=== PATIENT | female | born 1955 | race Caucasian/White ===

== ENCOUNTER 2016-11-11 09:59 | Outpatient (CLI) | payer MEDICARE, MEDICAID ==
[2016-11-11] MEDS ORDERED: IOPAMIDOL-300 100 ML VIAL IVP ONE (11:50)
[2016-11-11] MEDS ORDERED: IOPAMIDOL-300 50 ML VIAL PO ONE (11:50)
== END 2016-11-11 10:00 | disposition home or self-care (01) ==
DX: C50.911 Malignant neoplasm of unspecified site of right female breast (principal); C79.51 Secondary malignant neoplasm of bone; R16.1 Splenomegaly, not elsewhere classified

== ENCOUNTER 2017-05-23 08:10 | Outpatient (CLI) | payer MEDICARE, MEDICAID ==
[2017-05-23 08:49] LABS: CALCIUM 9.2 mg/dL (8.5-10.3); CREATININE 0.8 mg/dL (0.4-1.0); POTASSIUM 4.3 mmol/L (3.5-5.0)
[2017-05-23 08:58] LABS: HEMOGLOBIN A1C 1.02 g/dL
== END 2017-05-23 08:11 | disposition home or self-care (01) ==
LOC: LAB 08:10
PROVIDERS: ATTEND Internal Medicine
DX: E11.9 Type 2 diabetes mellitus without complications (principal); Z79.899 Other long term (current) drug therapy
CPT/HCPCS: 36415; 80048; 83036

== ENCOUNTER 2018-04-27 10:32 | Outpatient (CLI) | payer MEDICARE, MEDICAID ==
[2018-04-27] MEDS ORDERED: IOPAMIDOL-300 50 ML VIAL ONE (10:41)
[2018-04-27] MEDS ORDERED: IOPAMIDOL-300 100 ML VIAL ONE (10:41)
--- NOTE | 2018-04-27 13:48 | CT Report ---
Reason: R BREAST CANCER Procedure Date: 04/27/2018 Accession Number: [id number] / [id number] Procedure: CT - Chest W/ CPT Code: FULL RESULT: EXAM: CT CHEST EXAM DATE: 04/27/2018 12:10 PM. CLINICAL HISTORY: R BREAST CANCER. COMPARISONS: 05/21/2017. TECHNIQUE: Routine helical CT imaging was performed through the chest. IV contrast: 100 cc Isovue-300. Reconstructions: Coronal and sagittal. In accordance with CT protocol optimization, one or more of the following dose reduction techniques were utilized for this exam: automated exposure control, adjustment of mA and/or KV based on patient size, or use of iterative reconstructive technique. FINDINGS: Lungs/Pleura: No nodules, bronchial thickening, consolidation, or edema. Pulmonary vasculature is normal. No pericardial or pleural effusion. No pneumothorax. Mediastinum: Normal. No adenopathy or masses. The heart and great vessels are normal. Bones: Fracture of T9 with sclerotic and lucent regions appear similar. Areas of sclerosis in T10 without fracture. T11 left-sided sclerosis increased T12 sclerotic foci left with adjacent lucency similar. T3 possible hemangioma similar. Possible areas of sclerosis T4-T8. Other: Right breast clips IMPRESSION: 1. T9 fracture with sclerotic lytic region similar. 2. Other areas of sclerosis maybe increased in other thoracic vertebral bodies RADIA
--- NOTE | 2018-04-27 13:49 | CT Report ---
Reason: R BREAST CANCER Procedure Date: 04/27/2018 Accession Number: [id number] / [id number] Procedure: CT - Abdomen/Pelvis W/ CPT Code: FULL RESULT: EXAM: CT ABDOMEN AND PELVIS EXAM DATE: 04/27/2018 12:10 PM. CLINICAL HISTORY: R BREAST CANCER. COMPARISONS: 05/21/2017. TECHNIQUE: Routine helical CT imaging was performed through the abdomen and pelvis. IV contrast: ISOVUE 300 100mL. Enteric contrast: No. Reconstructions: Coronal and sagittal. In accordance with CT protocol optimization, one or more of the following dose reduction techniques were utilized for this exam: automated exposure control, adjustment of mA and/or KV based on patient size, or use of iterative reconstructive technique. FINDINGS: Liver: Fatty infiltrated Gallbladder/Bile Ducts: Cholelithiasis Spleen: Enlarged 16 cm Pancreas: Fatty infiltrated Adrenal Glands: Normal. Kidneys: Right kidney unremarkable. Left renal cyst Peritoneal Cavity/Bowel: No free fluid, free air or adenopathy. No masses or acute inflammatory process. Pelvic Organs: Normal. The bladder and visualized pelvic organs are within normal limits. Vasculature: No aneurysms or other significant abnormality. Bones: Sclerosis in L2 vertebral body. Possible sclerosis L4 Areas of sclerosis bilateral iliac medially Other: None. IMPRESSION: 1. Splenomegaly. 2. Increasing sclerosis in lumbar vertebral bodies. Areas of sclerosis bilateral ilium. 3. Cholelithiasis RADIA
[2018-04-27] MEDS ORDERED: IOPAMIDOL-300 100 ML VIAL IVP ONE (16:34)
[2018-04-27] MEDS ORDERED: IOPAMIDOL-300 50 ML VIAL PO ONE (16:34)
--- NOTE | 2018-04-28 11:26 | Nuclear Medicine Report ---
Reason: R BREAST CANCER Procedure Date: 04/27/2018 Accession Number: [id number] / [id number] Procedure: NM - Bone Whole Body CPT Code: FULL RESULT: EXAM: BONE SCAN EXAM DATE: 04/27/2018 03:37 PM. CLINICAL HISTORY: R BREAST CANCER. COMPARISON: Chest abdomen and pelvis CT, same day. Bone scan 11/11/2016. TECHNIQUE: Following the intravenous administration of 33.7 mCi of technetium 99m MDP and an appropriate delay, a whole-body scan was performed in anterior and posterior projections. FINDINGS: Exam Quality: Normal overall osseous radiotracer uptake. Physiological tracer uptake in bilateral collecting systems. Skull: No focal uptake. Thorax: There is a new small focus of increased uptake on the right side of the upper sternum. There may be very subtle bilateral rib lesions. Pelvis: There are new foci of increased uptake in right and left proximal femur, left acetabulum, and upper right posterior iliac bone. Spine: There is more intense uptake in T9 and T10. There are new foci of moderate to intensely increased uptake in the lower thoracic and upper lumbar spine. IMPRESSION: Multifocal skeletal metastatic disease, increased compared to prior bone scan. RADIA
== END 2018-04-27 10:33 | disposition home or self-care (01) ==
LOC: DI 10:32
PROVIDERS: ATTEND Internal Medicine Hematology & Oncology
DX: C50.911 Malignant neoplasm of unspecified site of right female breast (principal); C79.51 Secondary malignant neoplasm of bone; R16.1 Splenomegaly, not elsewhere classified; K80.20 Calculus of gallbladder without cholecystitis without obstruction
CPT/HCPCS: 71260; 74177; 78306

== ENCOUNTER 2018-05-08 17:04 | Outpatient (CLI) | payer MEDICARE, MEDICAID | END 2018-05-08 17:05 | disposition critical access hospital (66) | LOC: EMS 17:04 | PROVIDERS: ATTEND Surgery | DX: R10.9 Unspecified abdominal pain (principal); R11.10 Vomiting, unspecified | CPT/HCPCS: A0425; A0427 ==

== ENCOUNTER 2018-05-08 17:08 | Inpatient (IN) | payer MEDICARE, MEDICAID ==
--- NOTE | 2018-05-08 17:21 | ED Physician Documentation ---
PD HPI ABD PAIN - Stated complaint Stated Complaint: ABD PX - Chief complaint Chief Complaint: Abd Pain - History obtained from History obtained from: Patient - History of Present Illness Timing - onset: Yesterday Timing - details: Gradual onset, Still present (She states she had some loose stools several days ago without overt diarrhea. She then had had firm stool for the last several days and has noticed upper abdominal cramping and fullness starting yesterday and worse into today. She states she has not been able to eat or drink the last couple of days because it causes cramping in the upper abdomen in particular. She is having repetitive vomiting today associated with worse pain.) Quality: Cramping, Aching, Fullness/distended, Pain Location: All over / everywhere (but more in the upper abd.) Radiation: Upper back Improved by: Vomiting. No: Eating Worsened by: Eating, Palpation Associated symptoms: Nausea, Vomiting, Constipation (formed stool with feeling of needing to have BM the past few days.). No: Fever, Dysuria, Chest pain Similar symptoms before: Has not had sx before Review of Systems Constitutional: denies: Fever, Chills, Myalgias Nose: denies: Rhinorrhea / runny nose, Congestion Throat: denies: Sore throat Cardiac: denies: Chest pain / pressure Respiratory: denies: Dyspnea, Cough GI: reports: Abdominal Pain, Abdominal Swelling (mostly upper abd), Nausea, Vomiting. denies: Bloody / black stool : denies: Dysuria, Frequency Skin: denies: Rash, Lesions PD PAST MEDICAL HISTORY - Past Medical History Past Medical History: Yes Cardiovascular: Hypertension Respiratory: Sleep apnea, CPAP use Endocrine/Autoimmune: Type 2 diabetes GI: GERD, Hiatal hernia, Cholelithiasis RN CARDIOVASCULAR: Breast cancer : Incontinence HEENT: None Psych: Depression, Anxiety Musculoskeletal: Osteoarthritis, Other Derm: None - Past Surgical History Past Surgical History: Yes General: Colonoscopy /RN CARDIOVASCULAR: Endometrial ablation, Other - Present Medications Home Medications: Ambulatory Orders Medication Instructions Recorded Confirmed Calcium Carbonate [Calcium] 500 mg PO DAILY 04/04/15 04/06/18 Denosumab [Xgeva] 120 mg SUBQ Q28D 04/04/15 04/06/18 Biotin 5,000 mcg PO DAILY 10/16/15 04/06/18 clonazePAM [Clonazepam] 2 mg PO QPM 04/08/16 04/06/18 Tamoxifen 10 mg PO DAILY 06/02/17 04/06/18 Metformin HCl 1,000 mg PO BID 05/04/18 05/04/18 - Allergies Allergies/Adverse Reactions: Allergies Allergy/AdvReac Type Severity Reaction Status Date / Time oxycodone HCl * Allergy Mild itch Verified 05/04/18 10:47 [From Percocet] doxycycline Allergy Nausea Verified 05/04/18 10:47 - Social History Does the pt smoke?: No Smoking Status: Never smoker Does the pt drink ETOH?: No Does the pt have substance abuse?: No - Immunizations Immunizations are current?: Yes - POLST Patient has POLST: No PD ED PE NORMAL - Vitals Vital signs reviewed: Yes - General General: Alert and oriented X 3, Well developed/nourished, Other (appears in pain) - HEENT HEENT: Pharynx benign. No: Moist mucous membranes - Neck Neck: Supple, no meningeal sign, No adenopathy - Cardiac Cardiac: RRR, No murmur - Respiratory Respiratory: Clear bilaterally - Abdomen Abdomen: Soft, No organomegaly, Other (moderately distended with hyperactive BSs. Very tender upper abd; moderately tender mid abd. Not tender suprapubic per se. ). No: Normal bowel sounds - Female Female : No: Deferred - Rectal Rectal: Other (mild soft stool in vault; no impaction. Guiac negative. ) - Back Back: No CVA TTP - Derm Derm: Warm and dry. No: Normal color (some pallor) - Extremities Extremities: No deformity, No tenderness to palpate, No edema, No calf tenderness / cord - Neuro Neuro: Alert and oriented X 3, No motor deficit, Normal speech Results - Vitals Vitals: Vital Signs - 24 hr 05/08/18 05/08/18 05/08/18 17:09 18:30 19:25 Temperature 36.6 C 37.0 C Heart Rate 76 72 77 Respiratory 18 16 18 Rate Blood Pressure 141/68 H 122/73 O2 Saturation 97 97 96 Oxygen O2 Source Room air - Labs Labs: Laboratory Tests 05/08/18 05/08/18 05/08/18 17:55 17:55 17:55 WBC 2.7 L RBC 4.51 Hgb 12.4 Hct 36.0 L MCV 79.8 L MCH 27.5 MCHC 34.5 RDW 16.8 H Plt Count 121 L MPV 7.7 L Neut # (Auto) Not Reportable Lymph # (Auto) Not Reportable Nuckolls # (Auto) Not Reportable Eos # (Auto) Not Reportable Baso # (Auto) Not Reportable Absolute Nucleated RBC Not Reportable Total Counted 100 Band Neuts % (Manual) 4 Abnorm Lymph % (Manual) 0 Nucleated RBC % Not Reportable Neutrophils # (Manual) 2.2 Lymphocytes # (Manual) 0.2 L Monocytes # (Manual) 0.1 Eosinophils # (Manual) 0.0 Basophils # (Manual) 0.1 Differential Comment MANUAL DIFFERENTIAL Manual Slide Review Indicated Platelet Estimate DECREASED (<130,000) Platelet Morphology NORMAL APPEARANCE RBC Morph Micro Appear NORMAL APPEARANCE Sodium 135 Potassium 4.2 Chloride 100 L Carbon Dioxide 25 Anion Gap 10.0 BUN 11 Creatinine 0.8 Estimated GFR (MDRD) 72 L Glucose 309 H Lactic Acid 1.4 Calcium 8.9 Phosphorus Magnesium 1.8 Total Bilirubin 1.1 H AST 43 H ALT 46 Alkaline Phosphatase 49 Total Protein 6.6 L Albumin 3.5 Globulin 3.1 Albumin/Globulin Ratio 1.1 Lipase 18 L 05/08/18 17:55 WBC RBC Hgb Hct MCV MCH MCHC RDW Plt Count MPV Neut # (Auto) Lymph # (Auto) N[place]olls # (Auto) Eos # (Auto) Baso # (Auto) Absolute Nucleated RBC Total Counted Band Neuts % (Manual) Abnorm Lymph % (Manual) Nucleated RBC % Neutrophils # (Manual) Lymphocytes # (Manual) Monocytes # (Manual) Eosinophils # (Manual) Basophils # (Manual) Differential Comment Manual Slide Review Platelet Estimate Platelet Morphology RBC Morph Micro Appear Sodium Potassium Chloride Carbon Dioxide Anion Gap BUN Creatinine Estimated GFR (MDRD) Glucose Lactic Acid Calcium Phosphorus 3.6 Magnesium Total Bilirubin AST ALT Alkaline Phosphatase Total Protein Albumin Globulin Albumin/Globulin Ratio Lipase - Rads (name of study) abd/pelvis CT Radiology: Prelim report reviewed (acute cholecystitis with gallstone ileus.), EMP read contemporaneously PD MEDICAL DECISION MAKING - ED course Complexity details: reviewed results, re-evaluated patient (Improving pain with IV medications. She is still operator brandy in the upper abdomen. She is not having any vomiting now at this time.), considered differential (Concern for gallbladder versus pancreatitis versus acute bowel obstruction or ileus. She is distended with vomiting. She is tender in the upper abdomen mainly. We will do blood tests and CT scan. Worrisome would be her comorbidities of the breast cancer and bone marrow suppression. We will check her blood count and platelet count.), d/w patient, d/w independent consultant (eRnaldo Burt, surgery, who will see patient in the ER. ) Departure - Departure Disposition: 66 [facility] DC/Xfer Clinical Impression: Gallstone ileus of small intestine, Cholecystitis Abdominal pain Qualifiers: Abdominal location: upper abdomen, unspecified Qualified Code(s): R10.10 - Upper abdominal pain, unspecified Vomiting Qualifiers: Vomiting type: unspecified Vomiting Intractability: non-intractable Nausea presence: with nausea Qualified Code(s): R11.2 - Nausea with vomiting, unspecified Condition: Stable Record reviewed to determine appropriate education?: Yes
[2018-05-08] MEDS ORDERED: HYDROmorphone 1 MG/ML CARPUJECT IVP STA ×2 (17:37→18:19)
[2018-05-08] MEDS ORDERED: ONDANSETRON 4 MG/2 ML VIAL IVP STA (17:37)
[2018-05-08] MEDS ORDERED: SODIUM CHLORIDE 0.9% 1,000 ML IV ONE (17:37)
[2018-05-08 18:02] LABS: BASOPHILS % (AUTO) 0.8 %; EOSINOPHILS % (AUTO) 2.8 %; HGB - HEMOGLOBIN 12.4 g/dL (12.0-16.0); LYMPHOCYTES % (AUTO) 10.1 %; MEAN CORPUSCULAR HEMOGLOBIN 27.5 pg (27.0-31.0); MEAN CORPUSCULAR HGB CONC 34.5 g/dL (32.0-36.0); MEAN CORPUSCULAR VOLUME 79.8 fL (81.0-99.0); MEAN PLATELET VOLUME 7.7 fL (7.9-10.8); MONOCYTES % (AUTO) 5.7 %; NEUTROPHILS % (AUTO) 80.6 %; PLT - PLATELET COUNT 121 10^3/uL (130-450); RED BLOOD COUNT 4.51 10^6/uL (4.20-5.40); RED CELL DISTRIBUTION WIDTH 16.8 % (12.0-15.0); WHITE BLOOD COUNT 2.7 x10^3/uL (4.8-10.8)
[2018-05-08 18:08] LABS: ABNORMAL LYMPHS % (MANUAL) 0 %
[2018-05-08] MEDS ORDERED: IOPAMIDOL-300 100 ML VIAL ONE (18:14)
[2018-05-08 18:16] LABS: ALBUMIN 3.5 g/dL (3.2-5.5); ALBUMIN/GLOBULIN RATIO 1.1 (1.0-2.2); BILIRUBIN,TOTAL 1.1 mg/dL (0.2-1.0); CALCIUM 8.9 mg/dL (8.5-10.3); CREATININE 0.8 mg/dL (0.4-1.0); MAGNESIUM 1.8 mg/dL (1.7-2.8); TOTAL PROTEIN 6.6 g/dL (6.7-8.2)
[2018-05-08] MEDS ORDERED: IOPAMIDOL-300 100 ML VIAL IVP ONE (18:43)
[2018-05-08 18:46] LABS: BAND NEUTROPHILS % (MANUAL) 4 %; BASOPHILS # (MANUAL) 0.1 10^3/uL (0-0.1); BASOPHILS % (MANUAL) 3 %; LYMPHOCYTES # (MANUAL) 0.2 10^3/uL (1.5-3.5); LYMPHOCYTES % (MANUAL) 9 %; MONOCYTES # (MANUAL) 0.1 10^3/uL (0.0-1.0); NEUTROPHILS # (MANUAL) 2.2 10^3/uL (1.5-6.6); NEUTROPHILS % (MANUAL) 78 %
[2018-05-08 18:48] LABS: DIFFERENTIAL COMMENT MANUAL DIFFERENTIAL; PLATELET ESTIMATE, MANUAL DECREASED (<130,000) (NORMAL); PLATELET MORPHOLOGY NORMAL APPEARANCE (NORMAL); RBC MORPHOLOGY (MULTIPLE) NORMAL APPEARANCE (NORMAL)
--- NOTE | 2018-05-08 19:06 | CT Report ---
Reason: abd pain and bloating for few days; worse Procedure Date: 05/08/2018 Accession Number: [id number] / [id number] Procedure: CT - Abdomen/Pelvis W/ CPT Code: FULL RESULT: EXAM: CT ABDOMEN AND PELVIS EXAM DATE: 05/08/2018 06:52 PM. CLINICAL HISTORY: Abdomen pain and bloating for few days; worse. COMPARISONS: Abdomen/pelvis with contrast 04/27/2018 11:59 AM. TECHNIQUE: Routine helical CT imaging was performed through the abdomen and pelvis. IV contrast: Isovue-300 100 mL. Enteric contrast: No. Reconstructions: Coronal and sagittal. In accordance with CT protocol optimization, one or more of the following dose reduction techniques were utilized for this exam: automated exposure control, adjustment of mA and/or KV based on patient size, or use of iterative reconstructive technique. FINDINGS: Lung Bases: Unremarkable. Liver: Hypodense liver with no focal lesions. The hepatic and portal veins are patent. Gallbladder/Bile Ducts: There is a partially calcified stone within the gallbladder. Air is seen within the gallbladder lumen and there is mural thickening, irregularity enhancement with pericholecystic inflammatory changes. There is also mild inflammatory enhancement of the adjacent duodenum. There is mild dilatation of the small bowel with a 1.7 cm stone in the mid jejunum. Spleen: Normal. Pancreas: Normal. Adrenal Glands: Normal. Kidneys: Normal. No masses or hydronephrosis. Peritoneal Cavity/Bowel: Small bowel dilatation as above secondary to a 1.7 cm mid jejunal stone. The appendix is well visualized and normal. Pelvic Organs: Small amount of dependent fluid within the pelvis considered physiologic. Vasculature: No aneurysms or other significant abnormality. Bones: No significant abnormality. Other: None. IMPRESSION: 1. Cholecystitis with gallstone ileus. 2. Mild fatty liver infiltration. RADIA
[2018-05-08] MEDS ORDERED: HYDROmorphone 2 MG/ML VIAL IVP STA (20:01)
[2018-05-08] MEDS ORDERED: LIDOCAINE VISCOUS 2% 15 ML UDC MM STA (20:50)
--- NOTE | 2018-05-08 20:57 | CONSULTATION NOTE ---
Referring Provider Name of Referring Provider:: Dr. Alas Consult Date: 05/08/18 Chief Complaint - Chief Complaint Chief Complaint: abd pain, N/V History of Present Illness - Admitted From Admitted From:: ER - History Obtained From Records Reviewed: yes History obtained from: pt Exam Limitations: none - History of Present Illness HPI Comment/Other: 62 yo female with PMH of Stage 4 breast cancer and myelodysplastic syndrome, followed by Dr. Marte of medical oncology, with 3 day hx of loose nonbloody stools followed by small hard nonbloody stool today and onset this morning of crampy periumbilical abd pain associated with N/V x 4 on nonbloody material. No fever/chills or recent wt loss. She has a hx of complicated gallbladder disease, with what sounds like gallstone ileus 2 years ago with a gallstone eroding into the duodenum treated at [facility] with endoscopic removal. Her gallbladder was not removed. No gallbladder sx since, including no RUQ pain or food intolerance, jaundice or acholic stools. She has a FH gallbladder disease in her mother. Evaluation with CT of abd/pelvis today showed a fatty liver, air and stones in the gallbladder, thickening of the gallbladder wall and duodenum, and a 1.7 cm calcified gallstone in the mid jejunum associated with mild proximal small bowel dilatation. She currently continues to c/o crampy abd pain but no further N/V. 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 [employer]ILDER: reports: Endometrial ablation, Other (right breast lumpectomy and axillary lymph node dissection) - Family & Social History Family History Comment/Other: Gallbladder disease in mother; neg for CRC Living arrangement: At home Living Situation: Alone - Substance History Use: Uses substance without health or social issues: NONE Abuse: Recurrent use of substance despite neg consequences: NONE Dependence: Experiences withdrawal or developed tolerances: NONE - POLST Patient has POLST: No Meds/Allgy - Home Medications Home Medications: Ambulatory Orders Medication Instructions Recorded Confirmed Calcium Carbonate [Calcium] 500 mg PO DAILY 04/04/15 04/06/18 Denosumab [Xgeva] 120 mg SUBQ Q28D 04/04/15 04/06/18 Biotin 5,000 mcg PO DAILY 10/16/15 04/06/18 clonazePAM [Clonazepam] 2 mg PO QPM 04/08/16 04/06/18 Tamoxifen 10 mg PO DAILY 06/02/17 04/06/18 Metformin HCl 1,000 mg PO BID 05/04/18 05/04/18 - Allergies Allergies/Adverse Reactions: Allergies Allergy/AdvReac Type Severity Reaction Status Date / Time oxycodone HCl * Allergy Mild itch Verified 05/04/18 10:47 [From Percocet] doxycycline Allergy Nausea Verified 05/04/18 10:47 Review of Systems - Constitutional Constitutional: reports: Poor appetite. denies: Fever, Chills, Weight gain, Weight loss - Cardiovascular Cariovascular: denies: Chest pain - Respiratory Respiratory: reports: Apnea (sleep apnea/CPAP). denies: Cough - Gastrointestinal Gastrointestinal: reports: Abdominal pain, Abdominal distention, Constipation, Diarrhea, Change in bowel habits, Nausea, Vomiting. denies: Rectal bleeding, B lack stools, Bloody stools, Nir blood emesis, Coffee grounds emesis - Musculoskeletal Musculoskeletal: reports: Joint pain - Hematologic/Lymphatic Hematologic/Lymphatic: reports: Anemia. denies: Blood clots, Bleeding te ndencies - All Other Systems All Other Systems: reports: Reviewed and negative Exam - Vital Signs Reviewed Vital Signs: Yes Vital Signs: Vital Signs x48h Temp Pulse Resp BP Pulse Ox 05/08/18 19:25 37.0 C 77 18 122/73 96 05/08/18 18:30 72 16 97 05/08/18 17:09 36.6 C 76 18 141/68 H 97 - Physical Exam General Appearance: positive: Alert, Moderate distress Eyes Bilateral: positive: Normal inspection, Conjunctivae nml, No scleral icterus ENT: positive: Oral lesions (coated tongue), Dry mucous membranes Neck: positive: No JVD, Trachea midline. negative: Lymphadenopathy (R), Lymphadenopathy (L) Respiratory: positive: Chest non-tender, No respiratory distress, Breath sounds nml. negative: Wheezes, Rales, Rhonchi Cardiovascular: positive: Regular rate & rhythm, No murmur, No gallop Peripheral Pulses: positive: 2+ Abdomen: positive: No distention (marked truncal obesity), Tenderness (mild di ffuse, no peritoneal signs), Abnml bowel sounds (mildly hyperactive). negative: Guarding, Rebound, Hepatomegaly, Splenomegaly, Mass Skin: positive: Color nml, No rash, Warm, Dry. negative: Cyanosis Extremities: positive: Nml appearance. 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 SBO may be partial, stone is not large (1.7cm). Cholecystitis-likely chronic, poss acute component. No clinical evidence of acute abdomen/acute cholecystitis at present. - Plan Plan: Admit, bowel rest, NG suction, IV antibiotic therapy, serial exams and xrays of abd. To OR if stone fails to pass into colon and/or sx of complete sbo develop. Discussed in detail with pt and Dr. Dubon, who agree with this plan. - Lab Results Fish Bones: 05/08/18 17:55 05/08/18 17:55 - Diagnostic Imaging Results Diagnostic Imaging Results: positive: Final report reviewed, Read independently Diagnostic Imaging Results Comments: see HPI
[2018-05-08] MEDS ORDERED: ONDANSETRON 4 MG/2 ML VIAL IVP PRN (21:32)
[2018-05-08] MEDS ORDERED: PROMETHAZINE 25 MG/1 ML VIAL IM PRN (21:32)
[2018-05-08] MEDS ORDERED: ZOLPIDEM 5 MG TABLET PO PRN (21:32)
[2018-05-08] MEDS ORDERED: ACETAMINOPHEN 325 MG TABLET PO PRN (21:32)
[2018-05-08] MEDS ORDERED: PROCHLORPERAZINE 10 MG/2 ML VIAL IVP PRN (21:32)
[2018-05-08] MEDS: SODIUM CHLORIDE 0.9% 1,000 ML IV SCH (22:36)
[2018-05-08] MEDS: SODIUM CHLORIDE FLUSH 0.9% 10 ML SYRINGE IVP PRN (22:36)
[2018-05-08] MEDS: PIPERACILLIN/TAZOBACTAM 3.375 GM in SODIUM CHLORIDE 0.9% MINIBAG 100 ML IV SCH (22:36)
[2018-05-08] MEDS: HYDROmorphone 1 MG/ML CARPUJECT IVP PRN (22:36)
[2018-05-08] MEDS ORDERED: clonazePAM 0.5 MG TABLET PO SCH (23:00)
--- NOTE | 2018-05-08 23:59 | HISTORY & PHYSICAL EXAMINATION ---
Chief Complaint - Chief Complaint Chief Complaint: Abdominal Pain History of Present Illness - Admitted From Admitted From:: Emergency Department - History Obtained From Records Reviewed: Yes History obtained from: Patient Exam Limitations: None - History of Present Illness HPI Comment/Other: Patient is a very pleasant 62-year-old female who has an unfortunate past medical history significant for stage IV metastatic breast cancer with metastasis to T9 vertebra currently on tamoxifen and denosumab for bony metastasis, Heiskell dysplastic syndrome with pancytopenia, autoimmune hemolytic anemia, obesity, depression, anxiety, recent diagnosis of diabetes on metformin, obstructive sleep apnea on CPAP and history of gallstones who presented to the emergency department with a chief complaint of abdominal pain. The patient s tates that she was in her normal state of health until 05/03/2018 when she states that she began to notice that she would get slightly nauseated every time she would have a meal. She states that the symptoms continued throughout the week. Then yesterday she states that after she had her breakfast she got nauseated and started having some abdominal cramping. She states that this only lasted for sh ort duration of time and was only mild discomfort so she continued on with her normal day. She states that this morning after she had tea and toast she began having severe abdominal cramping. She states this was diffuse and 10 out of 10 in severity of pain. She states that the pain continued throughout the day and at around 5 PM she began vomiting. She had several episodes of emesis and continued to feel nauseated. She states that she had 2 bowel movements during the day but with both of them she had to put in a great deal of effort to move her bowels. She states when this evening she continued to be nauseated and the pain was not being controlled she finally decided to come into the emergency department. The patient states that 2 years ago she was hospitalized at [facility] for a duodenal gallstone which was removed laparoscopically. The patient otherwise denies any fevers or chills. She denies any diarrhea, urinary urgency, urinary frequency or dysuria. The patient denies any chest pain or cough. The patient denies any headaches, blurred vision, runny nose, sore throat, nasal congestion, difficulty swallowing, palpitations, shortness of air, orthopnea, PND, increased lower extremity swelling, joint pain, muscle aches, joint swelling, back pain, neck stiffness, recent unintentional weight loss, she does admit to a decreased appetite. She denies any skin rashes, hair loss, night sweats or any focal neurologic deficits. On presentation to the emergency department the patient was afebrile and mildly hypertensive but otherwise vital signs are within normal limits. The patient's lab work revealed a mild leukopenia of 2.7 which is near her baseline, hemoglobin of 12.4 and a platelet count of 121 which is also near her baseline. The patient's serum chemistry was significant for an elevated glucose of 309 and a mildly elevated bilirubin and AST but was otherwise unremarkable. The patient underwent a CT of her abdomen and pelvis which revealed cholecystitis with gallstone ileus. She also had mild fatty liver infiltration. The emergency room physician called the general surgeon intervention manager Dr. Burt who came and assessed the patient in the emergency room. He felt that the gallstone ileus was only causing a partial bowel obstruction and it was not a large gallstone therefore the patient did not need emergent surgery for retraction of the gallstone. He asked that we admit the patient and treat her medically with IV antibiotics for possible cholecystitis and repeat a x-ray of her abdomen in the morning to see if the gallstone is passing through otherwise he would need to perform surgery. The patient was admitted to the [facility] for gallstone ileus and cholecystitis. History - Past Medical History Cardiovascular: reports: Hypertension Respiratory: reports: Sleep apnea, CPAP use Endocrine/Autoimmune: reports: Type 2 diabetes GI: reports: GERD, Hiatal hernia, Cholelithiasis ROTARY SHEAR CUTTER: reports: Breast cancer : reports: Incontinence HEENT: reports: None Psych: reports: Depression, Anxiety Musculoskeletal: reports: Osteoarthritis, Other Derm: reports: None MRSA Hx?: No Other Past Medical History: myelodysplastic syndrome - Past Surgical History General: reports: Colonoscopy /ROTARY SHEAR CUTTER: reports: Endometrial ablation, Other - Family & Social History Family History: Mother: , Cancer (Multiple myeloma), Father: , CAD, Diabetes, Type 2, Brother: Alcoholism, CAD Family History Comment/Other: Gallbladder disease in mother; neg for CRC Living arrangement: At home Living Situation: Alone Social History Notes: [facility] [place] [facility] [address] [place]. She lives alone but has many friends in the apartment complex. The patient is 1 of 7 siblings but all of her siblings are estranged. The patient was born in [place] and moved to [place] at the age of 1 when her family emigrated. She moved to [facility] 3 years ago to be closer to her sister who lives in [place] however her sister has not wanted anything to do with her as she is dealing with her own mental health issues. The patient has never been and does not have any children. 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 She is currently retired. She has never smoked, she does not drink alcohol and denies any illicit drug use. - Substance History Use: Uses substance without health or social issues: NONE Abuse: Recurrent use of substance despite neg consequences: NONE Dependence: Experiences withdrawal or developed tolerances: NONE - POLST Patient has POLST: No POLST Status: DNR Meds/Allgy - Home Medications Home Medications: Ambulatory Orders Medication Instructions Recorded Confirmed Calcium Carbonate [Calcium] 500 mg PO DAILY 04/04/15 04/06/18 Denosumab [Xgeva] 120 mg SUBQ Q28D 04/04/15 04/06/18 Biotin 5,000 mcg PO DAILY 10/16/15 04/06/18 clonazePAM [Clonazepam] 2 mg PO QPM 04/08/16 04/06/18 Tamoxifen 10 mg PO DAILY 06/02/17 04/06/18 Metformin HCl 1,000 mg PO BID 05/04/18 05/04/18 - Allergies Allergies/Adverse Reactions: Allergies Allergy/AdvReac Type Severity Reaction Status Date / Time oxycodone HCl * Allergy Mild itch Verified 05/04/18 10:47 [From Percocet] doxycycline Allergy Nausea Verified 05/04/18 10:47 Review of Systems - Other Findings Other Findings: A comprehensive review of systems was performed the pertinent positives and negatives are stated above in the HPI and the remainder of the review of systems is negative. Prior Level of Functionality: Patient is completely independent with all her activities of daily living. Exam - Vital Signs Reviewed Vital Signs: Yes Vital Signs: Vital Signs x48h Temp Pulse Pulse Resp BP BP Pulse Ox 05/08/18 22:36 36.6 C 81 16 143/84 H 97 05/08/18 19:25 37.0 C 77 18 122/73 96 05/08/18 18:30 72 16 97 10/13/18 17:09 36.6 C 76 18 141/68 H 97 - Physical Exam General Appearance: positive: Alert, Mild distress (Secondary to abdominal pain and nausea) Eyes Bilateral: positive: Normal inspection, PERRL, EOMI, No lid inflammation, Conjunctivae nml, No scleral icterus ENT: positive: ENT inspection nml, Pharynx nml, Dry mucous membranes. negative: Purulent nasal drainage, Pharyngeal erythema, Oral lesions Neck: positive: Nml inspection, Thyroid nml, No JVD, Trachea midline. negative: Thyromegaly, Lymphadenopathy (R), Lymphadenopathy (L), Stiff neck, Carotid bruit, Tracheal deviation Respiratory: positive: Chest non-tender, No respiratory distress, Breath sounds nml. negative: Wheezes, Rales, Rhonchi Cardiovascular: positive: Regular rate & rhythm, No murmur, No gallop Peripheral Pulses: positive: 2+ Abdomen: positive: Non-tender, No organomegaly, Nml bowel sounds, Tenderness (Diffusely tender, soft with no peritoneal signs), Other (Mildly distended especially in the upper abdomen). negative: Guarding, Rebound Back: positive: Nml inspection. negative: CVA tenderness (R), CVA tenderness (L) Skin: positive: Color nml, No rash, Warm, Dry. negative: Cyanosis, Diaphoresis, Pallor, Skin rash Extremities: positive: Non-tender, Full ROM, Nml appearance, No pedal edema Neurologic/Psychiatric: positive: Oriented x3, CN's nml (2-12), Motor nml, Sensation nml, Mood/affect nml Conclusion/Plan - Problem List (1) Gallstone ileus of small intestine Conclusion/Plan: The patient presented with abdominal pain, nausea and vomiting. The patient was found to have gallstone ileus on CT of her abdomen. Surgery was consulted in the emergency department and felt the patient did not need emergent surgery to retrieve the gallstone at this time given that she was stable, without peritoneal signs and the gallstone was small and could possibly pass through. According to the surgeon removing the gallbladder is not indicated at any point once patient has developed a fistula between duodenum and the biliary system. According to the revised cardiac risk index the patient's preoperative risk of major cardiac event is 0.9% as she will be treated with preoperative insulin but otherwise has no history of ischemic heart disease, congestive heart failure, cerebrovascular disease or chronic kidney disease. Plan: N.p.o. IV fluids NG tube Surgical consult Repeat abdominal x-ray in the morning if gallstone is passing through may consider continuing with just medical management if not passing through or patient's symptoms worsen then patient will need surgical retrieval of the gallstone Pain control with IV Dilaudid Nausea control with IV antiemetics (2) Cholecystitis Conclusion/Plan: Patient presented with abdominal pain, nausea and vomiting. Patient is not febrile nor does she have a leukocytosis but she has myelodysplastic syndrome and will always be leukopenic. The patient has diffuse abdominal tenderness. CT findings are suggestive of cholecystitis and gallstone ileus. Although patient does not have overt symptoms of cholecystitis given the CT findings the patient needs treatment with IV antibiotics. Cholecystectomy is not indicated in the setting of gallstone ileus or fistula between the biliary tract and duo denum as it is a highly risky procedure. Plan: IV Zosyn N.p.o. Surgical consult IV Dilaudid for pain control IV antiemetics for nausea control IV fluids Monitor LFTs (3) Diabetes mellitus Conclusion/Plan: Patient has recently been diagnosed with diabetes and she was found to have a hemoglobin A1c of 10. She had been started on metformin. On presentation to the emergency department today the patient has hyperglycemic with a blood glucose of 309. This is likely elevated in the setting of ongoing cholecystitis and gallstone ileus. Plan: Hold metformin IV fluids Patient will be placed on n.p.o. sliding scale insulin We will check blood glucose 4 times a day and give insulin in accordance Check hemoglobin A1c Qualifiers: Diabetes mellitus type: type 2 Diabetes mellitus ad terminal makeup operator insulin use: without care home use Diabetes mellitus complication status: with hype rglycemia Qualified Code(s): E11.65 - Type 2 diabetes mellitus with hyper glycemia (4) Hypertension Conclusion/Plan: Patient has a history of hypertension and was hypertensive initially on presentation but blood pressure improved with improvement in pain. At home the patient is no longer on any antihypertensive medications as she states her blood pressure has been controlled ever since her diagnosis of cancer. While the rubi ent is hospitalized we will monitor her blood pressure and will continue to strive for pain control. Qualifiers: Hypertension type: essential hypertension Qualified Code(s): I10 - Essential (primary) hypertension (5) Breast cancer metastasized to bone Conclusion/Plan: The patient has a history of right breast cancer diagnosed in 2013, treated with surgery and right axillary lymph node dissection. Since she has developed bony metastasis with low back pain and has metastases to T9 and T10 vertebral bodies. She has been on Faslodex since 12/2013 and stopped it on 05/2017. She is on tamoxifen currently and also on denosumab monthly. While she is hospitalized we will continue her on tamoxifen. We will give her medications for pain control. And monitor her closely. Qualifiers: Laterality: right Qualified Code(s): C50.911 - Malignant neoplasm of unspecified site of right female breast; C79.51 - Secondary malignant neoplasm of bone (6) Myelodysplasia (myelodysplastic syndrome) Conclusion/Plan: The patient has chronic myelodysplastic syndrome and has history of chronic pancytopenia. Today the patient's WBC is 2.7 which is near her baseline, her hemoglobin is 12.4 which is in the normal range and her platelet count is 121 which is near her baseline as well. The patient's mild dysplastic syndrome seems to be stable at this time and she is not requiring any transfusions. This bone marrow dysfunction does leave the patient amino compromised therefore we will need to be vigilant of possible development of sepsis given her cholecystitis and gallstone ileus. (7) Anxiety and depression Conclusion/Plan: The patient does have a history of anxiety and depression. She takes clonazepam at home. She will be continued on her home dose of clonazepam while she is hospitalized. Currently the patient's mood appears to be stable. (8) SONYA on CPAP Conclusion/Plan: The patient has a history of obstructive sleep apnea and is on BiPAP at home. The patient forgot her BiPAP machine at home. She has been instructed to ask someone to bring in her machine as she lives just across the street. She will be continued on her home BiPAP at night once it has arrived. - Lab Results Lab results reviewed: Yes Fish Bones: 05/08/18 17:55 05/08/18 17:55 Other Lab Results: Laboratory Results WBC 2.7 x10^3/uL (4.8-10.8) L 05/08/18 17:55 RBC 4.51 10^6/uL (4.20-5.40) 05/08/18 17:55 Hgb 12.4 g/dL (12.0-16.0) 05/08/18 17:55 Hct 36.0 % (37.0-47.0) L 05/08/18 17:55 MCV 79.8 fL (81.0-99.0) L 05/08/18 17:55 MCH 27.5 pg (27.0-31.0) 05/08/18 17:55 MCHC 34.5 g/dL (32.0-36.0) 05/08/18 17:55 RDW 16.8 % (12.0-15.0) H 05/08/18 17:55 Plt Count 121 10^3/uL (130-450) L 05/08/18 17:55 MPV 7.7 fL (7.9-10.8) L 05/08/18 17:55 Neut # (Auto) Not Reportable 05/08/18 17:55 Lymph # (Auto) Not Reportable 05/08/18 17:55 Nance # (Auto) Not Reportable 05/08/18 17:55 Eos # (Auto) Not Reportable 05/08/18 17:55 Baso # (Auto) Not Reportable 05/08/18 17:55 Absolute Nucleated RBC Not Reportable 05/08/18 17:55 Total Counted 100 05/08/18 17:55 Band Neuts % (Manual) 4 % (0-10) 05/08/18 17:55 Abnorm Lymph % (Manual) 0 % 05/08/18 17:55 Nucleated RBC % Not Reportable 05/08/18 17:55 Neutrophils # (Manual) 2.2 10^3/uL (1.5-6.6) 18 17:55 Lymphocytes # (Manual) 0.2 10^3/uL (1.5-3.5) L 05/08/18 17:55 Monocytes # (Manual) 0.1 10^3/uL (0.0-1.0) 05/08/18 17:55 Eosinophils # (Manual) 0.0 10^3/uL (0-0.7) 05/08/18 17:55 Basophils # (Manual) 0.1 10^3/uL (0-0.1) 05/08/18 17:55 Differential Comment MANUAL DIFFERENTIAL 05/08/18 17:55 Manual Slide Review Indicated 05/08/18 17:55 Platelet Estimate DECREASED (<130,000) (NORMAL) 05/08/18 17:55 Platelet Morphology NORMAL APPEARANCE (NORMAL) 05/08/18 17:55 RBC Morph Micro Appear NORMAL APPEARANCE (NORMAL) 05/08/18 17:55 Sodium 135 mmol/L (135-145) 05/08/18 17:55 Potassium 4.2 mmol/L (3.5-5.0) 05/08/18 17:55 Chloride 100 mmol/L (101-111) L 05/08/18 17:55 Carbon Dioxide 25 mmol/L (21-32) 05/08/18 17:55 Anion Gap 10.0 (6-13) 05/08/18 17:55 BUN 11 mg/dL (6-20) 05/08/18 17:55 Creatinine 0.8 mg/dL (0.4-1.0) 05/08/18 17:55 Estimated GFR (MDRD) 72 (>89) L 05/08/18 17:55 Glucose 309 mg/dL (70-100) H 05/08/18 17:55 Lactic Acid 1.4 mmol/L (0.5-2.2) 05/08/18 17:55 Calcium 8.9 mg/dL (8.5-10.3) 05/08/18 17:55 Phosphorus 3.6 mg/dL (2.5-4.6) 05/08/18 17:55 Magnesium 1.8 mg/dL (1.7-2.8) 05/08/18 17:55 Total Bilirubin 1.1 mg/dL (0.2-1.0) H 05/08/18 17:55 AST 43 IU/L (10-42) H 05/08/18 17:55 ALT 46 IU/L (10-60) 05/08/18 17:55 Alkaline Phosphatase 49 IU/L (42-121) 05/08/18 17:55 Total Protein 6.6 g/dL (6.7-8.2) L 05/08/18 17:55 Albumin 3.5 g/dL (3.2-5.5) 05/08/18 17:55 Globulin 3.1 g/dL (2.1-4.2) 05/08/18 17:55 Albumin/Globulin Ratio 1.1 (1.0-2.2) 05/08/18 17:55 Lipase 18 U/L (22-51) L 05/08/18 17:55 - Diagnostic Imaging Results Diagnostic Imaging Results: positive: Final report reviewed Diagnostic Imaging Results Comments: CT abdomen/pelvis Impression: 1. Cholecystitis with gallstone ileus. 2. Mild fatty liver infiltration. - EKG Results EKG Interpreted Independently: Yes EKG Findings: No ST elevations or ischemic changes. Sinus rhythm Core Measures - Anticipated LOS I expect patient to be DC'd or transferred within 96 hours.: Yes - DVT/VTE - Prophylaxis VTE/DVT Device ordered at admit?: Yes
[2018-05-09] MEDS: INSULIN REGULAR HUMAN 100 UNIT/1 ML 10 ML MDV SUBQ SCH ×5 (00:08→18:09)
[2018-05-09] MEDS: SODIUM CHLORIDE FLUSH 0.9% 10 ML SYRINGE IVP SCH ×3 (00:16→17:01)
[2018-05-09] MEDS: SODIUM CHLORIDE FLUSH 0.9% 10 ML SYRINGE IVP PRN ×2 (04:15→06:21)
[2018-05-09] MEDS: HYDROmorphone 1 MG/ML CARPUJECT IVP PRN ×6 (04:15→21:17)
[2018-05-09] MEDS: PIPERACILLIN/TAZOBACTAM 3.375 GM in SODIUM CHLORIDE 0.9% MINIBAG 100 ML IV SCH ×4 (04:15→22:23)
[2018-05-09] MEDS: SODIUM CHLORIDE 0.9% 1,000 ML IV SCH ×4 (05:53→22:22)
[2018-05-09 06:06] LABS: BASOPHILS % (AUTO) 0.3 %; EOSINOPHILS % (AUTO) 0.5 %; HGB - HEMOGLOBIN 12.9 g/dL (12.0-16.0); LYMPHOCYTES # (AUTO) 0.3 10^3/uL (1.5-3.5); LYMPHOCYTES % (AUTO) 6.9 %; MEAN CORPUSCULAR HGB CONC 33.1 g/dL (32.0-36.0); MEAN CORPUSCULAR VOLUME 81.5 fL (81.0-99.0); MONOCYTES # (AUTO) 0.3 10^3/uL (0.0-1.0); MONOCYTES % (AUTO) 7.2 %; NEUTROPHILS # (AUTO) 3.8 10^3/uL (1.5-6.6); NEUTROPHILS % (AUTO) 85.1 %; PLT - PLATELET COUNT 155 10^3/uL (130-450); RED BLOOD COUNT 4.78 10^6/uL (4.20-5.40); RED CELL DISTRIBUTION WIDTH 16.8 % (12.0-15.0); WHITE BLOOD COUNT 4.4 x10^3/uL (4.8-10.8)
[2018-05-09 06:14] LABS: ALBUMIN 3.5 g/dL (3.2-5.5); ALBUMIN/GLOBULIN RATIO 1.1 (1.0-2.2); BILIRUBIN,TOTAL 0.7 mg/dL (0.2-1.0); CALCIUM 8.6 mg/dL (8.5-10.3); CREATININE 0.9 mg/dL (0.4-1.0); PHOSPHORUS 5.1 mg/dL (2.5-4.6); TOTAL PROTEIN 6.8 g/dL (6.7-8.2)
[2018-05-09 06:26] LABS: PT - PROTHROMBIN TIME 11.3 secs (9.9-12.6)
[2018-05-09 07:59] LABS: HB2 TOTAL 13.2 g/dL; HEMOGLOBIN A1C 1.03 g/dL; HEMOGLOBIN A1C % 9.3 % (4.6-6.2)
[2018-05-09] MEDS ORDERED: ENOXAPARIN 40 MG/0.4 ML SYRINGE SUBQ SCH (09:00)
[2018-05-09] MEDS ORDERED: POLYETHYLENE GLYCOL 3350 17 GM PACKET PO SCH (09:00)
[2018-05-09] MEDS ORDERED: TAMOXIFEN 10 MG TABLET PO SCH (09:00)
[2018-05-09] MEDS ORDERED: ACETAMINOPHEN 1,000 MG/100 ML 100 ML IV PRN (09:13)
[2018-05-09] MEDS: FAMOTIDINE 20 MG/50 ML 50 ML IV SCH ×2 (09:16→20:30)
--- NOTE | 2018-05-09 10:07 | XRAY Report ---
Reason: Gallstone ileus Procedure Date: 05/09/2018 Accession Number: [id number] / [id number] Procedure: XR - Abdomen Acute CPT Code: FULL RESULT: EXAM: ABDOMINAL SERIES AND PA CHEST EXAM DATE: 05/09/2018 09:21 AM. CLINICAL HISTORY: Gallstone ileus. COMPARISON: Abdominal CT dated 05/08/2018. TECHNIQUE: 2 views abdomen and 1 view chest. FINDINGS: CHEST: Lungs/Pleura: No focal opacities. No effusion or pneumothorax. Mediastinum: Within exam limitations, cardiomediastinal contour is normal. ABDOMEN: Bowel Gas Pattern: Multiple dilated loops of air and fluid filled small bowel measuring up to 35 mm in diameter with multiple air-fluid levels seen on the upright view. Air and stool in the colon. Free Air: None. Other: None. IMPRESSION: 1. Persistent or partial small bowel obstruction with no transition point identified on today's examination. 2. The previously seen obstructing gallstone in the distal ileum on the abdominal CT dated 05/08/2018 is not well visualized, likely due to technique, on today's examination. RADIA
--- NOTE | 2018-05-09 10:10 | PROVIDER PROGRESS NOTE ---
Assessment/Plan - Problem List (1) Gallstone ileus of small intestine Assessment/Plan: No clinical or radiographic improvement. Plan: laparoscopic/open treatment of same with enterolithotomy, possible small bowel resection. The gallbladder will most likely be left in situ, due to the well known markedly increased risk of surgical complications with cholecystectomy in patients with this condition and with multiple medical comorbidities, unless the laparoscopic examination suggests that the procedure would not be technically difficult (unlikely). PAR conf with patient, including risks of bleeding, infection, and recurrence were discussed and consent obtained. Surgery will be performed this morning as soon as it can be arranged. - Current Meds Current Meds: Current Medications Generic Name Dose Route Start Last Admin Trade Name Freq PRN Reason Stop Dose Admin Clonazepam 2 mg 05/08/18 23:00 05/09/18 00:23 Klonopin PO 2 mg QPM ALISSA Administration Enoxaparin Sodium 40 mg 05/09/18 09:00 05/09/18 09:16 Lovenox SUBQ Not Given DAILY ALISSA Hydromorphone HCl 2 mg 05/08/18 21:32 05/09/18 08:58 Dilaudid Inj Carp IVP 2 mg Q2HR PRN Administration Pain 8 to 10 Famotidine 50 mls @ 100 mls/hr 05/09/18 09:00 05/09/18 09:16 Pepcid 20 Mg/50 Ml IV 100 mls/hr BID ALISSA Administration Sodium Chloride 1,000 mls @ 150 mls/hr 05/08/18 22:00 05/09/18 05:53 Normal Saline 0.9% IV 150 mls/hr .Q6H40M ALISSA Administration Piperacillin Sod/Tazobactam 100 mls @ 200 mls/hr 05/08/18 22:00 05/09/18 04:45 Sod 3.375 gm/ Sodium Chloride IV Infused Q6H ALISSA Infusion Ondansetron HCl 4 mg 05/08/18 21:32 05/09/18 00:17 Zofran Inj IVP 4 mg Q6HR PRN Administration Nausea / Vomiting Sodium Chloride 10 ml 05/08/18 21:32 05/09/18 06:21 Normal Saline Flush 0.9% IVP 10 ml PRN PRN Administration NEEDED PER PROVIDER ORDERS Sodium Chloride 10 ml 05/09/18 01:00 05/09/18 00:17 Normal Saline Flush 0.9% IVP 10 ml 0100,0900,1700 ALISSA Administration - Lab Result Lab results reviewed: Yes Fish Bone Diagrams: 05/09/18 05:35 05/09/18 05:35 Other Lab Results: nl INR, lfts - EKG Results EKG Interpreted Independently: No EKG Comparison: No prior EKG EKG Findings: NSR; no acute changes per Dr. Dubon - Diagnostic Imaging Results Diagnostic Imaging Results: Read independently Diagnostic Imaging Results Comments: 3 view abd series today shows findings c/w SBO without improvement; gallstones were not visible on plain film imaging. - Additional Planning Condition/Complexity: Other (Not improved) My Orders: My Active Orders 05/09/18 09:13 Acetaminophen 1,000 mg/100 ml [Ofirmev] 100 ml IV Q6HR Plan Discussed with:: Patient Time Spent: Greater than 60 minutes (includes discussion of condition with patient, hospitalists, and making arrangements to operate today.) Subjective - Subjective Patient Reports: Abdominal Pain (continued crampy periumbilical abd pains requiring narcotic analgesics; no flatus or stool; no N/V with NG in place; thirsty.) Objective Vital Signs: Vital Signs - 24 hr 05/08/18 05/08/18 05/08/18 17:09 18:30 19:25 Temperature 36.6 C 37.0 C Heart Rate 76 72 77 Heart Rate [ Brachial] Respiratory 18 16 18 Rate Blood Pressure 141/68 H 122/73 Blood Pressure [Left Brachial artery] O2 Saturation 97 97 96 05/08/18 05/09/18 05/09/18 22:36 00:00 04:02 Temperature 36.6 C 36.4 C L 36.3 C L Heart Rate Heart Rate [ 81 76 88 Brachial] Respiratory 16 20 18 Rate Blood Pressure Blood Pressure 143/84 H 137/71 H 144/80 H [Left Brachial artery] O2 Saturation 97 97 94 05/09/18 07:53 Temperature 36.4 C L Heart Rate Heart Rate [ 98 Brachial] Respiratory 16 Rate Blood Pressure Blood Pressure 105/76 [Left Brachial artery] O2 Saturation 94 Oxygen O2 Source Room air I&O (Last 24 Hrs): Intake and Output Totals x24h 05/07/18 05/08/18 05/09/18 23:59 23:59 23:59 Intake Total 1100 1650 Output Total 500 Balance 1100 1150 General: Alert, Oriented x3, Cooperative, Severe distress HEENT: Other (slightly dry mucus membranes; no slceral icterus) Neck: Supple, No JVD Neuro: Alert Cardiovascular: Regular rate, No murmurs, Gallops, Rubs Respiratory: Chest non-tender, No respiratory distress, Breath sounds nml Abdomen: Soft, No tenderness, Other (hypoactive bowel tones) Extremities: No cyanosis, No edema, Normal pulses, No tenderness/swelling Comments/Notes: lower abd rash, maculo papular, with excoriations (present on admission) - Results Results: Laboratory Results WBC 4.4 x10^3/uL (4.8-10.8) L 05/09/18 05:35 RBC 4.78 10^6/uL (4.20-5.40) 05/09/18 05:35 Hgb 12.9 g/dL (12.0-16.0) 05/09/18 05:35 Hct 38.9 % (37.0-47.0) 05/09/18 05:35 MCV 81.5 fL (81.0-99.0) 05/09/18 05:35 MCH 27.0 pg (27.0-31.0) 05/09/18 05:35 MCHC 33.1 g/dL (32.0-36.0) 05/09/18 05:35 RDW 16.8 % (12.0-15.0) H 05/09/18 05:35 Plt Count 155 10^3/uL (130-450) 05/09/18 05:35 MPV 8.0 fL (7.9-10.8) 05/09/18 05:35 Neut # (Auto) 3.8 10^3/uL (1.5-6.6) 05/09/18 05:35 Lymph # (Auto) 0.3 10^3/uL (1.5-3.5) L 05/09/18 05:35 [place] # (Auto) 0.3 10^3/uL (0.0-1.0) 05/09/18 05:35 Eos # (Auto) 0.0 10^3/uL (0.0-0.7) 05/09/18 05:35 Baso # (Auto) 0.0 10^3/uL (0.0-0.1) 05/09/18 05:35 Absolute Nucleated RBC 0.01 x10^3/uL 05/09/18 05:35 Total Counted 100 05/08/18 17:55 Band Neuts % (Manual) 4 % (0-10) 05/08/18 17:55 Abnorm Lymph % (Manual) 0 % 05/08/18 17:55 Nucleated RBC % 0.2 /100WBC 05/09/18 05:35 Neutrophils # (Manual) 2.2 10^3/uL (1.5-6.6) 05/08/18 17:55 Lymphocytes # (Manual) 0.2 10^3/uL (1.5-3.5) L 05/08/18 17:55 Monocytes # (Manual) 0.1 10^3/uL (0.0-1.0) 05/08/18 17:55 Eosinophils # (Manual) 0.0 10^3/uL (0-0.7) 05/08/18 17:55 Basophils # (Manual) 0.1 10^3/uL (0-0.1) 05/08/18 17:55 Differential Comment MANUAL DIFFERENTIAL 05/08/18 17:55 Manual Slide Review Indicated 05/08/18 17:55 Platelet Estimate DECREASED (<130,000) (NORMAL) 05/08/18 17:55 Platelet Morphology NORMAL APPEARANCE (NORMAL) 05/08/18 17:55 RBC Morph Micro Appear NORMAL APPEARANCE (NORMAL) 05/08/18 17:55 PT 11.3 secs (9.9-12.6) 05/09/18 05:35 INR 1.0 (0.8-1.2) 05/09/18 05:35 Sodium 138 mmol/L (135-145) 05/09/18 05:35 Potassium 4.2 mmol/L (3.5-5.0) 05/09/18 05:35 Chloride 104 mmol/L (101-111) 05/09/18 05:35 Carbon Dioxide 25 mmol/L (21-32) 05/09/18 05:35 Anion Gap 9.0 (6-13) 05/09/18 05:35 BUN 12 mg/dL (6-20) 05/09/18 05:35 Creatinine 0.9 mg/dL (0.4-1.0) 05/09/18 05:35 Estimated GFR (MDRD) 63 (>89) L 05/09/18 05:35 Glucose 309 mg/dL (70-100) H 05/09/18 05:35 Glycated Hemoglobin 9.3 % (4.6-6.2) H 05/09/18 05:35 Estim Average Glucose 220 (70-100) H 05/09/18 05:35 Lactic Acid 1.5 mmol/L (0.5-2.2) 05/09/18 05:35 Calcium 8.6 mg/dL (8.5-10.3) 05/09/18 05:35 Phosphorus 5.1 mg/dL (2.5-4.6) H 05/09/18 05:35 Magnesium 2.0 mg/dL (1.7-2.8) 05/09/18 05:35 Total Bilirubin 0.7 mg/dL (0.2-1.0) 05/09/18 05:35 AST 36 IU/L (10-42) 05/09/18 05:35 ALT 46 IU/L (10-60) 05/09/18 05:35 Alkaline Phosphatase 52 IU/L (42-121) 05/09/18 05:35 Total Protein 6.8 g/dL (6.7-8.2) 05/09/18 05:35 Albumin 3.5 g/dL (3.2-5.5) 05/09/18 05:35 Globulin 3.3 g/dL (2.1-4.2) 05/09/18 05:35 Albumin/Globulin Ratio 1.1 (1.0-2.2) 05/09/18 05:35 Lipase 18 U/L (22-51) L 05/08/18 17:55 ABX Reporting Has patient been on IV antibiotics over the past 48 hours?: No
[2018-05-09] MEDS ORDERED: BUPIVACAINE 0.5%-EPI 1:200000 PF 30 ML VIAL ONE (10:36)
--- NOTE | 2018-05-09 10:49 | ANESTHESIA ---
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 SBO may be partial, stone is not large (1.7cm). Cholecystitis-likely chronic, poss acute component. No clinical evidence of acute abdomen /acute cholecystitis at present. - Procedure exploratory laparotomy,laparoscopic possible open Vital Signs: Temp Pulse Resp BP Pulse Ox 36.4 C L 98 16 105/76 94 05/09/18 07:53 05/09/18 07:53 05/09/18 07:53 05/09/18 07:53 05/09/18 07:53 Height 5 ft 3 in Weight (kg) 114 kg Body Mass Index 44.5 - NPO >8 hours - Is Patient ?: Not Applicable - Lab Results Current Lab Results: Laboratory Tests 05/09/18 05:35: Lactic Acid 1.5 05/09/18 05:35: Glycated Hemoglobin 9.3 H, Estim Average Glucose 220 H 05/09/18 05:35: Sodium 138, Potassium 4.2, Chloride 104, Carbon Dioxide 25, Anion Gap 9.0, BUN 12, Creatinine 0.9, Estimated GFR (MDRD) 63 L, Glucose 309 H, Calcium 8.6, Phosphorus 5.1 H, Magnesium 2.0, Total Bilirubin 0.7, AST 36, ALT 46, Alkaline Phosphatase 52, Total Protein 6.8, Albumin 3.5, Globulin 3.3, Albumin/Globulin Ratio 1.1 05/09/18 05:35: PT 11.3, INR 1.0 05/09/18 05:35: WBC 4.4 L, RBC 4.78, Hgb 12.9, Hct 38.9, MCV 81.5, MCH 27.0, MCHC 33.1, RDW 16.8 H, Plt Count 155, MPV 8.0, Neut # (Auto) 3.8, Lymph # (Auto) 0.3 L, [place] # (Auto) 0.3, Eos # (Auto) 0.0, Baso # (Auto) 0.0, Absolute Nucleated RBC 0.01, Nucleated RBC % 0.2 05/08/18 17:55: Phosphorus 3.6 05/08/18 17:55: Lactic Acid 1.4 05/08/18 17:55: Sodium 135, Potassium 4.2, Chloride 100 L, Carbon Dioxide 25, Anion Gap 10.0, BUN 11, Creatinine 0.8, Estimated GFR (MDRD) 72 L, Glucose 309 H , Calcium 8.9, Magnesium 1.8, Total Bilirubin 1.1 H, AST 43 H, ALT 46, Alkaline Phosphatase 49, Total Protein 6.6 L, Albumin 3.5, Globulin 3.1, Albumin/Globulin Ratio 1.1, Lipase 18 L 05/08/18 17:55: WBC 2.7 L, RBC 4.51, Hgb 12.4, Hct 36.0 L, MCV 79.8 L, MCH 27.5, MCHC 34.5, RDW 16.8 H, Plt Count 121 L, MPV 7.7 L, Neut # (Auto) Not Reportable, Lymph # (Auto) Not Reportable, [place] # (Auto) Not Reportable, Eos # (Auto) Not Reportable, Baso # (Auto) Not Reportable, Absolute Nucleated RBC Not Reportable, Total Counted 100, Band Neuts % (Manual) 4, Abnorm Lymph % (Manual) 0, Nucleated RBC % Not Reportable, Neutrophils # (Manual) 2.2, Lymphocytes # (Manual) 0.2 L, Monocytes # (Manual) 0.1, Eosinophils # (Manual) 0.0, Basophils # (Manual) 0.1, Differential Comment MANUAL DIFFERENTIAL, Manual Slide Review Indicated, Platelet Estimate DECREASED (<130,000), Platelet Morphology NORMAL APPEARANCE, RBC Morph Micro Appear NORMAL APPEARANCE Fish Bones: 05/09/18 05:35 05/09/18 05:35 Home Medications and Allergies Home Medications: Ambulatory Orders Fexofenadine HCl 540 - 720 mg PO QPM 05/09/18 Active Medications Clonazepam (Klonopin) 2 mg PO QPM [facility] Last Admin: 05/09/18 00:23 Dose: 2 mg Enoxaparin Sodium (Lovenox) 40 mg SUBQ DAILY [facility] Last Admin: 05/09/18 09:16 Dose: Not Given Hydromorphone HCl (Dilaudid Inj Carp) 2 mg IVP Q2HR PRN PRN Reason: Pain 8 to 10 Last Admin: 05/09/18 08:58 Dose: 2 mg Famotidine (Pepcid 20 Mg/50 Ml) 50 mls @ 100 mls/hr IV BID [facility] Last Infusion: 10/14/18 09:51 Dose: Infused Sodium Chloride (Normal Saline 0.9%) 1,000 mls @ 150 mls/hr IV .Q6H40M [facility] Last Admin: 05/09/18 05:53 Dose: 150 mls/hr Piperacillin Sod/Tazobactam (Sod 3.375 gm/ Sodium Chloride) 100 mls @ 200 mls/hr IV Q6H [facility] Last Infusion: 05/09/18 10:31 Dose: Infused Acetaminophen (Ofirmev) 100 mls @ 400 mls/hr IV Q6HR PRN PRN Reason: PAIN Insulin Human Regular (Novolin R) 1 - 9 unit SUBQ Q6HR [facility]; Protocol Ondansetron HCl (Zofran Inj) 4 mg IVP Q6HR PRN PRN Reason: Nausea / Vomiting Last Admin: 05/09/18 00:17 Dose: 4 mg Sodium Chloride (Normal Saline Flush 0.9%) 10 ml IVP PRN PRN PRN Reason: NEEDED PER PROVIDER ORDERS Last Admin: 05/09/18 06:21 Dose: 10 ml Sodium Chloride (Normal Saline Flush 0.9%) 10 ml IVP 0100,0900,1700 [facility] Last Admin: 05/09/18 00:17 Dose: 10 ml Calcium Carbonate [Calcium] 500 mg PO DAILY 04/04/15 Denosumab [Xgeva] 120 mg SUBQ Q28D 04/04/15 Biotin 5,000 mcg PO DAILY 10/16/15 clonazePAM [Clonazepam] 3 mg PO QPM 04/08/16 Tamoxifen 20 mg PO DAILY 06/02/17 Metformin HCl 1,000 mg PO BIDWM 05/04/18 Fexofenadine HCl 540 - 720 mg PO QPM 05/09/18 Allergies/Adverse Reactions: Allergies Allergy/AdvReac Type Severity Reaction Status Date / Time oxycodone HCl * Allergy Mild itch Verified 05/04/18 10:47 [From Percocet] doxycycline Allergy Nausea Verified 05/04/18 10:47 Anes History & Medical History - Anesthetic History Anesthesia Complications: reports: No previous complications Family history of Anesthesia Complications: Denies Family history of Malignant Hyperthermia: Denies - Medical History Cardiovascular: reports: Hypertension Pulmonary: reports: Sleep apnea, CPAP use Gastrointestinal: reports: GERD, Hiatal hernia, Cholelithiasis Urinary: reports: Incontinence Musculoskeletal: reports: Osteoarthritis, Other Endocrine/Autoimmune: reports: Type 2 diabetes Blood Disorders: reports: Anemia Skin: reports: None Smoking Status: Former smoker Other Past Medical History: myelodysplastic syndrome - Surgical History General: Colonoscopy Gynecologic: Endometrial ablation, Other (breast ca) Exam General: Alert, Oriented x3 Mouth Openin Fingerbreadth Mallampati classification: II Thyromental Distance: 4-6 cm Respiratory: Lungs clear, Normal breath sounds, No respiratory distress, No accessory muscle use Cardiovascular: Regular rate, Normal S1, Normal S2, No murmurs Mental/Cognitive Status: Alert/Oriented X3, Normal for patient Cognitive Status: Within normal limits Plan Anesthesia Type: General Consent for Procedure(s) Verified and Reviewed: Yes Code Status: Attempt Resuscitation ASA classification: 3-Severe systemic disease Is this case an emergency?: Yes
[2018-05-09] MEDS ORDERED: SODIUM CHLORIDE 0.9% 1,000 ML IV ONE (10:52)
[2018-05-09] MEDS ORDERED: LACTATED RINGERS 1,000 ML IV ONE ×2 (11:38→12:52)
[2018-05-09] MEDS ORDERED: BUPIVACAINE 0.5%-EPI 1:200000 PF 30 ML VIAL SUBQ ONE ×2 (11:39)
--- NOTE | 2018-05-09 11:49 | PROVIDER PROGRESS NOTE ---
Assessment/Plan - Problem List (1) Gallstone ileus of small intestine Assessment/Plan: Pt had surgery today due to pain and based on radiology results. Successful removal of stone. Continue ng drainage, pain meds, iv fluids, antibiotics. (2) Cholecystitis Assessment/Plan: As in #1 (3) Diabetes mellitus Qualifiers: Diabetes mellitus type: type 2 Diabetes mellitus prison insulin use: without rn long term care use Diabetes mellitus complication status: with hyperglycemia Qualified Code(s): E11.65 - Type 2 diabetes mellitus with hyperglycemia Assessment/Plan: Continue fingerstick glu checks, ss Insulin for an NPO pt. (4) Essential (primary) hypertension Assessment/Plan: Will use iv meds for BP control, while she is npo with ng drainage. (5) Malignant neoplasm of right female breast Assessment/Plan: Stable (6) Anxiety Assessment/Plan: Srable. (7) SONYA on CPAP Assessment/Plan: Device ordered to use here - Current Meds Current Meds: Current Medications Generic Name Dose Route Start Last Admin Trade Name Freq PRN Reason Stop Dose Admin Clonazepam 2 mg 05/08/18 23:00 05/09/18 00:23 Klonopin PO 2 mg QPM ALISSA Administration Enoxaparin Sodium 40 mg 05/09/18 09:00 05/09/18 09:16 Lovenox SUBQ Not Given DAILY ALISSA Hydromorphone HCl 2 mg 05/08/18 21:32 05/09/18 08:58 Dilaudid Inj Carp IVP 2 mg Q2HR PRN Administration Pain 8 to 10 Famotidine 50 mls @ 100 mls/hr 05/09/18 09:00 05/09/18 09:51 Pepcid 20 Mg/50 Ml IV Infused BID ALISSA Infusion Sodium Chloride 1,000 mls @ 150 mls/hr 05/08/18 22:00 05/09/18 05:53 Normal Saline 0.9% IV 150 mls/hr .Q6H40M ALISSA Administration Piperacillin Sod/Tazobactam 100 mls @ 200 mls/hr 05/08/18 22:00 05/09/18 10:31 Sod 3.375 gm/ Sodium Chloride IV Infused Q6H ALISSA Infusion Ondansetron HCl 4 mg 05/08/18 21:32 05/09/18 00:17 Zofran Inj IVP 4 mg Q6HR PRN Administration Nausea / Vomiting Sodium Chloride 10 ml 05/08/18 21:32 05/09/18 06:21 Normal Saline Flush 0.9% IVP 10 ml PRN PRN Administration NEEDED PER PROVIDER ORDERS Sodium Chloride 10 ml 05/09/18 01:00 05/09/18 00:17 Normal Saline Flush 0.9% IVP 10 ml 0100,0900,1700 ALISSA Administration - Lab Result Fish Bone Diagrams: 05/09/18 05:35 05/09/18 05:35 - Additional Planning My Orders: My Active Orders 05/09/18 12:00 Insulin Regular Human [NovoLIN R] 1 - 9 unit SUBQ Q6HR Subjective - Subjective Patient Reports: Resting Comfortably, Other (Wats to urinate but was reminded she has a Zamudio cath in) Objective Vital Signs: Vital Signs - 24 hr 05/08/18 05/08/18 05/08/18 17:09 18:30 19:25 Temperature 36.6 C 37.0 C Heart Rate 76 72 77 Heart Rate [ Brachial] Respiratory 18 16 18 Rate Blood Pressure 141/68 H 122/73 Blood Pressure [Left Brachial artery] O2 Saturation 97 97 96 05/08/18 05/09/18 05/09/18 22:36 00:00 04:02 Temperature 36.6 C 36.4 C L 36.3 C L Heart Rate Heart Rate [ 81 76 88 Brachial] Respiratory 16 20 18 Rate Blood Pressure Blood Pressure 143/84 H 137/71 H 144/80 H [Left Brachial artery] O2 Saturation 97 97 94 05/09/18 07:53 Temperature 36.4 C L Heart Rate Heart Rate [ 98 Brachial] Respiratory 16 Rate Blood Pressure Blood Pressure 105/76 [Left Brachial artery] O2 Saturation 94 Oxygen O2 Source Room air I&O (Last 24 Hrs): Intake and Output Totals x24h 05/07/18 05/08/18 05/09/18 23:59 23:59 23:59 Intake Total 1100 1800 Output Total 500 Balance 1100 1300 General: Other (Disoriented (post-op sev hours only)) HEENT: Mucous membr. moist/pink, Other (ng tube in, dark brown liquid drainage) Neck: Other (Obese) Neuro: Non Focal Cardiovascular: Regular rate Respiratory: No respiratory distress Abdomen: Soft, Other (Diminished bowel sounds, no guarding or rebound) Extremities: No edema - Results Results: Laboratory Results WBC 4.4 x10^3/uL (4.8-10.8) L 05/09/18 05:35 RBC 4.78 10^6/uL (4.20-5.40) 05/09/18 05:35 Hgb 12.9 g/dL (12.0-16.0) 05/09/18 05:35 Hct 38.9 % (37.0-47.0) 05/09/18 05:35 MCV 81.5 fL (81.0-99.0) 05/09/18 05:35 MCH 27.0 pg (27.0-31.0) 05/09/18 05:35 MCHC 33.1 g/dL (32.0-36.0) 05/09/18 05:35 RDW 16.8 % (12.0-15.0) H 05/09/18 05:35 Plt Count 155 10^3/uL (130-450) 05/09/18 05:35 MPV 8.0 fL (7.9-10.8) 05/09/18 05:35 Neut # (Auto) 3.8 10^3/uL (1.5-6.6) 05/09/18 05:35 Lymph # (Auto) 0.3 10^3/uL (1.5-3.5) L 05/09/18 05:35 [place] # (Auto) 0.3 10^3/uL (0.0-1.0) 05/09/18 05:35 Eos # (Auto) 0.0 10^3/uL (0.0-0.7) 05/09/18 05:35 Baso # (Auto) 0.0 10^3/uL (0.0-0.1) 05/09/18 05:35 Absolute Nucleated RBC 0.01 x10^3/uL 05/09/18 05:35 Total Counted 100 05/08/18 17:55 Band Neuts % (Manual) 4 % (0-10) 05/08/18 17:55 Abnorm Lymph % (Manual) 0 % 05/08/18 17:55 Nucleated RBC % 0.2 /100WBC 05/09/18 05:35 Neutrophils # (Manual) 2.2 10^3/uL (1.5-6.6) 05/08/18 17:55 Lymphocytes # (Manual) 0.2 10^3/uL (1.5-3.5) L 05/08/18 17:55 Monocytes # (Manual) 0.1 10^3/uL (0.0-1.0) 05/08/18 17:55 Eosinophils # (Manual) 0.0 10^3/uL (0-0.7) 05/08/18 17:55 Basophils # (Manual) 0.1 10^3/uL (0-0.1) 05/08/18 17:55 Differential Comment MANUAL DIFFERENTIAL 05/08/18 17:55 Manual Slide Review Indicated 05/08/18 17:55 Platelet Estimate DECREASED (<130,000) (NORMAL) 05/08/18 17:55 Platelet Morphology NORMAL APPEARANCE (NORMAL) 05/08/18 17:55 RBC Morph Micro Appear NORMAL APPEARANCE (NORMAL) 05/08/18 17:55 PT 11.3 secs (9.9-12.6) 05/09/18 05:35 INR 1.0 (0.8-1.2) 05/09/18 05:35 Sodium 138 mmol/L (135-145) 05/09/18 05:35 Potassium 4.2 mmol/L (3.5-5.0) 05/09/18 05:35 Chloride 104 mmol/L (101-111) 05/09/18 05:35 Carbon Dioxide 25 mmol/L (21-32) 05/09/18 05:35 Anion Gap 9.0 (6-13) 05/09/18 05:35 BUN 12 mg/dL (6-20) 05/09/18 05:35 Creatinine 0.9 mg/dL (0.4-1.0) 05/09/18 05:35 Estimated GFR (MDRD) 63 (>89) L 05/09/18 05:35 Glucose 309 mg/dL (70-100) H 05/09/18 05:35 Glycated Hemoglobin 9.3 % (4.6-6.2) H 05/09/18 05:35 Estim Average Glucose 220 (70-100) H 05/09/18 05:35 Lactic Acid 1.5 mmol/L (0.5-2.2) 05/09/18 05:35 Calcium 8.6 mg/dL (8.5-10.3) 05/09/18 05:35 Phosphorus 5.1 mg/dL (2.5-4.6) H 05/09/18 05:35 Magnesium 2.0 mg/dL (1.7-2.8) 05/09/18 05:35 Total Bilirubin 0.7 mg/dL (0.2-1.0) 05/09/18 05:35 AST 36 IU/L (10-42) 05/09/18 05:35 ALT 46 IU/L (10-60) 05/09/18 05:35 Alkaline Phosphatase 52 IU/L (42-121) 05/09/18 05:35 Total Protein 6.8 g/dL (6.7-8.2) 05/09/18 05:35 Albumin 3.5 g/dL (3.2-5.5) 05/09/18 05:35 Globulin 3.3 g/dL (2.1-4.2) 05/09/18 05:35 Albumin/Globulin Ratio 1.1 (1.0-2.2) 05/09/18 05:35 Lipase 18 U/L (22-51) L 05/08/18 17:55
[2018-05-09] MEDS ORDERED: SUGAMMADEX 200 MG/2 ML VIAL IVP ONE ×2 (12:30→12:34)
[2018-05-09] MEDS ORDERED: INSULIN REGULAR HUMAN 100 UNIT/1 ML 10 ML MDV ONE (12:43)
--- NOTE | 2018-05-09 12:56 | OPERATIVE REPORT ---
Operative Report - General Admit Date: 05/08/18 Procedure Date: 05/09/18 Planned Procedure: diagnostic laparoscopy, enterolithotomy Pre-Op Diagnosis: gallstone ileus Procedure Performed: 1. Diagnostic laparoscopy. 2. Enterolithotomy Post Op Diagnosis: gallstone ileus - Procedure Note Primary Surgeon: Renaldo Burt MD [facility] Anesthesia Provider: Luis Freire MD Anesthesia Technique: General ET tube Pathology: gallstone IV Fluids (mL): 1,500 Estimated Blood Loss (mL): 10 Urine Output (mL): 75 Complications: None - Other Other Information/Narrative: After informed consent pt was placed under general endotracheal anesthesia. Zamudio catheter was inserted and sequential calf compression boots were applied. Pt had received therapeutic dose of Zosyn preoperatively. Her abdomen was prepped with Cloraprep and draped in the usual sterile fashion. A vertical 2 cm long infraumbiical incsion was made and carried down through the layers of the abdominal wall until the peritoneal cavity was identified and entered sharply. A 10 mm Frank cannula was inserted and pneumoperitoneum was achieved with carbon dioxide. 2 additional 5 mm ports were placed in the left upper and lower quadrants. A 5 mm 30 degree [place] telescope was used to identify the point of bowel obstruction in the mid jejunum. The bowel was viable throughout and dilated proximal and compressed distal to the intraluminal mass. A grasper was used to clamp the mesentery adjacent to the point of obstruction placed through the Frank port. Pneumoperitoneum was discontinued and the infraumbilical incision was then enlarged to approximately 7 cm in length and an Manuel wound protector was inserted. The loop of bowel with the intraluminal mass was exteriorized and a longitudinal enterotomy was made approximately 3 cm in length, allowing the gallstone to be removed and sent to pathology. Noncrushing bowel clamps placed proximally and distally minimized contamination from intraluminal contents. The enterotomy was then closed transversely with a 60 mm TIA stapler with a GI load. Further hemostasis was achieved with electrocautery. Care was taken to avoid excessively compromising the bowel luminal diameter. The exteriorized loop was returned to the abdominal cavity. The right upper quadrant was manually explored, revealing at least one very large residual stone in the gallbladder and extensive pericholecystic adhesions. The abdominal cavity was irrigated with sterile saline containing 1 gm of cefoxitin per liter. The Manuel was removed and the midline incision was closed in layers, including doubled 0 PDS for the midline fascia, 2-0 Vicryl for the subcutaneous tissue and lelia for the skin. The 5 mm ports were removed and the skin closed with 4-0 Monocryl and Dermabond. 30 cc of 0.5% Marcaine with epinephrine was infiltrated to assist with postoperative analgesia. 30 cc of the anesthetic was used. Dry sterile dressing was applied to the midline incision, anesthesia was terminated and patient transferred to the recovery room in satisfactory condition. Sponge and needle and instrument counts were correct x 2. No drains were used. Patient tolerated the procedure well.
[2018-05-09] MEDS ORDERED: ONDANSETRON 4 MG/2 ML VIAL IVP ONE (13:03)
[2018-05-09] MEDS ORDERED: PROPOFOL 200 MG/20 ML VIAL IVP ONE (13:03)
[2018-05-09] MEDS ORDERED: ACETAMINOPHEN 1,000 MG/100 ML 100 ML IV ONE (13:03)
[2018-05-09] MEDS ORDERED: KETOROLAC 30 MG/ML VIAL IVP ONE (13:03)
[2018-05-09] MEDS ORDERED: ROCURONIUM 50 MG/5 ML VIAL IVP ONE (13:03)
[2018-05-09] MEDS ORDERED: LIDOCAINE-MPF 2% 5 ML VIAL IM ONE (13:03)
[2018-05-09] MEDS ORDERED: fentaNYL 100 MCG/2 ML VIAL IVP ONE (13:03)
[2018-05-09] MEDS: HYDROmorphone 1 MG/ML CARPUJECT ONE ×3 (13:13→13:25)
[2018-05-09] MEDS ORDERED: KETOROLAC 15 MG/ML VIAL IVP PRN (13:15)
[2018-05-09] MEDS: fentaNYL 100 MCG/2 ML VIAL ONE ×4 (13:37→13:52)
[2018-05-09] MEDS: ENOXAPARIN 40 MG/0.4 ML SYRINGE SUBQ SCH (20:31)
[2018-05-09] MEDS ORDERED: CLONAZEPAM 2 MG PO SCH (21:00)
[2018-05-09] MEDS ORDERED: SODIUM CHLORIDE 0.9% 500 ML IV ONE (21:10)
[2018-05-09] MEDS: SODIUM CHLORIDE 0.9% 500 ML IV ONE ×2 (21:36→22:31)
[2018-05-10] MEDS: INSULIN REGULAR HUMAN 100 UNIT/1 ML 10 ML MDV SUBQ SCH ×4 (00:48→18:02)
[2018-05-10] MEDS: SODIUM CHLORIDE FLUSH 0.9% 10 ML SYRINGE IVP SCH ×3 (00:49→16:34)
[2018-05-10] MEDS: HYDROmorphone 1 MG/ML CARPUJECT IVP PRN ×3 (02:09→14:17)
[2018-05-10] MEDS: PIPERACILLIN/TAZOBACTAM 3.375 GM in SODIUM CHLORIDE 0.9% MINIBAG 100 ML IV SCH ×4 (04:25→22:12)
[2018-05-10] MEDS: SODIUM CHLORIDE 0.9% 1,000 ML IV SCH ×2 (04:59→14:48)
[2018-05-10 06:14] LABS: BASOPHILS % (AUTO) 0.6 %; EOSINOPHILS % (AUTO) 1.2 %; HGB - HEMOGLOBIN 11.2 g/dL (12.0-16.0); LYMPHOCYTES # (AUTO) 0.2 10^3/uL (1.5-3.5); LYMPHOCYTES % (AUTO) 5.9 %; MEAN CORPUSCULAR HEMOGLOBIN 28.1 pg (27.0-31.0); MEAN CORPUSCULAR HGB CONC 35.2 g/dL (32.0-36.0); MEAN PLATELET VOLUME 7.7 fL (7.9-10.8); MONOCYTES # (AUTO) 0.4 10^3/uL (0.0-1.0); MONOCYTES % (AUTO) 9.2 %; NEUTROPHILS # (AUTO) 3.2 10^3/uL (1.5-6.6); NEUTROPHILS % (AUTO) 83.1 %; PLT - PLATELET COUNT 106 10^3/uL (130-450); RED BLOOD COUNT 3.99 10^6/uL (4.20-5.40); WHITE BLOOD COUNT 3.8 x10^3/uL (4.8-10.8)
[2018-05-10 06:28] LABS: BILIRUBIN,TOTAL 0.8 mg/dL (0.2-1.0); CALCIUM 7.5 mg/dL (8.5-10.3); CREATININE 0.9 mg/dL (0.4-1.0); MAGNESIUM 1.7 mg/dL (1.7-2.8); PHOSPHORUS 2.3 mg/dL (2.5-4.6); TOTAL PROTEIN 6.1 g/dL (6.7-8.2)
[2018-05-10] MEDS: ACETAMINOPHEN 1,000 MG/100 ML 100 ML IV SCH ×3 (06:59→18:07)
--- NOTE | 2018-05-10 07:46 | PROVIDER PROGRESS NOTE ---
Subjective - General Admit Date: 05/08/18 Procedure Date: 05/09/18 Post Op Days: 1 Procedure Performed: lap assisted enterolithotomy - Review of Systems Wound/Incisions: positive: Dressing dry and intact General: positive: Other (c/o incisional pain; no N/V, flatus or stool) Pulmonary: positive: No symptoms Cardiovascular: positive: No symptoms Gastrointestinal: positive: Abdominal pain (incisional) Genitourinary: positive: No symptoms Objective - Patient Data Reviewed Vital Signs: Yes Vital Signs: Vital Signs x48h Temp Pulse Resp BP Pulse Ox 05/10/18 06:00 36.6 C 97 18 106/48 L 95 05/10/18 02:00 36.6 C 94 18 117/61 96 Weight: Weight 05/08/18 05/09/18 05/10/18 23:59 23:59 23:59 Weight (kg) 114 kg Intake & Output: Intake and Output Totals x24h 05/08/18 05/09/18 05/10/18 23:59 23:59 23:59 Intake Total 1100 4115 1017.5 Output Total 1150 350 Balance 1100 2965 667.5 - Lab Results Lab Results: 05/10/18 05:57 05/10/18 05:57 Other Lab Results: Lab Results x24hrs 05/10/18 05/10/18 05/09/18 Range/Units 05:57 05:57 05:35 WBC 3.8 L (4.8-10.8) x10^3/uL RBC 3.99 L (4.20-5.40) 10^6/uL Hgb 11.2 L (12.0-16.0) g/dL Hct 31.9 L (37.0-47.0) % MCV 80.0 L (81.0-99.0) fL MCH 28.1 (27.0-31.0) pg MCHC 35.2 (32.0-36.0) g/dL RDW 17.0 H (12.0-15.0) % Plt Count 106 L (130-450) 10^3/uL MPV 7.7 L (7.9-10.8) fL Neut # (Auto) 3.2 (1.5-6.6) 10^3/uL Lymph # (Auto) 0.2 L (1.5-3.5) 10^3/uL [place] # (Auto) 0.4 (0.0-1.0) 10^3/uL Eos # (Auto) 0.0 (0.0-0.7) 10^3/uL Baso # (Auto) 0.0 (0.0-0.1) 10^3/uL Absolute Nucleated RBC 0.01 x10^3/uL Nucleated RBC % 0.2 /100WBC Sodium 142 (135-145) mmol/L Potassium 3.7 (3.5-5.0) mmol/L Chloride 111 (101-111) mmol/L Carbon Dioxide 21 (21-32) mmol/L Anion Gap 10.0 (6-13) BUN 10 (6-20) mg/dL Creatinine 0.9 (0.4-1.0) mg/dL Estimated GFR (MDRD) 63 L (>89) Glucose 96 (70-100) mg/dL Glycated Hemoglobin 9.3 H (4.6-6.2) % Estim Average Glucose 220 H (70-100) Calcium 7.5 L (8.5-10.3) mg/dL Phosphorus 2.3 L (2.5-4.6) mg/dL Magnesium 1.7 (1.7-2.8) mg/dL Total Bilirubin 0.8 (0.2-1.0) mg/dL AST 36 (10-42) IU/L ALT 38 (10-60) IU/L Alkaline Phosphatase 42 (42-121) IU/L Total Protein 6.1 L (6.7-8.2) g/dL Albumin 3.0 L (3.2-5.5) g/dL Globulin 3.1 (2.1-4.2) g/dL Albumin/Globulin Ratio 1.0 (1.0-2.2) - Current Medications Current Medications: Current Medications Generic Name Dose Route Start Last Admin Trade Name Freq PRN Reason Stop Dose Admin Enoxaparin Sodium 40 mg 05/09/18 21:00 05/09/18 20:31 Lovenox SUBQ 40 mg Q24H ALISSA Administration Hydromorphone HCl 2 mg 05/08/18 21:32 05/10/18 02:09 Dilaudid Inj Carp IVP 2 mg Q2HR PRN Administration Pain 8 to 10 Famotidine 50 mls @ 100 mls/hr 05/09/18 09:00 05/09/18 21:00 Pepcid 20 Mg/50 Ml IV Infused BID ALISSA Infusion Piperacillin Sod/Tazobactam 100 mls @ 200 mls/hr 05/08/18 22:00 05/10/18 05:00 Sod 3.375 gm/ Sodium Chloride IV Infused Q6H ALISSA Infusion Acetaminophen 100 mls @ 400 mls/hr 05/10/18 06:00 05/10/18 06:59 Ofirmev IV 400 mls/hr Q6H ALISSA Administration Insulin Human Regular 1 - 9 unit 05/09/18 12:00 05/10/18 06:55 Novolin R SUBQ Not Given Q6HR [facility] Protocol Ondansetron HCl 4 mg 05/08/18 21:32 05/09/18 00:17 Zofran Inj IVP 4 mg Q6HR PRN Administration Nausea / Vomiting Sodium Chloride 10 ml 05/08/18 21:32 05/09/18 06:21 Normal Saline Flush 0.9% IVP 10 ml PRN PRN Administration NEEDED PER PROVIDER ORDERS Sodium Chloride 10 ml 05/09/18 01:00 05/10/18 02:09 Normal Saline Flush 0.9% IVP 10 ml 0100,0900,1700 [facility] Administration - Physical Exam Wound/Incisions: positive: Healing well, Dressing dry and intact, No drainage General Appearance: positive: No acute distress, Alert Eyes Bilateral: positive: Conjunctivae nml, No scleral icterus ENT: positive: No signs of dehydration Neck: positive: Nml inspection Respiratory: positive: Chest non-tender, No respiratory distress, Breath sounds nml. negative: Wheezes, Rales, Rhonchi Cardiovascular: positive: Regular rate & rhythm, No murmur, No gallop Abdomen: positive: Non-tender (except in the sarah incisional area), Abnml bowel sounds (hypoactive) Skin: positive: Color nml, Warm, Dry Extremities: negative: Pedal edema, Calf tenderness Neurologic/Psychiatric: positive: Oriented x3 ABX Reporting Has patient been on IV antibiotics over the past 48 hours?: No Impression/Plan - Problem List Problem List: PO Day 1 s/p enterolithotomy for gallstone ileus. Doing well. Plan: d/c NG tube and benoit catheter, decrease IVF, OOB, pulmonary toilet.
[2018-05-10] MEDS ORDERED: KETOROLAC 15 MG/ML VIAL IVP SCH (08:00)
[2018-05-10] MEDS: FAMOTIDINE 20 MG/50 ML 50 ML IV SCH ×2 (09:24→21:35)
[2018-05-10] MEDS: SODIUM CHLORIDE FLUSH 0.9% 10 ML SYRINGE IVP PRN ×3 (10:53→22:15)
--- NOTE | 2018-05-10 16:23 | PROVIDER PROGRESS NOTE ---
Assessment/Plan - Problem List (1) Gallstone ileus of small intestine Assessment/Plan: POD #1 of lap assisted enterolithotomy. The path report of stone is still pending. Advance her care per surgery with ng out and Zamudio out, OOB and iv fluids decrease. Will advance diet when OK with surgery. Still just taking water and ice chips. Pain meds as needed. (2) Cholecystitis Assessment/Plan: Relatively asymptomatic, gallstone was left behind in the gallbladder. Monitor CMP daily. 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 (4) Essential (primary) hypertension Assessment/Plan: Stable on meds (5) Anxiety Assessment/Plan: Stable on meds (6) SONYA on CPAP Assessment/Plan: Pt using home CPAP unit. - Current Meds Current Meds: Current Medications Generic Name Dose Route Start Last Admin Trade Name Freq PRN Reason Stop Dose Admin Enoxaparin Sodium 40 mg 05/09/18 21:00 05/09/18 20:31 Lovenox SUBQ 40 mg Q24H ALISSA Administration Hydromorphone HCl 2 mg 05/08/18 21:32 05/10/18 14:17 Dilaudid Inj Carp IVP 2 mg Q2HR PRN Administration Pain 8 to 10 Famotidine 50 mls @ 100 mls/hr 05/09/18 09:00 05/10/18 10:55 Pepcid 20 Mg/50 Ml IV Infused BID ALISSA Infusion Piperacillin Sod/Tazobactam 100 mls @ 200 mls/hr 05/08/18 22:00 05/10/18 11:21 Sod 3.375 gm/ Sodium Chloride IV Infused Q6H ALISSA Infusion Acetaminophen 100 mls @ 400 mls/hr 05/10/18 06:00 05/10/18 12:59 Ofirmev IV Infused Q6H ALISSA Infusion Sodium Chloride 1,000 mls @ 100 mls/hr 05/10/18 07:42 05/10/18 14:48 Normal Saline 0.9% IV 100 mls/hr .Q10H ALISSA Administration Insulin Human Regular 1 - 9 unit 05/09/18 12:00 05/10/18 12:44 Novolin R SUBQ Not Given Q6HR [facility] Protocol Ondansetron HCl 4 mg 05/08/18 21:32 05/09/18 00:17 Zofran Inj IVP 4 mg Q6HR PRN Administration Nausea / Vomiting Sodium Chloride 10 ml 05/08/18 21:32 05/10/18 14:18 Normal Saline Flush 0.9% IVP 10 ml PRN PRN Administration NEEDED PER PROVIDER ORDERS Sodium Chloride 10 ml 05/09/18 01:00 05/10/18 02:09 Normal Saline Flush 0.9% IVP 10 ml 0100,0900,1700 [facility] Administration - Lab Result Fish Bone Diagrams: 05/10/18 05:57 05/10/18 05:57 Objective Vital Signs: Vital Signs - 24 hr 05/09/18 05/09/18 05/09/18 16:45 20:45 21:03 Temperature 36.7 C 36.7 C 36.8 C Heart Rate Heart Rate [ 82 80 78 Brachial] Respiratory 15 16 18 Rate Blood Pressure [Left Brachial artery] Blood Pressure 115/70 98/86 H 110/53 L [Left Radial artery] O2 Saturation 99 100 100 05/10/18 05/10/18 05/10/18 02:00 06:00 08:01 Temperature 36.6 C 36.6 C 36.6 C Heart Rate 89 Heart Rate [ 94 97 Brachial] Respiratory 18 18 18 Rate Blood Pressure [Left Brachial artery] Blood Pressure 117/61 106/48 L [Left Radial artery] O2 Saturation 96 95 91 L 05/10/18 05/10/18 05/10/18 08:37 10:23 12:12 Temperature 37.3 C 36.4 C L Heart Rate Heart Rate [ 89 83 80 Brachial] Respiratory 18 18 20 Rate Blood Pressure 114/64 137/57 H [Left Brachial artery] Blood Pressure 100/40 L [Left Radial artery] O2 Saturation 90 L 94 95 05/10/18 15:31 Temperature 36.5 C Heart Rate Heart Rate [ 79 Brachial] Respiratory 20 Rate Blood Pressure 124/74 [Left Brachial artery] Blood Pressure [Left Radial artery] O2 Saturation 95 Oxygen O2 Source Nasal cannula I&O (Last 24 Hrs): Intake and Output Totals x24h 05/08/18 05/09/18 05/10/18 23:59 23:59 23:59 Intake Total 1100 4115 2367.5 Output Total 1150 475 Balance 1100 2965 1892.5 General: Alert, Oriented x3 HEENT: Mucous membr. moist/pink, Other (ng tube is out) Neck: Supple Neuro: Non Focal Cardiovascular: No murmurs Respiratory: No respiratory distress, Breath sounds nml Abdomen: Soft, No tenderness, Other (Diminished bowel sounds) Extremities: Other (Trace edema) - Results Results: Laboratory Results WBC 3.8 x10^3/uL (4.8-10.8) L 05/10/18 05:57 RBC 3.99 10^6/uL (4.20-5.40) L 05/10/18 05:57 Hgb 11.2 g/dL (12.0-16.0) L 05/10/18 05:57 Hct 31.9 % (37.0-47.0) L 05/10/18 05:57 MCV 80.0 fL (81.0-99.0) L 05/10/18 05:57 MCH 28.1 pg (27.0-31.0) 05/10/18 05:57 MCHC 35.2 g/dL (32.0-36.0) 05/10/18 05:57 RDW 17.0 % (12.0-15.0) H 05/10/18 05:57 Plt Count 106 10^3/uL (130-450) L 05/10/18 05:57 MPV 7.7 fL (7.9-10.8) L 05/10/18 05:57 Neut # (Auto) 3.2 10^3/uL (1.5-6.6) 05/10/18 05:57 Lymph # (Auto) 0.2 10^3/uL (1.5-3.5) L 05/10/18 05:57 [place] # (Auto) 0.4 10^3/uL (0.0-1.0) 05/10/18 05:57 Eos # (Auto) 0.0 10^3/uL (0.0-0.7) 05/10/18 05:57 Baso # (Auto) 0.0 10^3/uL (0.0-0.1) 05/10/18 05:57 Absolute Nucleated RBC 0.01 x10^3/uL 05/10/18 05:57 Total Counted 100 05/08/18 17:55 Band Neuts % (Manual) 4 % (0-10) 05/08/18 17:55 Abnorm Lymph % (Manual) 0 % 05/08/18 17:55 Nucleated RBC % 0.2 /100WBC 05/10/18 05:57 Neutrophils # (Manual) 2.2 10^3/uL (1.5-6.6) 05/08/18 17:55 Lymphocytes # (Manual) 0.2 10^3/uL (1.5-3.5) L 05/08/18 17:55 Monocytes # (Manual) 0.1 10^3/uL (0.0-1.0) 05/08/18 17:55 Eosinophils # (Manual) 0.0 10^3/uL (0-0.7) 05/08/18 17:55 Basophils # (Manual) 0.1 10^3/uL (0-0.1) 05/08/18 17:55 Differential Comment MANUAL DIFFERENTIAL 05/08/18 17:55 Manual Slide Review Indicated 05/08/18 17:55 Platelet Estimate DECREASED (<130,000) (NORMAL) 05/08/18 17:55 Platelet Morphology NORMAL APPEARANCE (NORMAL) 05/08/18 17:55 RBC Morph Micro Appear NORMAL APPEARANCE (NORMAL) 05/08/18 17:55 PT 11.3 secs (9.9-12.6) 05/09/18 05:35 INR 1.0 (0.8-1.2) 05/09/18 05:35 Sodium 142 mmol/L (135-145) 05/10/18 05:57 Potassium 3.7 mmol/L (3.5-5.0) 05/10/18 05:57 Chloride 111 mmol/L (101-111) 05/10/18 05:57 Carbon Dioxide 21 mmol/L (21-32) 05/10/18 05:57 Anion Gap 10.0 (6-13) 05/10/18 05:57 BUN 10 mg/dL (6-20) 05/10/18 05:57 Creatinine 0.9 mg/dL (0.4-1.0) 05/10/18 05:57 Estimated GFR (MDRD) 63 (>89) L 05/10/18 05:57 Glucose 96 mg/dL (70-100) 05/10/18 05:57 Glycated Hemoglobin 9.3 % (4.6-6.2) H 05/09/18 05:35 Estim Average Glucose 220 (70-100) H 05/09/18 05:35 Lactic Acid 1.5 mmol/L (0.5-2.2) 05/09/18 05:35 Calcium 7.5 mg/dL (8.5-10.3) L 05/10/18 05:57 Phosphorus 2.3 mg/dL (2.5-4.6) L 05/10/18 05:57 Magnesium 1.7 mg/dL (1.7-2.8) 05/10/18 05:57 Total Bilirubin 0.8 mg/dL (0.2-1.0) 05/10/18 05:57 AST 36 IU/L (10-42) 05/10/18 05:57 ALT 38 IU/L (10-60) 05/10/18 05:57 Alkaline Phosphatase 42 IU/L (42-121) 05/10/18 05:57 Total Protein 6.1 g/dL (6.7-8.2) L 05/10/18 05:57 Albumin 3.0 g/dL (3.2-5.5) L 05/10/18 05:57 Globulin 3.1 g/dL (2.1-4.2) 05/10/18 05:57 Albumin/Globulin Ratio 1.0 (1.0-2.2) 05/10/18 05:57 Lipase 18 U/L (22-51) L 05/08/18 17:55
[2018-05-10] MEDS: KETOROLAC 15 MG/ML VIAL IVP SCH ×2 (16:32→22:12)
[2018-05-10] MEDS: ENOXAPARIN 40 MG/0.4 ML SYRINGE SUBQ SCH (21:36)
[2018-05-10] MEDS ORDERED: ZOLPIDEM 5 MG TABLET PO PRN (21:56)
[2018-05-10] MEDS: clonazePAM 0.5 MG TABLET PO PRN (22:12)
[2018-05-11] MEDS: ACETAMINOPHEN 1,000 MG/100 ML 100 ML IV SCH ×4 (00:04→18:53)
[2018-05-11] MEDS: SODIUM CHLORIDE 0.9% 1,000 ML IV SCH (00:38)
[2018-05-11] MEDS: SODIUM CHLORIDE FLUSH 0.9% 10 ML SYRINGE IVP SCH ×3 (00:42→18:00)
[2018-05-11] MEDS: HYDROmorphone 1 MG/ML CARPUJECT IVP PRN (02:21)
[2018-05-11] MEDS: PIPERACILLIN/TAZOBACTAM 3.375 GM in SODIUM CHLORIDE 0.9% MINIBAG 100 ML IV SCH ×4 (04:50→22:09)
[2018-05-11] MEDS: KETOROLAC 15 MG/ML VIAL IVP SCH ×4 (04:51→22:06)
[2018-05-11 07:05] LABS: ALBUMIN 2.5 g/dL (3.2-5.5); CALCIUM 6.1 mg/dL (8.5-10.3); CREATININE 0.8 mg/dL (0.4-1.0); MAGNESIUM 1.5 mg/dL (1.7-2.8); PHOSPHORUS 1.5 mg/dL (2.5-4.6); TOTAL PROTEIN 5.1 g/dL (6.7-8.2)
[2018-05-11 07:07] LABS: BASOPHILS % (AUTO) 0.6 %; EOSINOPHILS # (AUTO) 0.1 10^3/uL (0.0-0.7); HGB - HEMOGLOBIN 8.3 g/dL (12.0-16.0); LYMPHOCYTES # (AUTO) 0.2 10^3/uL (1.5-3.5); MEAN CORPUSCULAR HGB CONC 32.9 g/dL (32.0-36.0); MEAN PLATELET VOLUME 7.5 fL (7.9-10.8); MONOCYTES # (AUTO) 0.2 10^3/uL (0.0-1.0); NEUTROPHILS # (AUTO) 1.8 10^3/uL (1.5-6.6); NEUTROPHILS % (AUTO) 79.4 %; PLT - PLATELET COUNT 91 10^3/uL (130-450); RED BLOOD COUNT 2.98 10^6/uL (4.20-5.40); RED CELL DISTRIBUTION WIDTH 17.2 % (12.0-15.0); WHITE BLOOD COUNT 2.3 x10^3/uL (4.8-10.8)
[2018-05-11 07:46] LABS: VBG PH 7.328 (7.31-7.41)
[2018-05-11 07:52] LABS: PLATELET ESTIMATE, MANUAL DECREASED (<130,000) (NORMAL); PLATELET MORPHOLOGY 1+ LARGE PLATELETS (NORMAL)
[2018-05-11] MEDS: INSULIN ASPART 300 UNIT/3 ML PEN SUBQ SCH ×4 (08:08→20:57)
[2018-05-11] MEDS: FAMOTIDINE 20 MG/50 ML 50 ML IV SCH (09:19)
--- NOTE | 2018-05-11 10:28 | PROVIDER PROGRESS NOTE ---
Subjective - Prog Note Date Prog Note Date: 05/11/18 Prog Note Time: 10:33 - Subjective Subjective: Progressing from a surgical standpoint. Anxiety is increasing. She feels like she is going to . More of a philosophical construct with regards to the fact that she has metastatic breast cancer and myelodysplastic syndrome. Not from a sense of impending doom. Current Medications - Current Medications Current Medications: Active Medications Clonazepam (Klonopin) 3 mg PO QPM PRN PRN Reason: Anxiety Last Admin: 05/10/18 22:12 Dose: 3 mg Enoxaparin Sodium (Lovenox) 40 mg SUBQ Q24H ALISSA Last Admin: 05/10/18 21:36 Dose: 40 mg Piperacillin Sod/Tazobactam (Sod 3.375 gm/ Sodium Chloride) 100 mls @ 200 mls/hr IV Q6H ALISSA Last Infusion: 05/11/18 05:45 Dose: Infused Acetaminophen (Ofirmev) 100 mls @ 400 mls/hr IV Q6H ALISSA Last Infusion: 05/11/18 06:40 Dose: Infused Insulin Aspart (Novolog) 1 - 5 unit SUBQ 0800,1200,1700,2100 ALISSA; Protocol Last Admin: 05/11/18 08:08 Dose: 1 unit Ketorolac Tromethamine (Toradol Inj (15mg)) 15 mg IVP Q6H ALISSA Stop: 05/15/18 08:59 Last Admin: 05/11/18 04:51 Dose: 15 mg Ondansetron HCl (Zofran Inj) 4 mg IVP Q6HR PRN PRN Reason: Nausea / Vomiting Last Admin: 05/09/18 00:17 Dose: 4 mg Sodium Chloride (Normal Saline Flush 0.9%) 10 ml IVP PRN PRN PRN Reason: NEEDED PER PROVIDER ORDERS Last Admin: 05/10/18 22:15 Dose: 10 ml Sodium Chloride (Normal Saline Flush 0.9%) 10 ml IVP 0100,0900,1700 ALISSA Last Admin: 05/11/18 02:22 Dose: 5 ml Zolpidem Tartrate (Ambien) 5 mg PO QPM PRN PRN Reason: Insomnia Calcium Carbonate [Calcium] 500 mg PO DAILY 04/04/15 Denosumab [Xgeva] 120 mg SUBQ Q28D 04/04/15 Biotin 5,000 mcg PO DAILY 10/16/15 clonazePAM [Clonazepam] 3 mg PO QPM 04/08/16 Tamoxifen 20 mg PO DAILY 06/02/17 Metformin HCl 1,000 mg PO BIDWM 05/04/18 Fexofenadine HCl 540 - 720 mg PO QPM 05/09/18 Objective - Vital Signs/Intake & Output Reviewed Vital Signs: Yes Vital Signs: Vital Signs x48h Temp Pulse Resp BP Pulse Ox 05/11/18 08:00 36.4 C L 72 18 116/62 95 05/11/18 05:00 36.9 C 91 18 144/58 H 97 Intake & Output: Intake & Output 05/08/18 05/09/18 05/10/18 05/11/18 23:59 23:59 23:59 23:59 Intake Total 1100 4115 2717.5 2023.333 Output Total 1150 775 250 Balance 1100 2965 1942.5 1773.333 - Objective General Appearance: positive: Moderate distress (from anxiety) Eyes Bilateral: positive: PERRL, EOMI ENT: positive: Pharynx nml Neck: positive: No JVD Respiratory: positive: Chest non-tender. negative: Wheezes, Rales, Rhonchi Cardiovascular: positive: Regular rate & rhythm, Gallop/S4, Friction rub Abdomen: positive: No organomegaly, Nml bowel sounds, Tenderness (mild and diffuse), Other (mild bloating). negative: Guarding, Rebound Skin: positive: Warm, Dry Neurologic/Psychiatric: positive: Oriented x3, CN's nml (2-12), Motor nml - Lab Results Fish Bones: 05/12/18 06:12 05/12/18 06:12 Other Labs: Lab Results x24hrs 05/11/18 05/11/18 05/11/18 Range/Units 07:57 07:43 06:25 WBC (4.8-10.8) x10^3/uL RBC (4.20-5.40) 10^6/uL Hgb (12.0-16.0) g/dL Hct (37.0-47.0) % MCV (81.0-99.0) fL MCH (27.0-31.0) pg MCHC (32.0-36.0) g/dL RDW (12.0-15.0) % Plt Count (130-450) 10^3/uL MPV (7.9-10.8) fL Neut # (Auto) (1.5-6.6) 10^3/uL Lymph # (Auto) (1.5-3.5) 10^3/uL [place] # (Auto) (0.0-1.0) 10^3/uL Eos # (Auto) (0.0-0.7) 10^3/uL Baso # (Auto) (0.0-0.1) 10^3/uL Absolute Nucleated RBC x10^3/uL Nucleated RBC % /100WBC Manual Slide Review WBC Morphology (NORMAL) Platelet Estimate (NORMAL) Platelet Morphology (NORMAL) RBC Morph Micro Appear (NORMAL) VBG pH 7.328 (7.31-7.41) Ionized Calcium 1.01 L (1.15-1.33) mmol/L Sodium 144 (135-145) mmol/L Potassium 2.9 L (3.5-5.0) mmol/L Chloride 115 H (101-111) mmol/L Carbon Dioxide 19 L (21-32) mmol/L Anion Gap 10.0 (6-13) BUN 9 (6-20) mg/dL Creatinine 0.8 (0.4-1.0) mg/dL Estimated GFR (MDRD) 72 L (>89) Glucose 106 H (70-100) mg/dL POC Whole Bld Glucose 154 H (70 - 100) mg/dL Calcium 6.1 L* (8.5-10.3) mg/dL Phosphorus 1.5 L (2.5-4.6) mg/dL Magnesium 1.5 L (1.7-2.8) mg/dL Total Bilirubin 1.0 (0.2-1.0) mg/dL AST 24 (10-42) IU/L ALT 28 (10-60) IU/L Alkaline Phosphatase 38 L (42-121) IU/L Total Protein 5.1 L (6.7-8.2) g/dL Albumin 2.5 L (3.2-5.5) g/dL Globulin 2.6 (2.1-4.2) g/dL Albumin/Globulin Ratio 1.0 (1.0-2.2) 05/11/18 05/10/18 05/10/18 Range/Units 06:25 17:54 12:03 WBC 2.3 L (4.8-10.8) x10^3/uL RBC 2.98 L (4.20-5.40) 10^6/uL Hgb 8.3 L (12.0-16.0) g/dL Hct 25.3 L (37.0-47.0) % MCV 85.0 (81.0-99.0) fL MCH 28.0 (27.0-31.0) pg MCHC 32.9 (32.0-36.0) g/dL RDW 17.2 H (12.0-15.0) % Plt Count 91 L (130-450) 10^3/uL MPV 7.5 L (7.9-10.8) fL Neut # (Auto) 1.8 (1.5-6.6) 10^3/uL Lymph # (Auto) 0.2 L (1.5-3.5) 10^3/uL [place] # (Auto) 0.2 (0.0-1.0) 10^3/uL Eos # (Auto) 0.1 (0.0-0.7) 10^3/uL Baso # (Auto) 0.0 (0.0-0.1) 10^3/uL Absolute Nucleated RBC 0.00 x10^3/uL Nucleated RBC % 0.0 /100WBC Manual Slide Review Indicated WBC Morphology NORMAL APPEARANCE (NORMAL) Platelet Estimate DECREASED (<130,000) (NORMAL) Platelet Morphology 1+ LARGE PLATELETS (NORMAL) RBC Morph Micro Appear 1+ OVALOCYTES (NORMAL) VBG pH (7.31-7.41) Ionized Calcium (1.15-1.33) mmol/L Sodium (135-145) mmol/L Potassium (3.5-5.0) mmol/L Chloride (101-111) mmol/L Carbon Dioxide (21-32) mmol/L Anion Gap (6-13) BUN (6-20) mg/dL Creatinine (0.4-1.0) mg/dL Estimated GFR (MDRD) (>89) Glucose (70-100) mg/dL POC Whole Bld Glucose 95 107 H (70 - 100) mg/dL Calcium (8.5-10.3) mg/dL Phosphorus (2.5-4.6) mg/dL Magnesium (1.7-2.8) mg/dL Total Bilirubin (0.2-1.0) mg/dL AST (10-42) IU/L ALT (10-60) IU/L Alkaline Phosphatase (42-121) IU/L Total Protein (6.7-8.2) g/dL Albumin (3.2-5.5) g/dL Globulin (2.1-4.2) g/dL Albumin/Globulin Ratio (1.0-2.2) 05/10/18 05/09/18 05/09/18 Range/Units 00:04 17:57 13:50 WBC (4.8-10.8) x10^3/uL RBC (4.20-5.40) 10^6/uL Hgb (12.0-16.0) g/dL Hct (37.0-47.0) % MCV (81.0-99.0) fL MCH (27.0-31.0) pg MCHC (32.0-36.0) g/dL RDW (12.0-15.0) % Plt Count (130-450) 10^3/uL MPV (7.9-10.8) fL Neut # (Auto) (1.5-6.6) 10^3/uL Lymph # (Auto) (1.5-3.5) 10^3/uL [place] # (Auto) (0.0-1.0) 10^3/uL Eos # (Auto) (0.0-0.7) 10^3/uL Baso # (Auto) (0.0-0.1) 10^3/uL Absolute Nucleated RBC x10^3/uL Nucleated RBC % /100WBC Manual Slide Review WBC Morphology (NORMAL) Platelet Estimate (NORMAL) Platelet Morphology (NORMAL) RBC Morph Micro Appear (NORMAL) VBG pH (7.31-7.41) Ionized Calcium (1.15-1.33) mmol/L Sodium (135-145) mmol/L Potassium (3.5-5.0) mmol/L Chloride (101-111) mmol/L Carbon Dioxide (21-32) mmol/L Anion Gap (6-13) BUN (6-20) mg/dL Creatinine (0.4-1.0) mg/dL Estimated GFR (MDRD) (>89) Glucose (70-100) mg/dL POC Whole Bld Glucose 91 193 H 240 H (70 - 100) mg/dL Calcium (8.5-10.3) mg/dL Phosphorus (2.5-4.6) mg/dL Magnesium (1.7-2.8) mg/dL Total Bilirubin (0.2-1.0) mg/dL AST (10-42) IU/L ALT (10-60) IU/L Alkaline Phosphatase (42-121) IU/L Total Protein (6.7-8.2) g/dL Albumin (3.2-5.5) g/dL Globulin (2.1-4.2) g/dL Albumin/Globulin Ratio (1.0-2.2) 05/09/18 05/09/18 05/09/18 Range/Units 13:04 12:24 10:49 WBC (4.8-10.8) x10^3/uL RBC (4.20-5.40) 10^6/uL Hgb (12.0-16.0) g/dL Hct (37.0-47.0) % MCV (81.0-99.0) fL MCH (27.0-31.0) pg MCHC (32.0-36.0) g/dL RDW (12.0-15.0) % Plt Count (130-450) 10^3/uL MPV (7.9-10.8) fL Neut # (Auto) (1.5-6.6) 10^3/uL Lymph # (Auto) (1.5-3.5) 10^3/uL [place] # (Auto) (0.0-1.0) 10^3/uL Eos # (Auto) (0.0-0.7) 10^3/uL Baso # (Auto) (0.0-0.1) 10^3/uL Absolute Nucleated RBC x10^3/uL Nucleated RBC % /100WBC Manual Slide Review WBC Morphology (NORMAL) Platelet Estimate (NORMAL) Platelet Morphology (NORMAL) RBC Morph Micro Appear (NORMAL) VBG pH (7.31-7.41) Ionized Calcium (1.15-1.33) mmol/L Sodium (135-145) mmol/L Potassium (3.5-5.0) mmol/L Chloride (101-111) mmol/L Carbon Dioxide (21-32) mmol/L Anion Gap (6-13) BUN (6-20) mg/dL Creatinine (0.4-1.0) mg/dL Estimated GFR (MDRD) (>89) Glucose (70-100) mg/dL POC Whole Bld Glucose 251 H 242 H 288 H (70 - 100) mg/dL Calcium (8.5-10.3) mg/dL Phosphorus (2.5-4.6) mg/dL Magnesium (1.7-2.8) mg/dL Total Bilirubin (0.2-1.0) mg/dL AST (10-42) IU/L ALT (10-60) IU/L Alkaline Phosphatase (42-121) IU/L Total Protein (6.7-8.2) g/dL Albumin (3.2-5.5) g/dL Globulin (2.1-4.2) g/dL Albumin/Globulin Ratio (1.0-2.2) 05/09/18 05/08/18 Range/Units 05:45 23:54 WBC (4.8-10.8) x10^3/uL RBC (4.20-5.40) 10^6/uL Hgb (12.0-16.0) g/dL Hct (37.0-47.0) % MCV (81.0-99.0) fL MCH (27.0-31.0) pg MCHC (32.0-36.0) g/dL RDW (12.0-15.0) % Plt Count (130-450) 10^3/uL MPV (7.9-10.8) fL Neut # (Auto) (1.5-6.6) 10^3/uL Lymph # (Auto) (1.5-3.5) 10^3/uL [place] # (Auto) (0.0-1.0) 10^3/uL Eos # (Auto) (0.0-0.7) 10^3/uL Baso # (Auto) (0.0-0.1) 10^3/uL Absolute Nucleated RBC x10^3/uL Nucleated RBC % /100WBC Manual Slide Review WBC Morphology (NORMAL) Platelet Estimate (NORMAL) Platelet Morphology (NORMAL) RBC Morph Micro Appear (NORMAL) VBG pH (7.31-7.41) Ionized Calcium (1.15-1.33) mmol/L Sodium (135-145) mmol/L Potassium (3.5-5.0) mmol/L Chloride (101-111) mmol/L Carbon Dioxide (21-32) mmol/L Anion Gap (6-13) BUN (6-20) mg/dL Creatinine (0.4-1.0) mg/dL Estimated GFR (MDRD) (>89) Glucose (70-100) mg/dL POC Whole Bld Glucose 301 H 267 H (70 - 100) mg/dL Calcium (8.5-10.3) mg/dL Phosphorus (2.5-4.6) mg/dL Magnesium (1.7-2.8) mg/dL Total Bilirubin (0.2-1.0) mg/dL AST (10-42) IU/L ALT (10-60) IU/L Alkaline Phosphatase (42-121) IU/L Total Protein (6.7-8.2) g/dL Albumin (3.2-5.5) g/dL Globulin (2.1-4.2) g/dL Albumin/Globulin Ratio (1.0-2.2) ABX Reporting Has patient been on IV antibiotics over the past 48 hours?: Yes Assessment/Plan - Problem List (1) Anxiety Impression: Plan attack in the personal insurance advisor hours. She is tearful. Anxious. Very frightened about the fact that "I am going to ". She is getting better from her abdominal surgical issues, but the anxiety of dealing with her breast cancer with metastases as well as myelodysplastic syndrome is getting the best of her this morning. She really would like to speak to her oncologist this morning. Dr. Marte is [facility] oncology and is in the [facility] today. She has been notified so that she can come see the patient. (2) Gallstone ileus of small intestine Impression: On POD #1 of lap assisted enterolithotomy: The path report of stone was still pending. Advance her care per surgery with NG out and Zamudio out, OOB and iv fluids decreased. Diet advanced from NPO to clear. Pain meds as needed. Today POD #2. Walking. up in chair. Path report still pending. Advance diet to full liquids. (3) Cholecystitis Assessment/Plan: Relatively asymptomatic, gallstone was left behind in the gallbladder. Monitor CMP daily. LFT's remain stable. (4) Diabetes mellitus Qualifiers: Diabetes mellitus type: type 2 Diabetes mellitus residential insulin use: without dedicated intermodal truck driver use Diabetes mellitus complication status: with hyperglycemia Qualified Code(s): E11.65 - Type 2 diabetes mellitus with hyperglycemia Assessment/Plan: NPO ss Insulin for now, will advance when ready.She is on metformin in the outpatient setting Glucose yesterday was 91, 96, 107, and 95. This morning she is 154 (5) Essential (primary) hypertension Assessment/Plan: Stable on meds Blood pressure at midnight was 98/52. At 5 AM she was 144/58. At 8 AM she is 116/62 (6) SONYA on CPAP Assessment/Plan: Pt using home CPAP unit.
--- NOTE | 2018-05-11 10:33 | PROVIDER PROGRESS NOTE ---
Subjective - General Admit Date: 05/08/18 Procedure Date: 05/09/18 Post Op Days: 2 Procedure Performed: lap assisted enterolithotomy - Review of Systems Wound/Incisions: positive: Healing well, Dressing dry and intact, No drainage General: positive: Other (c/o minimal incisional pain; no N/V, + flatus, no stool) Pulmonary: positive: No symptoms Cardiovascular: positive: No symptoms Gastrointestinal: positive: Abdominal pain (incisional, minimal at present), Flatus. negative: Nausea, Vomiting Genitourinary: positive: No symptoms Skin: positive: No symptoms - Other Other Information/Narrative: Tolerated NG out yest; yaw clear liquids well so far; passing flatus, minimal incisional discomfort. Objective - Patient Data Reviewed Vital Signs: Yes Vital Signs: Vital Signs x48h Temp Pulse Resp BP Pulse Ox 05/11/18 08:00 36.4 C L 72 18 116/62 95 05/11/18 05:00 36.9 C 91 18 144/58 H 97 Intake & Output: Intake and Output Totals x24h 05/09/18 05/10/18 05/11/18 23:59 23:59 23:59 Intake Total 4115 2717.5 2023.333 Output Total 1150 775 250 Balance 2965 1942.5 1773.333 - Lab Results Lab Results: 05/11/18 06:25 05/11/18 06:25 Other Lab Results: Lab Results x24hrs 05/11/18 05/11/18 05/11/18 Range/Units 07:57 07:43 06:25 WBC (4.8-10.8) x10^3/uL RBC (4.20-5.40) 10^6/uL Hgb (12.0-16.0) g/dL Hct (37.0-47.0) % MCV (81.0-99.0) fL MCH (27.0-31.0) pg MCHC (32.0-36.0) g/dL RDW (12.0-15.0) % Plt Count (130-450) 10^3/uL MPV (7.9-10.8) fL Neut # (Auto) (1.5-6.6) 10^3/uL Lymph # (Auto) (1.5-3.5) 10^3/uL [place] # (Auto) (0.0-1.0) 10^3/uL Eos # (Auto) (0.0-0.7) 10^3/uL Baso # (Auto) (0.0-0.1) 10^3/uL Absolute Nucleated RBC x10^3/uL Nucleated RBC % /100WBC Manual Slide Review WBC Morphology (NORMAL) Platelet Estimate (NORMAL) Platelet Morphology (NORMAL) RBC Morph Micro Appear (NORMAL) VBG pH 7.328 (7.31-7.41) Ionized Calcium 1.01 L (1.15-1.33) mmol/L Sodium 144 (135-145) mmol/L Potassium 2.9 L (3.5-5.0) mmol/L Chloride 115 H (101-111) mmol/L Carbon Dioxide 19 L (21-32) mmol/L Anion Gap 10.0 (6-13) BUN 9 (6-20) mg/dL Creatinine 0.8 (0.4-1.0) mg/dL Estimated GFR (MDRD) 72 L (>89) Glucose 106 H (70-100) mg/dL POC Whole Bld Glucose 154 H (70 - 100) mg/dL Calcium 6.1 L* (8.5-10.3) mg/dL Phosphorus 1.5 L (2.5-4.6) mg/dL Magnesium 1.5 L (1.7-2.8) mg/dL Total Bilirubin 1.0 (0.2-1.0) mg/dL AST 24 (10-42) IU/L ALT 28 (10-60) IU/L Alkaline Phosphatase 38 L (42-121) IU/L Total Protein 5.1 L (6.7-8.2) g/dL Albumin 2.5 L (3.2-5.5) g/dL Globulin 2.6 (2.1-4.2) g/dL Albumin/Globulin Ratio 1.0 (1.0-2.2) 05/11/18 05/10/18 05/10/18 Range/Units 06:25 17:54 12:03 WBC 2.3 L (4.8-10.8) x10^3/uL RBC 2.98 L (4.20-5.40) 10^6/uL Hgb 8.3 L (12.0-16.0) g/dL Hct 25.3 L (37.0-47.0) % MCV 85.0 (81.0-99.0) fL MCH 28.0 (27.0-31.0) pg MCHC 32.9 (32.0-36.0) g/dL RDW 17.2 H (12.0-15.0) % Plt Count 91 L (130-450) 10^3/uL MPV 7.5 L (7.9-10.8) fL Neut # (Auto) 1.8 (1.5-6.6) 10^3/uL Lymph # (Auto) 0.2 L (1.5-3.5) 10^3/uL [place] # (Auto) 0.2 (0.0-1.0) 10^3/uL Eos # (Auto) 0.1 (0.0-0.7) 10^3/uL Baso # (Auto) 0.0 (0.0-0.1) 10^3/uL Absolute Nucleated RBC 0.00 x10^3/uL Nucleated RBC % 0.0 /100WBC Manual Slide Review Indicated WBC Morphology NORMAL APPEARANCE (NORMAL) Platelet Estimate DECREASED (<130,000) (NORMAL) Platelet Morphology 1+ LARGE PLATELETS (NORMAL) RBC Morph Micro Appear 1+ OVALOCYTES (NORMAL) VBG pH (7.31-7.41) Ionized Calcium (1.15-1.33) mmol/L Sodium (135-145) mmol/L Potassium (3.5-5.0) mmol/L Chloride (101-111) mmol/L Carbon Dioxide (21-32) mmol/L Anion Gap (6-13) BUN (6-20) mg/dL Creatinine (0.4-1.0) mg/dL Estimated GFR (MDRD) (>89) Glucose (70-100) mg/dL POC Whole Bld Glucose 95 107 H (70 - 100) mg/dL Calcium (8.5-10.3) mg/dL Phosphorus (2.5-4.6) mg/dL Magnesium (1.7-2.8) mg/dL Total Bilirubin (0.2-1.0) mg/dL AST (10-42) IU/L ALT (10-60) IU/L Alkaline Phosphatase (42-121) IU/L Total Protein (6.7-8.2) g/dL Albumin (3.2-5.5) g/dL Globulin (2.1-4.2) g/dL Albumin/Globulin Ratio (1.0-2.2) 05/10/18 05/09/18 05/09/18 Range/Units 00:04 17:57 13:50 WBC (4.8-10.8) x10^3/uL RBC (4.20-5.40) 10^6/uL Hgb (12.0-16.0) g/dL Hct (37.0-47.0) % MCV (81.0-99.0) fL MCH (27.0-31.0) pg MCHC (32.0-36.0) g/dL RDW (12.0-15.0) % Plt Count (130-450) 10^3/uL MPV (7.9-10.8) fL Neut # (Auto) (1.5-6.6) 10^3/uL Lymph # (Auto) (1.5-3.5) 10^3/uL [place] # (Auto) (0.0-1.0) 10^3/uL Eos # (Auto) (0.0-0.7) 10^3/uL Baso # (Auto) (0.0-0.1) 10^3/uL Absolute Nucleated RBC x10^3/uL Nucleated RBC % /100WBC Manual Slide Review WBC Morphology (NORMAL) Platelet Estimate (NORMAL) Platelet Morphology (NORMAL) RBC Morph Micro Appear (NORMAL) VBG pH (7.31-7.41) Ionized Calcium (1.15-1.33) mmol/L Sodium (135-145) mmol/L Potassium (3.5-5.0) mmol/L Chloride (101-111) mmol/L Carbon Dioxide (21-32) mmol/L Anion Gap (6-13) BUN (6-20) mg/dL Creatinine (0.4-1.0) mg/dL Estimated GFR (MDRD) (>89) Glucose (70-100) mg/dL POC Whole Bld Glucose 91 193 H 240 H (70 - 100) mg/dL Calcium (8.5-10.3) mg/dL Phosphorus (2.5-4.6) mg/dL Magnesium (1.7-2.8) mg/dL Total Bilirubin (0.2-1.0) mg/dL AST (10-42) IU/L ALT (10-60) IU/L Alkaline Phosphatase (42-121) IU/L Total Protein (6.7-8.2) g/dL Albumin (3.2-5.5) g/dL Globulin (2.1-4.2) g/dL Albumin/Globulin Ratio (1.0-2.2) 05/09/18 05/09/18 05/09/18 Range/Units 13:04 12:24 10:49 WBC (4.8-10.8) x10^3/uL RBC (4.20-5.40) 10^6/uL Hgb (12.0-16.0) g/dL Hct (37.0-47.0) % MCV (81.0-99.0) fL MCH (27.0-31.0) pg MCHC (32.0-36.0) g/dL RDW (12.0-15.0) % Plt Count (130-450) 10^3/uL MPV (7.9-10.8) fL Neut # (Auto) (1.5-6.6) 10^3/uL Lymph # (Auto) (1.5-3.5) 10^3/uL [place] # (Auto) (0.0-1.0) 10^3/uL Eos # (Auto) (0.0-0.7) 10^3/uL Baso # (Auto) (0.0-0.1) 10^3/uL Absolute Nucleated RBC x10^3/uL Nucleated RBC % /100WBC Manual Slide Review WBC Morphology (NORMAL) Platelet Estimate (NORMAL) Platelet Morphology (NORMAL) RBC Morph Micro Appear (NORMAL) VBG pH (7.31-7.41) Ionized Calcium (1.15-1.33) mmol/L Sodium (135-145) mmol/L Potassium (3.5-5.0) mmol/L Chloride (101-111) mmol/L Carbon Dioxide (21-32) mmol/L Anion Gap (6-13) BUN (6-20) mg/dL Creatinine (0.4-1.0) mg/dL Estimated GFR (MDRD) (>89) Glucose (70-100) mg/dL POC Whole Bld Glucose 251 H 242 H 288 H (70 - 100) mg/dL Calcium (8.5-10.3) mg/dL Phosphorus (2.5-4.6) mg/dL Magnesium (1.7-2.8) mg/dL Total Bilirubin (0.2-1.0) mg/dL AST (10-42) IU/L ALT (10-60) IU/L Alkaline Phosphatase (42-121) IU/L Total Protein (6.7-8.2) g/dL Albumin (3.2-5.5) g/dL Globulin (2.1-4.2) g/dL Albumin/Globulin Ratio (1.0-2.2) 05/09/18 05/08/18 Range/Units 05:45 23:54 WBC (4.8-10.8) x10^3/uL RBC (4.20-5.40) 10^6/uL Hgb (12.0-16.0) g/dL Hct (37.0-47.0) % MCV (81.0-99.0) fL MCH (27.0-31.0) pg MCHC (32.0-36.0) g/dL RDW (12.0-15.0) % Plt Count (130-450) 10^3/uL MPV (7.9-10.8) fL Neut # (Auto) (1.5-6.6) 10^3/uL Lymph # (Auto) (1.5-3.5) 10^3/uL [place] # (Auto) (0.0-1.0) 10^3/uL Eos # (Auto) (0.0-0.7) 10^3/uL Baso # (Auto) (0.0-0.1) 10^3/uL Absolute Nucleated RBC x10^3/uL Nucleated RBC % /100WBC Manual Slide Review WBC Morphology (NORMAL) Platelet Estimate (NORMAL) Platelet Morphology (NORMAL) RBC Morph Micro Appear (NORMAL) VBG pH (7.31-7.41) Ionized Calcium (1.15-1.33) mmol/L Sodium (135-145) mmol/L Potassium (3.5-5.0) mmol/L Chloride (101-111) mmol/L Carbon Dioxide (21-32) mmol/L Anion Gap (6-13) BUN (6-20) mg/dL Creatinine (0.4-1.0) mg/dL Estimated GFR (MDRD) (>89) Glucose (70-100) mg/dL POC Whole Bld Glucose 301 H 267 H (70 - 100) mg/dL Calcium (8.5-10.3) mg/dL Phosphorus (2.5-4.6) mg/dL Magnesium (1.7-2.8) mg/dL Total Bilirubin (0.2-1.0) mg/dL AST (10-42) IU/L ALT (10-60) IU/L Alkaline Phosphatase (42-121) IU/L Total Protein (6.7-8.2) g/dL Albumin (3.2-5.5) g/dL Globulin (2.1-4.2) g/dL Albumin/Globulin Ratio (1.0-2.2) - Current Medications Current Medications: Current Medications Generic Name Dose Route Start Last Admin Trade Name Freq PRN Reason Stop Dose Admin Clonazepam 3 mg 05/10/18 21:57 05/10/18 22:12 Klonopin PO 3 mg QPM PRN Administration Anxiety Enoxaparin Sodium 40 mg 05/09/18 21:00 05/10/18 21:36 Lovenox SUBQ 40 mg Q24H ALISSA Administration Piperacillin Sod/Tazobactam 100 mls @ 200 mls/hr 05/08/18 22:00 05/11/18 05:45 Sod 3.375 gm/ Sodium Chloride IV Infused Q6H ALISSA Infusion Acetaminophen 100 mls @ 400 mls/hr 05/10/18 06:00 05/11/18 06:40 Ofirmev IV Infused Q6H ALISSA Infusion Insulin Aspart 1 - 5 unit 05/11/18 08:00 05/11/18 08:08 Novolog SUBQ 1 unit 0800,1200,1700,2100 ALISSA Administration Protocol Ketorolac Tromethamine 15 mg 05/10/18 16:00 05/11/18 04:51 Toradol Inj (15mg) IVP 05/15/18 08:59 15 mg Q6H ALISSA Administration Ondansetron HCl 4 mg 05/08/18 21:32 05/09/18 00:17 Zofran Inj IVP 4 mg Q6HR PRN Administration Nausea / Vomiting Sodium Chloride 10 ml 05/08/18 21:32 05/10/18 22:15 Normal Saline Flush 0.9% IVP 10 ml PRN PRN Administration NEEDED PER PROVIDER ORDERS Sodium Chloride 10 ml 05/09/18 01:00 05/11/18 02:22 Normal Saline Flush 0.9% IVP 5 ml 0100,0900,1700 ALISSA Administration Impression/Plan - Problem List Problem List: 1. PO DAy 2 s/p lap assisted enterolithotomy for gallstone ileus; doing well clinically with resolving ileus. Rec: advance diet, d/c IVF, OOB more. 2. Chronic cholecystitis/cholecysto-duodenal fistula; clinically no evidence of acute cholecystitis. Rec: consider stopping antibiotics soon. Consider outpt referral to GI to consider endoscopic contact lithotripsy to treat residual stone(s) in gallbladder.
[2018-05-11] MEDS ORDERED: MAGNESIUM SULFATE 2 GRAM 2 GM/50 ML BAG IV ONE (12:00)
[2018-05-11] MEDS: DICYCLOMINE 10 MG CAPSULE PO SCH ×3 (14:27→20:58)
[2018-05-11] MEDS ORDERED: POTASSIUM PHOSPHATE 15 MMOL in SODIUM CHLORIDE 0.9% 250 ML IV ONE (16:00)
[2018-05-11] MEDS: POTASSIUM CHLORIDE 20 MEQ TABLET PO SCH (18:00)
[2018-05-11] MEDS: SODIUM CHLORIDE FLUSH 0.9% 10 ML SYRINGE IVP PRN ×2 (18:15→22:17)
[2018-05-11] MEDS: ENOXAPARIN 40 MG/0.4 ML SYRINGE SUBQ SCH (20:58)
[2018-05-12] MEDS: ACETAMINOPHEN 1,000 MG/100 ML 100 ML IV SCH ×2 (00:20→06:29)
[2018-05-12] MEDS: SODIUM CHLORIDE FLUSH 0.9% 10 ML SYRINGE IVP SCH ×5 (00:20→23:34)
[2018-05-12] MEDS: PIPERACILLIN/TAZOBACTAM 3.375 GM in SODIUM CHLORIDE 0.9% MINIBAG 100 ML IV SCH ×2 (04:42→10:51)
[2018-05-12] MEDS: KETOROLAC 15 MG/ML VIAL IVP SCH ×2 (04:43→10:43)
[2018-05-12] MEDS ORDERED: SODIUM CHLORIDE FLUSH 0.9% 10 ML SYRINGE ONE (05:17)
[2018-05-12 06:24] LABS: BASOPHILS % (AUTO) 0.7 %; EOSINOPHILS % (AUTO) 5.1 %; HGB - HEMOGLOBIN 9.3 g/dL (12.0-16.0); LYMPHOCYTES % (AUTO) 9.9 %; MEAN CORPUSCULAR HEMOGLOBIN 27.6 pg (27.0-31.0); MEAN CORPUSCULAR VOLUME 81.2 fL (81.0-99.0); MEAN PLATELET VOLUME 7.2 fL (7.9-10.8); MONOCYTES % (AUTO) 9.5 %; NEUTROPHILS % (AUTO) 74.8 %; PLT - PLATELET COUNT 98 10^3/uL (130-450); RED BLOOD COUNT 3.37 10^6/uL (4.20-5.40); RED CELL DISTRIBUTION WIDTH 16.5 % (12.0-15.0)
[2018-05-12 06:35] LABS: ALBUMIN 2.7 g/dL (3.2-5.5); BILIRUBIN,TOTAL 0.3 mg/dL (0.2-1.0); CALCIUM 6.9 mg/dL (8.5-10.3); CREATININE 0.8 mg/dL (0.4-1.0); TOTAL PROTEIN 5.3 g/dL (6.7-8.2)
[2018-05-12] MEDS ORDERED: POTASSIUM CHLORIDE 20 MEQ TABLET PO SCH ×2 (06:47→08:00)
[2018-05-12 06:51] LABS: WHITE BLOOD COUNT 1.8 x10^3/uL (4.8-10.8)
[2018-05-12 06:52] LABS: ABNORMAL LYMPHS % (MANUAL) 0 %
[2018-05-12] MEDS: POTASSIUM CHLORIDE 20 MEQ TABLET PO SCH (07:01)
[2018-05-12 07:02] LABS: BAND NEUTROPHILS % (MANUAL) 3 %; EOSINOPHILS # (MANUAL) 0.2 10^3/uL (0-0.7); LYMPHOCYTES # (MANUAL) 0.1 10^3/uL (1.5-3.5); LYMPHOCYTES % (MANUAL) 5 %; MONOCYTES # (MANUAL) 0.1 10^3/uL (0.0-1.0); NEUTROPHILS # (MANUAL) 1.5 10^3/uL (1.5-6.6); NEUTROPHILS % (MANUAL) 80 %
[2018-05-12 07:03] LABS: DIFFERENTIAL COMMENT MANUAL DIFFERENTIAL; PLATELET ESTIMATE, MANUAL DECREASED (<130,000) (NORMAL); RBC MORPHOLOGY (MULTIPLE) NORMAL APPEARANCE (NORMAL)
--- NOTE | 2018-05-12 08:10 | PROVIDER PROGRESS NOTE ---
Subjective - Prog Note Date Prog Note Date: 05/12/18 Prog Note Time: 08:17 - Subjective Subjective: She wanted IV fluids started because she felt like she was getting behind in her p.o. intake. Then once it was started, she was anxious because the IV fluids hanging were going to give her congestive heart failure. She could not seem to remember that she did ask for them. She is very anxious. Rapidfire speech. Multiple, multiple, multiple complaint s. Most of them centered on how siblings, friends, nursing staff here, previous hospitals have done wrong by her. When I get her to focus on what exactly she needs me to do for her these are her requests: 1. Find out if the Ibrance and letrozole can be started today or does she have to wait 2. Can I please give her Dilaudid to control her pain because her abdominal bloating, cramping, or so severe. Dilaudid was the only thing that controlled her before 3. She does not want to go home. She wants to be able to have people take care of her because she is so weak, and she is very frightened because she lives alone. As such she wants to go to care home facility and wants to know if the care home facility will give her IV fluids, IV meds. Also wants to know if they are willing to check her blood work to make sure her potassium is normal 4. She wants to know if she is either dehydrated or in congestive heart failure. Current Medications - Current Medications Current Medications: Active Medications Clonazepam (Klonopin) 3 mg PO QPM PRN PRN Reason: Anxiety Last Admin: 05/10/18 22:12 Dose: 3 mg Dicyclomine HCl (Bentyl) 10 mg PO QID [facility] Last Admin: 05/11/18 20:58 Dose: 10 mg Enoxaparin Sodium (Lovenox) 40 mg SUBQ Q24H ALISSA Last Admin: 05/11/18 20:58 Dose: 40 mg Piperacillin Sod/Tazobactam (Sod 3.375 gm/ Sodium Chloride) 100 mls @ 200 mls/hr IV Q6H ALISSA Last Infusion: 05/12/18 06:20 Dose: Infused Acetaminophen (Ofirmev) 100 mls @ 400 mls/hr IV Q6H ALISSA Last Infusion: 05/12/18 07:00 Dose: Infused Insulin Aspart (Novolog) 1 - 5 unit SUBQ 0800,1200,1700,2100 [facility]; Protocol Last Admin: 05/12/18 08:15 Dose: Not Given Ketorolac Tromethamine (Toradol Inj (15mg)) 15 mg IVP Q6H ALISSA Stop: 05/15/18 08:59 Last Admin: 05/12/18 04:43 Dose: 15 mg Ondansetron HCl (Zofran Inj) 4 mg IVP Q6HR PRN PRN Reason: Nausea / Vomiting Last Admin: 05/09/18 00:17 Dose: 4 mg Potassium Chloride (K-Dur) 40 meq PO DAILYWM [facility] Potassium Chloride (K-Dur) 20 meq PO ONCE [facility] Stop: 05/12/18 09:00 Sodium Chloride (Normal Saline Flush 0.9%) 10 ml IVP PRN PRN PRN Reason: NEEDED PER PROVIDER ORDERS Last Admin: 05/11/18 22:17 Dose: 20 ml Sodium Chloride (Normal Saline Flush 0.9%) 10 ml IVP 0100,0900,1700 [facility] Last Admin: 05/12/18 04:57 Dose: 10 ml Tamoxifen Citrate () 20 mg PO DAILY [facility] Zolpidem Tartrate (Ambien) 5 mg PO QPM PRN PRN Reason: Insomnia Calcium Carbonate [Calcium] 500 mg PO DAILY 04/04/15 Denosumab [Xgeva] 120 mg SUBQ Q28D 04/04/15 Biotin 5,000 mcg PO DAILY 10/16/15 clonazePAM [Clonazepam] 3 mg PO QPM 04/08/16 Tamoxifen 20 mg PO DAILY 06/02/17 Metformin HCl 1,000 mg PO BIDWM 05/04/18 Fexofenadine HCl 540 - 720 mg PO QPM 05/09/18 Objective - Vital Signs/Intake & Output Reviewed Vital Signs: Yes Vital Signs: Vital Signs x48h Temp Pulse Resp BP BP Pulse Ox 05/12/18 06:15 36.4 C L 64 16 137/50 H 97 05/12/18 00:15 36.9 C 66 16 120/48 L 96 Intake & Output: Intake & Output 05/09/18 05/10/18 05/11/18 05/12/18 23:59 23:59 23:59 23:59 Intake Total 4115 2717.5 4353.333 655.000 Output Total 1150 775 250 350 Balance 2965 1942.5 4103.333 305.000 - Objective General Appearance: positive: No acute distress, Alert, Other (Moderately obese middle-aged white female who looks her stated age, wearing a do rag in her hair. Sitting upright comfortably in her chair, with a grimacing face ease because of abdominal bloating and distention that is uncomfortable. She keeps on repeating "I am just so uncomfortable".) Eyes Bilateral: positive: PERRL, EOMI ENT: positive: Pharynx nml. negative: Dry mucous membranes Neck: positive: No JVD. negative: Stiff neck, Carotid bruit Respiratory: positive: Chest non-tender, No respiratory distress. negative: Wheezes, Rales, Rhonchi Cardiovascular: positive: Regular rate & rhythm. negative: Gallop/S4, Friction rub Abdomen: positive: Tenderness, Other. negative: Guarding, Rebound (Diffusely distended, tympanitic. Hypoactive bowel sounds.) Skin: positive: Warm, Dry Extremities: positive: Full ROM, Pedal edema Neurologic/Psychiatric: positive: Oriented x3, CN's nml (2-12), Motor nml, Weakness, Depressed mood/affect - Lab Results Fish Bones: 05/12/18 06:12 05/12/18 06:12 Other Labs: Lab Results x24hrs 05/12/18 05/12/18 05/11/18 Range/Units 06:12 06:12 20:31 WBC 1.8 L* (4.8-10.8) x10^3/uL RBC 3.37 L (4.20-5.40) 10^6/uL Hgb 9.3 L (12.0-16.0) g/dL Hct 27.4 L (37.0-47.0) % MCV 81.2 (81.0-99.0) fL MCH 27.6 (27.0-31.0) pg MCHC 34.0 (32.0-36.0) g/dL RDW 16.5 H (12.0-15.0) % Plt Count 98 L (130-450) 10^3/uL MPV 7.2 L (7.9-10.8) fL Neut # (Auto) Not Reportable Lymph # (Auto) Not Reportable [place] # (Auto) Not Reportable Eos # (Auto) Not Reportable Baso # (Auto) Not Reportable Absolute Nucleated RBC Not Reportable Total Counted 100 Band Neuts % (Manual) 3 (0 - 10) % Abnorm Lymph % (Manual) 0 % Nucleated RBC % Not Reportable Neutrophils # (Manual) 1.5 (1.5-6.6) 10^3/uL Lymphocytes # (Manual) 0.1 L (1.5-3.5) 10^3/uL Monocytes # (Manual) 0.1 (0.0-1.0) 10^3/uL Eosinophils # (Manual) 0.2 (0-0.7) 10^3/uL Basophils # (Manual) 0.0 (0-0.1) 10^3/uL Differential Comment MANUAL DIFFERENTIAL Platelet Estimate DECREASED (<130,000) (NORMAL) RBC Morph Micro Appear NORMAL APPEARANCE (NORMAL) Sodium 141 (135-145) mmol/L Potassium 3.1 L (3.5-5.0) mmol/L Chloride 112 H (101-111) mmol/L Carbon Dioxide 21 (21-32) mmol/L Anion Gap 8.0 (6-13) BUN 9 (6-20) mg/dL Creatinine 0.8 (0.4-1.0) mg/dL Estimated GFR (MDRD) 72 L (>89) Glucose 121 H (70-100) mg/dL POC Whole Bld Glucose 156 H (70 - 100) mg/dL Calcium 6.9 L (8.5-10.3) mg/dL Total Bilirubin 0.3 (0.2-1.0) mg/dL AST 19 (10-42) IU/L ALT 25 (10-60) IU/L Alkaline Phosphatase 43 (42-121) IU/L Total Protein 5.3 L (6.7-8.2) g/dL Albumin 2.7 L (3.2-5.5) g/dL Globulin 2.6 (2.1-4.2) g/dL Albumin/Globulin Ratio 1.0 (1.0-2.2) 05/11/18 05/11/18 Range/Units 16:32 11:08 WBC (4.8-10.8) x10^3/uL RBC (4.20-5.40) 10^6/uL Hgb (12.0-16.0) g/dL Hct (37.0-47.0) % MCV (81.0-99.0) fL MCH (27.0-31.0) pg MCHC (32.0-36.0) g/dL RDW (12.0-15.0) % Plt Count (130-450) 10^3/uL MPV (7.9-10.8) fL Neut # (Auto) Lymph # (Auto) [place] # (Auto) Eos # (Auto) Baso # (Auto) Absolute Nucleated RBC Total Counted Band Neuts % (Manual) (0 - 10) % Abnorm Lymph % (Manual) % Nucleated RBC % Neutrophils # (Manual) (1.5-6.6) 10^3/uL Lymphocytes # (Manual) (1.5-3.5) 10^3/uL Monocytes # (Manual) (0.0-1.0) 10^3/uL Eosinophils # (Manual) (0-0.7) 10^3/uL Basophils # (Manual) (0-0.1) 10^3/uL Differential Comment Platelet Estimate (NORMAL) RBC Morph Micro Appear (NORMAL) Sodium (135-145) mmol/L Potassium (3.5-5.0) mmol/L Chloride (101-111) mmol/L Carbon Dioxide (21-32) mmol/L Anion Gap (6-13) BUN (6-20) mg/dL Creatinine (0.4-1.0) mg/dL Estimated GFR (MDRD) (>89) Glucose (70-100) mg/dL POC Whole Bld Glucose 169 H 179 H (70 - 100) mg/dL Calcium (8.5-10.3) mg/dL Total Bilirubin (0.2-1.0) mg/dL AST (10-42) IU/L ALT (10-60) IU/L Alkaline Phosphatase (42-121) IU/L Total Protein (6.7-8.2) g/dL Albumin (3.2-5.5) g/dL Globulin (2.1-4.2) g/dL Albumin/Globulin Ratio (1.0-2.2) ABX Reporting Has patient been on IV antibiotics over the past 48 hours?: Yes Assessment/Plan - Problem List (1) Anxiety Impression: Panic attack in the store receiver hours / and again this am. She wanted IVF for hydration bc she felt like she was getting behind in po intake but once it was started she then became worried that she was going to go into CHF and wanted to know why it was started. She seemed to forget she asked for it. She is not as tearful but anxious. Very frightened about the fact that "I am going to ". She is getting better from her abdominal surgical issues, but the anxiety of dealing with her breast cancer with metastases as well as myelodysplastic syndrome is getting the best of her and she feels neglected and not getting enough care. Dr. Marte is [facility] oncology and was in the MAC /. She had been notified so that she can come see the patient. I aranda see if a social call was done. She was asking for tamoxifen to be resumed yesterday. I have held off on that at this time But she did asked the night doctor to give it to her. So it was resumed last night. (2) Gallstone ileus of small intestine Impression: On POD #1 of lap assisted enterolithotomy: The path report of stone was still pending. Advance her care per surgery with NG out and Zamudio out, OOB and iv fluids decreased. Diet advanced from NPO to clear. Pain meds as needed POD #2. Walking. up in chair. Path report still pending. Advance diet to full liquids. POD#3 today stable. No emesis and flatus present. Abd exam With bloating. Diet will be advanced per surgery. Check KUB (3) Cholecystitis Assessment/Plan: Relatively asymptomatic, gallstone was left behind in the gallbladder. Surgery recommends lithotripsy for the stone. Monitor CMP daily. LFT's remain stable. 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 She is on metformin in the outpatient setting Yesterday glucose was 154, 179, 169 and 156. This morning she is 102. (5) Essential (primary) hypertension Assessment/Plan: Stable on meds. Last night blood pressure 139/64. This morning 137/50.No change in meds needed at this time (6) SONYA on CPAP Assessment/Plan: Pt using home CPAP unit. (7) Neutropenia Assessment/Plan: She came in at 2.7. Peaked at 4.4. Today down to 1.8. She takes Xgeva. Calcium is low here with her low protein status. She will need to have that corrected before she resumes Xgeva. While it is associated with hypocalcemia, hypophosphatemia, osteonecrosis of the jaw, anemia, thrombocytopenia, it does not was neutropenia as one of its side effects. I will discuss with Oncology. Most likely pancytopenia from her myelodysplastic syndrome.
[2018-05-12] MEDS: INSULIN ASPART 300 UNIT/3 ML PEN SUBQ SCH ×4 (08:15→21:38)
[2018-05-12] MEDS: TAMOXIFEN 10 MG TABLET PO SCH (08:42)
[2018-05-12] MEDS: DICYCLOMINE 10 MG CAPSULE PO SCH (08:42)
[2018-05-12] MEDS: LORazepam 0.5 MG TABLET PO PRN ×2 (08:48→14:12)
[2018-05-12] MEDS ORDERED: METOCLOPRAMIDE 10 MG TABLET PO PRN (10:42)
[2018-05-12] MEDS: HYDROmorphone 2 MG TABLET PO PRN ×2 (11:17→14:12)
--- NOTE | 2018-05-12 15:34 | XRAY Report ---
Reason: abd pain and bloating Procedure Date: 05/12/2018 Accession Number: [id number] / [id number] Procedure: XR - Abdomen 1 View X-Ray CPT Code: 93092 FULL RESULT: EXAM: ABDOMEN RADIOGRAPHY EXAM DATE: 05/12/2018 01:25 PM. CLINICAL HISTORY: Abd pain and bloating. COMPARISON: Abdomen 05/09/2018. TECHNIQUE: 1 view. FINDINGS: Bowel Gas Pattern: Within normal limits. No dilated loops. Other: Abdominal lelia are noted. No obvious urologic stones. The examination is limited by body habitus. IMPRESSION: Limited examination, but no acute abdominal findings RADIA
--- NOTE | 2018-05-12 16:51 | PROVIDER PROGRESS NOTE ---
Subjective - General Admit Date: 05/08/18 Procedure Date: 05/09/18 Post Op Days: 3 Procedure Performed: lap assisted enterolithotomy - Review of Systems Wound/Incisions: positive: Healing well, Dressing dry and intact, No drainage General: positive: Other (c/o minimal incisional pain; no N/V, + flatus, no stool) Pulmonary: positive: No symptoms Cardiovascular: positive: No symptoms Gastrointestinal: positive: Abdominal pain (c/o abd bloating, cramps, passing flatus, loose stools.), Flatus, Diarrhea. negative: Nausea, Vomiting Genitourinary: positive: No symptoms Skin: positive: No symptoms Objective - Patient Data Reviewed Vital Signs: Yes Vital Signs: Vital Signs x48h Temp Pulse Resp BP Pulse Ox 05/12/18 15:56 36.5 C 70 24 150/94 H 98 05/12/18 11:35 36.4 C L 57 L 20 141/65 H 99 Intake & Output: Intake and Output Totals x24h 05/10/18 05/11/18 05/12/18 23:59 23:59 23:59 Intake Total 2717.5 4353.333 1475.000 Output Total 775 250 350 Balance 1942.5 4103.333 1125.000 - Lab Results Lab Results: 05/12/18 06:12 05/12/18 06:12 Other Lab Results: Lab Results x24hrs 05/12/18 05/12/18 05/12/18 Range/Units 10:51 06:12 06:12 WBC 1.8 L* (4.8-10.8) x10^3/uL RBC 3.37 L (4.20-5.40) 10^6/uL Hgb 9.3 L (12.0-16.0) g/dL Hct 27.4 L (37.0-47.0) % MCV 81.2 (81.0-99.0) fL MCH 27.6 (27.0-31.0) pg MCHC 34.0 (32.0-36.0) g/dL RDW 16.5 H (12.0-15.0) % Plt Count 98 L (130-450) 10^3/uL MPV 7.2 L (7.9-10.8) fL Neut # (Auto) Not Reportable Lymph # (Auto) Not Reportable [place] # (Auto) Not Reportable Eos # (Auto) Not Reportable Baso # (Auto) Not Reportable Absolute Nucleated RBC Not Reportable Total Counted 100 Band Neuts % (Manual) 3 (0 - 10) % Abnorm Lymph % (Manual) 0 % Nucleated RBC % Not Reportable Neutrophils # (Manual) 1.5 (1.5-6.6) 10^3/uL Lymphocytes # (Manual) 0.1 L (1.5-3.5) 10^3/uL Monocytes # (Manual) 0.1 (0.0-1.0) 10^3/uL Eosinophils # (Manual) 0.2 (0-0.7) 10^3/uL Basophils # (Manual) 0.0 (0-0.1) 10^3/uL Differential Comment MANUAL DIFFERENTIAL Platelet Estimate DECREASED (<130,000) (NORMAL) RBC Morph Micro Appear NORMAL APPEARANCE (NORMAL) Sodium 141 (135-145) mmol/L Potassium 3.1 L (3.5-5.0) mmol/L Chloride 112 H (101-111) mmol/L Carbon Dioxide 21 (21-32) mmol/L Anion Gap 8.0 (6-13) BUN 9 (6-20) mg/dL Creatinine 0.8 (0.4-1.0) mg/dL Estimated GFR (MDRD) 72 L (>89) Glucose 121 H (70-100) mg/dL POC Whole Bld Glucose 97 (70 - 100) mg/dL Calcium 6.9 L (8.5-10.3) mg/dL Total Bilirubin 0.3 (0.2-1.0) mg/dL AST 19 (10-42) IU/L ALT 25 (10-60) IU/L Alkaline Phosphatase 43 (42-121) IU/L Total Protein 5.3 L (6.7-8.2) g/dL Albumin 2.7 L (3.2-5.5) g/dL Globulin 2.6 (2.1-4.2) g/dL Albumin/Globulin Ratio 1.0 (1.0-2.2) 05/11/ Range/Units 20:31 WBC (4.8-10.8) x10^3/uL RBC (4.20-5.40) 10^6/uL Hgb (12.0-16.0) g/dL Hct (37.0-47.0) % MCV (81.0-99.0) fL MCH (27.0-31.0) pg MCHC (32.0-36.0) g/dL RDW (12.0-15.0) % Plt Count (130-450) 10^3/uL MPV (7.9-10.8) fL Neut # (Auto) Lymph # (Auto) [place] # (Auto) Eos # (Auto) Baso # (Auto) Absolute Nucleated RBC Total Counted Band Neuts % (Manual) (0 - 10) % Abnorm Lymph % (Manual) % Nucleated RBC % Neutrophils # (Manual) (1.5-6.6) 10^3/uL Lymphocytes # (Manual) (1.5-3.5) 10^3/uL Monocytes # (Manual) (0.0-1.0) 10^3/uL Eosinophils # (Manual) (0-0.7) 10^3/uL Basophils # (Manual) (0-0.1) 10^3/uL Differential Comment Platelet Estimate (NORMAL) RBC Morph Micro Appear (NORMAL) Sodium (135-145) mmol/L Potassium (3.5-5.0) mmol/L Chloride (101-111) mmol/L Carbon Dioxide (21-32) mmol/L Anion Gap (6-13) BUN (6-20) mg/dL Creatinine (0.4-1.0) mg/dL Estimated GFR (MDRD) (>89) Glucose (70-100) mg/dL POC Whole Bld Glucose 156 H (70 - 100) mg/dL Calcium (8.5-10.3) mg/dL Total Bilirubin (0.2-1.0) mg/dL AST (10-42) IU/L ALT (10-60) IU/L Alkaline Phosphatase (42-121) IU/L Total Protein (6.7-8.2) g/dL Albumin (3.2-5.5) g/dL Globulin (2.1-4.2) g/dL Albumin/Globulin Ratio (1.0-2.2) - Imaging Results Radiology Imaging: positive: Final report received, EMP read indepedently Imaging Results Comments: KUB: NAD - Current Medications Current Medications: Current Medications Generic Name Dose Route Start Last Admin Trade Name Freq PRN Reason Stop Dose Admin Clonazepam 3 mg 05/10/18 21:57 05/10/18 22:12 Klonopin PO 3 mg QPM PRN Administration Anxiety Enoxaparin Sodium 40 mg 05/09/18 21:00 05/11/18 20:58 Lovenox SUBQ 40 mg Q24H ALISSA Administration Hydromorphone HCl 2 mg 05/12/18 10:37 05/12/18 14:12 Dilaudid PO 2 mg Q4HR PRN Administration Severe Pain Insulin Aspart 1 - 5 unit 05/11/18 08:00 05/12/18 10:52 Novolog SUBQ Not Given 0800,1200,1700,2100 [facility] Protocol Lorazepam 0.5 mg 05/12/18 08:20 05/12/18 14:12 Ativan PO 0.5 mg Q6H PRN Administration Anxiety Sodium Chloride 10 ml 05/08/18 21:32 05/11/18 22:17 Normal Saline Flush 0.9% IVP 20 ml PRN PRN Administration NEEDED PER PROVIDER ORDERS Sodium Chloride 10 ml 05/09/18 01:00 05/12/18 10:43 Normal Saline Flush 0.9% IVP 10 ml 0100,0900,1700 ALISSA Administration Tamoxifen Citrate 20 mg 05/12/18 09:00 05/12/18 08:42 PO 20 mg DAILY ALISSA Administration - Physical Exam Wound/Incisions: positive: Dressing dry and intact, No drainage General Appearance: positive: No acute distress, Alert, Other (c/o trouble sleeping at night) Eyes Bilateral: positive: Normal inspection Neck: positive: Nml inspection Respiratory: positive: Chest non-tender, No respiratory distress, Breath sounds nml. negative: Wheezes, Rales, Rhonchi Abdomen: positive: Nml bowel sounds, No distention (unable to fully assess due to marked truncal obesity), Tenderness (mild incisional) Skin: positive: Color nml, No rash, Warm, Dry. negative: Cyanosis Extremities: positive: No pedal edema. negative: Calf tenderness Neurologic/Psychiatric: positive: Oriented x3 ABX Reporting Has patient been on IV antibiotics over the past 48 hours?: Yes Impression/Plan - Problem List Problem List: 1.PO Day #3 s/p enterolithotomy for gallstone ileus. Doing well from surgical standpoint. Rec: advance diet as tolerated to regular, (avoid raw veggies and nuts), increase activity as tolerated, possibly home tomorrow with f/u. 2. Acute/chronic cholecystitis, clinically resolved. Rec: d/c antibiotics.
[2018-05-12] MEDS: ENOXAPARIN 40 MG/0.4 ML SYRINGE SUBQ SCH (21:38)
[2018-05-12] MEDS: clonazePAM 0.5 MG TABLET PO PRN (21:41)
[2018-05-13] MEDS: HYDROmorphone 2 MG TABLET PO PRN ×2 (06:18→10:35)
[2018-05-13] MEDS: LORazepam 0.5 MG TABLET PO PRN (06:18)
[2018-05-13 06:58] LABS: BASOPHILS % (AUTO) 0.8 %; EOSINOPHILS % (AUTO) 4.9 %; HGB - HEMOGLOBIN 9.8 g/dL (12.0-16.0); LYMPHOCYTES % (AUTO) 13.8 %; MEAN CORPUSCULAR HEMOGLOBIN 27.8 pg (27.0-31.0); MEAN CORPUSCULAR HGB CONC 34.1 g/dL (32.0-36.0); MEAN CORPUSCULAR VOLUME 81.6 fL (81.0-99.0); MEAN PLATELET VOLUME 7.5 fL (7.9-10.8); MONOCYTES % (AUTO) 10.4 %; NEUTROPHILS % (AUTO) 70.1 %; PLT - PLATELET COUNT 113 10^3/uL (130-450); RED BLOOD COUNT 3.51 10^6/uL (4.20-5.40); RED CELL DISTRIBUTION WIDTH 16.8 % (12.0-15.0)
[2018-05-13 07:05] LABS: WHITE BLOOD COUNT 1.4 x10^3/uL (4.8-10.8)
[2018-05-13 07:06] LABS: ABNORMAL LYMPHS % (MANUAL) 0 %
[2018-05-13 07:08] LABS: ALBUMIN 2.6 g/dL (3.2-5.5); ALBUMIN/GLOBULIN RATIO 0.9 (1.0-2.2); BILIRUBIN,TOTAL 0.5 mg/dL (0.2-1.0); CALCIUM 7.1 mg/dL (8.5-10.3); CREATININE 0.6 mg/dL (0.4-1.0); TOTAL PROTEIN 5.4 g/dL (6.7-8.2)
[2018-05-13 07:36] LABS: BAND NEUTROPHILS % (MANUAL) 10 %; BASOPHILS % (MANUAL) 2 %; EOSINOPHILS # (MANUAL) 0.1 10^3/uL (0-0.7); LYMPHOCYTES # (MANUAL) 0.2 10^3/uL (1.5-3.5); LYMPHOCYTES % (MANUAL) 8 %; MONOCYTES # (MANUAL) 0.1 10^3/uL (0.0-1.0); NEUTROPHILS % (MANUAL) 58 %
[2018-05-13 07:37] LABS: DIFFERENTIAL COMMENT MANUAL DIFFERENTIAL; RBC MORPHOLOGY (MULTIPLE) 2+ ANISOCYTOSIS (NORMAL)
[2018-05-13] MEDS ORDERED: POTASSIUM CHLORIDE 20 MEQ TABLET PO SCH (08:00)
[2018-05-13] MEDS ORDERED: POTASSIUM CHLORIDE 20 MEQ/15 ML UDC PO SCH (08:00)
--- NOTE | 2018-05-13 08:28 | Discharge Plan ---
Discharge Plan Disposition: Home Health Service Condition: Good Prescriptions: HYDROmorphone [Dilaudid] 2 mg PO Q4HR PRN #20 tablet PRN Reason: Severe Pain Diet: Regular (but low fiber, no raw vegetables or nuts until seen by Dr. Burt) Activity Restrictions: Activity as Tolerated Shower Restrictions: Yes (can shower but keep wound clean and dry ) Driving Restrictions: No Assistance Devices: Walker Instruction Topics: Hydromorphone tablets, Diet Low Residue, Abdomen Surg Dc, Gallstones Additional Instructions or Follow Up instructions: You were admitted into the hospital because of nausea progressing to severe abdominal pain and cramping starting May 03. By May 08 you could not take it anymore and not even tea and toast was tolerated. You described your pain as a 10 out of a 10. When you came to the emergency room we found you to have gallstone ileus. Because of all of your other medical problems, your gallbladder has not been removed. You have had gallstones before. You also had cholecystitis with the gallstone ileus. Dr. Burt took you to the operating room and performed a procedure called an entero-lithotomy through a diagnostic laparoscopy. A large stone was removed. But you still have another stone that may need to be looked at. Dr. Burt is recommending that you be seen by gastroenterology at [facility]. You still have chronic cholecystitis with the cholecystoduodenal fistula. He thinks that the animal services officer may be able to treat the stone in the gallbladder with lithotripsy. Dr. Burt would like you to stay on a low fiber diet. No rale vegetables, no nuts. He has taken you off antibiotics and does not feel you need to go home on antibiotics. Because you still have significant pain that is relieved by the Dilaudid she received in the hospital, I am giving you 2 mg tablets up to 3 tablets a day. As needed. If you need a refill of this medication, please call your primary care provider Dr. Lorenz for refills. While here, you were also worried about starting your new tablets for the treatment of your metastatic breast cancer. Dr. Marte has been very clear that you were not to start any medication for your breast cancer at this time until you are healed from this gallbladder incident. Please see Dr. Lorenz in the next 1-2 weeks for follow-up so that she knows was going on with you. Please see Dr. Burt in the next 7-10 days. No Smoking: If you smoke, Please STOP! Call for help. Follow-up with: Charo Lorenz MD [Primary Care Provider] - Renaldo Burt MD [Provider Admit Priv/Credential] -
[2018-05-13] MEDS: INSULIN ASPART 300 UNIT/3 ML PEN SUBQ SCH ×2 (08:49→11:21)
--- NOTE | 2018-05-13 08:54 | PROVIDER PROGRESS NOTE ---
Subjective - General Admit Date: 05/08/18 Procedure Date: 05/09/18 Post Op Days: 4 Procedure Performed: lap assisted enterolithotomy - Review of Systems Wound/Incisions: positive: Healing well, No drainage General: positive: Other (c/o incisional pain, loose stools, only wants to eat liquids, wants to go home.) Pulmonary: positive: No symptoms Cardiovascular: positive: No symptoms Gastrointestinal: positive: Abdominal pain (incisional pain, passing flatus, loose stools.), Flatus, Diarrhea. negative: Nausea, Vomiting Genitourinary: positive: No symptoms Skin: positive: No symptoms Objective - Patient Data Reviewed Vital Signs: Yes Vital Signs: Vital Signs x48h Temp Pulse Resp BP Pulse Ox 05/13/18 07:57 36.4 C L 65 20 141/61 H 96 05/13/18 06:15 36.6 C 69 22 137/64 H 95 Intake & Output: Intake and Output Totals x24h 05/11/18 05/12/18 05/13/18 23:59 23:59 23:59 Intake Total 4353.333 1675.000 Output Total 250 350 Balance 4103.333 1325.000 - Lab Results Lab Results: 05/13/18 06:43 05/13/18 06:43 Other Lab Results: Lab Results x24hrs 05/13/18 05/13/18 05/12/18 Range/Units 06:43 06:43 10:51 WBC 1.4 L* (4.8-10.8) x10^3/uL RBC 3.51 L (4.20-5.40) 10^6/uL Hgb 9.8 L (12.0-16.0) g/dL Hct 28.7 L (37.0-47.0) % MCV 81.6 (81.0-99.0) fL MCH 27.8 (27.0-31.0) pg MCHC 34.1 (32.0-36.0) g/dL RDW 16.8 H (12.0-15.0) % Plt Count 113 L (130-450) 10^3/uL MPV 7.5 L (7.9-10.8) fL Neut # (Auto) Not Reportable Lymph # (Auto) Not Reportable [place] # (Auto) Not Reportable Eos # (Auto) Not Reportable Baso # (Auto) Not Reportable Absolute Nucleated RBC Not Reportable Total Counted 100 Band Neuts % (Manual) 10 (0 - 10) % Reactive Lymphs % (Man) 4 % Abnorm Lymph % (Manual) 0 % Nucleated RBC % Not Reportable Neutrophils # (Manual) 1.0 L (1.5-6.6) 10^3/uL Lymphocytes # (Manual) 0.2 L (1.5-3.5) 10^3/uL Monocytes # (Manual) 0.1 (0.0-1.0) 10^3/uL Eosinophils # (Manual) 0.1 (0-0.7) 10^3/uL Basophils # (Manual) 0.0 (0-0.1) 10^3/uL Differential Comment MANUAL DIFFERENTIAL RBC Morph Micro Appear 2+ ANISOCYTOSIS (NORMAL) Sodium 141 (135-145) mmol/L Potassium 3.6 (3.5-5.0) mmol/L Chloride 113 H (101-111) mmol/L Carbon Dioxide 20 L (21-32) mmol/L Anion Gap 8.0 (6-13) BUN 7 (6-20) mg/dL Creatinine 0.6 (0.4-1.0) mg/dL Estimated GFR (MDRD) 101 (>89) Glucose 150 H (70-100) mg/dL POC Whole Bld Glucose 97 (70 - 100) mg/dL Calcium 7.1 L (8.5-10.3) mg/dL Total Bilirubin 0.5 (0.2-1.0) mg/dL AST 25 (10-42) IU/L ALT 23 (10-60) IU/L Alkaline Phosphatase 45 (42-121) IU/L Total Protein 5.4 L (6.7-8.2) g/dL Albumin 2.6 L (3.2-5.5) g/dL Globulin 2.8 (2.1-4.2) g/dL Albumin/Globulin Ratio 0.9 L (1.0-2.2) - Current Medications Current Medications: Current Medications Generic Name Dose Route Start Last Admin Trade Name Freq PRN Reason Stop Dose Admin Clonazepam 3 mg 05/10/18 21:57 05/12/18 21:41 Klonopin PO 3 mg QPM PRN Administration Anxiety Enoxaparin Sodium 40 mg 05/09/18 21:00 05/12/18 21:38 Lovenox SUBQ 40 mg Q24H ALISSA Administration Hydromorphone HCl 2 mg 05/12/18 10:37 05/13/18 06:18 Dilaudid PO 2 mg Q4HR PRN Administration Severe Pain Insulin Aspart 1 - 5 unit 05/11/18 08:00 05/13/18 08:49 Novolog SUBQ Not Given 0800,1200,1700,2100 [facility] Protocol Lorazepam 0.5 mg 05/12/18 08:20 05/13/18 06:18 Ativan PO 0.5 mg Q6H PRN Administration Anxiety Sodium Chloride 10 ml 05/08/18 21:32 05/11/18 22:17 Normal Saline Flush 0.9% IVP 20 ml PRN PRN Administration NEEDED PER PROVIDER ORDERS Sodium Chloride 10 ml 05/09/18 01:00 05/12/18 23:34 Normal Saline Flush 0.9% IVP Not Given 0100,0900,1700 [facility] Tamoxifen Citrate 20 mg 05/12/18 09:00 05/12/18 08:42 PO 20 mg DAILY ALISSA Administration Zolpidem Tartrate 5 mg 05/10/18 21:56 05/12/18 21:42 Ambien PO 5 mg QPM PRN Administration Insomnia - Physical Exam Wound/Incisions: positive: Healing well, No drainage General Appearance: positive: No acute distress, Alert Eyes Bilateral: positive: Normal inspection, No scleral icterus ENT: positive: ENT inspection nml, No signs of dehydration Neck: positive: No JVD Respiratory: positive: Chest non-tender, No respiratory distress, Breath sounds nml Abdomen: positive: Non-tender, Nml bowel sounds, No distention Extremities: positive: No pedal edema. negative: Calf tenderness Neurologic/Psychiatric: positive: Oriented x3 ABX Reporting Has patient been on IV antibiotics over the past 48 hours?: No Impression/Plan - Problem List Problem List: Doing well from surgical standpoint, PO Day #4 s/p enterolithotomy for gallstone ileus. REc: OK for d/c from surgical standpoint; may shower, no dressings needed, reg ular diet except avoid raw vegetables and nuts for 2 weeks, outpt f/u my office next week for staple removal; outpt GI consultation for consideration of endoscopic therapy of cholelithiasis. Discussed in detail with pt.
[2018-05-13] MEDS: TAMOXIFEN 10 MG TABLET PO SCH (09:17)
[2018-05-13] MEDS: SODIUM CHLORIDE FLUSH 0.9% 10 ML SYRINGE IVP SCH (09:17)
[2018-05-13 12:18] VITALS: BP 90/77
--- NOTE | 2018-05-13 14:26 | DISCHARGE SUMMARY ---
Physician: Lakshmi Trejo MD DATE OF ADMISSION: 05/08/2018 DATE OF DISCHARGE: 05/13/2018 DISCHARGE DIAGNOSES 1. Gallstone ileus of small intestine. 2. Cholecystoduodenal fistula. 3. Chronic cholecystitis. 4. Depression with anxiety. 5. Type 2 diabetes mellitus, with hyperglycemia, with long-term use of insulin. 6. Hypertension. 7. Obstructive sleep apnea, on CPAP. 8. Pancytopenia. 9. Myelodysplastic syndrome. 10. Breast cancer with metastatic disease to bone. DISCHARGE MEDICATIONS 1. Biotin 5000 mcg daily. 2. Calcium 500 mg daily. 3. Clonazepam 3 mg p.o. q.p.m. 4. Xgeva 120 mg subcutaneously every 28 days, is being held at this time. 5. Fexofenadine 180 mg tablet, being used as needed by the patient, up to 720 mg a day. 6. Metformin 1000 mg p.o. b.i.d. before meals with meals. 7. Tamoxifen 20 mg p.o. daily. 8. Dilaudid 2 mg tablet every 4 hours as needed #20, with new prescription. PRINCIPAL PROCEDURE 1. 05/09/2015: Diagnostic laparoscopy with enterolithotomy. 2. Abdomen and pelvis CT with a calcified stone within the gallbladder. Air is seen in the gallbladder lumen and mural thickening, irregularity enhancement with pericholecystic inflammation changes. Mild dilation of the small bowel with a 1.7 cm stone in the mid jejunum. Hypodense liver with no focal lesions. Small bowel dilation is secondary to the 1.7 cm mid jejunal stone. 3. Acute abdominal series 05/09/2018, with persistent or partial small-bowel obstruction with no transition point. The previously seen obstructing gallstone in the distal ileum is not well visualized. 4. Abdominal x-ray 05/12/2018, with resolution of small bowel obstruction, no acute abdominal findings seen. 5. Pathology shows small intestine tissue with no pathologic changes, gallstone from small bowel. HOSPITAL COURSE: The patient is a 5-xsou-1-inch, 114 kg female who is substantially overweight and is almost bedbound because of it; however, she still manages to get up in a wheelchair to standing and pivoting. She is still completely independent with her activities of daily living, in spite of her limited mobility. Most of her mobility issues have to do with weight and her back pain from the metastatic breast cancer. She unfortunately has a history of stage IV metastatic breast cancer with metastasis to T9 vertebra. She has currently been on tamoxifen and denosumab for bony metastasis. 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 She has obstructive sleep apnea, on CPAP. Two years ago, she was hospitalized at [facility] for a duodenal gallstone, which was removed laparoscopically; however, she did not have her gallbladder removed because of her comorbidities. She was not placed on Ursodiol. She returns on 05/08/2018, after 5 days of nausea and crampy abdominal pain. Initially, the pain would last only a short time and was mild, so she continued on with her normal activities, but on the morning of admission, she had tea and toast, and the cramping was the worst it has ever been. It was a 10/10. The pain continued throughout the day, and around 5 p.m., she began vomiting. She had several episodes of emesis, was nauseated, had 2 bowel movements during the day. She came to the hospital, when she could not take the pain anymore. She was afebrile, normotensive, oxygenating 97% on room air. She had distress, secondary to the abdominal pain and nausea, and was morbidly obese, but otherwise had no severe acute findings. Her abdomen was diffusely tender with no peritoneal signs, distended in the upper abdominal wall area. No guarding or rebound. Her white cell count was 2.7, hemoglobin 12.4, hematocrit 36, and platelets 121. Bilirubin was 1.1, and liver enzymes were normal. Imaging study showed her to have a partial small bowel obstruction with a stone in the small bowel. She was seen emergently by Dr. Renaldo Burt, general surgery, who took her to the operating room. He did a diagnostic laparoscopy with an enteral lithotomy and found her to have yet another gallstone in the small bowel. He is also finding her to have the above-mentioned fistula in the discharge diagnoses. The patient is fairly uncomfortable because of continued pain and discomfort. She also continues to have gallstones in her gallbladder. She received IV antibiotics while here for chronic cholecystitis. Dr. Burt recommended the antibiotics be stopped and the patient be sent home without antibiotics. However, she will need further followup. It is recommended she see gastroenterology at [place], to see if there is an endoscopic way of treating the fistula or addressing the current retained gallstones in her gallbladder. The patient has significant, significant, significant anxiety. She feels that, as a stage IV breast cancer patient, "I am dying." She laments that she does not receive the attention that she would like because of her emotional needs, as she is fearful about her dying. While on the one hand, she wants to continue therapy and is looking to use Ibrance and another aromatase inhibitor in the next 2 weeks. She also speaks about stopping everything and just letting mother nature take its course for her to naturally. I explained that these were all good and conflicting thoughts, but to sit down with her oncologist to make sure she wanted to continue doing therapy. Again, her emotions were so conflicted that, at one point, she even called the pharmacy that delivers Ibrance and the aromatase inhibitor. She wanted to start those immediately, while she was in the hospital, and had the special pharmacist almost ready to deliver it to the hospital. I spoke to Dr. Marte's office. They were able to speak to her, I did not speak to her directly. She does not want the patient on Ibrance or the aromatase inhibitor for the minimum time she needs to get healed from his gallbladder issue. She will see Dr. Marte in followup in the next 2 weeks. Type 2 diabetes mellitus was present and controlled with insulin. Glucose was anywhere from the 90s to the 150s. On 05/12/2018, she was as high as 206. On the day of discharge, she was 129 and 170. Glycosylated hemoglobin is 9.3%. She is on only metformin. As her dietary intake changes, metformin may not be the best medication because of the risk of lactic acidosis. I have asked her to please see her primary care provider, Dr. Lorenz, to see if there could be closer monitoring of her sugars, possibly consider changing to a different medication, just a single-day dosing of Lantus. Blood pressure was controlled during her stay. On discharge, she was 90/77 up to 141/61. Pain was a constant in the epigastrium and also uncomfortable cramping and bloating. We tried Bentyl, however, there is an interaction between Bentyl and long-acting potassium tablets, and stopped the Bentyl. She requested Dilaudid, but lamented that she could not get IV Dilaudid in the outpatient setting. We did send her home on p.o. Dilaudid. I stressed to her that, if she needs refills of her Dilaudid, she will need to ask her primary care provider for those refills. Obstructive sleep apnea, on CPAP, was treated with CPAP during her stay here. She brought it in from home. Pancytopenia is still present from her myelodysplastic syndrome. White cell count dropped to 1.8 during her stay, and hemoglobin went from 12.4-8.3. She does not need blood transfusions at this time. Again, breast cancer with metastatic disease was discussed. Again, Dr. Marte does not want her to start her Ibrance or aromatase inhibitor until she is done with his gallbladder issue. During her stay, hypokalemia was present. She needed multiple doses of oral potassium on 05/11/2018, and 05/12/2018. On the day of discharge, she was 3.6. I would recommend Dr. Lorenz check a BMP, when she is seen in the office, to make sure she does not need to go on maintenance potassium. She is discharged in stable condition with a temperature of 36.6 and pulse 67. Blood pressure all the day of discharge was 132-141 systolic. At the moment of discharge, she was 90 systolic, but asymptomatic. No lightheadedness. No dizziness. No shortness of breath. Respirations were 18. She was 100% on room air. She is 5 feet 3 inches tall and 114 kg and has diminished mobility with a slight waddling gait when she tries to sit up and walk. She needs 2 standby assist to help her get up out of the bed, into a wheelchair, to then transfer. There is no increased respiratory effort or labored respiration with this. She has distant cardiac tones with a regular rate and rhythm. The abdomen continues to be intermittently distended in the upper quadrants. Followup KUB was negative for free air or pathology and was now normal. She is having flatus, is having bowel movements; however, is very reluctant to eat, has refused to eat anything beyond broth or Jell-O, even though Dr. Burt has encouraged her to do so. Extremities have trace edema in these large, large legs, and from what I can feel, calves are soft. No redness or heat. She is alert and oriented to person, place, and time. Dr. Burt would like her to be on a low-residue diet, no raw vegetables. He is fine with her eating a liquid diet, if she feels that is what she is comfortable with. He would like to see her in 1-2 weeks and follow up in his office. He, again, is recommending that she be seen by Gastroenterology at [place], to address the issue of retained gallstones and followup of her fistula. Greater than 30 minutes was spent in coordinating discharge. She is sent home with home health aide and home health RN because of her limited mobility and living alone, and a huge effort will have to be extended to get her out of her apartment. At discharge, she is being transferred via BLS last back to her apartment. She is a candidate for [facility] care, and those providers will be starting in the near future. TD: 05/13/2018 13:35 ROWENA
== END 2018-05-13 12:35 | disposition home health service (06) | DRG 345 ==
LOC: EDUNIT# → SUPCPDRO 17:08 → ED 17:08 → MS2 21:32
PROVIDERS: ADMIT Internal Medicine; ATTEND Specialist
PROC: 0DCA0ZZ Extirpation of Matter from Jejunum, Open Approach (ICD-10-PCS; principal; 2018-05-09 11:00)
DX: K56.3 Gallstone ileus (principal); K81.0 Acute cholecystitis; C79.51 Secondary malignant neoplasm of bone; E11.9 Type 2 diabetes mellitus without complications; D59.1 Other autoimmune hemolytic anemias; C50.919 Malignant neoplasm of unspecified site of unspecified female breast; Z68.41 Body mass index [BMI] 40.0-44.9, adult; D61.818 Other pancytopenia; K80.12 Calculus of gallbladder with acute and chronic cholecystitis without obstruction; K82.8 Other specified diseases of gallbladder; F41.8 Other specified anxiety disorders; E11.65 Type 2 diabetes mellitus with hyperglycemia; I10 Essential (primary) hypertension; G47.33 Obstructive sleep apnea (adult) (pediatric); D46.9 Myelodysplastic syndrome, unspecified; C50.911 Malignant neoplasm of unspecified site of right female breast; E66.01 Morbid (severe) obesity due to excess calories; E87.6 Hypokalemia; K21.9 Gastro-esophageal reflux disease without esophagitis; Z60.2 Problems related to living alone; Z66 Do not resuscitate; Z79.899 Other long term (current) drug therapy; Z79.84 Long term (current) use of oral hypoglycemic drugs; Z79.810 Long term (current) use of selective estrogen receptor modulators (SERMs); Z99.3 Dependence on wheelchair; Z83.79 Family history of other diseases of the digestive system
CPT/HCPCS: 36415; 74018; 74022; 74177; 80053; 82330; 83036; 83605; 83690; 83735; 84100; 85025; 85610; 93005; 96361; 96374; 96376; 99284; 99285

== ENCOUNTER 2018-08-19 11:23 | Outpatient (CLI) | payer MEDICARE, MEDICAID ==
[2018-08-19 16:03] LABS: CHOL/HDL RATIO 6.8 (<4.4); CHOLESTEROL 198 mg/dL; HDL CHOLESTEROL 29 mg/dL; LDL CHOLESTEROL,CALCULATED 142 mg/dL; LDL/HDL RATIO 4.9 (<4.4); VLDL CHOLESTEROL 27 mg/dL
[2018-08-19 19:11] LABS: HB2 TOTAL 11.2 g/dL; HEMOGLOBIN A1C 0.37 g/dL; HEMOGLOBIN A1C % 5.2 % (4.6-6.2)
== END 2018-08-19 11:24 | disposition home or self-care (01) ==
LOC: LAB 11:23
PROVIDERS: ATTEND Internal Medicine
DX: E11.9 Type 2 diabetes mellitus without complications (principal); I10 Essential (primary) hypertension; K76.0 Fatty (change of) liver, not elsewhere classified
CPT/HCPCS: 80061; 83036; 83721

== ENCOUNTER 2018-11-08 19:07 | Outpatient (CLI) | payer MEDICARE, MEDICAID | END 2018-11-08 19:08 | disposition critical access hospital (66) | LOC: EMS 19:07 | PROVIDERS: ATTEND Surgery | DX: R06.02 Shortness of breath (principal) | CPT/HCPCS: A0425; A0429 ==

== ENCOUNTER 2018-11-08 19:12 | Emergency (ER) | payer MEDICARE, MEDICAID ==
--- NOTE | 2018-11-08 19:59 | ED Physician Documentation ---
PD HPI URI - Stated complaint Stated Complaint: SOA/COUGH, HX CA - Chief complaint Chief Complaint: Resp - History obtained from History obtained from: Patient - History of Present Illness Timing - onset: Other (3 days post nasal drip and now with non-productive cough. No fever. No dyspnea. 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 - Past Surgical History Past Surgical History: Yes General: Colonoscopy /OPERATIONS PLANNER: Endometrial ablation, Other - Present Medications Home Medications: Ambulatory Orders Medication Instructions Recorded Confirmed Calcium Carbonate [Calcium] 500 mg PO DAILY 04/04/15 10/19/18 Denosumab [Xgeva] 120 mg SUBQ Q28D 04/04/15 10/19/18 Biotin 5,000 mcg PO DAILY 10/16/15 10/19/18 clonazePAM [Clonazepam] 3 mg PO QPM 04/08/16 10/19/18 Fexofenadine HCl 540 - 720 mg PO QPM 05/09/18 10/19/18 metFORMIN [Glucophage] 2 tab PO BID 06/01/18 10/19/18 Letrozole 2.5 mg PO DAILY 06/02/18 10/19/18 Glipizide [Glipizide ER] 5 mg PO DAILY 06/29/18 10/19/18 Zolpidem [Ambien] 5 mg PO HS 06/29/18 10/19/18 Azithromycin 1 tab PO DAILY #4 tablet 11/08/18 Benzonatate [Tessalon Perle] 100 - 200 mg PO TID PRN #30 capsule 11/08/18 - Allergies Allergies/Adverse Reactions: Allergies Allergy/AdvReac Type Severity Reaction Status Date / Time oxycodone HCl * Allergy Mild itch Verified 11/08/18 19:26 [From Percocet] doxycycline Allergy Nausea Verified 11/08/18 19:26 lactose Allergy Unknown Verified 11/08/18 19:26 - Social History Does the pt smoke?: Yes Smoking Status: Former smoker Does the pt drink ETOH?: Yes Does the pt have substance abuse?: No - Immunizations Immunizations are current?: Yes - POLST Patient has POLST: No POLST Status: DNR PD ED PE NORMAL - Vitals Vital signs reviewed: Yes - General General: Alert and oriented X 3, No acute distress - HEENT HEENT: PERRL, Pharynx benign - Neck Neck: Supple, no meningeal sign, No bony TTP - Cardiac Cardiac: RRR, No murmur - Respiratory Respiratory: No respiratory distress, Clear bilaterally - Abdomen Abdomen: Non tender - Derm Derm: Normal color, Warm and dry - Extremities Extremities: No edema, No calf tenderness / cord - Neuro Neuro: Alert and oriented X 3, Normal speech Results - Vitals Vitals: Vital Signs - 24 hr 11/08/18 19:09 Temperature 36.2 C L Heart Rate 83 Respiratory 14 Rate Blood Pressure 155/78 H O2 Saturation 97 Oxygen O2 Source Room air PD MEDICAL DECISION MAKING - ED course ED course: 63-year-old woman on chemotherapy with multiple comorbidities presents with what sounds like a viral URI. Given her comorbidities etc. she was given antibiotics, Departure - Departure Disposition: Home, Self Care Clinical Impression: URI (upper respiratory infection) Qualifiers: URI type: unspecified viral URI Qualified Code(s): J06.9 - Acute upper respiratory infection, unspecified Condition: Good Record reviewed to determine appropriate education?: Yes Instructions: ED Viral Syndrome Prescriptions: Azithromycin 1 tab PO DAILY #4 tablet Benzonatate [Tessalon Perle] 100 - 200 mg PO TID PRN #30 capsule PRN Reason: Cough Comments: Return if you develop fevers or worsen, follow-up with your doctor later this week if not better.
[2018-11-08] MEDS ORDERED: AZITHROMYCIN 250 MG TABLET PO STA (20:18)
[2018-11-08] MEDS ORDERED: BENZONATATE 100 MG CAPSULE PO STA (20:18)
[2018-11-08] MEDS ORDERED: KETOROLAC 30 MG/ML VIAL IM STA (20:18)
[2018-11-08 20:32] VITALS: BP 124/82
== END 2018-11-08 20:39 | disposition home or self-care (01) ==
LOC: EDUNIT# → ED 19:12
DX: J06.9 Acute upper respiratory infection, unspecified (principal); C50.919 Malignant neoplasm of unspecified site of unspecified female breast; C79.51 Secondary malignant neoplasm of bone; D46.9 Myelodysplastic syndrome, unspecified; I10 Essential (primary) hypertension; E11.9 Type 2 diabetes mellitus without complications; Z87.891 Personal history of nicotine dependence; Z79.84 Long term (current) use of oral hypoglycemic drugs
CPT/HCPCS: 96372; 99283; A9270

== ENCOUNTER 2018-11-23 10:43 | Outpatient (CLI) | payer MEDICARE, MEDICAID ==
[2018-11-23] MEDS ORDERED: IOVERSOL 320 50 ML VIAL ONE (10:54)
[2018-11-23] MEDS ORDERED: IOVERSOL 320 100 ML VIAL IVP ONE ×2 (10:54→13:44)
[2018-11-23] MEDS ORDERED: IOVERSOL 320 50 ML VIAL PO ONE (13:44)
--- NOTE | 2018-11-23 19:18 | CT Report ---
Reason: BREAST CANCER Procedure Date: 11/23/2018 Accession Number: [id number] / [id number] Procedure: CT - CHEST W CPT Code: FULL RESULT: EXAM: CT CHEST EXAM DATE: 11/23/2018 01:09 PM. CLINICAL HISTORY: BREAST CANCER. COMPARISONS: 04/27/2018 TECHNIQUE: Routine helical CT imaging was performed through the chest. IV contrast: 100 cc Optiray 320. Reconstructions: Coronal and sagittal. In accordance with CT protocol optimization, one or more of the following dose reduction techniques were utilized for this exam: automated exposure control, adjustment of mA and/or KV based on patient size, or use of iterative reconstructive technique. FINDINGS: Lungs/Pleura: No nodules, bronchial thickening, consolidation, or edema. Pulmonary vasculature is normal. No pericardial or pleural effusion. No pneumothorax. Mediastinum: Normal. No adenopathy or masses. The heart and great vessels are normal. Bones: Fracture of T9 with sclerotic and lucent regions stable. Other areas of scattered sclerosis most marked at T10 and T11 similar to previous. Included upper Abdomen: [id number] Other: Surgical clips right axilla and breast IMPRESSION: 1. Sclerotic metastatic disease to bone similar in appearance to 04/27/2018. 2. Clear lungs. 3. No pathologic adenopathy identified. RADIA
--- NOTE | 2018-11-23 22:34 | CT Report ---
Reason: BREAST CANCER Procedure Date: 11/23/2018 Accession Number: [id number] / [id number] Procedure: CT - Abdomen/Pelvis W CPT Code: FULL RESULT: EXAM: CT ABDOMEN AND PELVIS WITH CONTRAST. EXAM DATE: 11/23/2018 01:09 PM. CLINICAL HISTORY: Breast cancer. COMPARISONS: CT abdomen pelvis 05/08/2018. TECHNIQUE: Routine helical CT imaging was performed through the abdomen and pelvis. IV contrast: 100 cc Optiray 320. Enteric contrast: Yes. Reconstructions: Coronal and sagittal. In accordance with CT protocol optimization, one or more of the following dose reduction techniques were utilized for this exam: automated exposure control, adjustment of mA and/or KV based on patient size, or use of iterative reconstructive technique. FINDINGS: Lung Bases: Clear. Clips in the partially visualized right breast. Liver: Decreased diffuse parenchymal hypoattenuation compatible with less steatosis. Stable hepatomegaly. No focal lesion. Gallbladder/Bile Ducts: Cholelithiasis with thickened contracted gallbladder. Residual though decreased pericholecystic infiltration and resolution of previous gas bubble within the gallbladder. No abscess. No dilated bile ducts. Spleen: Enlarged up to 17.1 cm in craniocaudal length, previously 16 cm. No focal lesion. Pancreas: Stable mild to moderate diffuse fatty involution. No suggestion of acute pancreatitis. Adrenal Glands: No nodule. Kidneys: No hydronephrosis or stones. Stable small inferior left renal cyst. No abnormal parenchymal enhancement or perinephric fat stranding. Peritoneal Cavity/Bowel: No intestinal dilatation. Enteric contrast has progressed to the ascending colon. Residual mild thickening of proximal duodenum adjacent to the gallbladder. Resolution of proximal small bowel dilatation in previous jejunal gallstone is not identified. Hyperdense enteric contrast could obscure intraluminal hyperdense filling defect. No free fluid, free air, or mesenteric adenopathy. Midline incisional scar is well apposed. Retroperitoneum: No mass or adenopathy. 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 No abnormal fluid collection or pathologic adenopathy. Vasculature: No aneurysms or other significant abnormality. Bones: Multifocal sclerotic or mixed sclerotic/lytic metastases including visualized lower thoracic spine especially T9-T11, somewhat amorphic sclerotic areas in L2, and ill-defined sclerotic lesions in bilateral iliac bones and proximal femurs. IMPRESSION: 1. No solid visceral metastasis. 2. Chronic cholecystitis. No dilated bile ducts. 3. Resolution of SBO/gallstone ileus. 4. Mildly increased splenomegaly, without focal lesion. 5. Decreased hepatic steatosis. 6. Multifocal skeletal metastases, grossly similar. RADIA
--- NOTE | 2018-11-24 11:17 | Nuclear Medicine Report ---
Reason: BREAST CANCER Procedure Date: 11/23/2018 Accession Number: [id number] / [id number] Procedure: NM - Bone Whole Body CPT Code: FULL RESULT: EXAM: BONE SCAN EXAM DATE: 11/23/2018 03:25 PM. CLINICAL HISTORY: BREAST CANCER. COMPARISON: BONE SCAN 04/27/2018 2:39 PM ABDOMEN/PELVIS W/ 11/23/2018 12:45 PM CHEST W/ 11/23/2018 12:45 PM BONE SCAN 05/21/2017 1:42 PM. TECHNIQUE: Following the intravenous administration of 31.3 mCi of technetium 99m MDP and an appropriate delay, a whole-body scan was performed in anterior and posterior projections. Site-specific spot views of the region of interest were obtained in various projections. FINDINGS: Exam Quality: Normal overall osseous radiotracer uptake. Physiological tracer uptake in bilateral collecting systems. Skull: No focal uptake. Thorax: Tiny, subtle bilateral rib lesions appear stable or slightly increased from prior. Persistent small focus of increased uptake on the right side of the upper sternum. New small focus of subtle increased uptake on the left side of the upper sternum. Pelvis: New small focus of intensely increased uptake near the right sacroiliac joint. Slightly more intense focus of uptake near the left sacroiliac joint. New subtle tiny focus in the sacrum, slightly right of midline. Lesions near the left acetabulum are more intense from prior. Lesions in the proximal femurs are more intense from prior. Spine: Lesions in the lower thoracic spine are more intense from prior. Lesion in L2 appears slightly larger from prior. A small lesion in the upper thoracic spine. Extremities: There is a new tiny, subtle focus in the medial distal left femur. Persistent focus of intensely increased uptake in the lateral right humeral head. Increased uptake in the medial compartment of the right knee and in bilateral MTP joints is presumably degenerative. IMPRESSION: Multifocal skeletal metastatic disease, with evidence of progression compared to prior bone scans. RAD[facility]
== END 2018-11-23 10:44 | disposition home or self-care (01) ==
LOC: DI 10:43
PROVIDERS: ATTEND Internal Medicine Hematology & Oncology
DX: C50.919 Malignant neoplasm of unspecified site of unspecified female breast (principal); C79.51 Secondary malignant neoplasm of bone; K81.1 Chronic cholecystitis; R16.1 Splenomegaly, not elsewhere classified; K76.0 Fatty (change of) liver, not elsewhere classified
CPT/HCPCS: 71260; 74177; 78306; Q9967

== ENCOUNTER 2018-12-15 11:45 | Outpatient (CLI) | payer MEDICARE, MEDICAID ==
--- NOTE | 2018-12-15 16:21 | CONSULTATION NOTE ---
Palliative Care Consultation - Referral Referring Provider: Dr. Sharron Marte Time of Visit: [id number] Referral setting: Home Referral Reason: Pain of neoplastic origin/Met Breast CA to bones/Goals of Care - Information Sources Records reviewed: Previous records reviewed History/Review of Systems obtained from: Patient Exam limitations: No limitations - History of Present Illness Brief History of Present Illness: This is a complicated 63-year-old woman with multiple comorbidities, who presents to palliative care for management of high symptom burden, complex psychosocial situation, including poor social support. Patient is a poor historian, and quite tangential in her thinking, making it challenging to get an accurate history. Patient with metastatic breast cancer, involving bones only with recent restaging scans showing progression of disease. Patient has been having escalating pain, particularly bilaterally in her hips, recent bone scan show progression of lesions that clinically correlate to her identified areas of pain in her pelvic area. Her original diagnosis was in 2012 with a right breast tumor , treated with surgery and right axillary lymph node dissection. She has been on multiple oral agents, since this time. Has had rising tumor markers, and initiated new treatment this last week with a combination of Afinitor and exemestane. She has received a referral for radiation oncology, though patient perceives the oncologist told her this was not necessary if her pain was well controlled. 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 She has her her report had multiple transfusions in the past, and has ongoing pancytopenia. She is quite diligent and limiting her exposure to infections. This unfortunately has also contributed to her social isolation. She also has a history of autoimmune hemolytic anemia. Her other complicating factor related to her history is going chronic cholecystitis with gallstones. She did present in April with severe abdominal pain for a very large obstructing gallstone, that was then surgically removed from her small bowel. She was found to have additional stones in her gallbladder and has chronic cholecystitis and a cholecytoduodenal fistula. In August of this year, she had an ERCP, and was told she was not a surgical candidate. That this most likely giving her underlying MDS and pancytopenia, very much could be a life-threatening condition for her. Patient presents today with persistent and uncontrolled pain, bilaterally in her hips and pelvis, worsens with standing or weightbearing, she does have a very poor recliner for support that she spends quite a bit of time in. She has been inconsistent in the use of her pain medication, she had been initiated on Vicodin. She takes 1-1/2 twice a day, including her ibuprofen 800 mg 2-3 times a day. She is afraid of constipation, so limits her opioid intake but with resulting poor pain. She denies any right upper pain related to her cholecystitis at this time. 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: Breast cancer : reports: Incontinence HEENT: reports: None Psych: reports: Depression, Anxiety Musculoskeletal: reports: Osteoarthritis, Other Derm: reports: None MRSA Hx?: No - Past Surgical History General: reports: Colonoscopy, Other (ERCP) /DAIRY HUSBANDRY TEACHER: reports: Endometrial ablation, Other - Substance History Use: Uses substance without health or social issues: Tobacco (hx use 25-30), Alcohol (drinks about 1 1/2 shots a night; past history of heavy use) Social History - Living Situation Living arrangement: At home Living Situation: Alone Support System: Patient's family moved from [facility] in [facility], she was 1 years old and they came. There are 8 children altogether. 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 She came up from [place], to be close to a sister. They are currently estranged, as she has her own underlying mental health issues. She receives no support from her family, and has alienated herself from most of her friends. She has been supported by [employer] in the past, lives in low income housing. Has been to the [employer] PES application process, but has a spend down. Family History - Family History Family History: Mother: , Cancer (mother of multiple myeloma 87), Father: , CAD (father of CHF 87), Other family: Alive and Well (has paternal aunt with breast cancer) Medications/Allergies - Medications Home Medications: Ambulatory Orders Medication Instructions Recorded Confirmed Calcium Carbonate [Calcium] 500 mg PO DAILY 04/04/15 12/16/18 Denosumab [Xgeva] 120 mg SUBQ Q28D 04/04/15 12/16/18 Biotin 5,000 mcg PO DAILY 10/16/15 12/16/18 clonazePAM [Clonazepam] 3 mg PO QPM 04/08/16 12/16/18 metFORMIN [Glucophage] 500 mg PO BID PRN 06/01/18 12/16/18 Glipizide [Glipizide ER] 5 mg PO DAILY PRN MDD 10 06/29/18 12/16/18 Zolpidem [Ambien] 5 mg PO HS PRN 06/29/18 12/16/18 Ibuprofen [Motrin] 800 mg PO Q8HR PRN 11/30/18 12/16/18 Everolimus [Afinitor] 10 mg PO DAILY 12/14/18 12/16/18 Exemestane 25 mg PO DAILY 12/14/18 12/16/18 Hydrocodone/Acetaminophen 1 - 2 tab PO Q4HR PRN 12/14/18 12/16/18 [Hydrocodone-Acetamin 5-325 mg] Docusate Sodium 100 mg PO BID 12/16/18 12/16/18 Lactulose 15 ml PO BID 12/16/18 - Allergies Allergies/Adverse Reactions: Allergies Allergy/AdvReac Type Severity Reaction Status Date / Time oxycodone HCl * Allergy Mild itch Verified 12/14/18 10:56 [From Percet] Review of Systems - Constitutional Constitutional: reports: Fatigue, Weight loss. denies: Fever, Chills - Ears, Nose & Throat Ears, Nose & Throat: reports: Hearing loss (mild), Dry mouth. denies: Mouth lesions - Cardiovascular Cardiovascular: reports: Exertional dyspnea, Decr. exercise tolerance. denies: Chest pain - Respiratory Respiratory: reports: SOB with exertion. denies: SOB at rest - Gastrointestinal Gastrointestinal: reports: Constipation (did have 2 soft small bms today), Good appetite. denies: Nausea, Reflux/heartburn - Genitourinary Genitourinary: reports: Urgency, Incontinence - Musculoskeletal Musculoskeletal: reports: Back pain, Muscle aches, Stiffness, Muscle weakness - Integumentary Integumentary: reports: Dryness - Neurological Neurological: reports: General weakness, Memory problems - Psychiatric Psychiatric: reports: Depression, Anxiety. denies: Suicidal - Endocrine Endocrine: reports: Diabetes type 2 (titrates her metformin/glypizide "takes when BS up") - Hematologic/Lymphatic Hematologic/Lymphatic: reports: Anemia, Recurrent infections (recent URI) - All Other Systems All Other Systems: reports: Reviewed and negative Physical Exam - Vital Signs Temperature: 96.7 C Pulse Rate: 98 Respiratory Rate: 18 O2 Saturation: 98 (ra @ rest) Blood Pressure: 112/72 - Physical Exam General Appearance: positive: Mild distress, Anxious Eyes Bilateral: positive: Normal inspection ENT: positive: No signs of dehydration Neck: positive: No JVD, Trachea midline Cardiovascular: positive: Regular rate & rhythm Respiratory: positive: Diminished in bases. negative: Wheezes, Rales, Rhonchi Abdomen: positive: Soft, Tenderness (RUQ with palpation), Obese Skin: positive: Pallor, Dryness. negative: Jaundice Extremities: positive: No pedal edema Neurologic/Psychiatric: positive: Oriented x3, Weakness, Depressed mood/affect, Flat affect Palliative Care - POLST Patient has POLST: Yes POLST Status: DNR (FULL treatment) Pain: Pain worsening, Location (see HPI) Tiredness/Fatigue: Severe (7-10) Drowsiness/Sedation: Mild (1-3) Nausea: None Depression: Severe (7-10) (Patient reports has been on multiple antidepressants in the past, has found Zoloft most helpful. Does not find it of help enough wa nting to restart again. Has had counseling assist in the past at [facility]. Is interested in pursuing follow-up support to palliative care social work coordinator.) Anxiety: Severe (7-10) (Patient's residual treatment from [facility], she remains on Klonopin 3 mg at bedtime. She does easily get overwhelmed, admits to difficulty focusing and concentrating. Is tearful through most of the visit, does present with some paranoia and catastrophizing.) Dyspnea: Mild (1-3) Anorexia: None Sleep: Variable sleep pattern (Patient tends to sleep from 3 to 4 AM to 10 AM in the morning.) Constipation: Yes, Opoid induced, Unmanaged (She has only been taking intermittent docusate sodium.) Feelings of wellbeing/Perceived Quality of Life: Poor, Worsening Performance Status: She has very limited both by herself limitation and her activity intolerance. She does spend most the time in her apartment, she can ambulate short distances but gets short of breath and exacerbates her pain. She is able to toilet herself, is doing meal prep as well as independent in her ADLs. She is having difficulty doing household tasks, and could use assistance. - Palliative Care Discussion: Patient is challenging to stay focused. Patient's understanding of her disease is somewhat limited, she reports she has "12 new tumors in her bones". She is quite tearful through the visit. She describes herself as having "leukemia", and has isolated herself in her bubble. She also has an understanding that her gallbladder issues, most likely going to be a life limiting event if exacerbated. She wants to just "take the pills" if her pain escalates and she has uncontrolled suffering. She does not want to have hospice in the context of waiting around to . She is interested in exploring with dignity, though at this point in time with metastatic disease to bones only, will need to explore if she meets the criteria for terminal diagnosis. Will need to explore further patient's mental health and depression regarding her goals of care. She does have a POLST done with Dr. Lorenz that is a DNA R and full treatment. Given the limitations of our visit today, I did not explore this further. Will need to identify a D POA given patient's isolation and estrangement from family. Results - Lab Results Lab results reviewed: Yes Impression and Recommendations - Palliative Care Impression: This is a 63-year-old woman with metastatic breast cancer involving bones only. She has had progression of disease with exacerbation of pain in the hip and pelvic area. Her pain is poorly controlled, as well as her constipation. She presents with high symptom burden of depression, anxiety, and fatigue she has complicating factors related to her cholecystitis with gallstones, as well as her and MICHAEL. Palliative care to provide support for pain and symptom [facility], advanced care planning and anticipatory guidance Recommendations/Counseling Done: 1. Pain of neoplastic origin. Counseling provided regarding need to initiate pain control with [id number] regimen. Patient does have strange dreams with the hydrocodone. She is also presents with resistance regarding the constipation, but is not on an active bowel program. Patient's been instructed to take the Vicodin 1 every 4-5 hours scheduled through the day, if she wakes up to take one during the night. Does not experience sedation up to this point, she has been taking 1-1/2 tabs at a time. Goal would be to transition her over to fentanyl 12 mcg patch for more persistent and consistent pain relief. She is also on ibuprofen 800 mg 2-3 times a day. We will continue to watch this but focus on kidney function as well, particularly given her underlying GI issues.Written instructions provided, reviewed multiple times, patient able to verbalize back instructions. Though she does appear to have mild memory issues. Counseling provided regarding the role of radiation and pain management, her experience of radiation was it with a client with esophageal cancer who experienced significant side effects and it was a long treatment plan. Explained radiation for pain control and bones, is shorter limited time with limited side effects. Would recommend given the social situation, and concern regarding her poor tolerance of opioids, that she consider pursuing this. She is interested given the information reviewed, will follow up with Dr. Marte to move forward. 2. Constipation. Patient with financial stressors, reviewed with pharmacist what her insurance will cover, unfortunately only option is lactulose. Will initiate lactulose at 15 mils twice daily, written instructions regarding titration, is complicated by the fact she is started on Afinitor which has side effects of diarrhea. Unfortunately this is going to be somewhat complex for patient to grasp and understand, will continue work with her on a regular basis. 3. Depression. Patient is quite tearful, does reveal in interview has had support through [facility] for both anxiety and depression in the past. She is quite socially isolated, limited social and financial resources. Will initiate medical palliative care social work coordinator for support, as well as long-term care planning. 4. Diabetes type 2. Patient reports has changed her diet, lost several pounds in response to needing to follow low-fat and minimize her stress on her gallbladder. With this her blood sugars have been in much better control, unfortunately she uses her Metformin and glipizide as a PRN basis, will continue to evaluate perhaps recommend a more appropriate approach. When rapport better established. 5. Metastatic breast cancer involving bones only. Counseling provided regarding addressing patient's understanding of her bone mets, treatment regarding radiation, and review and reinforcement of information on new Afinitor. Patient easily overwhelmed with medical information, presents with only moderate health literacy. 6. Advanced care planning. Patient is interested in exploring with dig nity, initiated conversation regarding process, but need for hospice involvement as well as definitive terminal prognosis of 6 months. Will follow up with Dr. Marte, she thought she was going to "write the prescription", reviewed most likely she had offered to do the consulting physician role. Written information for her to review, will revisit the POLST, and probably most acute problem is need a D POA. Time Spent: 105 minutes with greater than 50% of this done in counseling, particular on opioid use safety written instructions, goals of care, counseling related to di sease and disease management with current treatment plan, and anticipatory guidance
== END 2018-12-15 11:46 | disposition home or self-care (01) ==
LOC: PC 11:45
PROVIDERS: ATTEND Nurse Practitioner Adult Health
DX: Z51.5 Encounter for palliative care (principal); C50.911 Malignant neoplasm of unspecified site of right female breast; G89.3 Neoplasm related pain (acute) (chronic); C79.51 Secondary malignant neoplasm of bone; M25.552 Pain in left hip; M25.551 Pain in right hip; R10.2 Pelvic and perineal pain; D46.9 Myelodysplastic syndrome, unspecified; K80.10 Calculus of gallbladder with chronic cholecystitis without obstruction; K59.03 Drug induced constipation; T40.2X5A Adverse effect of other opioids, initial encounter; F32.9 Major depressive disorder, single episode, unspecified; F41.9 Anxiety disorder, unspecified; R53.83 Other fatigue; R06.00 Dyspnea, unspecified; G47.33 Obstructive sleep apnea (adult) (pediatric); E11.9 Type 2 diabetes mellitus without complications; K21.9 Gastro-esophageal reflux disease without esophagitis; K44.9 Diaphragmatic hernia without obstruction or gangrene; R32 Unspecified urinary incontinence; M19.90 Unspecified osteoarthritis, unspecified site; F17.200 Nicotine dependence, unspecified, uncomplicated; H91.90 Unspecified hearing loss, unspecified ear; R39.15 Urgency of urination; Z66 Do not resuscitate; Z72.89 Other problems related to lifestyle; Z79.84 Long term (current) use of oral hypoglycemic drugs
CPT/HCPCS: 99345

== ENCOUNTER 2018-12-21 10:13 | Outpatient (CLI) | payer MEDICARE, MEDICAID | END 2018-12-21 10:14 | disposition critical access hospital (66) | LOC: EMS 10:13 | PROVIDERS: ATTEND Surgery | DX: R10.9 Unspecified abdominal pain (principal); R11.2 Nausea with vomiting, unspecified | CPT/HCPCS: A0425; A0429 ==

== ENCOUNTER 2018-12-21 10:16 | Inpatient (IN) | payer MEDICARE, MEDICAID ==
[2018-12-21 11:18] LABS: GLUCOSE, URINE (UA) 250 mg/dL (NEGATIVE); KETONES,URINE (UA) 40 mg/dL (NEGATIVE); LEUKOCYTE ESTERASE, URINE NEGATIVE (NEGATIVE); NITRITE,URINE POSITIVE (NEGATIVE); OCCULT BLOOD,URINE NEGATIVE (NEGATIVE); PROTEIN,URINE 100 mg/dL (NEGATIVE); UROBILINOGEN,URINE 0.2 (NORMAL) E.U./dL (NORMAL)
[2018-12-21 11:25] LABS: BILIRUBIN,URINE NEGATIVE (NEGATIVE); CLARITY,URINE HAZY (CLEAR); ICTOTEST,URINE NEGATIVE
[2018-12-21 11:32] LABS: BACTERIA,URINE Rare /HPF (None Seen); RBC,URINE 0-5 /HPF (0-5); SQUAMOUS EPITHELIAL CELL,UR RARE Squamous (<= Few)
[2018-12-21 11:36] LABS: BASOPHILS % (AUTO) 1.1 %; EOSINOPHILS # (AUTO) 0.1 10^3/uL (0.0-0.7); EOSINOPHILS % (AUTO) 2.3 %; HGB - HEMOGLOBIN 11.4 g/dL (12.0-16.0); LYMPHOCYTES # (AUTO) 0.2 10^3/uL (1.5-3.5); LYMPHOCYTES % (AUTO) 6.7 %; MEAN CORPUSCULAR HEMOGLOBIN 28.5 pg (27.0-31.0); MEAN CORPUSCULAR HGB CONC 34.2 g/dL (32.0-36.0); MEAN CORPUSCULAR VOLUME 83.5 fL (81.0-99.0); MEAN PLATELET VOLUME 7.6 fL (7.9-10.8); MONOCYTES # (AUTO) 0.2 10^3/uL (0.0-1.0); MONOCYTES % (AUTO) 6.3 %; NEUTROPHILS # (AUTO) 2.6 10^3/uL (1.5-6.6); NEUTROPHILS % (AUTO) 83.6 %; PLT - PLATELET COUNT 100 10^3/uL (130-450); RED BLOOD COUNT 3.98 10^6/uL (4.20-5.40); RED CELL DISTRIBUTION WIDTH 14.6 % (12.0-15.0); WHITE BLOOD COUNT 3.1 x10^3/uL (4.8-10.8)
[2018-12-21 11:41] LABS: ALBUMIN 4.5 g/dL (3.2-5.5); ALBUMIN/GLOBULIN RATIO 1.2 (1.0-2.2); BILIRUBIN,TOTAL 0.8 mg/dL (0.2-1.0); CALCIUM 10.3 mg/dL (8.5-10.3); CREATININE 0.9 mg/dL (0.4-1.0); TOTAL PROTEIN 8.4 g/dL (6.7-8.2)
--- NOTE | 2018-12-21 12:39 | ED Physician Documentation ---
PD HPI ABD PAIN - Stated complaint Stated Complaint: ABD PX - Chief complaint Chief Complaint: Abd Pain - History obtained from History obtained from: Patient - History of Present Illness Timing - onset: How many days ago (2) Timing - duration: Days (2) Timing - details: Gradual onset, Still present Quality: Sharp, Pain Location: RUQ Improved by: Laying still, Vomiting Worsened by: Moving, Breathing, Position, Palpation Associated symptoms: Nausea, Vomiting Similar symptoms before: Diagnosis (gallstone illeus) Recently seen: Clinic - Additional information Additional information: 63-year-old female who is undergoing treatment for breast cancer with metastases to the bone has had a prior history of gallstone ileus with the gallstone removed here in April of last year she still has her gallbladder in place and she has developed some constipation related to the use of narcotics and she took some lactulose following that she has been up to the bathroom frequently for very small amounts of stool. She states this was a miserable condition. She began to develop increasing abdominal pain and now she has abdominal pain and vo miting that is intolerable. She is feels this is similar to what she had back in April when she had gallstone ileus. 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: Breast cancer : Incontinence HEENT: None Psych: Depression, Anxiety Musculoskeletal: Osteoarthritis, Other Derm: None - Past Surgical History Past Surgical History: Yes General: Colonoscopy, Other /STUDENT ACTIVITIES DIRECTOR: Endometrial ablation, Other - Present Medications Home Medications: Ambulatory Orders Medication Instructions Recorded Confirmed Calcium Carbonate [Calcium] 500 mg PO DAILY 04/04/15 12/16/18 Denosumab [Xgeva] 120 mg SUBQ Q28D 04/04/15 12/16/18 Biotin 5,000 mcg PO DAILY 10/16/15 12/16/18 clonazePAM [Clonazepam] 3 mg PO QPM 04/08/16 12/16/18 metFORMIN [Glucophage] 500 mg PO BID PRN 06/01/18 12/16/18 Glipizide [Glipizide ER] 5 mg PO DAILY PRN MDD 10 06/29/18 12/16/18 Zolpidem [Ambien] 5 mg PO HS PRN 06/29/18 12/16/18 Ibuprofen [Motrin] 800 mg PO Q8HR PRN 11/30/18 12/16/18 Everolimus [Afinitor] 10 mg PO DAILY 12/14/18 12/16/18 Exemestane 25 mg PO DAILY 12/14/18 12/16/18 Hydrocodone/Acetaminophen 1 - 2 tab PO Q4HR PRN 12/14/18 12/16/18 [Hydrocodone-Acetamin 5-325 mg] Docusate Sodium 100 mg PO BID 12/16/18 12/16/18 Lactulose 15 ml PO BID 12/16/18 - Allergies Allergies/Adverse Reactions: Allergies Allergy/AdvReac Type Severity Reaction Status Date / Time oxycodone HCl * Allergy Mild itch Verified 12/21/18 10:42 [From Percocet] - Social History Does the pt smoke?: No Smoking Status: Never smoker Does the pt drink ETOH?: Yes Does the pt have substance abuse?: No - Immunizations Immunizations are current?: Yes - POLST Patient has POLST: Yes POLST Status: DNR PD ED PE NORMAL - Vitals Vital signs reviewed: Yes (hypertensive ) - General General: Alert and oriented X 3, Well developed/nourished, Other (appears to be in pain concentrating and keeping her eyes closed. ) - HEENT HEENT: Atraumatic, PERRL, EOMI - Neck Neck: Supple, no meningeal sign, No bony TTP - Cardiac Cardiac: RRR, No murmur - Respiratory Respiratory: No respiratory distress, Clear bilaterally - Abdomen Abdomen: Soft, Other (Tender to the RUQ specifically and less to the epigastrium and none to the LUQ. ) Results - Vitals Vitals: Vital Signs - 24 hr 12/21/18 12/21/18 12/21/18 10:38 11:43 13:45 Temperature 35.5 C L 36.6 C Heart Rate 86 85 90 Respiratory 24 24 18 Rate Blood Pressure 150/87 H 143/97 H 153/56 H O2 Saturation 95 94 97 Oxygen O2 Source Room air - Labs Labs: Laboratory Tests 12/21/18 12/21/18 12/21/18 10:20 11:20 11:20 WBC 3.1 L RBC 3.98 L Hgb 11.4 L Hct 33.2 L MCV 83.5 MCH 28.5 MCHC 34.2 RDW 14.6 Plt Count 100 L MPV 7.6 L Neut # (Auto) 2.6 Lymph # (Auto) 0.2 L [place] # (Auto) 0.2 Eos # (Auto) 0.1 Baso # (Auto) 0.0 Absolute Nucleated RBC 0.01 Nucleated RBC % 0.3 Sodium 136 Potassium 3.7 Chloride 98 L Carbon Dioxide 25 Anion Gap 13.0 BUN 18 Creatinine 0.9 Estimated GFR (MDRD) 63 L Glucose 324 H Calcium 10.3 Total Bilirubin 0.8 AST 35 ALT 34 Alkaline Phosphatase 83 Total Protein 8.4 H Albumin 4.5 Globulin 3.9 Albumin/Globulin Ratio 1.2 Lipase 18 L Urine Color YELLOW Urine Clarity HAZY Urine pH 5.0 Ur Specific [place] >=1.030 H Urine Protein 100 H Urine Glucose (UA) 250 H Urine Ketones 40 H Urine Occult Blood NEGATIVE Urine Nitrite POSITIVE H Urine Bilirubin NEGATIVE Urine Urobilinogen 0.2 (NORMAL) Ur Leukocyte Esterase NEGATIVE Urine RBC 0-5 Urine WBC 0-3 Ur Squamous Epith Cells RARE Squamous Urine Bacteria Rare Ur Microscopic Review INDICATED Urine Culture Comments INDICATED - Rads (name of study) abd/pel with Radiology: Prelim report reviewed (Impression: 1. New rim calcified structure in the mid to distal ileum causing partial small bowel obstruction and consistent with recurrent gallstone ileus. 2 Gallbladder appears chronically inflamed with rim calcified intraluminal structure seen previously no longer identified in the lumen and several new foci of gas now present. Fistulization to the adjacent duodenum is likely occurred.3 Splenomegaly as before. 4 Lucent and sclerotic bone lesions particularly involving T9-T11 and L2 vertebral bodies as before possibly metastatic disease.), EMP read indepedently, See rad report PD MEDICAL DECISION MAKING - ED course Complexity details: reviewed old records, reviewed results, re-evaluated patient, considered differential, d/w patient ED course: 63-year-old female with a history of gallstone ileus has severe abdominal pain vomiting and dehydration IV pain medication fluids and a CT scan were obtained. The CT scan confirms presence of gallstone ileus and the surgeon Dr. Renaldo Burt is consulted in the case he recommends consulting the hospitalist for admission to the hospital with the intention of performing surgery.. Departure - Departure Disposition: 66 [facility] DC/Xfer Clinical Impression: Gallstone ileus of small intestine Condition: Fair
[2018-12-21] MEDS ORDERED: HYDROmorphone 1 MG/ML CARPUJECT IVP STA (12:41)
[2018-12-21] MEDS ORDERED: ONDANSETRON 4 MG/2 ML VIAL IVP STA (12:41)
[2018-12-21] MEDS ORDERED: SODIUM CHLORIDE 0.9% 1,000 ML IV ONE (12:41)
[2018-12-21] MEDS ORDERED: IOVERSOL 320 100 ML VIAL IVP ONE ×2 (12:59→13:16)
--- NOTE | 2018-12-21 13:52 | CT Report ---
Reason: acute RUQ pain vomting Procedure Date: 12/21/2018 Accession Number: [id number] / [id number] Procedure: CT - Abdomen/Pelvis W CPT Code: FULL RESULT: EXAM: CT ABDOMEN AND PELVIS EXAM DATE: 12/21/2018 01:14 PM. CLINICAL HISTORY: Acute right upper quadrant pain and vomiting. COMPARISONS: ABDOMEN/PELVIS W/ 11/23/2018 12:45 PM. TECHNIQUE: Routine helical CT imaging was performed through the abdomen and pelvis. IV contrast: opti 320 100 ml. Enteric contrast: No. Reconstructions: Coronal and sagittal. In accordance with CT protocol optimization, one or more of the following dose reduction techniques were utilized for this exam: automated exposure control, adjustment of mA and/or KV based on patient size, or use of iterative reconstructive technique. FINDINGS: Lung Bases: Unremarkable. Liver: Normal. No masses. Gallbladder/Bile Ducts: A thick-walled structure is again present within the gallbladder fossa which may represent chronic cholecystitis. Several gas lucencies are present within the lumen new since last exam. The rim calcified structure seen previously is no longer identified. The gallbladder closely approximates the adjacent duodenum and fistulization may be present. Mild pericholecystic edema present diffusely as before. No gallbladder dilatation evident. The biliary system is normal in caliber. Spleen: The spleen is prominent as before measuring up to 17 cm. No focal masses. Pancreas: The pancreas is diffusely fatty infiltrated as before. No masses or ductal dilatation. Adrenal Glands: Normal. Kidneys: The right kidney is unremarkable. The left kidney shows no calculi or hydronephrosis. A probable small cyst of the left lower pole kidney measures 8 mm. Peritoneal Cavity/Bowel: Small bowel loops are filled with elevated fluid with multiple fluid levels. Loops measure up to 3.6 cm, mildly dilated, extending to a focal transition point in the mid to distal ileum as seen on series 3, image 39 where there is a partially obstructing rim calcified intraluminal structure measuring 1.5 cm, likely gallstone ileus. No wall thickening evident. The stomach is also filled with significant fluid. The colon is normal in caliber without wall thickening, constipation or obstruction evident. Scattered diverticulosis present. No free fluid or free air identified. The appendix is well visualized and normal. Pelvic Organs: The urinary bladder, rectum, uterus and adnexa are within normal limits. Vasculature: No aneurysms or other significant abnormality. Bones: Grade 1 anterolisthesis L4-L5 unchanged. Lucent and sclerotic lesions present particularly about T9-T11 and L2 as before. No significant interval change. Other: None. IMPRESSION: 1. New rim calcified structure in the mid to distal ileum causing partial small bowel obstruction and consistent with recurrent gallstone ileus. 2. Gallbladder appears chronically inflamed with rim calcified intraluminal structure seen previously no longer identified in the lumen and several new foci of gas now present. Fistulization to the adjacent duodenum has likely occurred. 3. Splenomegaly as before. 4. Lucent and sclerotic bone lesions particularly involving T9-T11 and L2 vertebral bodies as before, possibly metastatic disease. [facility] The call report notification system was initiated by Dr. Melissa Zurita at 01:46 PM on 12/21/2018.
[2018-12-21] MEDS ORDERED: ONDANSETRON 4 MG/2 ML VIAL IVP PRN (14:21)
[2018-12-21] MEDS ORDERED: ACETAMINOPHEN 325 MG TABLET PO PRN (14:21)
[2018-12-21] MEDS ORDERED: ZOLPIDEM 5 MG TABLET PO PRN (14:21)
[2018-12-21 14:58] LABS: HEMOGLOBIN A1C 0.51 g/dL
[2018-12-21] MEDS ORDERED: SODIUM CHLORIDE 0.9% 1,000 ML IV SCH ×2 (15:00→17:30)
[2018-12-21] MEDS: HYDROmorphone 1 MG/ML CARPUJECT IVP PRN ×4 (15:12→22:28)
[2018-12-21] MEDS: SODIUM CHLORIDE FLUSH 0.9% 10 ML SYRINGE IVP PRN (15:13)
--- NOTE | 2018-12-21 15:52 | HISTORY & PHYSICAL EXAMINATION ---
Chief Complaint - Chief Complaint Chief Complaint: abdominal pain History of Present Illness - History of Present Illness HPI Comment/Other: Ms. Dominguez is a 62-year-old female who has an unfortunate past medical history significant for stage IV metastatic breast cancer with metastasis to multiple location of bone, HTN, Morris dysplastic syndrome with pancytopenia, autoimmune hemolytic anemia, obesity, depression, anxiety, recent diagnosis of diabetes on metformin, obstructive sleep apnea on CPAP, history of gallstones ileus of small intestine, cholecystonduodenal fistula, chronic cholecystitis, and status post of small bowel stone removal by enterolithotomy, who present ER complain of abdominal pain. she report her abdominal pain located at his upper middle of abdomen as " my previous before." " the pain is like I had obstruction in last year.", it was sharp, did not radiate to other location. she reported she stated to have pain on yesterday. she report she took 5 times of Vicodin at home. She also report she had 6 times of small bowl movement since yesterday after she took lactulose. CT of abdomen reveals new rim calcified structure in the middle to distal ileum causing partial small bowel obstruction and consistent with recurrent gallstone ileus; gallbladder appears chronically inflamed, several new foci of gas now present, fistulization to the adjacent duodenum has likely occurred. pt denies chest pain, fever, chill, cough, shortness of breath, hematemesis. Surgeon was called by ER. pt was admitted for further evaluation and treatment of her abdominal pain. History - Past Medical History Cardiovascular: reports: Hypertension Respiratory: reports: Sleep apnea, CPAP use Endocrine/Autoimmune: reports: Type 2 diabetes GI: reports: GERD, Hiatal hernia, Cholelithiasis HL7 DEVELOPER: reports: Breast cancer : reports: Incontinence HEENT: reports: None Psych: reports: Depression, Anxiety Musculoskeletal: reports: Osteoarthritis, Other Derm: reports: None MRSA Hx?: No - Past Surgical History General: reports: Colonoscopy, Other /HL7 DEVELOPER: reports: Endometrial ablation, Other - Family & Social History Family History: Mother: , Cancer (mother of multiple myeloma 87), Father: , CAD (father of CHF 87), Diabetes, Type 2, Brother: Alcoholism, Other family: Alive and Well (has paternal aunt with breast cancer) Family History Comment/Other: Gallbladder disease in mother; neg for CRC Social History Notes: The patient lives that [facility] [address] [place] [address] from the hospital. She lives alone but has many friends in the apartment complex. The patient is 1 of 7 siblings but all of her siblings are estranged. The patient was [place] and moved to [place] at the age of 1 when her family emigrated. She moved to [facility] 3 years ago to be closer to her sister who lives in [place] however her sister has not wanted anything to do with her as she is dealing with her own mental health issues. The patient has never been and does not have any children. 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 She is currently retired. She has never smoked, she does not drink alcohol and denies any illicit drug use. - Substance History Use: Uses substance without health or social issues: Tobacco (hx use 25-30), Alcohol (drinks about 1 1/2 shots a night; past history of heavy use) - POLST Patient has POLST: Yes POLST Status: DNR Meds/Allgy - Home Medications Home Medications: Ambulatory Orders Medication Instructions Recorded Confirmed Calcium Carbonate [Calcium] 500 mg PO DAILY 04/04/15 12/21/18 Denosumab [Xgeva] 120 mg SUBQ Q28D 04/04/15 12/21/18 Biotin 5,000 mcg PO DAILY 10/16/15 12/21/18 clonazePAM [Clonazepam] 3 mg PO QPM 04/08/16 12/21/18 metFORMIN [Glucophage] 500 mg PO BID PRN 06/01/18 12/21/18 Glipizide [Glipizide ER] 5 mg PO DAILY PRN MDD 10 06/29/18 12/21/18 Zolpidem [Ambien] 5 mg PO HS PRN 06/29/18 12/21/18 Ibuprofen [Motrin] 800 mg PO Q8HR PRN 11/30/18 12/21/18 Everolimus [Afinitor] 10 mg PO DAILY 12/14/18 12/21/18 Exemestane 25 mg PO DAILY 12/14/18 12/21/18 Hydrocodone/Acetaminophen 1 - 2 tab PO Q4HR PRN 12/14/18 12/21/18 [Hydrocodone-Acetamin 5-325 mg] Docusate Sodium 100 mg PO BID 12/16/18 12/21/18 Lactulose 15 ml PO BID 12/16/18 12/21/18 - Allergies Allergies/Adverse Reactions: Allergies Allergy/AdvReac Type Severity Reaction Status Date / Time oxycodone HCl * Allergy Mild itch Verified 12/21/18 10:42 [From Percet] Review of Systems - Constitutional Constitutional: denies: Fatigue, Fever, Chills, Malaise, Weakness, Poor appetite, Diaphoresis, Night sweats - Eyes Eyes: denies: Pain, Irritation, Amaurosis, Blurred vision, Spots in vision, Field loss, Vision loss, Dipolpia - Ears, Nose & Throat Ears, Nose & Throat: denies: Ear pain, Hearing loss, Hearing aids, Tinnitus, Vertigo, Nasal pain, Nasal discharge, Nosebleeds, Nasal obstruction, Nasal congestion, Postnasal drainage, Dentures, Sore throat, Hoarseness, Mouth lesions, Bleeding gums - Cardiovascular Cariovascular: denies: Irregular heart rate, Palpitations, Chest pain, Edema, Lightheadedness, Syncope, Exertional dyspnea, Decr. exercise tolerance - Respiratory Respiratory: denies: Cough, Sputum production, Wheezing, Snoring, Hemoptysis, Orthopnea, SOB at rest, SOB with exertion - Gastrointestinal Gastrointestinal: reports: Abdominal pain, Nausea, Vomiting. denies: Abdominal distention, Constipation, Diarrhea, Change in bowel habits, Rectal bleeding, Black stools, Bloody stools, Bile emesis, Nir blood emesis, Coffee grounds emesis, Reflux/heartburn - Genitourinary Genitourinary: denies: Dysuria, Frequency, Urgency, Hematuria, Incontinence, Flank pain, Nocturia, Urethral discharge - Musculoskeletal Musculoskeletal: denies: Muscle pain, Back pain, Muscle aches, Stiffness, Limited range of motion, Muscle weakness, Gout, Joint pain - Integumentary Integumentary: denies: Rash, Pruritis, Lesions, Dryness, Lumps, Acne, Pigment changes, Nail changes - Neurological Neurological: denies: General weakness, Focal weakness, Headache, Dizziness, Numbness, Memory problems, Pre-existing deficit, Abnormal gait, Seizures, Incoordination, Slurred speech - Psychiatric Psychiatric: denies: Depression, Anxiety, Suicidal, Delusions, Hallucinations, Homicidal - Endocrine Endocrine: denies: Polyuria, Polydypsia, Polyphagia, Intolerance to cold - Hematologic/Lymphatic Hematologic/Lymphatic: denies: Anemia, Bruising, Petechiae, Blood clots, Lymphadenopathy, Bleeding tendencies Exam - Vital Signs Reviewed Vital Signs: Yes Vital Signs: Vital Signs x48h Temp Pulse Pulse Resp BP BP Pulse Ox 12/21/18 15:15 36.8 C 97 18 146/79 H 94 12/21/18 14:51 37.0 C 101 H 20 136/67 H 94 12/21/18 13:45 36.6 C 90 18 153/56 H 97 12/21/18 11:43 85 24 143/97 H 94 12/21/18 10:38 35.5 C L 86 24 150/87 H 95 - Physical Exam General Appearance: positive: No acute distress, Alert. negative: Lethargic Eyes Bilateral: positive: Normal inspection, PERRL, EOMI. negative: No lid inflammation, Conjunctivae nml, No scleral icterus ENT: positive: ENT inspection nml, Pharynx nml, No signs of dehydration. negative: Purulent nasal drainage, Pharyngeal erythema, Oral lesions Neck: positive: Nml inspection, Thyroid nml, No JVD, Trachea midline. negative: Thyromegaly, Lymphadenopathy (R), Lymphadenopathy (L), Stiff neck, Swelling/bruising, Tracheal deviation Respiratory: positive: Chest non-tender, No respiratory distress, Breath sounds nml. negative: Wheezes, Rales, Rhonchi Cardiovascular: positive: Regular rate & rhythm, No murmur, No gallop. negative: Irregularly irregular, Extrasystoles, Tachycardia, Bradycardia, JVD present, Systolic murmur, Diastolic murmur Peripheral Pulses: positive: 2+ Abdomen: positive: Non-tender, No organomegaly, No distention, Abnml bowel sounds (reduced bowel sound). negative: Tenderness, Guarding, Rebound Back: positive: Nml inspection. negative: CVA tenderness (R), CVA tenderness (L) Skin: positive: Color nml, No rash, Warm, Dry. negative: Cyanosis, Diaphoresis, Pallor Extremities: positive: Non-tender, Full ROM, Nml appearance. negative: Calf tenderness, Joint swelling, Michele's sign/cords Neurologic/Psychiatric: positive: Oriented x3, Sensation nml, Mood/affect nml. negative: Weakness, Sensory loss, Facial droop, Slurred/abnml speech, Depressed mood/affect Sepsis Event Note (H) - Evaluation Current Stage of Sepsis: Ruled out Conclusion/Plan - Problem List (1) Abdominal pain Conclusion/Plan: CT reveals new rim calcified structure in the middle to distal ileum causing partial small bowel obstruction. gallbladder appears chronically inflamed, several new foci of gas now present, fistulization to the adjacent duodenum has likely occurred, all above can cause pt has abdominal pain consult with GI surgeon, will closely followup bowel rest with NPO IVF of hydration pain control PRN reglan and zofran for antiemesis zosyn for fistulization and foci of gas tele, vital and lab monitor Qualifiers: Abdominal location: upper abdomen, unspecified Qualified Code(s): R10.10 - Upper abdominal pain, unspecified (2) Nausea & vomiting Conclusion/Plan: it can be cause partial SBO or other complication of her abdomen shown in the CT IVF of NS antiemesis, PRN Reglan and Zofran (3) Gallstone ileus of small intestine Conclusion/Plan: chronic problem, pt had surgery on 2017 to remove gallstone at small intestine consult with GI surgeon bowel rest, NPO IVF reglan PRN, avoid opiates as possible (4) Chronic cholecystitis Conclusion/Plan: pt has hx of chronic cholecystitis. pt still had gallbladder. consult with surgeon, pain control zosyn bowel rest, NPO (5) Breast cancer metastasized to bone Qualifiers: Laterality: right Qualified Code(s): C50.911 - Malignant neoplasm of unspecified site of right female breast; C79.51 - Secondary malignant neoplasm of bone (6) Anxiety and depression Conclusion/Plan: reconcile home meds Clonzepam (7) Diabetes mellitus Conclusion/Plan: pt present hyperglycemia but pt's A1C is 6. Pt took Metformin and Glucotrol at home. 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: without detention use Diabetes mellitus complication status: with hyperglycemia Qualified Code(s): E11.65 - Type 2 diabetes mellitus with hyperglycemia (8) Essential (primary) hypertension Conclusion/Plan: stable now, tele and vital monitor pt (9) Myelodysplasia (myelodysplastic syndrome) Conclusion/Plan: hx of myelodysplasia, pt present pancytopenia advise pt continue to follow up her oncologist/hemotologist daily lab CBC monitor (10) Pancytopenia Conclusion/Plan: hx of myelodysplasia, and metastatic stage 4 of breast cancer to her multiple bone locations which may suppress her bone marrow activity continue lab monitor, vital monitor, and support to pt. (11) Do not intubate, cardiopulmonary resuscitation (CPR)-only code status Conclusion/Plan: pt request DNR - Lab Results Fish Bones: 12/21/18 11:20 12/21/18 11:20 Core Measures - Anticipated LOS I expect patient to be DC'd or transferred within 96 hours.: Yes - DVT/VTE - Prophylaxis VTE/DVT Device ordered at admit?: Yes VTE/DVT Prophylaxis med ordered at admit?: Yes
[2018-12-21] MEDS ORDERED: PIPERACILLIN/TAZOBACTAM 3.375 GM in SODIUM CHLORIDE 0.9% MINIBAG 100 ML IV ONE (16:00)
[2018-12-21] MEDS: PANTOPRAZOLE 40 MG VIAL IVP SCH (16:43)
[2018-12-21] MEDS ORDERED: HYDROcod/ACETAM 5/325 MG TABLET PO PRN (16:58)
[2018-12-21] MEDS ORDERED: METOCLOPRAMIDE 10 MG/2 ML VIAL IVP PRN (17:22)
[2018-12-21] MEDS: SODIUM CHLORIDE FLUSH 0.9% 10 ML SYRINGE IVP SCH (17:28)
--- NOTE | 2018-12-21 18:19 | CONSULTATION NOTE ---
Referring Provider Name of Referring Provider:: Betancur ACP Consult Date: 12/21/18 Chief Complaint - Chief Complaint Chief Complaint: abd pain, N, V History of Present Illness - Admitted From Admitted From:: ER - History Obtained From Records Reviewed: yes History obtained from: pt, records Exam Limitations: none - History of Present Illness HPI Comment/Other: 63 yo woman with abrupt onset at 1700 hours yesterday of severe periumbilical crampy abdominal pains, associated with recurrent bilious N/V which persisted overnight prompting her to come to the ER today for evaluation and subsequent admission. She reports similar sx in Apr where gallstone ileus was diagnosed and she underwent laparoscopic assisted enterolithotomy with resolution of sx. She was advised to f/u with her director compensation in [place] for consideration of endoscopic therapy of her remaining gallstones in the gallbladder with contact lithotripsy but never followed up with them. She reports no intercurrent sx since the prior episode until now. She reports a prior episode treated endoscopically in [place] several years ago. She has not been felt to be a surgical candidate due to high risk for surgical complications and multiple medical comorbidities. No hx of jaundice or acholic stools; she reports having a nl bm today. She reports approx 10 lb wt loss over the past 6 months, which has been intentional. She has a positive Fh gallbladder disease in her mother. CT of abd/pelvis today shows chronic thickening of the gallbladder wall; no residual stones in the gallbladder, air and fluid in the gallbladder, and a 1.5 cm partially calcified stone in the distal ileum associated with mild proximal dilatation of the small bowel. No free air or free fluid in the abdominal cavity. Surgical consultation was requested. 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 - Past Surgical History General: reports: Colonoscopy, Other (04/2018: lap assisted enterolithotomy for gallstone ileus) /RECORD FILING CLERK: reports: Endometrial ablation, Other - Family & Social History Family History: Mother: , Cancer (mother of multiple myeloma 87), Father: , CAD (father of CHF 87), Diabetes, Type 2, Brother: Alcoholism, Other family: Alive and Well (has paternal aunt with breast cancer) Family History Comment/Other: Gallbladder disease in mother; neg for CRC Living arrangement: At home Living Situation: Alone Social History Notes: The patient lives that [facility] [address] across the street from the hospital. She lives alone but has many friends in the apartment complex. The patient is 1 of 7 siblings but all of her siblings are estranged. The patient was born in [facility] and moved to [place] at the age of 1 when her family emigrated. She moved to [facility] 3 years ago to be closer to her sister who lives in [place] however her sister has not wanted anything to do with her as she is dealing with her own mental health issues. The patient has never been and does not have any children. 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 She is currently retired. She has never smoked, she does not drink alcohol and denies any illicit drug use. - Substance History Use: Uses substance without health or social issues: Tobacco (hx use 25-30), Alcohol (drinks about 1 1/2 shots a night; past history of heavy use) - POLST Patient has POLST: Yes POLST Status: DNR Meds/Allgy - Home Medications Home Medications: Ambulatory Orders Medication Instructions Recorded Confirmed Calcium Carbonate [Calcium] 500 mg PO DAILY 04/04/15 12/21/18 Denosumab [Xgeva] 120 mg SUBQ Q28D 04/04/15 12/21/18 Biotin 5,000 mcg PO DAILY 10/16/15 12/21/18 clonazePAM [Clonazepam] 3 mg PO QPM 04/08/16 12/21/18 metFORMIN [Glucophage] 500 mg PO BID PRN 06/01/18 12/21/18 Glipizide [Glipizide ER] 5 mg PO DAILY PRN MDD 10 06/29/18 12/21/18 Zolpidem [Ambien] 5 mg PO HS PRN 06/29/18 12/21/18 Ibuprofen [Motrin] 800 mg PO Q8HR PRN 11/30/18 12/21/18 Everolimus [Afinitor] 10 mg PO DAILY 12/14/18 12/21/18 Exemestane 25 mg PO DAILY 12/14/18 12/21/18 Hydrocodone/Acetaminophen 1 - 2 tab PO Q4HR PRN 12/14/18 12/21/18 [Hydrocodone-Acetamin 5-325 mg] Docusate Sodium 100 mg PO BID 12/16/18 12/21/18 Lactulose 15 ml PO BID 12/16/18 12/21/18 - Allergies Allergies/Adverse Reactions: Allergies Allergy/AdvReac Type Severity Reaction Status Date / Time oxycodone HCl * Allergy Mild itch Verified 12/21/18 10:42 [From Percet] Review of Systems - Constitutional Constitutional: reports: Weight loss (10 lbs/6 months). denies: Weight gain - Cardiovascular Cariovascular: denies: Chest pain - Respiratory Respiratory: reports: Other (sleep apnea/cpap). denies: Cough, Sputum production - Gastrointestinal Gastrointestinal: reports: Abdominal pain, Nausea, Vomiting, Bile emesis, Poor appetite. denies: Rectal bleeding, Black stools, Bloody stools, Nir blood emesis, Coffee grounds emesis - Psychiatric Psychiatric: reports: Depression, Anxiety - Hematologic/Lymphatic Hematologic/Lymphatic: denies: Anemia, Bruising, Petechiae, Blood clots, Bleeding tendencies - All Other Systems All Other Systems: reports: Reviewed and negative (or covered in HPI/PMH) Exam - Vital Signs Reviewed Vital Signs: Yes Vital Signs: Vital Signs x48h Temp Pulse Pulse Resp BP BP Pulse Ox 12/21/18 16:40 36.8 C 97 18 95 12/21/18 15:15 36.8 C 97 18 146/79 H 94 12/21/18 14:51 37.0 C 101 H 20 136/67 H 94 12/21/18 13:45 36.6 C 90 18 153/56 H 97 12/21/18 11:43 85 24 143/97 H 94 12/21/18 10:38 35.5 C L 86 24 150/87 H 95 - Physical Exam General Appearance: positive: Alert, Mild distress Eyes Bilateral: positive: Normal inspection, No scleral icterus ENT: positive: ENT inspection nml, Pharynx nml, No signs of dehydration Neck: positive: No JVD, Trachea midline. negative: Thyromegaly, Lymphadenopathy (R), Lymphadenopathy (L) Respiratory: positive: Chest non-tender, No respiratory distress, Breath sounds nml. negative: Wheezes, Rales, Rhonchi Cardiovascular: positive: Regular rate & rhythm, No murmur, No gallop Abdomen: positive: Non-tender, No organomegaly, No distention, Abnml bowel sounds (high pitched, typanitic). negative: Guarding, Rebound, Hepatomegaly, Splenomegaly, Mass Skin: positive: Color nml, No rash, Warm, Dry. negative: Cyanosis Extremities: positive: Non-tender, No pedal edema. negative: Calf tenderness Neurologic/Psychiatric: positive: Oriented x3 Conclusion/Plan - Diagnosis Diagnosis: recurrent gallstone ileus; no evidence of acute abdomen, complete obstruction, strangulation obstruction, perforation, sepsis, or acute cholecystitis or cholangitis at present - Plan Plan: agree with admission, bowel rest, observation, serial abd exams; NG suction if pt will permit (currently declining); f/u abd films in am; if not improving tomorrow, then surgical therapy will once again be recommended. As no sig nificant gallstones appear to be remaining in the gallbladder, after this condition has been resolved, either with spontaneous passage into the colon or with surgery, then her condition is unlikely to recur for some time. She is comfortable with this plan. - Lab Results Lab results reviewed: Yes Fish Bones: 12/21/18 11:20 12/21/18 11:20 Other Lab Results: LFT's nl - Diagnostic Imaging Results Diagnostic Imaging Results: positive: Final report reviewed, Read independently Diagnostic Imaging Results Comments: see HPI
[2018-12-21] MEDS ORDERED: PIPERACILLIN/TAZOBACTAM 3.375 GM in SODIUM CHLORIDE 0.9% MINIBAG 100 ML IV SCH (19:00)
[2018-12-21] MEDS: INSULIN REGULAR HUMAN 100 UNIT/1 ML 10 ML MDV SUBQ SCH (19:12)
[2018-12-22] MEDS: clonazePAM 0.5 MG TABLET PO SCH ×2 (00:06→23:50)
[2018-12-22] MEDS: INSULIN REGULAR HUMAN 100 UNIT/1 ML 10 ML MDV SUBQ SCH ×3 (00:17→12:25)
[2018-12-22] MEDS: SODIUM CHLORIDE FLUSH 0.9% 10 ML SYRINGE IVP SCH ×5 (00:18→23:51)
[2018-12-22] MEDS: HYDROmorphone 1 MG/ML CARPUJECT IVP PRN ×6 (01:01→21:47)
[2018-12-22] MEDS: SODIUM CHLORIDE FLUSH 0.9% 10 ML SYRINGE IVP PRN ×2 (01:02→05:49)
[2018-12-22] MEDS: PANTOPRAZOLE 40 MG VIAL IVP SCH (05:49)
[2018-12-22 06:14] LABS: BASOPHILS % (AUTO) 0.4 %; EOSINOPHILS # (AUTO) 0.1 10^3/uL (0.0-0.7); EOSINOPHILS % (AUTO) 3.2 %; LYMPHOCYTES # (AUTO) 0.2 10^3/uL (1.5-3.5); LYMPHOCYTES % (AUTO) 8.3 %; MEAN CORPUSCULAR HEMOGLOBIN 28.8 pg (27.0-31.0); MEAN CORPUSCULAR HGB CONC 34.2 g/dL (32.0-36.0); MEAN CORPUSCULAR VOLUME 84.2 fL (81.0-99.0); MEAN PLATELET VOLUME 7.2 fL (7.9-10.8); MONOCYTES # (AUTO) 0.3 10^3/uL (0.0-1.0); MONOCYTES % (AUTO) 14.9 %; NEUTROPHILS # (AUTO) 1.5 10^3/uL (1.5-6.6); NEUTROPHILS % (AUTO) 73.2 %; PLT - PLATELET COUNT 93 10^3/uL (130-450); RED BLOOD COUNT 3.47 10^6/uL (4.20-5.40)
[2018-12-22 06:50] LABS: ALBUMIN 3.6 g/dL (3.2-5.5); ALBUMIN/GLOBULIN RATIO 1.1 (1.0-2.2); BILIRUBIN,TOTAL 0.8 mg/dL (0.2-1.0); CALCIUM 8.4 mg/dL (8.5-10.3); CREATININE 0.8 mg/dL (0.4-1.0); MAGNESIUM 1.7 mg/dL (1.7-2.8); TOTAL PROTEIN 6.9 g/dL (6.7-8.2)
[2018-12-22] MEDS ORDERED: SODIUM CHLORIDE 0.9% 1,000 ML IV SCH ×3 (07:34→18:14)
[2018-12-22] MEDS: POLYETHYLENE GLYCOL 3350 17 GM PACKET PO SCH (07:50)
--- NOTE | 2018-12-22 07:50 | PROVIDER PROGRESS NOTE ---
Assessment/Plan - Problem List (1) Gallstone ileus of small intestine Assessment/Plan: Clinically improving with signs,sx of SBO resolving; may have passed stone into large intestine. Rec: SBFT today; if no evidence of persistent stone in small bowel, ok to resume diet as tolerated and home when tolerating po well. - Current Meds Current Meds: Current Medications Generic Name Dose Route Start Last Admin Trade Name Freq PRN Reason Stop Dose Admin Clonazepam 3 mg 12/21/18 21:00 12/22/18 00:06 Klonopin PO 3 mg QPM ALISSA Administration Hydromorphone HCl 1 mg 12/21/18 14:28 12/22/18 06:01 Dilaudid Inj Carp IVP 1 mg Q2HR PRN Administration PAIN Insulin Human Regular 1 - 5 unit 12/21/18 18:00 12/22/18 06:00 Novolin R SUBQ 2 unit Q6HR ALISSA Administration Protocol Pantoprazole Sodium 40 mg 12/21/18 15:00 12/22/18 05:49 Protonix IVP 40 mg QDAC ALISSA Administration Sodium Chloride 10 ml 12/21/18 14:21 12/22/18 05:49 Normal Saline Flush 0.9% IVP 10 ml PRN PRN Administration NEEDED PER PROVIDER ORDERS Sodium Chloride 10 ml 12/21/18 17:00 12/22/18 06:01 Normal Saline Flush 0.9% IVP 10 ml 0100,0900,1700 ALISSA Administration - Lab Result Lab results reviewed: Yes Fish Bone Diagrams: 12/22/18 06:08 12/22/18 06:08 - Diagnostic Imaging Results Diagnostic Imaging Results Comments: 2 view abd this am: gas throughout colon, minimal dilated loops of small bowel without significant a/f levels; appears close to normal. - Additional Planning Condition/Complexity: Improved My Orders: My Active Orders 12/22/18 07:32 SBFT [Small Bowel Follow Through] [FL] Stat 12/22/18 07:34 Sodium Chloride 0.9% [Normal Saline 0.9%] 1,000 ml IV 100 mls/hr 12/22/18 09:00 Abdomen 2 View X-Ray [XR] DAILY Plan Discussed with:: Patient, Other (hospitalists) Time Spent: 15-30 minutes Subjective - Subjective Patient Reports: Feeling Better (abd pain resolved last night; no further N/V; multiple loose bm's overnight.) Objective Vital Signs: Vital Signs - 24 hr 12/21/18 12/21/18 12/21/18 10:38 11:43 13:45 Temperature 35.5 C L 36.6 C Heart Rate 86 85 90 Heart Rate [ Brachial] Respiratory 24 24 18 Rate Blood Pressure 150/87 H 143/97 H 153/56 H Blood Pressure [Left Brachial artery] Blood Pressure [Right Brachial artery] O2 Saturation 95 94 97 12/21/18 12/21/18 12/21/18 14:51 15:15 16:40 Temperature 37.0 C 36.8 C 36.8 C Heart Rate 101 H 97 Heart Rate [ 97 Brachial] Respiratory 20 18 18 Rate Blood Pressure 136/67 H Blood Pressure [Left Brachial artery] Blood Pressure 146/79 H [Right Brachial artery] O2 Saturation 94 94 95 12/21/18 12/21/18 12/22/18 21:00 23:53 05:45 Temperature 37.4 C 36.8 C 37.3 C Heart Rate Heart Rate [ 96 98 99 Brachial] Respiratory 18 20 20 Rate Blood Pressure Blood Pressure 127/64 145/64 H [Left Brachial artery] Blood Pressure 117/67 [Right Brachial artery] O2 Saturation 94 98 92 Oxygen O2 Source Patient supplied BIPAP I&O (Last 24 Hrs): Intake and Output Totals x24h 12/20/18 12/21/18 12/22/18 23:59 23:59 23:59 Intake Total 1375 Output Total 500 Balance 875 General: Alert, Oriented x3, Cooperative, No acute distress Abdomen: Soft, No tenderness, No hepatospenomegaly, No masses Extremities: No edema, No tenderness/swelling - Results Results: Laboratory Results WBC 2.0 x10^3/uL (4.8-10.8) L* 12/22/18 06:08 RBC 3.47 10^6/uL (4.20-5.40) L 12/22/18 06:08 Hgb 10.0 g/dL (12.0-16.0) L 12/22/18 06:08 Hct 29.2 % (37.0-47.0) L 12/22/18 06:08 MCV 84.2 fL (81.0-99.0) 12/22/18 06:08 MCH 28.8 pg (27.0-31.0) 12/22/18 06:08 MCHC 34.2 g/dL (32.0-36.0) 12/22/18 06:08 RDW 15.0 % (12.0-15.0) 12/22/18 06:08 Plt Count 93 10^3/uL (130-450) L 12/22/18 06:08 MPV 7.2 fL (7.9-10.8) L 12/22/18 06:08 Neut # (Auto) 1.5 10^3/uL (1.5-6.6) 12/22/18 06:08 Lymph # (Auto) 0.2 10^3/uL (1.5-3.5) L 12/22/18 06:08 Gregory # (Auto) 0.3 10^3/uL (0.0-1.0) 12/22/18 06:08 Eos # (Auto) 0.1 10^3/uL (0.0-0.7) 12/22/18 06:08 Baso # (Auto) 0.0 10^3/uL (0.0-0.1) 12/22/18 06:08 Absolute Nucleated RBC 0.01 x10^3/uL 12/22/18 06:08 Nucleated RBC % 0.3 /100WBC 12/22/18 06:08 Sodium 138 mmol/L (135-145) 12/22/18 06:08 Potassium 4.0 mmol/L (3.5-5.0) 12/22/18 06:08 Chloride 107 mmol/L (101-111) 12/22/18 06:08 Carbon Dioxide 22 mmol/L (21-32) 12/22/18 06:08 Anion Gap 9.0 (6-13) 12/22/18 06:08 BUN 17 mg/dL (6-20) 12/22/18 06:08 Creatinine 0.8 mg/dL (0.4-1.0) 12/22/18 06:08 Estimated GFR (MDRD) 72 (>89) L 12/22/18 06:08 Glucose 214 mg/dL (70-100) H 12/22/18 06:08 Glycated Hemoglobin 6.0 % (4.6-6.2) 12/21/18 10:55 Estim Average Glucose 126 (70-100) H 12/21/18 10:55 Calcium 8.4 mg/dL (8.5-10.3) L 12/22/18 06:08 Magnesium 1.7 mg/dL (1.7-2.8) 12/22/18 06:08 Total Bilirubin 0.8 mg/dL (0.2-1.0) 12/22/18 06:08 AST 25 IU/L (10-42) 12/22/18 06:08 ALT 27 IU/L (10-60) 12/22/18 06:08 Alkaline Phosphatase 64 IU/L (42-121) 12/22/18 06:08 Total Protein 6.9 g/dL (6.7-8.2) 12/22/18 06:08 Albumin 3.6 g/dL (3.2-5.5) 12/22/18 06:08 Globulin 3.3 g/dL (2.1-4.2) 12/22/18 06:08 Albumin/Globulin Ratio 1.1 (1.0-2.2) 12/22/18 06:08 Lipase 18 U/L (22-51) L 12/21/18 11:20 Urine Color YELLOW 12/21/18 10:20 Urine Clarity HAZY (CLEAR) 12/21/18 10:20 Urine pH 5.0 PH (5.0-7.5) 12/21/18 10:20 Ur Specific [place] >=1.030 (1.002-1.030) H 12/21/18 10:20 Urine Protein 100 mg/dL (NEGATIVE) H 12/21/18 10:20 Urine Glucose (UA) 250 mg/dL (NEGATIVE) H 12/21/18 10:20 Urine Ketones 40 mg/dL (NEGATIVE) H 12/21/18 10:20 Urine Occult Blood NEGATIVE (NEGATIVE) 12/21/18 10:20 Urine Nitrite POSITIVE (NEGATIVE) H 12/21/18 10:20 Urine Bilirubin NEGATIVE (NEGATIVE) 12/21/18 10:20 Urine Urobilinogen 0.2 (NORMAL) E.U./dL (NORMAL) 12/21/18 10:20 Ur Leukocyte Esterase NEGATIVE (NEGATIVE) 12/21/18 10:20 Urine RBC 0-5 /HPF (0-5) 12/21/18 10:20 Urine WBC 0-3 /HPF (0-5) 12/21/18 10:20 Ur Squamous Epith Cells RARE Squamous (<= Few) 12/21/18 10:20 Urine Bacteria Rare /HPF (None Seen) 12/21/18 10:20 Ur Microscopic Review INDICATED 12/21/18 10:20 Urine Culture Comments INDICATED 12/21/18 10:20 Serum Ketones NEGATIVE (NEGATIVE) 12/21/18 11:20 C. difficile Tox B Gene NEGATIVE (NEGATIVE) 12/21/18 20:20 - Procedures Procedures: Procedures EXTIRPATION OF MATTER FROM JEJUNUM, OPEN APPROACH (05/08/18) Sepsis Event Note (H) - Evaluation Current Stage of Sepsis: Ruled out ABX Reporting Has patient been on IV antibiotics over the past 48 hours?: No
[2018-12-22] MEDS: ENOXAPARIN 40 MG/0.4 ML SYRINGE SUBQ SCH (08:42)
--- NOTE | 2018-12-22 10:07 | XRAY Report ---
Reason: f/u sbo Procedure Date: 12/22/2018 Accession Number: [id number] / [id number] Procedure: XR - Abdomen 2 View X-Ray CPT Code: 53975 FULL RESULT: EXAM: ABDOMEN RADIOGRAPHY EXAM DATE: 12/22/2018 06:45 AM. CLINICAL HISTORY: F/u small bowel obstruction. Acute right upper quadrant pain, nausea/vomiting x1 day. COMPARISON: ABDOMEN 1 VIEW 05/12/2018 1:25 PM ABDOMEN/PELVIS W/ 12/21/2018 1:08 PM. TECHNIQUE: 2 views. FINDINGS: Lung Bases: Unremarkable. Bowel Gas Pattern: No dilated gas-filled loops of bowel. There are a few differential air-fluid levels within nondilated loops of small bowel on the upright image. No abnormal colonic stool burden. Free Air: None. Other: No abnormal intra-abdominal calcification or mass-effect. No acute osseous abnormality. IMPRESSION: No dilated gas-filled loops of bowel visualized. On the recent prior CT, dilated loops of small bowel were primarily filled with fluid, which may not be well visualized on radiographs. There are a few differential air-fluid levels within nondilated gas-filled loops of small bowel on the upright image, suggestive of ileus or partial small bowel obstruction. RADIA
--- NOTE | 2018-12-22 13:02 | CT Report ---
Reason: f/u gallstone ileus Procedure Date: 12/22/2018 Accession Number: [id number] / [id number] Procedure: CT - Abdomen/Pelvis WO CPT Code: FULL RESULT: EXAM: CT ABDOMEN AND PELVIS EXAM DATE: 12/22/2018 11:55 AM. CLINICAL HISTORY: F/u gallstone ileus. COMPARISONS: ABDOMEN/PELVIS W/ 12/21/2018 1:08 PM. TECHNIQUE: Routine helical CT imaging was performed through the abdomen and pelvis. IV contrast: None. Enteric contrast: No. Reconstructions: Coronal and sagittal. In accordance with CT protocol optimization, one or more of the following dose reduction techniques were utilized for this exam: automated exposure control, adjustment of mA and/or KV based on patient size, or use of iterative reconstructive technique. FINDINGS: Absence of intravenous contrast medium limits evaluation of the solid organs and vascular structures. Lung Bases: Unremarkable. Liver: Diffusely decreased attenuation compared to the spleen, consistent with steatosis. No focal abnormality appreciated. Gallbladder/Bile Ducts: The Bladder wall is thickened. There is pericholecystic stranding. There is air in the gallbladder lumen. Spleen: The spleen remains enlarged measuring 15.6 cm. Pancreas: Fatty infiltrated. Adrenal Glands: Normal. Kidneys: Negative for hydronephrosis. There is mild nonspecific bilateral perinephric stranding. Peritoneal Cavity/Bowel: No free air. There is a small amount of free fluid in the pelvis. The intraluminal gallstone has moved into the distal descending colon, series 3 image 107. No abnormal bowel dilation. The appendix is not definitely visualized. There is mild stranding in the small bowel mesentery. Previous small bowel surgery. Pelvic Organs: Contracted urinary bladder. No abnormal pelvic masses. Vasculature: There is atherosclerotic calcification in the aorta and iliac arteries without aneurysm. Bones: Sclerotic bone lesions consistent with metastatic disease. Stable grade 1 anterolisthesis of L4 on L5. Other: There are no pathologically enlarged inguinal, pelvic, mesenteric, or retroperitoneal lymph nodes. IMPRESSION: 1. Negative for bowel obstruction on the current exam. 2. The previously noted intraluminal gallstone appears to have migrated into the distal descending colon. There is new stranding in the small bowel mesentery and trace free fluid in the pelvis. 3. Stable appearance of the gallbladder with intraluminal air, wall thickening, and pericholecystic stranding. 4. Hepatic steatosis, splenomegaly. Fatty infiltrated pancreas. 5. Sclerotic bone lesions, presumed metastases. RADIA
--- NOTE | 2018-12-22 13:48 | ADVANCE CARE PLANNING NOTE ---
Advance Care Planning - Date/Time Date: 12/22/18 Time: 13:46 - Purpose of encounter Text: advance care for pt - Parties in attendance Parties in attendance: pt and me - Decisional capacity Decisional capacity of: pt has the capacity to make full decision for herself - Subjective/Patient's story Subjective/Patient's story: pt was admitted into the hospital because of nausea progressing to severe abdominal pain and cramping starting. you could not take it anymore and not even tea and toast was tolerated. You described your pain as a 10 out of a 10. When you came to the emergency room we found you to have gallstone ileus. pt has hx of breast cancer stage 4 metastatic to multiple location of her bone. and with hx of MDS. she continue to followup her oncologist Dr. Marte, and had chemotherapy. she recognize her prognosis is poor and do not want to have full code at this time - Objective/Medical story Objective/Medical Story: pt has a past medical history significant for stage IV metastatic breast cancer with metastasis to multiple location of bone, HTN, Pindall dysplastic syndrome with pancytopenia, autoimmune hemolytic anemia, obesity, depression, anxiety, recent diagnosis of diabetes on metformin, obstructive sleep apnea on CPAP, history of gallstones ileus of small intestine, cholecystonduodenal fistula, chronic cholecystitis, and status post of small bowel stone removal by enterolithotomy - Goals of Care Goals of care determinations: advance care and quality life for pt self - Plan Plan: currently keep DNR and pt will considerate palliative and hospice care if the time come. - Code Status Code Status: Do Not Attempt Resuscitation - Time Spent on Advance Care Planning Time spent on advance care plannin
--- NOTE | 2018-12-22 13:58 | PROVIDER PROGRESS NOTE ---
Subjective - Prog Note Date Prog Note Date: 12/22/18 - Subjective Pt reports feeling: Improved Subjective: pt report her abdomen pain is improve compared with when she was admitted. she denies nausea or vomiting. she report she fear to eat anything to cause her abdominal pain. she also report she does not not have appetite now. she denies fever, chill, chest pain, shortness of breath. I discussed with Court in [facility] [place], who discussed with Dr. Hand, pt's oncologist, and reviewed pt's updated lab studies, clinic conditions, Court recommended to hold pt's chem-agents now, and pt can have it when she was d/c to home Current Medications - Current Medications Current Medications: Active Medications Acetaminophen (Tylenol) 650 mg PO Q4HR PRN PRN Reason: Pain 1 to 4 Hydrocodone Bitart/Acetaminophen ([place] 5/325) 1 tab PO Q4HR PRN PRN Reason: PAIN Clonazepam (Klonopin) 3 mg PO QPM [facility] Last Admin: 12/22/18 00:06 Dose: 3 mg Enoxaparin Sodium (Lovenox) 40 mg SUBQ DAILY [facility] Last Admin: 12/22/18 08:42 Dose: 40 mg Guaifenesin (Mucinex) 600 mg PO DAILY [facility] Hydromorphone HCl (Dilaudid Inj Carp) 1 mg IVP Q2HR PRN PRN Reason: PAIN Last Admin: 12/22/18 08:42 Dose: 1 mg Sodium Chloride (Normal Saline 0.9%) 1,000 mls @ 100 mls/hr IV .Q10H [facility] Last Admin: 12/22/18 08:39 Dose: 100 mls/hr Insulin Human Regular (Novolin R) 1 - 5 unit SUBQ Q6HR [facility]; Protocol Last Admin: 12/22/18 12:25 Dose: 2 unit Metoclopramide HCl (Reglan Inj) 5 mg IVP Q6HR PRN PRN Reason: Nausea / Vomiting Last Admin: 12/22/18 08:36 Dose: 5 mg Ondansetron HCl (Zofran Inj) 4 mg IVP Q6HR PRN PRN Reason: Nausea / Vomiting Pantoprazole Sodium (Protonix) 40 mg IVP QDAC [facility] Last Admin: 12/22/18 05:49 Dose: 40 mg Polyethylene Glycol (Miralax) 17 gm PO DAILY [facility] Last Admin: 12/22/18 07:50 Dose: Not Given Sodium Chloride (Normal Saline Flush 0.9%) 10 ml IVP PRN PRN PRN Reason: NEEDED PER PROVIDER ORDERS Last Admin: 12/22/18 05:49 Dose: 10 ml Sodium Chloride (Normal Saline Flush 0.9%) 10 ml IVP 0100,0900,1700 [facility] Last Admin: 12/22/18 12:25 Dose: 10 ml Zolpidem Tartrate (Ambien) 5 mg PO QPM PRN PRN Reason: Insomnia Calcium Carbonate [Calcium] 500 mg PO DAILY 04/04/15 Denosumab [Xgeva] 120 mg SUBQ Q28D 04/04/15 Biotin 5,000 mcg PO DAILY 10/16/15 clonazePAM [Clonazepam] 3 mg PO QPM 04/08/16 metFORMIN [Glucophage] 500 mg PO BID PRN 06/01/18 Glipizide [Glipizide ER] 5 mg PO DAILY PRN MDD 10 06/29/18 Zolpidem [Ambien] 5 mg PO HS PRN 06/29/18 Ibuprofen [Motrin] 800 mg PO Q8HR PRN 11/30/18 Everolimus [Afinitor] 10 mg PO DAILY 12/14/18 Exemestane 25 mg PO DAILY 12/14/18 Hydrocodone/Acetaminophen [Hydrocodone-Acetamin 5-325 mg] 1 - 2 tab PO Q4HR PRN 12/14/18 Docusate Sodium 100 mg PO BID 12/16/18 Lactulose 15 ml PO BID 12/16/18 Objective - Vital Signs/Intake & Output Reviewed Vital Signs: Yes Vital Signs: Vital Signs x48h Temp Pulse Resp BP Pulse Ox 12/22/18 08:00 37.3 C 94 16 134/56 H 94 Intake & Output: Intake & Output 12/19/18 12/20/18 12/21/18 12/22/18 23:59 23:59 23:59 23:59 Intake Total 1375 1975.000 Output Total 500 Balance 875 1975.000 - Objective General Appearance: positive: No acute distress, Alert. negative: Lethargic Eyes Bilateral: positive: Normal inspection, PERRL, No lid inflammation, Conjunctivae nml ENT: positive: ENT inspection nml, Pharynx nml, No signs of dehydration. negative: Purulent nasal drainage, Pharyngeal erythema, Oral lesions Neck: positive: Nml inspection, Thyroid nml, No JVD, Trachea midline. negative: Thyromegaly, Lymphadenopathy (R), Lymphadenopathy (L), Stiff neck, Swelling/bruising, Tracheal deviation Respiratory: positive: Chest non-tender, No respiratory distress, Breath sounds nml. negative: Wheezes, Rales, Rhonchi Cardiovascular: positive: Regular rate & rhythm, No murmur, No gallop. negative: Irregularly irregular, Extrasystoles, Tachycardia, Bradycardia, JVD present, Systolic murmur, Diastolic murmur Peripheral Pulses: 2+ Radial (R), 2+ Radial (L), 2+ Dorsalis pedis (R), 2+ Dorsalis pedis (L) Abdomen: positive: Non-tender, No organomegaly, No distention, Abnml bowel sounds (reduced bowel sounds). negative: Tenderness, Guarding, Rebound Back: positive: Nml inspection. negative: CVA tenderness (R), CVA tenderness (L) Skin: positive: Color nml, No rash, Warm, Dry. negative: Cyanosis, Diaphoresis, Pallor Extremities: positive: Non-tender, Nml appearance. negative: Calf tenderness, Joint swelling, Michele's sign/cords Neurologic/Psychiatric: positive: Oriented x3, Sensation nml, Mood/affect nml. negative: Weakness, Sensory loss, Facial droop, Slurred/abnml speech, Depressed mood/affect - Lab Results Fish Bones: 12/22/18 06:08 12/22/18 06:08 Other Labs: Lab Results x24hrs 12/22/18 12/22/18 12/21/18 Range/Units 06:08 06:08 20:20 WBC 2.0 L* (4.8-10.8) x10^3/uL RBC 3.47 L (4.20-5.40) 10^6/uL Hgb 10.0 L (12.0-16.0) g/dL Hct 29.2 L (37.0-47.0) % MCV 84.2 (81.0-99.0) fL MCH 28.8 (27.0-31.0) pg MCHC 34.2 (32.0-36.0) g/dL RDW 15.0 (12.0-15.0) % Plt Count 93 L (130-450) 10^3/uL MPV 7.2 L (7.9-10.8) fL Neut # (Auto) 1.5 (1.5-6.6) 10^3/uL Lymph # (Auto) 0.2 L (1.5-3.5) 10^3/uL [place] # (Auto) 0.3 (0.0-1.0) 10^3/uL Eos # (Auto) 0.1 (0.0-0.7) 10^3/uL Baso # (Auto) 0.0 (0.0-0.1) 10^3/uL Absolute Nucleated RBC 0.01 x10^3/uL Nucleated RBC % 0.3 /100WBC Sodium 138 (135-145) mmol/L Potassium 4.0 (3.5-5.0) mmol/L Chloride 107 (101-111) mmol/L Carbon Dioxide 22 (21-32) mmol/L Anion Gap 9.0 (6-13) BUN 17 (6-20) mg/dL Creatinine 0.8 (0.4-1.0) mg/dL Estimated GFR (MDRD) 72 L (>89) Glucose 214 H (70-100) mg/dL Glycated Hemoglobin (4.6-6.2) % Estim Average Glucose (70-100) Calcium 8.4 L (8.5-10.3) mg/dL Magnesium 1.7 (1.7-2.8) mg/dL Total Bilirubin 0.8 (0.2-1.0) mg/dL AST 25 (10-42) IU/L ALT 27 (10-60) IU/L Alkaline Phosphatase 64 (42-121) IU/L Total Protein 6.9 (6.7-8.2) g/dL Albumin 3.6 (3.2-5.5) g/dL Globulin 3.3 (2.1-4.2) g/dL Albumin/Globulin Ratio 1.1 (1.0-2.2) Serum Ketones (NEGATIVE) C. difficile Tox B Gene NEGATIVE (NEGATIVE) 12/21/18 12/21/18 Range/Units 11:20 10:55 WBC (4.8-10.8) x10^3/uL RBC (4.20-5.40) 10^6/uL Hgb (12.0-16.0) g/dL Hct (37.0-47.0) % MCV (81.0-99.0) fL MCH (27.0-31.0) pg MCHC (32.0-36.0) g/dL RDW (12.0-15.0) % Plt Count (130-450) 10^3/uL MPV (7.9-10.8) fL Neut # (Auto) (1.5-6.6) 10^3/uL Lymph # (Auto) (1.5-3.5) 10^3/uL [place] # (Auto) (0.0-1.0) 10^3/uL Eos # (Auto) (0.0-0.7) 10^3/uL Baso # (Auto) (0.0-0.1) 10^3/uL Absolute Nucleated RBC x10^3/uL Nucleated RBC % /100WBC Sodium (135-145) mmol/L Potassium (3.5-5.0) mmol/L Chloride (101-111) mmol/L Carbon Dioxide (21-32) mmol/L Anion Gap (6-13) BUN (6-20) mg/dL Creatinine (0.4-1.0) mg/dL Estimated GFR (MDRD) (>89) Glucose (70-100) mg/dL Glycated Hemoglobin 6.0 (4.6-6.2) % Estim Average Glucose 126 H (70-100) Calcium (8.5-10.3) mg/dL Magnesium (1.7-2.8) mg/dL Total Bilirubin (0.2-1.0) mg/dL AST (10-42) IU/L ALT (10-60) IU/L Alkaline Phosphatase (42-121) IU/L Total Protein (6.7-8.2) g/dL Albumin (3.2-5.5) g/dL Globulin (2.1-4.2) g/dL Albumin/Globulin Ratio (1.0-2.2) Serum Ketones NEGATIVE (NEGATIVE) C. difficile Tox B Gene (NEGATIVE) ABX Reporting Has patient been on IV antibiotics over the past 48 hours?: No Sepsis Event Note (H) - Evaluation Current Stage of Sepsis: Ruled out Assessment/Plan - Problem List (1) Abdominal pain Impression: 12/22 pt report her abdominal pain is improved but she still feel pain when she try to move. I explain pt, she had multiple bone lesions from her metastatic breast cancer, which could cause her pain when she tries to move her body. Xray of abdomen indicate stone passed the duodenum area, CT of abdomen is pending pt has no appetite now, will advance pt's diet as her tolerated. continue pain control CT reveals new rim calcified structure in the middle to distal ileum causing partial small bowel obstruction. gallbladder appears chronically inflamed, several new foci of gas now present, fistulization to the adjacent duodenum has likely occurred, all above can cause pt has abdominal pain consult with GI surgeon, will closely followup bowel rest with NPO IVF of hydration pain control PRN reglan and zofran for antiemesis zosyn for fistulization and foci of gas tele, vital and lab monitor (2) Nausea & vomiting Conclusion/Plan: 12/22 pt report she does not have more it can be cause partial SBO or other complication of her abdomen shown in the CT IVF of NS antiemesis, PRN Reglan and Zofran (3) Gallstone ileus of small intestine Conclusion/Plan: 12/22 pt report pain is improved. Xray reveals stone passed down continue pain control, CT of abdomen is pending advanced diet as tolerated chronic problem, pt had surgery on 2017 to remove gallstone at small intestine consult with GI surgeon bowel rest, NPO IVF reglan PRN, avoid opiates as possible (4) Chronic cholecystitis Conclusion/Plan: pt has hx of chronic cholecystitis. pt still had gallbladder. consult with surgeon, pain control zosyn bowel rest, NPO (5) Breast cancer metastasized to bone 12/22 pt request to have her chem-agents. I discussed with Court in [facility], who discussed with Dr. Hand, pt's oncologist, and reviewed pt's updated lab studies, clinic conditions, Court recommended to hold pt's chem-agents now, and pt can have it when she was d/c to home (6) Anxiety and depression Conclusion/Plan: reconcile home meds Clonzepam (7) Diabetes mellitus Conclusion/Plan: pt present hyperglycemia but pt's A1C is 6. Pt took Metformin and Glucotrol at home. Pt's iron gap and sodium level are normal, although pt had Ketone at urine but unlikely she will have ketoactosis will check serum Ketone slide scale, ACHS but pt is NPO, precaution of hypoglycemia IVF of NS (8) Essential (primary) hypertension Conclusion/Plan: stable now, tele and vital monitor pt (9) Myelodysplasia (myelodysplastic syndrome) Conclusion/Plan: hx of myelodysplasia, pt present pancytopenia advise pt continue to follow up her oncologist/hemotologist daily lab CBC monitor (10) Pancytopenia 12/22 pt's WBC is 2 now, may be caused by her metastatic breast cancer and MDS hold her chem-agent now per her oncologist Court and Dr. hand's recommends Neuropenia precaution closely monitor pt's vital, precaution of infection. pt report nasal drop, and asked Mucinex, ordered. Qualifiers: Abdominal location: upper abdomen, unspecified Qualified Code(s): R10.10 - Upper abdominal pain, unspecified
[2018-12-22] MEDS: guaiFENesin 600 MG TABLET PO SCH ×2 (16:47→21:47)
[2018-12-22] MEDS: INSULIN ASPART 300 UNIT/3 ML PEN SUBQ SCH ×2 (18:18→21:49)
[2018-12-23] MEDS: HYDROmorphone 1 MG/ML CARPUJECT IVP PRN ×2 (01:50→05:08)
[2018-12-23] MEDS: SODIUM CHLORIDE FLUSH 0.9% 10 ML SYRINGE IVP PRN ×2 (01:50→06:51)
[2018-12-23] MEDS: SODIUM CHLORIDE FLUSH 0.9% 10 ML SYRINGE IVP SCH (05:08)
[2018-12-23 06:14] LABS: BASOPHILS % (AUTO) 0.9 %; EOSINOPHILS % (AUTO) 5.5 %; HGB - HEMOGLOBIN 8.9 g/dL (12.0-16.0); LYMPHOCYTES % (AUTO) 12.6 %; MEAN CORPUSCULAR HEMOGLOBIN 28.2 pg (27.0-31.0); MEAN PLATELET VOLUME 7.3 fL (7.9-10.8); MONOCYTES % (AUTO) 19.1 %; NEUTROPHILS % (AUTO) 61.9 %; PLT - PLATELET COUNT 83 10^3/uL (130-450); RED BLOOD COUNT 3.14 10^6/uL (4.20-5.40)
[2018-12-23 06:23] LABS: ALBUMIN 3.4 g/dL (3.2-5.5); BILIRUBIN,TOTAL 0.9 mg/dL (0.2-1.0); CREATININE 0.7 mg/dL (0.4-1.0); TOTAL PROTEIN 6.7 g/dL (6.7-8.2)
[2018-12-23 06:24] LABS: WHITE BLOOD COUNT 1.4 x10^3/uL (4.8-10.8)
[2018-12-23 06:25] LABS: ABNORMAL LYMPHS % (MANUAL) 0 %
[2018-12-23] MEDS: PANTOPRAZOLE 40 MG VIAL IVP SCH (06:51)
[2018-12-23 06:53] LABS: BAND NEUTROPHILS % (MANUAL) 7 %; BASOPHILS % (MANUAL) 1 %; LYMPHOCYTES # (MANUAL) 0.3 10^3/uL (1.5-3.5); LYMPHOCYTES % (MANUAL) 20 %; MONOCYTES # (MANUAL) 0.1 10^3/uL (0.0-1.0); NEUTROPHILS % (MANUAL) 64 %
[2018-12-23 06:54] LABS: DIFFERENTIAL COMMENT MANUAL DIFFERENTIAL; PLATELET ESTIMATE, MANUAL DECREASED (<130,000) (NORMAL); RBC MORPHOLOGY (MULTIPLE) NORMAL APPEARANCE (NORMAL)
[2018-12-23] MEDS ORDERED: POTASSIUM CHLORIDE 20 MEQ TABLET PO ONE ×2 (07:44→09:30)
[2018-12-23] MEDS: INSULIN ASPART 300 UNIT/3 ML PEN SUBQ SCH ×2 (08:47→12:37)
[2018-12-23] MEDS: guaiFENesin 600 MG TABLET PO SCH ×2 (08:47→09:09)
[2018-12-23] MEDS: ENOXAPARIN 40 MG/0.4 ML SYRINGE SUBQ SCH (08:47)
[2018-12-23] MEDS: POLYETHYLENE GLYCOL 3350 17 GM PACKET PO SCH (08:48)
[2018-12-23] MEDS ORDERED: guaiFENesin 600 MG TABLET PO SCH (09:00)
[2018-12-23] MEDS ORDERED: MEGESTROL 400 MG/10 ML UDC PO SCH (11:00)
--- NOTE | 2018-12-23 13:56 | Discharge Plan ---
Discharge Plan Disposition: Home, Self Care Condition: Poor Diet: Diabetic Activity Restrictions: Activity as Tolerated Shower Restrictions: No (fall precaution) Instruction Topics: Neutropenia, Cancer Chemotherapy Ch, Abdominal Pain Additional Instructions or Follow Up instructions: You may followup your PCP in one week, may followup your oncologist and palliative care provider as your schedule. Your gallstone passed your intestine. Your WBC is still low, please followup nurse instruction for neutropenia precaution. Should your symptoms return or worsen, you may present ER, call 911 or call your PCP for help. No Smoking: If you smoke, Please STOP! Call for help. Follow-up with: Charo Lorenz MD [Primary Care Provider] -
--- NOTE | 2018-12-23 14:20 | DISCHARGE SUMMARY ---
Discharge Summary Discharge Date: 12/23/18 Discharging Provider: RUSHING Primary Care Provider: Charo Lorenz Condition at Discharge: Poor Discharge Disposition: 01 Home, Self Care Discharge Facility Name: home - DIAGNOSES Admission Diagnoses: (1) Abdominal pain (2) Nausea & vomiting (3) Gallstone ileus of small intestine (4) Chronic cholecystitis (5) Breast cancer metastasized to bone (6) Anxiety and depression (7) Diabetes mellitus (8) Essential (primary) hypertension (9) Myelodysplasia (myelodysplastic syndrome) (10) Pancytopenia Discharge Diagnoses with Status of Each Condition: (1) Abdominal pain (2) Nausea & vomiting (3) Gallstone ileus of small intestine (4) Chronic cholecystitis (5) Breast cancer metastasized to bone (6) Anxiety and depression (7) Diabetes mellitus (8) Essential (primary) hypertension (9) Myelodysplasia (myelodysplastic syndrome) (10) Pancytopenia (11) loss of appetite - HPI History of Present Illness: Ms. Dominguez is a 62-year-old female who has an unfortunate past medical history significant for stage IV metastatic breast cancer with metastasis to multiple location of bone, HTN, [place] dysplastic syndrome with pancytopenia, autoimmune hemolytic anemia, obesity, depression, anxiety, recent diagnosis of diabetes on metformin, obstructive sleep apnea on CPAP, history of gallstones ileus of small intestine, cholecystonduodenal fistula, chronic cholecystitis, and status post of small bowel stone removal by enterolithotomy, who present ER complain of abdominal pain. she report her abdominal pain located at his upper middle of abdomen as " my previous before." " the pain is like I had obstruction in last year.", it was sharp, did not radiate to other location. she reported she stated to have pain on yesterday. she report she took 5 times of Vicodin at home. She also report she had 6 times of small bowl movement since yesterday after she took lactulose. CT of abdomen reveals new rim calcified structure in the middle to distal ileum causing partial small bowel obstruction and consistent with recurrent gallstone ileus; gallbladder appears chronically inflamed, several new foci of gas now present, fistulization to the adjacent duodenum has likely occurred. pt denies chest pain, fever, chill, cough, shortness of breath, hematemesis. Surgeon was called by ER. pt was admitted for further evaluation and treatment of her abdominal pain. - CONSULTS | PROCEDURES Consultations: Dr. Renaldo Burt Procedures: none - HOSPITAL COURSE Hospital Course: (1) Abdominal pain resolved. pt report she has no more abdominal pain. pt's gallstone passed her intestine by its own. none surgery to pt. CT of abdomen confirm stone passed. (2) Nausea & vomiting resolved. pt has no more nausea or vomiting. pt tolerate regular diet (3) Gallstone ileus of small intestine resolved at at this time, prescribed as the above (4) Chronic cholecystitis stable, no more pain, followup her PCP and surgeon (5) Breast cancer metastasized to bone per discussed with Court pt's oncologist DUST BOX TENDER, about pt's updated test results, Court agreed that pt can continue her two chemotherapy agents as her home meds. Court stated she also discussed with pt's oncologist Dr. Hand about the above chemotherapy treatment plan (6) Anxiety and depression stable, continue home regimen, followup PCP (7) Diabetes mellitus stable, continue home regimen, followup PCP (8) Essential (primary) hypertension stable, continue home regimen, followup PCP (9) Myelodysplasia (myelodysplastic syndrome) per discussed with Court pt's oncologist D[employer] BOX TENDER, she think pt is stable as her baseline, continue followup pt's oncologist appointment, and followup her oncologist management for her (10) Pancytopenia pt's WBC is 1.4, HGB is 8.9, Plt is 83. I discussed these medical conditions with Court pt's oncologist DUST BOX TENDER. She think pt had hx of pancytopenia, even lower than these number, but pt was still as out-pt and followup Dr Hand for management. she also advise pt can continue pt's home chemotherapy agents per her discussion with Dr. hand pt is hemodynamic stable. pt has no fever, chill, nausea, vomiting, diarrhea, abdominal pain, normal kidney and liver functions. According to MCG criteria, pt can be d/c pt is advised followup nurse instruction for neutropenia precaution. pt verbally state she understand. (11) loss of appetite great improved. pt ate solid diet very well per nurse tech report. pt report to me she ate very good. And pt had jewel cupping machine operator consult - ALLERGIES Allergies/Adverse Reactions: Allergies Allergy/AdvReac Type Severity Reaction Status Date / Time oxycodone HCl * Allergy Mild itch Verified 12/21/18 10:42 [From Percocet] - MEDICATIONS Home Medications: Ambulatory Orders Medication Instructions Recorded Confirmed Calcium Carbonate [Calcium] 500 mg PO DAILY 04/04/15 12/21/18 Denosumab [Xgeva] 120 mg SUBQ Q28D 04/04/15 12/21/18 Biotin 5,000 mcg PO DAILY 10/16/15 12/21/18 clonazePAM [Clonazepam] 3 mg PO QPM 04/08/16 12/21/18 metFORMIN [Glucophage] 500 mg PO BID PRN 06/01/18 12/21/18 Glipizide [Glipizide ER] 5 mg PO DAILY PRN MDD 10 06/29/18 12/21/18 Zolpidem [Ambien] 5 mg PO HS PRN 06/29/18 12/21/18 Ibuprofen [Motrin] 800 mg PO Q8HR PRN 11/30/18 12/21/18 Everolimus [Afinitor] 10 mg PO DAILY 12/14/18 12/21/18 Exemestane 25 mg PO DAILY 12/14/18 12/21/18 Hydrocodone/Acetaminophen 1 - 2 tab PO Q4HR PRN 12/14/18 12/21/18 [Hydrocodone-Acetamin 5-325 mg] Docusate Sodium 100 mg PO BID 12/16/18 12/21/18 Lactulose 15 ml PO BID 12/16/18 12/21/18 - PHYSICAL EXAM AT DISCHARGE General Appearance: positive: No acute distress, Alert. negative: Lethargic Eyes Bilateral: positive: Normal inspection, PERRL, No lid inflammation, Conjunctivae nml ENT: positive: ENT inspection nml, Pharynx nml, No signs of dehydration. negative: Purulent nasal drainage, Pharyngeal erythema, Oral lesions Neck: positive: Nml inspection, Thyroid nml, No JVD, Trachea midline. negative: Thyromegaly, Lymphadenopathy (R), Lymphadenopathy (L), Stiff neck, Swelling/bruising, Tracheal deviation Respiratory: positive: Chest non-tender, No respiratory distress, Breath sounds nml. negative: Wheezes, Rales, Rhonchi Cardiovascular: positive: Regular rate & rhythm, No murmur, No gallop. negative: Irregularly irregular, Extrasystoles, Tachycardia, Bradycardia, JVD present, Systolic murmur, Diastolic murmur Peripheral Pulses: positive: 2+ Abdomen: positive: Non-tender, No organomegaly, Nml bowel sounds, No distention. negative: Tenderness, Guarding, Rebound Back: positive: Nml inspection. negative: CVA tenderness (R), CVA tenderness (L) Skin: positive: Color nml, No rash, Warm, Dry. negative: Cyanosis, Diaphoresis, Pallor Extremities: positive: Non-tender, Full ROM, Nml appearance. negative: Calf tenderness, Joint swelling, Michele's sign/cords Neurologic/Psychiatric: positive: Oriented x3, Sensation nml, Mood/affect nml. negative: Weakness, Sensory loss, Facial droop, Slurred/abnml speech, Depressed mood/affect - LABS Result Diagrams: 12/23/18 05:55 12/23/18 05:55 - SEPSIS Current Stage of Sepsis: Ruled out - FOLLOW UP Follow Up: You may followup your PCP in one week, may followup your oncologist and palliative care provider as your schedule. Your gallstone passed your intestine. Your WBC is still low, please followup nurse instruction for neutropenia precaution. Should your symptoms return or worsen, you may present ER, call 911 or call your PCP for help. - TIME SPENT Time Spent in Discharge (Minutes): 60
[2018-12-23 15:53] VITALS: BP 125/55
== END 2018-12-23 16:00 | disposition home or self-care (01) | DRG 389 ==
LOC: EDUNIT# → ED 10:16 → MS2 14:21
PROVIDERS: ADMIT Nurse Practitioner Gerontology; ATTEND Nurse Practitioner Gerontology
DX: K56.3 Gallstone ileus (principal); E86.0 Dehydration; K59.03 Drug induced constipation; T40.605A Adverse effect of unspecified narcotics, initial encounter; C79.51 Secondary malignant neoplasm of bone; D61.818 Other pancytopenia; D59.1 Other autoimmune hemolytic anemias; Z68.41 Body mass index [BMI] 40.0-44.9, adult; K81.1 Chronic cholecystitis; C50.911 Malignant neoplasm of unspecified site of right female breast; D46.9 Myelodysplastic syndrome, unspecified; Z79.811 Long term (current) use of aromatase inhibitors; E11.65 Type 2 diabetes mellitus with hyperglycemia; I10 Essential (primary) hypertension; F41.9 Anxiety disorder, unspecified; F32.9 Major depressive disorder, single episode, unspecified; E66.01 Morbid (severe) obesity due to excess calories; G47.33 Obstructive sleep apnea (adult) (pediatric); K21.9 Gastro-esophageal reflux disease without esophagitis; K44.9 Diaphragmatic hernia without obstruction or gangrene; Z79.84 Long term (current) use of oral hypoglycemic drugs; Z51.5 Encounter for palliative care; Z66 Do not resuscitate; Z79.899 Other long term (current) drug therapy; Z87.891 Personal history of nicotine dependence; Z83.79 Family history of other diseases of the digestive system
CPT/HCPCS: 36415; 74019; 74176; 74177; 80053; 81001; 82009; 83036; 83690; 83735; 85025; 87040; 87086; 87493; 96361; 96374; 99284; A9270; J1170; J1650; J1815; J2765; Q9967; 81003

== ENCOUNTER 2018-12-24 14:00 | Outpatient (CLI) | payer MEDICARE, MEDICAID ==
--- NOTE | 2018-12-24 16:29 | CONSULTATION NOTE ---
Palliative Care Follow Up - Referral Referring Provider: Dr. Sharron Marte Time of Visit: [id number] Referral setting: Home Referral Reason: Met Breast Cancer/MDS/Pain of neoplastic origin - Information Sources Records reviewed: Previous records reviewed History/Review of Systems obtained from: Patient Exam limitations: Clinical condition (patient with STM issues) - History of Present Illness Update Brief HPI Update: This is a complicated 63-year-old woman with multiple comorbidities, including metastatic breast cancer involving bones, with progression of disease with increased charisma mets. MDS which she refers to as her "leukemia", now presenting with decreasing white blood cells at 1.2, and ongoing pancytopenia, and most recently hospitalized 12/21-12/23 for gallstone ileus of small intestine, and chronic cholecystitis. She had presented acutely with increased abdominal pain, nausea and vomiting, and dehydration. Fortunately the gallstone passed on its own, did not need to have surgery. Abdominal CT confirms stone pass. She reports her insides are ""cut up" from passing of the stones. She feels trau matized by her hospitalization and the ED visit, and is quite tearful through her whole visit. Her situation is complicated further by her lack of social support, declining functional status, and ongoing pain. Patient presents again with persistent and" uncontrolled pain bilaterally in her hips and pelvis, worsening with standing or weightbearing. She continues to sit in recliner that has poor support. She is anxious about restarting the Vicodin, because of her bowels. She had actually gotten some better control with 4 times daily dosing of the Vicodin, and unfortunately had to cancel her appointment on Thursday with radiation because of her acute hospitalization. She is still planning to pursue this as an option, but does not feel up to it at this point in time. She is taking broths, soft foods, but only in small amounts. Unfortunately she needs someone to go shopping for her, and this is been an ongoing issue and finding support for patient. She continues to worry about constipation, and getting "obstructed again", we did discuss the obstruction was related to her gallstone this time, and with balance of her bowel meds can continue to work on her pain control. She continues to be unhappy with her current situation, feels abandoned by her friends and neighbors, can identify no source of social support. She has financial stressors, plus difficulty managing what she perceives is a complex medication regimen. She is feeling poorly and discouraged, but is quite resistant to considering any kind of antidepressant. Social History - Living Situation Living arrangement: At home Living Situation: Alone Support System: Patient does have an identified caregiver she pays at times to do errands for her, she finds it quite irksome that no one will support or assist her in the facility. [place] are estranged as she is estranged from rest her family. Of interest she told the 7th grade social studies teacher at the hospital, she had plenty of friends and support. Medications/Allergies - Medications Home Medications: Ambulatory Orders Medication Instructions Recorded Confirmed Calcium Carbonate [Calcium] 500 mg PO DAILY 04/04/15 12/21/18 Denosumab [Xgeva] 120 mg SUBQ Q28D 04/04/15 12/21/18 Biotin 5,000 mcg PO DAILY 10/16/15 12/21/18 clonazePAM [Clonazepam] 3 mg PO QPM 04/08/16 12/21/18 metFORMIN [Glucophage] 500 mg PO BID PRN 06/01/18 12/21/18 Glipizide [Glipizide ER] 5 mg PO DAILY PRN MDD 10 06/29/18 12/21/18 Zolpidem [Ambien] 5 mg PO HS PRN 06/29/18 12/21/18 Ibuprofen [Motrin] 800 mg PO Q8HR PRN 11/30/18 12/21/18 Everolimus [Afinitor] 10 mg PO DAILY 12/14/18 12/21/18 Exemestane 25 mg PO DAILY 12/14/18 12/21/18 Hydrocodone/Acetaminophen 1 - 2 tab PO Q4HR PRN 12/14/18 12/21/18 [Hydrocodone-Acetamin 5-325 mg] Docusate Sodium 100 mg PO BID 12/16/18 12/21/18 Lactulose 15 ml PO BID 12/16/18 12/21/18 - Allergies Allergies/Adverse Reactions: Allergies Allergy/AdvReac Type Severity Reaction Status Date / Time oxycodone HCl * Allergy Mild itch Verified 12/21/18 10:42 [From Percocet] Review of Systems - Constitutional Constitutional: reports: Fatigue, Weakness, Poor appetite, Night sweats. denies: Fever - Eyes Eyes: reports: Vision loss - Ears, Nose & Throat Ears, Nose & Throat: reports: Hearing loss (mild), Nasal congestion, Postnasal drainage, Dry mouth - Cardiovascular Cardiovascular: reports: Exertional dyspnea, Decr. exercise tolerance - Respiratory Respiratory: reports: SOB with exertion, Other (uses CPAP at night). denies: SOB at rest - Gastrointestinal Gastrointestinal: reports: Nausea, Poor appetite, Early satiety. denies: Vomiting, Reflux/heartburn - Genitourinary Genitourinary: denies: Dysuria, Incontinence - Musculoskeletal Musculoskeletal: reports: Back pain, Stiffness, Muscle weakness, Joint pain (bilateral hip pain) - Integumentary Integumentary: reports: Rash, Pruritis, Dryness, Hair changes - Neurological Neurological: reports: General weakness, Memory problems - Psychiatric Psychiatric: reports: Depression, Anxiety. denies: Suicidal - Endocrine Endocrine: reports: Diabetes type 2 - Hematologic/Lymphatic Hematologic/Lymphatic: reports: Anemia, Recurrent infections (recent URI) - All Other Systems All Other Systems: reports: Reviewed and negative Physical Exam - Vital Signs Temperature: 97.5 C Pulse Rate: 65 Respiratory Rate: 18 O2 Saturation: 98 (ra @ rest) Blood Pressure: 122/58 - Physical Exam General Appearance: positive: Moderate distress, Anxious Eyes Bilateral: positive: Normal inspection, Other (periorbital edema) ENT: negative: Oral lesions Neck: positive: No JVD, Trachea midline Cardiovascular: positive: Regular rate & rhythm Respiratory: positive: No respiratory distress, Diminished in bases. negative: Wheezes Abdomen: positive: Soft, Nml bowel sounds, Tenderness, Obese Skin: positive: Pallor, Dryness, Bruising, Pruritis (upper back), Rash Extremities: positive: No pedal edema, Other (weak; difficulty getting sitting to standing) Neurologic/Psychiatric: positive: Oriented x3, Weakness, Depressed mood/affect, Flat affect, Other (tearful throughout visit;) Palliative Care - POLST Patient has POLST: No POLST Status: DNR Pain: Pain improved, Location (see HPI; abdominal pain mostly resolved; pain in hips worsening) Tiredness/Fatigue: Severe (7-10) Drowsiness/Sedation: Mild (1-3) Nausea: None Depression: Severe (7-10) Anxiety: Severe (7-10) Dyspnea: Mild (1-3) Anorexia: Mild (1-3) Sleep: Variable sleep pattern (tried ambien last night with "nightmares";) Constipation: Yes, Opoid induced, Unmanaged, Intermittent constipation Feelings of wellbeing/Perceived Quality of Life: Poor, Worsening Performance Status: Patient with limited right arm mobility, this contributes her difficulty with ba thing. She feels quite weak and shaky, does not feel like she can will do that independently and is hoping to find someone that can help her. She will ask her person she has do errands, she does know she is a caregiver. She continues to be quite resistant to follow through on [place] PES. She is mostly ambulatory only in her house, some of this is on self-imposed isolation but with recent hospitaliz ation she has increased weakness and functional decline. I would put her at a PPS of 50% today - Palliative Care Discussion: Patient feeling overwhelmed, needing to retell the story, feels hospitalization in ED experience was significantly negative. She reports she would never go back to [facility] again, and perseverates on multiple details. She was a DO NOT RESUSCITATE during the hospitalization, she was quite clear on this. She reports "I signed a bunch of papers", patient does appear to have some issues with literacy, though she will not admit this. I had to read her several sets of directions. Initiate a conversation around the POLST, this was towards the end of the visit, she does want to complete this, my biggest concern is she does not have a D POA. She is hoping I would reach out to her sister and facilitate her understanding about her situation. We discussed we can revisit this at another time. Results - Lab Results Lab results reviewed: Yes Impression and Recommendations - Palliative Care Impression: This is a 63-year-old woman with metastatic breast cancer, with multiple mets to the bone, pending radiation treatment. She has had progression of disease, with exacerbation of her pain and hip and pelvic area. She was acutely hospitalized for her ongoing intermittent gallbladder issues, did not need surgery, but is feeling quite poorly. She is feeling overwhelmed also, with her MDS, she has had a drop in her white count, remains pancytopenic. Palliative care attempting to address patient's multiple symptoms, and support her given her complex social situation, will enlist help of medical palliative care 7th grade social studies teacher. Recommendations/Counseling Done: 1. Pain of neoplastic origin. Patient was getting some relief with the scheduled for Vicodin a day, prior to her acute nausea and vomiting episode related to her cholecystitis/gallstone. Recommended we restart this, and titrate to comfort, her biggest concern is constipation. Will initiate fentanyl 12 mcg patch, at the point of time patient's acute status has settled down. She does still want to pursue radiation, unclear when this will be appropriate. Complicating factor, is she is unable to go pickling solution maker her opioids, will enlist assistance from palliative care volunteer for medication procurement, and [place]. 2. Constipation. Patient had had significant diarrhea in the hospital, she did have a soft bowel movement this morning. She found 15 mils of lactulose too much, had initiated some diarrhea when she started it. She will decrease down to 5-10 mils twice daily, she does feel like she can titrated appropriately. 3. Anorexia. Patient afraid to eat, secondary to her "insides are all cut up, from her gallstones". Provided regarding progressing diet, sustaining adequate fluid intake, and meal prep. With many restrictions regarding her diet, so finds it difficult when she is not feeling well to cook for herself. She has been trying to do low-fat, as well as wondering about food allergies. She does have a rash on her back. 4. Diabetes type 2. Patient reports her blood sugar was 167 this morning, she did reinitiate her metformin, and has been time enough after her CT scan. Patient chooses to take her metformin and/or glipizide depending on her blood sugar readings. She is pretty set in her ways regarding this. 5. Metastatic breast cancer involving bones only. Patient is restarting her Afinitor and Exemestane today. She is due for lab work next week, she remains quite anxious as her white count had been low for her 1.2. 6. Depression. Patient most likely would benefit from initiating antidepressant, but patient is quite set against it. We will continue to explore. Medical palliative care 7th grade social studies teacher to see in the next couple weeks, patient has previously been getting counseling and medication management at [facility], unclear why this is stopped. Patient is isolated and very lonely. Does need for resources to support her ongoing functional decline and increased care needs. She would be agreeable to a visiting volunteer to help with errands, reviewed they would not do housecleaning. 7. Advanced care planning. Patient does not have any identified friends or family that can serve his D POA, will continue to explore this. She was hoping I could reach out to her sister, will explore this or have medical palliative care 7th grade social studies teacher look at the feasibility of this. [place] Patient does have POLST, it is a DNA R but full treatment. Patient has expressed other wishes as far as goals of care, we agreed to revisit it at a future visit. Plan is to see how patient tolerates [id number] Vicodin, and managing constipation. Will look at initiating fentanyl 12 mcg patch, no undue side effects. Plan to visit next week, and call on Thursday. Time Spent: See minutes was given 50% of this done in counseling regarding follow-up from hospitalization, med reconciliation, pain and symptom management and anticipatory guidance
== END 2018-12-24 14:01 | disposition home or self-care (01) ==
LOC: PC 14:00
PROVIDERS: ATTEND Nurse Practitioner Adult Health
DX: Z51.5 Encounter for palliative care (principal); G89.3 Neoplasm related pain (acute) (chronic); C50.911 Malignant neoplasm of unspecified site of right female breast; C79.51 Secondary malignant neoplasm of bone; M25.552 Pain in left hip; M25.551 Pain in right hip; R10.2 Pelvic and perineal pain; E11.9 Type 2 diabetes mellitus without complications; D46.9 Myelodysplastic syndrome, unspecified; F32.9 Major depressive disorder, single episode, unspecified; K81.1 Chronic cholecystitis; H54.7 Unspecified visual loss; H91.90 Unspecified hearing loss, unspecified ear; R53.1 Weakness; R63.0 Anorexia; R21 Rash and other nonspecific skin eruption; Z66 Do not resuscitate; Z60.9 Problem related to social environment, unspecified; Z86.19 Personal history of other infectious and parasitic diseases; Z79.899 Other long term (current) drug therapy; Z79.84 Long term (current) use of oral hypoglycemic drugs; Z79.1 Long term (current) use of non-steroidal anti-inflammatories (NSAID); Z79.891 Long term (current) use of opiate analgesic
CPT/HCPCS: 99350

== ENCOUNTER 2018-12-30 14:23 | Outpatient (CLI) | payer MEDICARE, MEDICAID ==
--- NOTE | 2018-12-30 22:57 | CONSULTATION NOTE ---
Palliative Care Follow Up - Referral Referring Provider: Dr. Sharron Marte Time of Visit: [id number] Referral setting: Home Referral Reason: Pain of neoplastic origin/Met breast Ca/MDS/Cholecystitis - Information Sources Records reviewed: Previous records reviewed History/Review of Systems obtained from: Patient Exam limitations: No limitations - History of Present Illness Update Brief HPI Update: This is a complicated 63-year-old woman with multiple comorbidities including most prominent her metastatic breast cancer involving mets to the bones, MDS presenting with pancytopenia, and recent hospitalization for gallstone ileus of small intestine and chronic cholecystitis. She is feeling much better, her abdominal pain resolved after several days, she is able to eat and drink a regular diet. She does appear much more bright, less emotionally distressed, and though limited it with her activity secondary to her pain and fatigue is able to better attend to her ADLs. Her pain again remains fairly persistent particular bilaterally in her hips and her lower lumbar spine. This is exacerbated by sitting, she does have a poorly positioned recliner, is working to have this replaced which most likely would be of great benefit. She has been taking her Vicodin 2 tabs up to 3 times a day, with better control. She is using lactulose "swigs", with moving her bowels on a daily basis, and continues on her oral Afinitor for her breast cancer treatment. She is awaiting follow-up with her oncologist, she is hoping to get radiation treatment for pain control. She very much would like to titrate off the opioids if possible. Her depression and anxiety are much improved today, and feels like she has "turned the corner". Social History - Living Situation Living arrangement: At home Living Situation: Alone Support System: Lacy is estranged from her family, she does live in low income housing community, with some acquaintances she does stay connected with. But in the context of exploring D POA, unable to identify anyone who would be willing to take on that responsibility.tient with very limited support system, she does have a caregiver Bella who she can pay to do various errands. Medications/Allergies - Medications Home Medications: Ambulatory Orders Medication Instructions Recorded Confirmed Calcium Carbonate [Calcium] 500 mg PO DAILY 04/04/15 12/31/18 Denosumab [Xgeva] 120 mg SUBQ Q28D 04/04/15 12/31/18 Biotin 5,000 mcg PO DAILY 10/16/15 12/31/18 clonazePAM [Clonazepam] 3 mg PO QPM 04/08/16 12/31/18 metFORMIN [Glucophage] 500 mg PO BID PRN 06/01/18 12/31/18 Glipizide [Glipizide ER] 5 mg PO DAILY PRN MDD 10 06/29/18 12/31/18 Ibuprofen [Motrin] 800 mg PO Q8HR PRN 11/30/18 12/31/18 Everolimus [Afinitor] 10 mg PO DAILY 12/14/18 12/31/18 Exemestane 25 mg PO DAILY 12/14/18 12/31/18 Hydrocodone/Acetaminophen 1 - 2 tab PO Q4HR PRN 12/14/18 12/31/18 [Hydrocodone-Acetamin 5-325 mg] Docusate Sodium 100 mg PO BID 12/16/18 12/31/18 Lactulose 15 ml PO BID PRN MDD titrates 12/16/18 12/31/18 fentaNYL 12 MCG PATCH [Duragesic 12 mcg TOP .Q3DAY 12/31/18 12/31/18 12mcg patch] - Allergies Allergies/Adverse Reactions: Allergies Allergy/AdvReac Type Severity Reaction Status Date / Time oxycodone HCl * Allergy Mild itch Verified 12/21/18 10:42 [From Percocet] Review of Systems - Constitutional Constitutional: reports: Fatigue. denies: Fever, Chills - Cardiovascular Cardiovascular: reports: Decr. exercise tolerance - Respiratory Respiratory: denies: SOB at rest - Gastrointestinal Gastrointestinal: reports: Reflux/heartburn, Good appetite. denies: Abdominal pain, Nausea - Musculoskeletal Musculoskeletal: reports: Back pain, Muscle aches, Stiffness, Limited range of motion, Muscle weakness, Joint pain (bilateral hip pain) - Integumentary Integumentary: reports: Dryness - Neurological Neurological: reports: General weakness - Psychiatric Psychiatric: reports: Depression, Anxiety - Endocrine Endocrine: reports: Diabetes type 2 (200 this am, continues to dose her oral medications "prn" not to be convinced otherwise) - Hematologic/Lymphatic Hematologic/Lymphatic: reports: Anemia - All Other Systems All Other Systems: reports: Reviewed and negative Physical Exam - Vital Signs Temperature: 96.8 C Pulse Rate: 60 Respiratory Rate: 18 O2 Saturation: 98 (ra @ rest) Blood Pressure: 134/70 - Physical Exam General Appearance: positive: No acute distress, Alert Eyes Bilateral: positive: Normal inspection ENT: positive: No signs of dehydration, Other (small lesion on upper lip; reports improved) Neck: positive: No JVD, Trachea midline Cardiovascular: positive: Regular rate & rhythm Respiratory: positive: No respiratory distress, Breath sounds nml, Diminished in bases Abdomen: positive: Non-tender, Soft, Nml bowel sounds, Obese Skin: positive: Pallor, Dryness Extremities: positive: No pedal edema Neurologic/Psychiatric: positive: Oriented x3, Mood/affect nml, Weakness Palliative Care - POLST Patient has POLST: Yes POLST Status: DNR, Selective Treatment (completed at visit) Pain: Pain improved (see HPI) Tiredness/Fatigue: Severe (7-10) Drowsiness/Sedation: Moderate (4-6) Nausea: None Depression: Moderate (4-6) Anxiety: Moderate (4-6) Dyspnea: None Anorexia: Mild (1-3) Sleep: Sleep improved, Other (patient continues with late sleep patterns) Constipation: Yes, Opoid induced, Managed Feelings of wellbeing/Perceived Quality of Life: Fair, Acceptable, Improved Performance Status: With limited range of motion in her right upper arm, is unable to wash her hair, makes it difficulty for bathing. She is not wanting to pay the spend down for [place] PES, unclear how best to address this with patient to meet her care needs. She is able to ambulate short distances, but does exacerbate her pain. At this point in time she still needs someone to drive and obtain her groceries etc. - Palliative Care Discussion: Patient actually has good insight into her response to her recent crisis. She reports she gets very emotional and distressed in the middle of a crisis, she hates the feeling of not being in control. She reports she is very supersensitive in her emotions, has always been this way. She reports that she tries to get back in control, this can often be motivated by getting really angry, she tries to make sense of things and does better if she understands what is going on and being able to cope. She is distressed by her lack of social support, but finds it difficult given her current diagnosis and situation to develop her bridge previous relationships. Revisited with patient regarding her request to reconcile with her sister, at this point in time now that she is feeling better would prefer to put this on hold. Unfortunately there are no volunteers currently available to assist with support from palliative care, patient is to meet with palliative care social services analyst next week. Impression and Recommendations - Palliative Care Impression: This is a 63-year-old woman with metastatic breast cancer, with multiple bone mets, pending radiation treatment. Her abdominal symptoms from her intermittent gallbladder issues, currently resolved. Her pain is currently moderately managed with her Vicodin, her weakness improved, and feeling emotionally better. Palliative care to continue provide support regarding pain and symptom management, advanced care planning and anticipatory guidance Recommendations/Counseling Done: 1. Pain of neoplastic origin. Patient currently tolerating Vicodin 2 tabs 3 times daily, with improvement of pain. We will go ahead and transition her to fentanyl 12 mcg patch, using Vicodin for breakthrough pain management. Prescription dropped off at [facility], counseling provided regarding safety, application, instructions regarding to replace it falls off, not reapply old patch. Patient verbalized understanding and teach back. 2. Constipation. Patient titrating lactulose appropriately, though not dosing accurately, does feel she understands currently how to use. Reports has had some GERD, with just a little Pepto-Bismol with good response. We will continue to monitor. 3. Acute on chronic cholecystitis. Patient is now eating without any difficulty, no further abdominal symptoms or pain. Patient is adhering to low- fat diet, and continue to monitor. 4. Depression. Patient presents with improved mood, able to reflect on behaviors when she is in crisis, and coping style. She is to meet with palliative care social services analyst next week, continues with isolation, would benefit from volunteer, though currently unfortunately not available. 5. Advanced care planning. Patient was a DN AR for hospitalization, patient does have old POLST but with full treatment. In the context of patient's goals, she would not want to be intubated, patient quite clear she does not want her suffering prolonged, would want to weigh benefits and burdens of any serious surgeries or interventions, would be okay with treating reversible conditions. She is hoping at end of life, to have a free of suffering, and has been interested in DWD. She does understand that this current time, she does not present with limited life expectancy of 6 months or less, but given her multiple comorbidities and ongoing complications need to continue to work towards LTP for DPOA and EOL. New POLST was completed with DNA R, and selective treatments. At this point unable to identify a D POA. She does have a few people she is going to follow-up with to see if this is a possibility. Time Spent: 60 minutes with greater than 50% of this done in counseling regarding pain and symptom management initiation of fentanyl, counseling for safety and use, counseling regarding advanced care planning and completion of [facility]
== END 2018-12-30 14:24 | disposition home or self-care (01) ==
LOC: PC 14:23
PROVIDERS: ATTEND Nurse Practitioner Adult Health
DX: Z51.5 Encounter for palliative care (principal); C50.911 Malignant neoplasm of unspecified site of right female breast; C79.51 Secondary malignant neoplasm of bone; M54.9 Dorsalgia, unspecified; M25.552 Pain in left hip; M25.551 Pain in right hip; G89.3 Neoplasm related pain (acute) (chronic); D46.9 Myelodysplastic syndrome, unspecified; K81.2 Acute cholecystitis with chronic cholecystitis; D61.818 Other pancytopenia; F32.9 Major depressive disorder, single episode, unspecified; F41.9 Anxiety disorder, unspecified; E11.9 Type 2 diabetes mellitus without complications; K21.9 Gastro-esophageal reflux disease without esophagitis; R53.83 Other fatigue; R53.1 Weakness; K59.03 Drug induced constipation; T40.605A Adverse effect of unspecified narcotics, initial encounter; Z79.891 Long term (current) use of opiate analgesic; Z66 Do not resuscitate; Z79.84 Long term (current) use of oral hypoglycemic drugs
CPT/HCPCS: 99350

== ENCOUNTER 2019-01-06 12:30 | Outpatient (CLI) | payer MEDICARE, MEDICAID ==
--- NOTE | 2019-01-06 18:51 | CONSULTATION NOTE ---
Palliative Care Follow Up - Referral Referring Provider: Dr. Sharron Marte Time of Visit: [id number] Referral setting: Home Referral Reason: Pain of neoplastic origin/Bone Mets/Breast CA - Information Sources Records reviewed: Previous records reviewed History/Review of Systems obtained from: Patient Exam limitations: No limitations - History of Present Illness Update Brief HPI Update: This is a complicated 63-year-old woman with multiple comorbidities including most prominent her metastatic breast cancer involving mets to the bones, MDS with pancytopenia, and recent hospitalization for gallstone ileus of small intestine and chronic cholecystitis. She reports her abdominal pain is resolved, she is having regular frequent stools, trying to titrate the lactulose, she did have some loose stools this morning. Her appetite is returned, she is eating and drinking. Her blood sugars have been running on the higher side, this morning's was 240. She is taking her metformin and glipizide on a regular basis. Her pain remains fairly persistent particular bilaterally in her hips and lower lumbar spine, this is exacerbated by her very poor seating and recliner. Her pain is worse with standing, better with laying flat. She had initiated the fentanyl 12 mcg patch, has not noticed a significant improvement in her pain control, has used 2-4 Vicodin in 24 hours. She continues to hope to get radiation for her pain control, will go ahead and titrate her fentanyl up to 25 today. She reports her depression is still quite overwhelming, her anxiety continues to fluctuate, but she is feeling much better overall. Social History - Living Situation Living arrangement: At home Living Situation: Alone Support System: Patient has very poor social support, she does live in low income housing. She has not met with a medical palliative care social media assistant. She is unable to participate in CO PES per her perception, but may actually qualify now that her functional status is declined. Medications/Allergies - Medications Home Medications: Ambulatory Orders Medication Instructions Recorded Confirmed Calcium Carbonate [Calcium] 500 mg PO DAILY 04/04/15 01/06/19 Denosumab [Xgeva] 120 mg SUBQ Q28D 04/04/15 01/06/19 Biotin 5,000 mcg PO DAILY 10/16/15 01/06/19 clonazePAM [Clonazepam] 3 mg PO QPM 04/08/16 01/06/19 metFORMIN [Glucophage] 500 mg PO BID 06/01/18 01/06/19 Glipizide [Glipizide ER] 5 mg PO DAILY 06/29/18 01/06/19 Ibuprofen [Motrin] 800 mg PO Q8HR PRN 11/30/18 01/06/19 Everolimus [Afinitor] 10 mg PO DAILY 12/14/18 01/06/19 Exemestane 25 mg PO DAILY 12/14/18 01/06/19 Hydrocodone/Acetaminophen 1 - 2 tab PO Q4HR PRN 12/14/18 01/06/19 [Hydrocodone-Acetamin 5-325 mg] Docusate Sodium 100 mg PO BID 12/16/18 01/06/19 Lactulose 15 ml PO BID PRN MDD titrates 12/16/18 01/06/19 fentaNYL 12 MCG PATCH [Duragesic 24 mcg TOP .Q3DAY 12/31/18 01/06/19 12mcg patch] - Allergies Allergies/Adverse Reactions: Allergies Allergy/AdvReac Type Severity Reaction Status Date / Time oxycodone HCl * Allergy Mild itch Verified 12/21/18 10:42 [From Percocet] Review of Systems - Constitutional Constitutional: reports: Fatigue (improved). denies: Fever, Chills - Ears, Nose & Throat Ears, Nose & Throat: denies: Mouth lesions - Cardiovascular Cardiovascular: reports: Decr. exercise tolerance - Gastrointestinal Gastrointestinal: reports: Diarrhea (this am since resolved), Good appetite. denies: Abdominal pain, Constipation, Nausea, Reflux/heartburn - Musculoskeletal Musculoskeletal: reports: Back pain, Muscle aches, Stiffness, Limited range of motion, Muscle weakness, Joint pain - Integumentary Integumentary: reports: Rash, Dryness - Neurological Neurological: reports: General weakness - Psychiatric Psychiatric: reports: Depression (very tearful), Anxiety - Endocrine Endocrine: reports: Diabetes type 2 - Hematologic/Lymphatic Hematologic/Lymphatic: reports: Anemia (labs improved) - All Other Systems All Other Systems: reports: Reviewed and negative Physical Exam - Vital Signs Temperature: 96.6 C Pulse Rate: 61 Respiratory Rate: 18 O2 Saturation: 97 (ra @rest) Blood Pressure: 132/72 - Physical Exam General Appearance: positive: Mild distress, Anxious (improved) Eyes Bilateral: positive: Normal inspection ENT: positive: No signs of dehydration Neck: positive: No JVD, Trachea midline Cardiovascular: positive: Regular rate & rhythm Respiratory: positive: No respiratory distress, Breath sounds nml Abdomen: positive: Non-tender, Soft, Nml bowel sounds Skin: positive: Pallor, Dryness, Pruritis (few areas of dry skin/rash not red) Extremities: positive: No pedal edema Neurologic/Psychiatric: positive: Oriented x3, Depressed mood/affect Palliative Care - POLST Patient has POLST: Yes POLST Status: DNR, Selective Treatment Pain: Pain unchanged, Location (She perceives very little improvement with the fentanyl 12 mcg patch, continues with Vicodin 2 tabs, took 2 this a.m. She reports her pain is still severe to moderately severe in her hips bilaterally right greater than left and traveling down right femur.) Tiredness/Fatigue: Moderate (4-6) Drowsiness/Sedation: Mild (1-3) (continues with poor sleep hygience) Nausea: None Depression: Moderate (4-6) Anxiety: Moderate (4-6) Dyspnea: Mild (1-3) Anorexia: None Sleep: Variable sleep pattern Constipation: Yes, Opoid induced, Intermittent constipation Feelings of wellbeing/Perceived Quality of Life: Fair, Improved Performance Status: Patient continues with poor functional status, she is able to ambulate short distances better but is limited by her pain and activity intolerance. She is unable to bathe most likely more related to her right arm pain and poor range of motion. Encouraged her to follow-up on CO PES application, she has been in contact with binder caser Mary. Also encouraged to get better recliner. - Palliative Care Discussion: Patient is feeling better, is quite anxious to get going on radiation. Did assist her with application/referral form. Assisted her with call to re- schedule appointment, she is due to see Dr. MICHAEL ENRIQUEZ on 01/11. Patient remains quite tearful, does admit to severe depression, is unwilling to consider any other antidepressants. She reports they have never worked in the past. She did cancel her appointment with the [facility] palliative care social media assistant, they are to reschedule next week. Reviewed with her role of social workers to help process some of her grief and loss as well as her fears. Patient continues to be quite isolated, identifies multiple social stressors, as well as financial stressors. Results - Lab Results Lab results reviewed: Yes Impression and Recommendations - Palliative Care Impression: This is a 63-year-old woman with metastatic breast cancer, with multiple bone mets, pending radiation treatment. Her abdominal symptoms have since resolved, she continues with poorly controlled pain. Her weakness is improved, she is feeling somewhat emotionally better. Her counts today are improved relating her pancytopenia is. Palliative care continue to work on titrating pain medications, symptom management, advanced care planning and anticipatory guidance. Recommendations/Counseling Done: 1. Pain of neoplastic origin. Patient is initiated fentanyl 12 mcg patch, she is on her first patch change, she does not feel this is improved her pain management at all. She is still needing Vicodin 2 tabs for severe to moderate pain. Increased fentanyl to 24 mcg, watched and assisted with teaching application of 2 fentanyl 12 mcg patches. Patient counseled to can continue with 1-2 Vicodin for breakthrough pain management, reviewed would not feel new dose application until later today. Counseling done regarding safety, applications, instructions to replace it falls off. Assisted patient with coronation of care for re-scheduling radiation treatment. 2. Constipation. Patient continues to use lactulose, reports she "overdid this morning", with some resulting diarrhea. Patient uses Pepto-Bismol in response. Continue to monitor. 3. Acute on chronic cholecystitis. Patient now eating without any difficulty, no further abdominal pain or symptoms appearing, patient adhering to low-fat diet. 4. Depression. Patient does present with some improved mood, she is to reschedule with palliative care social media assistant. Did recommend follow-up with [place] PES for increased assistance, as some of her depression is being overwhelmed by her increased care needs. 5. Advanced care patient. Patient has POLST posted on her fridge, it is a DNA R, selective treatment. Patient continues to be quite frightened regarding her cancer diagnosis, pancytopenia's, and what is coming next. She is meeting with Dr. Marte on Thursday, has radiation appointment on 01/13. Time Spent: See minutes with greater than 50% of this done in counseling regarding pain and symptom management, counseling regarding depression, and anticipatory guidance coordination of care with radiation therapy and follow-up on labs
== END 2019-01-06 12:31 | disposition home or self-care (01) ==
LOC: PC 12:30
PROVIDERS: ATTEND Nurse Practitioner Adult Health
DX: Z51.5 Encounter for palliative care (principal); G89.3 Neoplasm related pain (acute) (chronic); C50.911 Malignant neoplasm of unspecified site of right female breast; C79.51 Secondary malignant neoplasm of bone; D46.9 Myelodysplastic syndrome, unspecified; K80.12 Calculus of gallbladder with acute and chronic cholecystitis without obstruction; D61.818 Other pancytopenia; F32.9 Major depressive disorder, single episode, unspecified; F41.9 Anxiety disorder, unspecified; K59.00 Constipation, unspecified; Z66 Do not resuscitate; Z79.84 Long term (current) use of oral hypoglycemic drugs; Z79.891 Long term (current) use of opiate analgesic; Z79.1 Long term (current) use of non-steroidal anti-inflammatories (NSAID)
CPT/HCPCS: 99350

== ENCOUNTER 2019-01-11 13:16 | Outpatient (CLI) | payer MEDICARE, MEDICAID ==
--- NOTE | 2019-01-11 18:16 | CONSULTATION NOTE ---
Palliative Care Follow Up - Referral Referring Provider: Dr. Sharron Marte Time of Visit: [id number] Referral setting: [facility] [place] Referral Reason: Pain of neoplastic origin/Bone Mets/Breast CA - Information Sources Records reviewed: Previous records reviewed History/Review of Systems obtained from: Patient Exam limitations: Clinical condition (patient with forgetfulness/easily overwhelmed) - History of Present Illness Update Brief HPI Update: This is a complicated 63-year-old woman with multiple comorbidities including me tastatic breast cancer involving mets to the bones. She also has MDS with pancytopenia, and was recently hospitalized for gallstone ileus of the small intestine and chronic cholecystitis. She is continued to have escalating bone pain, reports that it 10 out of 10, is most likely lysed in her left hip left upper thigh she has bilateral osteoarthritis knee pain and lower back pain. It is exacerbated with weightbearing, she also has a difficulty with sitting and her current recliner is poor positioning. Her pain medication was titrated up over that last week, to 37.5 mcg. She has had difficulty with a small patches and placement, she currently has 312 mcg patches on, she is due to change to a full 37.5 mcg patch . We reviewed this several times, as she is very anxious about her medications and has difficulty with tracking at times. All her instructions were written out. She was instructed to continue with the Vicodin for breakthrough pain, counseling provided again regarding this. She is due to initiate radiation therapy, with her first visit with radiation oncologist this . She remains easily overwhelmed, tearful, and is distressed with her increased tumor markers today. Social History - Living Situation Living arrangement: At home Living Situation: Alone Support System: Patient does live alone, she is estranged from her family. She is quite isolated, does have some paid caregiving help on an intermittent basis. She would very much like to have more assistance particularly with bathing, she continues to be somewhat irritated with the [place] [facility] program as they would still want $176. I have encouraged her multiple times to follow-up with Mary, particularly in the context of equipment needed as far as a lift chair or recliner. Medications/Allergies - Medications Home Medications: Ambulatory Orders Medication Instructions Recorded Confirmed Calcium Carbonate [Calcium] 500 mg PO DAILY 04/04/15 01/11/19 Denosumab [Xgeva] 120 mg SUBQ Q28D 04/04/15 01/11/19 Biotin 5,000 mcg PO DAILY 10/16/15 01/11/19 clonazePAM [Clonazepam] 3 mg PO QPM 04/08/16 01/11/19 Glipizide [Glipizide ER] 5 mg PO DAILY 06/29/18 01/11/19 Ibuprofen [Motrin] 800 mg PO Q8HR PRN 11/30/18 01/11/19 Everolimus [Afinitor] 10 mg PO DAILY 12/14/18 01/11/19 Exemestane 25 mg PO DAILY 12/14/18 01/11/19 Hydrocodone/Acetaminophen 1 - 2 tab PO Q4HR PRN 12/14/18 01/11/19 [Hydrocodone-Acetamin 5-325 mg] Docusate Sodium 100 mg PO BID 12/16/18 01/11/19 Lactulose 15 ml PO BID PRN MDD titrates 12/16/18 01/11/19 Loperamide [Imodium] 2 mg PO Q4HR PRN 01/11/19 01/11/19 Metformin HCl [Metformin ER 1,000 mg PO BID 01/11/19 01/11/19 Gastric] fentaNYL [Fentanyl 37.5mcg patch] 37.5 mcg TOP .Q3DAYS 01/11/19 01/11/19 - Allergies Allergies/Adverse Reactions: Allergies Allergy/AdvReac Type Severity Reaction Status Date / Time oxycodone HCl * Allergy Mild itch Verified 12/21/18 10:42 [facility] Review of Systems - Constitutional Constitutional: reports: Fatigue, Chills, Poor appetite, Weight loss. denies: Fever - Eyes Eyes: reports: Vision loss - Ears, Nose & Throat Ears, Nose & Throat: reports: Hearing loss, Dry mouth - Cardiovascular Cardiovascular: reports: Decr. exercise tolerance - Respiratory Respiratory: reports: SOB with exertion. denies: SOB at rest - Gastrointestinal Gastrointestinal: reports: Diarrhea (reports "10" episodes yesterday; took peptobismal with little help). denies: Abdominal pain - Genitourinary Genitourinary: denies: Dysuria, Frequency - Musculoskeletal Musculoskeletal: reports: Muscle pain, Muscle aches, Stiffness, Limited range of motion, Muscle weakness, Assistive devices - Integumentary Integumentary: reports: Dryness, Nail changes, Hair changes (thinning), Other (fingers peeling) - Neurological Neurological: reports: General weakness, Memory problems - Psychiatric Psychiatric: reports: Depression, Anxiety - Endocrine Endocrine: reports: Diabetes type 2 (260 this am), Intolerance to heat (having "hot flashes") - Hematologic/Lymphatic Hematologic/Lymphatic: reports: Anemia - All Other Systems All Other Systems: reports: Reviewed and negative Physical Exam - Vital Signs Temperature: 37.1 C Pulse Rate: 80 Respiratory Rate: 16 O2 Saturation: 98 (ra @ rest) Blood Pressure: 134/70 - Physical Exam General Appearance: positive: Mild distress, Anxious Eyes Bilateral: positive: Normal inspection Neck: positive: Trachea midline Cardiovascular: positive: Regular rate & rhythm Respiratory: positive: No respiratory distress Abdomen: positive: Soft, Tenderness (lower abdominal area), Obese Skin: positive: Pallor, Dryness, Other (skin peeling on fingertips) Extremities: positive: No pedal edema Neurologic/Psychiatric: positive: Oriented x3, Weakness, Depressed mood/affect, Flat affect Palliative Care - POLST Patient has POLST: Yes POLST Status: DNR Pain: Pain worsening, Location (see HPI) Tiredness/Fatigue: Moderate (4-6) Drowsiness/Sedation: Moderate (4-6) Nausea: Mild (1-3) Depression: Severe (7-10) Anxiety: Severe (7-10) Dyspnea: Mild (1-3) Anorexia: Mild (1-3) Sleep: Variable sleep pattern Constipation: Yes, Opoid induced, Intermittent constipation Feelings of wellbeing/Perceived Quality of Life: Poor, Worsening Performance Status: She remains limited as far as her ability to bathe independently, she is doing spit baths. She would like someone to help her with showering, she is quite fearful of stepping in and out, she has limited range of motion in her right shoulder and does not feel she can wash her hair. She feels like she could use more personal care, though remains quite resistant to further follow-up as her previous [place] [facility] experience were with experience providers. - Palliative Care Discussion: She and feeling quite distressed over her elevated numbers, she was reassured that she was just on the beginning end of her Afinitor, it is too soon to evaluate response. She is feeling overwhelmed with upcoming radiation appointments, her escalating pain, and lack of social support. She is very tearful. Patient does have a POLST in place, she does need to identify a D POA, she was can explore this with some of her neighbors at this point in time of not followed up on this, and patient not in a good place to be able to do this today. Results - Lab Results Lab results reviewed: Yes Lab [place]: [place] [address] [place] 153 on 514 127.2; 18 108.9; 04/3043.0 WBC up to 2.5; 10.6 hemoglobin; 30.3 hematocrit Impression and Recommendations - Palliative Care Impression: This is a 63-year-old woman with metastatic breast cancer with multiple bone mets, pending radiation treatment. Her abdominal symptoms have resolved, her pain continues to escalate in her hips back and knees. She has not responded well to titration of her medications, her weakness is improved, she continues to be quite feeling overwhelmed by her pain and worsening tumor markers. Palliative care to continue work on titrating pain medications, symptom management, advanced care planning and anticipatory guidance Recommendations/Counseling Done: 1. Pain of neoplastic origin. Patient is currently on 37.5 mcg patch, will continue to titrate to effect, patient counseled on breakthrough medication use of Vicodin. Encouraged again to try and get better seating arrangement. Written instructions provided, counseling provided regarding safety, application, has pending radiation treatment. Will titrate up to 50 if indicated, patient has 5 x 37.5 mcg patches with next application due . 2. Diarrhea. Patient does not take any lactulose for several days, most likely attributed to her Afinitor. Patient has no Imodium, has been using Pepto- Bismol. Patient instructed to obtain Imodium 2 mg tabs, and take after each loose stool up to 8 tabs in 24 hours. Patient acknowledges understanding. She did make arrangements to have delivered from local grocery store during visit. 3. Depression. Patient continues to be overwhelmed, she is to see palliative care social problems specialist tomorrow, again recommended that given her stressors to consider re-trying the [place] [facility] program. Patient is not interested in antidepressant or mood elevator. She does use the clonazepam intermittently for her anxiety. 4. Advanced care planning. Patient has a POLST, DNA R, selective treatments. Patient quite frightened of her diagnosis, easily overwhelmed and worried about her future. We discussed given her current metastatic disease is only known to be in her bones, at this point in time her prognosis is greater than 6 months. She had wanted to pursue DWD, will continue to have conversations as appropriate. More important goal needs to be to identify a D POA. Plan will follow-up by phone call Thursday, and schedule visit accordingly dep ending on radiation treatment. Time Spent: 45 minutes with greater than 50% done in counseling regarding pain and symptom management, addressing anxiety and depression, acknowledging grief and loss issues.
== END 2019-01-11 13:17 | disposition home or self-care (01) ==
LOC: PC 13:16
PROVIDERS: ATTEND Nurse Practitioner Adult Health
DX: Z51.5 Encounter for palliative care (principal); G89.3 Neoplasm related pain (acute) (chronic); C50.911 Malignant neoplasm of unspecified site of right female breast; C79.51 Secondary malignant neoplasm of bone; D46.9 Myelodysplastic syndrome, unspecified; D61.818 Other pancytopenia; M19.90 Unspecified osteoarthritis, unspecified site; H54.7 Unspecified visual loss; H91.90 Unspecified hearing loss, unspecified ear; R53.1 Weakness; R41.3 Other amnesia; F32.9 Major depressive disorder, single episode, unspecified; F41.9 Anxiety disorder, unspecified; E11.9 Type 2 diabetes mellitus without complications; R19.7 Diarrhea, unspecified; K59.03 Drug induced constipation; T40.605A Adverse effect of unspecified narcotics, initial encounter; Z74.2 Need for assistance at home and no other household member able to render care; Z66 Do not resuscitate; Z79.1 Long term (current) use of non-steroidal anti-inflammatories (NSAID); Z79.891 Long term (current) use of opiate analgesic; Z79.51 Long term (current) use of inhaled steroids
CPT/HCPCS: 99215

== ENCOUNTER 2019-01-18 12:25 | Outpatient (CLI) | payer MEDICARE, MEDICAID ==
--- NOTE | 2019-01-19 05:52 | CONSULTATION NOTE ---
Palliative Care Follow Up - Referral Referring Provider: Dr. Sharron Marte Time of Visit: THURSDAY 01/18 [phone] Referral setting: Home Referral Reason: Pain of neoplastic origin/Met Breast Ca - Information Sources Records reviewed: Previous records reviewed History/Review of Systems obtained from: Patient Exam limitations: Clinical condition (patient with memory deficits) - History of Present Illness Update Brief HPI Update: This is a complicated 63-year-old woman with multiple comorbidities including metastatic breast cancer involving mets to the bones. She also has MDS with pancytopenia, diabetes type 2, morbid obesity, and history of chronic cholecystitis. She has continued to have escalating bone pain, received a hyperfractionated dose to her left hip and back, is hopeful for improved pain management but so far has not noticed any improvement. She currently is on fentanyl 37.5 mcg patch, and using 2 Vicodin twice daily. Her pain is exacerbated with standing, relieved with laying in bed, and impacting her ambulation. Patient also having intermittent diarrhea, needing Imodium about 1-2 times a day.This is most likely attributed to her Afinitor, she has had slight elevation in her blood sugars most likely a side effect as well, ongoing anorexia but no further signs or symptoms of stomatitis. Patient does not have scale, though feels she is losing weight. She attributes this to decreased intake, though has been pushing fluids. Sleeps until late morning, naps at times, challenged to keep up with intake. Social History - Living Situation Living arrangement: At home Living Situation: Alone Support System: Patient continues to struggle with social isolation, lack of social support, and financial stressors. Medications/Allergies - Medications Home Medications: Ambulatory Orders Medication Instructions Recorded Confirmed Calcium Carbonate [Calcium] 500 mg PO DAILY 04/04/15 01/19/19 Denosumab [Xgeva] 120 mg SUBQ Q28D 04/04/15 01/19/19 Biotin 5,000 mcg PO DAILY 10/16/15 01/19/19 clonazePAM [Clonazepam] 3 mg PO QPM 04/08/16 01/19/19 Glipizide [Glipizide ER] 5 mg PO DAILY 06/29/18 01/19/19 Ibuprofen [Motrin] 800 mg PO Q8HR PRN 11/30/18 01/19/19 Everolimus [Afinitor] 10 mg PO DAILY 12/14/18 01/19/19 Exemestane 25 mg PO DAILY 12/14/18 01/19/19 Hydrocodone/Acetaminophen 1 - 2 tab PO Q4HR PRN 12/14/18 01/19/19 [Hydrocodone-Acetamin 5-325 mg] Docusate Sodium 100 mg PO BID PRN 12/16/18 01/19/19 Lactulose 15 ml PO BID PRN MDD titrates 12/16/18 01/19/19 Loperamide [Imodium] 2 mg PO Q4HR PRN 01/11/19 01/19/19 Metformin HCl [Metformin ER 1,000 mg PO BID 01/11/19 01/19/19 Gastric] fentaNYL [Fentanyl 37.5mcg patch] 37.5 mcg TOP .Q3DAYS 01/11/19 01/19/19 Nystatin 1 applic TOP BID PRN 01/19/19 01/19/19 Ondansetron [Zuplenz] 4 mg PO Q6HR PRN 01/19/19 01/19/19 - Allergies Allergies/Adverse Reactions: Allergies Allergy/AdvReac Type Severity Reaction Status Date / Time oxycodone HCl * Allergy Mild itch Verified 12/21/18 10:42 [From [facility]] Review of Systems - Constitutional Constitutional: reports: Fatigue, Weakness, Poor appetite, Weight loss, Other (hot flashes). denies: Fever - Eyes Eyes: reports: Vision loss - Ears, Nose & Throat Ears, Nose & Throat: reports: Hearing loss, Dry mouth. denies: Mouth lesions - Cardiovascular Cardiovascular: reports: Decr. exercise tolerance - Respiratory Respiratory: denies: SOB at rest - Gastrointestinal Gastrointestinal: reports: Diarrhea, Nausea, Poor appetite, Early satiety. denies: Rectal bleeding, Reflux/heartburn - Musculoskeletal Musculoskeletal: reports: Back pain, Stiffness, Limited range of motion, Muscle weakness - Integumentary Integumentary: reports: Rash (bilat hips;lesion on abdominal fold), Dryness, Hair changes (thinning) - Neurological Neurological: reports: General weakness, Memory problems - Psychiatric Psychiatric: reports: Depression, Anxiety - Endocrine Endocrine: reports: Diabetes type 2 - Hematologic/Lymphatic Hematologic/Lymphatic: reports: Anemia - All Other Systems All Other Systems: reports: Reviewed and negative Physical Exam - Vital Signs Temperature: 96.4 C Pulse Rate: 73 Respiratory Rate: 16 O2 Saturation: 98 Blood Pressure: 130/70 - Physical Exam General Appearance: positive: Moderate distress, Anxious Eyes Bilateral: positive: Normal inspection ENT: negative: Pharyngeal erythema, Oral lesions Neck: positive: Nml inspection Cardiovascular: positive: Regular rate & rhythm Respiratory: positive: No respiratory distress, Breath sounds nml, Diminished in bases Abdomen: positive: Soft, Tenderness (across mid abdominal area), Obese Skin: positive: Pallor, Pruritis, Rash (candiaisis in groin fold), Other (small 1 cm lesion on pannus; no s/s infection) Extremities: positive: No pedal edema Neurologic/Psychiatric: positive: Oriented x3, Weakness, Depressed mood/affect, Flat affect Palliative Care - POLST Patient has POLST: Yes POLST Status: DNR, Selective Treatment Pain: Pain unchanged Tiredness/Fatigue: Severe (7-10) Drowsiness/Sedation: Moderate (4-6) Nausea: Mild (1-3) Depression: Severe (7-10) Anxiety: Severe (7-10) Dyspnea: None Anorexia: Severe (7-10), Weight loss Sleep: Variable sleep pattern Feelings of wellbeing/Perceived Quality of Life: Poor, Worsening Performance Status: Patient continues to spend most of her time in bed or in the recliner. She is unable to do household tasks secondary to fatigue and pain. She does not feel safe showering, or able to wash her hair and lift her right arm overhead. - Palliative Care Discussion: Patient remains quite discouraged, is feeling like her current quality of life is quite poor. She is distressed by her ongoing symptoms, particularly with the diarrhea as this makes her feel overall poorly. She gets easily overwhelmed, difficulty following through on tasks. She continues to feel quite isolated and alone in her journey. Impression and Recommendations - Palliative Care Impression: This is a 63-year-old woman with metastatic breast cancer with multiple bone mets, recently completed radiation. She is having side effects from her Afinitor, including diarrhea, low-grade nausea, and anorexia. She continues to struggle with left hip pain, reports lower back pain somewhat improved. She continues to be easily overwhelmed with alcohol her task related to management of her medications and disease. Palliative care to continue provide support and titration of pain medications, and anticipatory guidance Recommendations/Counseling Done: 1. Pain of neoplastic origin. Patient's most severe pain is located in her left hip radiating down to her left femur. She did get a hyperfractionated dose of radiation, her understanding is for effectiveness 2 to 10 days before she will fill results. She does not perceive any improvement, though in observing her pain behaviors, she is able to get from sitting to standing easier her gait is little bit less challenged, and she continues to sit in a poorly conditioned chair. She is currently on fentanyl 37.5 mcg patch, patient still reports the severity of the pain 04/05. Hesitant to increase her fentanyl patch with pending results from radiation. Plan will be to call on Thursday, if no improvement can n egotiate increasing to 50 mcg or continue with 37.5 and ongoing PRN Vicodin management for breakthrough pain. Problem solving related to obtaining new chair done. 2. Diarrhea. Patient is managing with Imodium averaging about 1 time a day. Does report loose stools not watery, but feels quite gassy. Prescription called in for Imodium for delivery. 3. Anorexia. This is multifactorial in origin. Patient does describe low- grade nausea, has no antiemetic, ordered ondansetron 4 mg 1 tab every 6 hours to be delivered. Encouraged to try and see if it helps her better tolerate eating. Patient also encouraged to use supplements, to dilute as a taste too sweet for her, and to stay hydrated. Most likely a side effect of her Afinitor as well. 4. Candidiasis. Nystatin powder ordered for groin folds. 5. Depression. Patient continues to struggle with isolation, and difficulty accessing help with support. Working with palliative care volunteer to help with some of the practical pieces, she is receiving support from the case management social worker as well. Patient is not interested in further exploring antidepressants, but does feel supportive listening does help. 6. Advanced care planning. Patient does have POLST in place, she remains quite discouraged and wondering about weighing benefits and burdens of continuing with treatments. Patient still interested in DWD for end of life. Time Spent: 45 minutes with greater than 50% of this done in counseling regarding pain and symptom management, coordination of care with volunteer and [employer], and anticipatory guidance
== END 2019-01-18 12:26 | disposition home or self-care (01) ==
LOC: PC 12:25
PROVIDERS: ATTEND Nurse Practitioner Adult Health
DX: Z51.5 Encounter for palliative care (principal); C50.911 Malignant neoplasm of unspecified site of right female breast; G89.3 Neoplasm related pain (acute) (chronic); R41.3 Other amnesia; C79.51 Secondary malignant neoplasm of bone; D46.9 Myelodysplastic syndrome, unspecified; E11.9 Type 2 diabetes mellitus without complications; E66.01 Morbid (severe) obesity due to excess calories; M25.552 Pain in left hip; M54.9 Dorsalgia, unspecified; Z66 Do not resuscitate; F32.9 Major depressive disorder, single episode, unspecified; F41.9 Anxiety disorder, unspecified; R53.83 Other fatigue; R19.7 Diarrhea, unspecified; R63.0 Anorexia; R11.0 Nausea; B37.2 Candidiasis of skin and nail; H54.7 Unspecified visual loss; H91.90 Unspecified hearing loss, unspecified ear; R53.1 Weakness; Z79.891 Long term (current) use of opiate analgesic; Z79.84 Long term (current) use of oral hypoglycemic drugs; Z92.3 Personal history of irradiation
CPT/HCPCS: 99215

== ENCOUNTER 2019-02-01 12:30 | Outpatient (CLI) | payer MEDICARE, MEDICAID ==
--- NOTE | 2019-02-01 17:38 | CONSULTATION NOTE ---
Palliative Care Follow Up - Referral Referring Provider: Dr. Sharron Marte Time of Visit: [id number] Referral setting: Home Referral Reason: Pain of neoplastic origin/Met breast CA - Information Sources Records reviewed: Previous records reviewed History/Review of Systems obtained from: Patient Exam limitations: Clinical condition (patient STM issues) - History of Present Illness Update Brief HPI Update: This is a complicated 63-year-old woman with multiple comorbidities including metastatic breast cancer involving mets to the bones. She recently received radiation therapy, she was hoping for improved pain control. She did get radiation to her left femur and left SI joint. She does admit to some improvement, she is better able to sit in her chair, her pain does exacerbate with walking or standing. She though does functionally appears some improved. We have also increased her fentanyl to 50 mcg patch daily, though she continues to need about 6 Vicodin daily. She is somewhat confused in the context to radiation call for follow-up appointment, and is wondering at this point in time she thought she was finished. Agreed I would follow-up for her as this does get overwhelming. Patient also has MDS with pancytopenia, and fortunately her counts have decreased her WBC was 1.1 today, with a slight decrease in her hemoglobin to 9.4 and hematocrit to 28.7. Unclear if this is related to disease progression, or possibly could have been influenced by her radiation. Call into Dr. MICHAEL ENRIQUEZ, oncologist as Afinitor also can cause neutropenia. She was instructed to continue on with her current dosing, she is due to see her next week. She does not present with any signs or symptoms of infection, in fact is doing fairly well. She has had an elevation that is been fairly persistent with her blood sugars, this is quite common and Afinitor. She has independently increased her glipizide to 5 mg twice daily continue with her Metformin at 1000 mg twice daily. Will contact and follow-up with medical educator and get her connected. Patient is quite distressed with this, patient is not been symptomatic though. Instructed to keep more track of her blood sugars so that the CDE has something to work with. She has had some weight loss, continues with poor appetite, diarrhea currently under control, and has no signs of stomatitis. New Palliative care attempting to provide further support, and introducing palliative care volunteer today, to help with some practical components of her day-to-day management, including some light housekeeping, Mahi, and to decrease her isolation. Patient continues with significant mood fluctuation, she is quite tearful she gets quite scared with her things that are changing. She is upset about her decrease in her WBC count. She reports "I do not like the numbers", she does admits that she perseverates on any negative news. She is on and off quite tearful through the visit. Social History - Living Situation Living arrangement: At home Living Situation: Alone Support System: She lives by herself in low income housing of [facility]. She has very little support, she does have a paid caregiver Bella that she uses intermittently mostly for errands and transportation. She is estranged from her family. Medications/Allergies - Medications Home Medications: Ambulatory Orders Medication Instructions Recorded Confirmed Calcium Carbonate [Calcium] 500 mg PO DAILY 04/04/15 02/01/19 Denosumab [Xgeva] 120 mg SUBQ Q28D 04/04/15 02/01/19 Biotin 5,000 mcg PO DAILY 10/16/15 02/01/19 clonazePAM [Clonazepam] 3 mg PO QPM 04/08/16 02/01/19 Glipizide [Glipizide ER] 5 mg PO BID 06/29/18 02/02/19 Ibuprofen [Motrin] 800 mg PO Q8HR PRN 11/30/18 02/01/19 Everolimus [Afinitor] 10 mg PO DAILY 12/14/18 02/01/19 Exemestane 25 mg PO DAILY 12/14/18 02/01/19 Hydrocodone/Acetaminophen 1 - 2 tab PO Q4HR PRN 12/14/18 02/01/19 [Hydrocodone-Acetamin 5-325 mg] Docusate Sodium 100 mg PO BID PRN 12/16/18 02/01/19 Lactulose 15 ml PO BID PRN MDD titrates 12/16/18 02/01/19 Loperamide [Imodium] 2 mg PO Q4HR PRN 01/11/19 02/01/19 Metformin HCl [Metformin ER 1,000 mg PO BID 01/11/19 02/01/19 Gastric] Nystatin 1 applic TOP BID PRN 01/19/19 02/01/19 Ondansetron [Zuplenz] 4 mg PO Q6HR PRN 01/19/19 02/01/19 fentaNYL 50 MCG PATCH [Duragesic 50 mcg TOP .Q3DAYS 02/01/19 02/01/19 50mcg patch] - Allergies Allergies/Adverse Reactions: Allergies Allergy/AdvReac Type Severity Reaction Status Date / Time oxycodone HCl * Allergy Mild itch Verified 12/21/18 10:42 [From Percocet] Review of Systems - Constitutional Constitutional: reports: Fatigue, Weakness, Weight loss. denies: Fever, Chills, Diaphoresis, Night sweats - Ears, Nose & Throat Ears, Nose & Throat: denies: Mouth lesions - Cardiovascular Cardiovascular: reports: Decr. exercise tolerance. denies: Edema - Respiratory Respiratory: denies: Cough, SOB at rest - Gastrointestinal Gastrointestinal: reports: Poor appetite, Early satiety. denies: Abdominal pain, Abdominal distention, Constipation, Nausea - Genitourinary Genitourinary: denies: Dysuria - Musculoskeletal Musculoskeletal: reports: Stiffness, Muscle weakness, Joint pain (right shoulder pain/ROM limited) - Integumentary Integumentary: reports: Dryness, Nail changes, Hair changes (thinning) - Neurological Neurological: reports: General weakness, Dizziness (occasional), Memory problems - Psychiatric Psychiatric: reports: Depression, Anxiety (very distressed with decreased WBC) - Endocrine Endocrine: reports: Diabetes type 2 (BS elevated may be due to afinitor SE) - Hematologic/Lymphatic Hematologic/Lymphatic: reports: Anemia. denies: Recurrent infections - All Other Systems All Other Systems: reports: Reviewed and negative Physical Exam - Vital Signs Temperature: 96.7 C Pulse Rate: 66 Respiratory Rate: 18 O2 Saturation: 99 (ra @ rest) Blood Pressure: 132/68 - Physical Exam General Appearance: positive: Mild distress, Anxious Eyes Bilateral: positive: Normal inspection ENT: negative: Pharyngeal erythema Neck: positive: No JVD, Trachea midline Cardiovascular: positive: Regular rate & rhythm Respiratory: positive: No respiratory distress Abdomen: positive: Non-tender, Soft, Nml bowel sounds, Obese Skin: positive: Pallor, Dryness, Pruritis. negative: Jaundice, Wound Extremities: positive: No pedal edema Neurologic/Psychiatric: positive: Oriented x3, Weakness, Depressed mood/affect, Flat affect Palliative Care - POLST Patient has POLST: Yes POLST Status: DNR, Selective Treatment Pain: Pain improved, Location (Patient currently on fentanyl 50 mcg patch, she is using Vicodin for breakthrough pain, and occasional ibuprofen or extra acetaminophen. She continues to report moderate to severe pain mostly in her hips and lower back, exacerbated with walking and standing. She does find rotating sitting positions from bed to chair does help. She finds she is sleeping quite a bit, she does have some right shoulder arm and discomfort particularly with limited range of motion. This is limited her ability to wash her hair and is quite distressful to her.) Tiredness/Fatigue: Moderate (4-6) Drowsiness/Sedation: Moderate (4-6) Nausea: None Depression: Severe (7-10) Anxiety: Severe (7-10) Dyspnea: None Anorexia: Moderate (4-6), Weight loss Sleep: Sleeps poorly Constipation: Yes, Opoid induced, Intermittent constipation (using LIZETTE) Feelings of wellbeing/Perceived Quality of Life: Fair, Acceptable, Improved Performance Status: Patient able to ambulate short distances, though does cause an exacerbation of pain she is doing much better. She is still having difficulty showering independently, and managing her household tasks. I would put her at a PPS of 50%. - Palliative Care Discussion: Patient continues to be easily overwhelmed, she does have high anxiety, is feeling like there are multiple things to manage and feels very isolated. Did introduce her to new volunteer, who is able to help weekly. We did discuss things that she can do and what she cannot do. Patient's goals are to return to better level of independence and functioning. She is quite distressed by her ongoing persistent pain, though she does not appear to have some improvement. Patient does have a POLST with DNA R/selective treatments. Patient is unable to identify any DPOAE at this point in time. Results - Lab Results Lab results reviewed: Yes Impression and Recommendations - Palliative Care Impression: This is a 63-year-old woman with metastatic breast cancer with multiple bone mets, recently completed radiation. She continues to have intermittent side effects of her Afinitor, with fluctuating diarrhea, low-grade nausea, anorexia, and now with persistent hyperglycemia. She does feel currently her regimen with the fentanyl 50 mcg and as needed Vicodin, is suffice as far as his not needing to titrate further at this point in time. Palliative care to continue provide support and titration of pain medications as indicated and anticipatory guidance. Recommendations/Counseling Done: 1. Pain of neoplastic origin. Patient has had some improvement in her pain management, she is currently at 50 mcg fentanyl patch. She is still using Vicodin for breakthrough pain up to 6-8 tabs in 24 hours. She is more functional though through description. She does appear to be moving a little bi t easier, and is better able to sit in her chair. She is still continue to find a better chair for support, is working with [facility]. 2. Diarrhea. Patient is managing with intermittent Imodium, alternating with constipation and responsive to LIZETTE. Is not needing the lactulose, she does get diarrhea if she uses too much. 3. Anorexia. This is multifactorial in origin, she does have ondansetron as needed for nausea, has felt a little bit better this last week. She continues to struggle with her weight, and finding things that appeal to her. 4. Depression. Patient continues to struggle with isolation, financial stressors, and accessing help for support. Introduction of palliative care volunteer, reviewed list of things she can do and not do. Patient quite tearful today with decrease in her white count. Is feeling overwhelmed regarding follow-up for radiation, requests [employer] TECHNICIAN help navigate. 5. Hyperglycemia. Patient continues to have elevated blood sugars between 260 and 280, she finds this quite a level of distress. Did agree to meet with a CDE, message left for assisting with titration of medications. 6. Advanced care planning. Patient does have POLST in place with DNA R/selective treatments. She continues to struggle with her current quality of life. Addendum. And follow-up with CDE, Recommendation to increase glipizide to 5 mg twice daily, follow-up with patient she is already done this. Will have her initiate 10 mg in the a.m. an appointment set for Thursday. We will continue to titrate, patient may need to transition to insulin which would be quite challenging for her given her current situation. In follow-up on radiation note, does talk about returning in follow-up to see effectiveness, this was shared with patient, also would be a candidate for radiation to her L2 lesion. Will weigh benefits and burdens of moving forward with this. She is due to see oncology next week. Time Spent: See minutes with greater than 50% of this done in counseling regarding pain and symptom management, depression, adjustment to illness and anticipatory guidance as well as coordination of care with CDE and radiation.
== END 2019-02-01 12:31 | disposition home or self-care (01) ==
LOC: PC 12:30
PROVIDERS: ATTEND Nurse Practitioner Adult Health
DX: Z51.5 Encounter for palliative care (principal); G89.3 Neoplasm related pain (acute) (chronic); R19.7 Diarrhea, unspecified; R63.0 Anorexia; F32.9 Major depressive disorder, single episode, unspecified; F41.9 Anxiety disorder, unspecified; R73.9 Hyperglycemia, unspecified; C50.911 Malignant neoplasm of unspecified site of right female breast; C79.51 Secondary malignant neoplasm of bone; D46.9 Myelodysplastic syndrome, unspecified; D61.818 Other pancytopenia; K59.03 Drug induced constipation; T40.2X5A Adverse effect of other opioids, initial encounter; Z79.84 Long term (current) use of oral hypoglycemic drugs; Z79.899 Other long term (current) drug therapy; Z92.3 Personal history of irradiation; Z66 Do not resuscitate
CPT/HCPCS: 99350

== ENCOUNTER 2019-03-06 15:29 | Outpatient (CLI) | payer MEDICARE, MEDICAID | END 2019-03-07 15:30 | disposition critical access hospital (66) | LOC: EMS 15:29 | PROVIDERS: ATTEND Surgery | DX: R09.89 Other specified symptoms and signs involving the circulatory and respiratory systems (principal) | CPT/HCPCS: A0425; A0429 ==

== ENCOUNTER 2019-03-06 15:37 | Emergency (ER) | payer MEDICARE, MEDICAID ==
--- NOTE | 2019-03-06 16:53 | ED Physician Documentation ---
History of Present Illness - Stated complaint Stated Complaint: THROAT PX - Chief complaint Chief Complaint: General - History obtained from History obtained from: Patient - History of Present Illness Timing: Prior to arrival - Additonal information Additional information: Patient is a 62-year-old female with metastatic terminal bone cancer currently on palliative care and with multiple other comorbidities presenting after ingestion of her chemotherapy and metformin tablets earlier today feeling as though these medications were initially stuck and otherwise irritated her esophagus. Patient reports that she took these medications as scheduled this morning and initially felt that they were stuck, but have subsequently moved or passed. Patient still feels irritation, but has to swallow significantly to feel the irritation. Patient denies other difficulty with swallowing her own saliva or fluid. Patient has tolerated fluids throughout the remainder of the day. Patient denies other chest discomfort or difficulty breathing. Patient is worried about taking other medications at this time. No other improving or worsening factors noted. Review of Systems Cardiac: denies: Chest pain / pressure Respiratory: denies: Dyspnea, Cough PD PAST MEDICAL HISTORY - Past Medical History Past Medical History: Yes Cardiovascular: Hypertension Respiratory: Sleep apnea, CPAP use Endocrine/Autoimmune: Type 2 diabetes GI: GERD, Cholelithiasis SQUAD BOSS: Breast cancer : Incontinence HEENT: None Psych: Depression, Anxiety Musculoskeletal: Osteoarthritis, Other Derm: None Other Past Medical History: bone cancer - Past Surgical History Past Surgical History: Yes General: Colonoscopy, Other /SQUAD BOSS: Endometrial ablation, Other - Present Medications Home Medications: Ambulatory Orders Medication Instructions Recorded Confirmed Calcium Carbonate [Calcium] 500 mg PO DAILY 04/04/15 02/08/19 Denosumab [Xgeva] 120 mg SUBQ Q28D 04/04/15 02/08/19 Biotin 5,000 mcg PO DAILY 10/16/15 02/08/19 clonazePAM [Clonazepam] 3 mg PO QPM 04/08/16 02/08/19 Glipizide [Glipizide ER] 10 mg PO BID 06/29/18 02/08/19 Ibuprofen [Motrin] 800 mg PO Q8HR PRN 11/30/18 02/08/19 Everolimus [Afinitor] 10 mg PO DAILY 12/14/18 02/08/19 Exemestane 25 mg PO DAILY 12/14/18 02/08/19 Hydrocodone/Acetaminophen 1 - 2 tab PO Q4HR PRN 12/14/18 02/08/19 [Hydrocodone-Acetamin 5-325 mg] Docusate Sodium 100 mg PO BID PRN 12/16/18 02/08/19 Lactulose 15 ml PO BID PRN MDD titrates 12/16/18 02/08/19 Loperamide [Imodium] 2 mg PO Q4HR PRN 01/11/19 02/08/19 Metformin HCl [Metformin ER 1,000 mg PO BID 01/11/19 02/08/19 Gastric] Nystatin 1 applic TOP BID PRN 01/19/19 02/08/19 Ondansetron [Zuplenz] 4 mg PO Q6HR PRN 01/19/19 02/08/19 fentaNYL 50 MCG PATCH [Duragesic 50 mcg TOP .Q3DAYS 02/01/19 02/08/19 50mcg patch] Triamcinolone 0.1% Cream [Kenalog 1 applic TD DAILY 02/08/19 02/08/19 0.1% Cream] - Allergies Allergies/Adverse Reactions: Allergies Allergy/AdvReac Type Severity Reaction Status Date / Time oxycodone HCl * Allergy Mild itch Verified 02/08/19 13:47 [From Percocet] - Social History Does the pt smoke?: No Smoking Status: Never smoker Does the pt drink ETOH?: Yes Does the pt have substance abuse?: No - Immunizations Immunizations are current?: Yes - POLST Patient has POLST: Yes POLST Status: DNR PD ED PE NORMAL - Vitals Vital signs reviewed: Yes - General General: Alert and oriented X 3, No acute distress, Well developed/nourished - HEENT HEENT: Atraumatic, Moist mucous membranes, Pharynx benign, Other (No evidence of lip or intraoral swelling, retained foreign body, food bolus, or other complication.) - Neck Neck: Supple, no meningeal sign - Cardiac Cardiac: RRR, No murmur - Respiratory Respiratory: No respiratory distress, Clear bilaterally - Abdomen Abdomen: Soft, Non tender, Non distended - Derm Derm: Normal color, Warm and dry, No rash - Extremities Extremities: No deformity, No tenderness to palpate - Neuro Neuro: Alert and oriented X 3, No motor deficit, No sensory deficit - Psych Psych: Normal mood, Normal affect Results - Vitals Vitals: Vital Signs - 24 hr 08/11/19 15:45 Temperature 36.6 C Heart Rate 78 Respiratory 16 Rate Blood Pressure 147/74 H O2 Saturation 98 Oxygen O2 Source Room air PD MEDICAL DECISION MAKING - ED course Complexity details: considered differential, d/w patient ED course: Patient presenting with likely esophageal irritationPatient reports symptoms have improved and do feel that pills have likely passed. Patient is tolerating her own secretions and swallowing from difficulty with swallowing pills earlier today. Liquids without issue. Patient has to repeatedly swallow with forced to feel the sensation that she complains of. Patient requesting liquid hydrocodone, which is provided to her in the ED. Patient also requested blood glucose check, which was done.At this time, do not feel patient requires invasive testing or imaging. Advised on diet hydration recommendations, alternatives to swallowing pills, return precautions, appropriate follow-up. Patient is otherwise now requesting discharge that she can go eat in the caf with her friend. Departure - Departure Disposition: 01 Home, Self Care Clinical Impression: Throat pain Condition: Good Follow-Up: Charo Lorenz MD [Primary Care Provider] - Within 3 Days Comments: Please continue home medications as previously instructed. If struggling with swallowing pills, recommend crushing them and mixing them with food or fluid. May continue on liquid or soft food diet and advance as tolerated. Please follow-up with primary care physician in next to 3 days and return to ED sooner if experience worsening symptoms or have other concerns.
[2019-03-06] MEDS ORDERED: HYDROcodone/ACETAM 7.5 MG/325 MG 15 ML UDC PO STA (17:05)
[2019-03-06 17:59] VITALS: BP 145/98
== END 2019-03-06 18:06 | disposition home or self-care (01) ==
LOC: ED 15:37
DX: R07.0 Pain in throat (principal); C50.919 Malignant neoplasm of unspecified site of unspecified female breast; C79.51 Secondary malignant neoplasm of bone; I10 Essential (primary) hypertension; E11.9 Type 2 diabetes mellitus without complications; Z79.84 Long term (current) use of oral hypoglycemic drugs
CPT/HCPCS: 99282; 99283; A9270

== ENCOUNTER 2019-03-10 15:44 | Outpatient (CLI) | payer MEDICARE, MEDICAID ==
--- NOTE | 2019-03-10 17:47 | CONSULTATION NOTE ---
Palliative Care Follow Up - Referral Referring Provider: Dr. Sharron Marte Time of Visit: 9960-1180 Referral setting: Home Referral Reason: Pain of neoplastic origin/Met Breast Ca to the bones/DM - Information Sources Records reviewed: Previous records reviewed History/Review of Systems obtained from: Patient Exam limitations: Clinical condition (patient with poor STM) - History of Present Illness Update Brief HPI Update: This is a complicated 63-year-old woman with multiple core morbidities including metastatic breast cancer involving mets to the bone. She is being treated by Afinitor and exemestane. She has previously failed earlier treatments, and has been on her new combination since 12/08/2018 with ongoing response. Her CA 27.29 has decreased to 277 from last months to be 41. She is quite pleased as she has disliking the side effects from the Afinitor. Patient does have a small lesion on her right lower lip of less than 5 mm, does appear to be healing from yesterday's report. She has had this less than a week, but is caused her significant amount of distress. She was prescribed both dexamethasone rinse as well as Magic mouthwash, on examination she only has a small area in her right bugle cheek, otherwise no other oral lesions. Challenges for her to include that in the rinse as it is external on her lips. Patient is also received radiation to her left hip and femur, unclear if this is provided her a significant amount of relief, as we have been titrating up her fentanyl. Functionally she has much improved, her complaints of pain have decreased, she continues to use the Vicodin 4-6 tabs a day, she perceives that those "work" versus the fentanyl, though she had her patch come off several times with a severe escalation in her pain. Patient is challenged with short- term memory issues, high anxiety, and difficulty with health letter silly understanding some of her medical issues. She often attributes her interprets information in the context of her own understanding, that is not always helpful. She also has MDS with pancytopenia, her counts continue to remain low, with a W BC of 1.2, hemoglobin 10.1, platelet count 82, neutrophil count at 0.7. She also has elevated bilirubin of 0.7, AST 70, ALT 73 and alkaline phosphatase 49. Elevated LFTs are a side effect of Afinitor, though given patient's ongoing use of Vicodin, will try and decrease her acetaminophen load. Patient pain is much improved on her left hip and leg, her pain in her lower lumbar area and right leg are identified is more problematic. She is more functional than she has been with her previous levels of pain in severity. Patient has been challenged with managing the fentanyl, I did observe her place both the patch and the Tegaderm to secure the patch without any difficulty today. Patient is mostly having diarrhea or loose stools, she is not needing lactulose more than 2 or 3 times a week, she perceives her opioids is seen a constipation, but more often than not she is needing the Imodium for her side effects of her Afinitor. Patient is continued to have weight loss, this is both attributed to some mild symptoms of anorexia, her anxiety and concern about managing her elevated blood sugars and diabetes, as well as noted side effect of Afinitor. Patient reports she has not had any further abdominal pain or discomfort from her chronic cholecystitis, she is not a surgical candidate because of her underlying comorbidities, her last hospitalization was in November 2018, for gallstone ileus where she also passed a gallstone. Patient's other traumatic event, was a visit to the ED as she had gotten her metformin caught in her throat. This has since resolved, she is no longer having any dysphagia. She does at baseline have difficulty swallowing pills, she is splitting her metformin and working carefully not to have a recurrent episode. Her last acute problem is her diabetes mellitus. She had felt quite overwhelmed by a series of unfortunate events with her appointment on Thursday. She was unable to engage her follow-up with a certified diabetes educator. She has changed the timing of her metformin and glipizide, the patient has no regular mealtime and odd hours that she is up, she is quite pleased her blood sugar was 140 this morning. It remains somewhat elevated as a side effect of her Afinitor, she has had weight loss, unfortunately her intake has dramatically dropped, but she is quite pleased with her weight loss which has been of benefit for her diabetes and for her decreased pain on her joints. Social History - Living Situation Living arrangement: At home Living Situation: Alone Support System: Patient continues to have very little social support, she has been using the palliative care volunteer who will be pulling back after the fall. With her in creased functional status she has been able to do more for herself, but has enjoyed increased support.She continues with multiple financial and social stressors. Medications/Allergies - Medications Home Medications: Ambulatory Orders Medication Instructions Recorded Confirmed Calcium Carbonate [Calcium] 500 mg PO DAILY 04/04/15 03/10/19 Denosumab [Xgeva] 120 mg SUBQ Q28D 04/04/15 03/10/19 Biotin 5,000 mcg PO DAILY 10/16/15 03/10/19 clonazePAM [Clonazepam] 3 mg PO QPM 04/08/16 03/10/19 Glipizide [Glipizide ER] 10 mg PO BID 06/29/18 03/10/19 Everolimus [Afinitor] 10 mg PO DAILY 12/14/18 03/10/19 Exemestane 25 mg PO DAILY 12/14/18 03/10/19 Docusate Sodium 100 mg PO BID PRN 12/16/18 03/10/19 Lactulose 15 ml PO BID PRN MDD titrates 12/16/18 03/10/19 Loperamide [Imodium] 2 mg PO Q4HR PRN 01/11/19 03/10/19 Metformin HCl [Metformin ER 1,000 mg PO BID 01/11/19 03/10/19 Gastric] Ondansetron [Zuplenz] 4 mg PO Q6HR PRN 01/19/19 03/10/19 Hydrocodone/Acetaminophen 1 - 2 each PO Q4HR PRN 03/08/19 03/10/19 [Hydrocodon-Acetaminophn 10-325] Dexamethasone [Decadron] 5 ml PO BID PRN 03/10/19 03/10/19 Magic Mouth Wash 15 ml PO QID PRN MDD 6 doses 03/10/19 fentaNYL [Fentanyl 62.5mcg patch] 62.5 mcg TOP .3DAYS 03/10/19 03/10/19 - Allergies Allergies/Adverse Reactions: Allergies Allergy/AdvReac Type Severity Reaction Status Date / Time oxycodone HCl * Allergy Mild itch Verified 03/08/19 12:20 [From Percocet] Review of Systems - Constitutional Constitutional: reports: Fatigue, Poor appetite, Weight loss (36 pounds total this year). denies: Fever, Chills - Eyes Eyes: reports: Vision loss - Ears, Nose & Throat Ears, Nose & Throat: reports: Other (has small painful lesion bottom right lip) - Cardiovascular Cardiovascular: reports: Decr. exercise tolerance. denies: Edema - Respiratory Respiratory: denies: SOB at rest - Gastrointestinal Gastrointestinal: reports: Diarrhea (intermittent; mostly loose occasional use of immodium; occasional use of lactulose), Poor appetite, Early satiety. denies: Abdominal pain, Nausea - Musculoskeletal Musculoskeletal: reports: Back pain, Stiffness, Muscle weakness - Integumentary Integumentary: reports: Dryness, Hair changes (thinning) - Neurological Neurological: reports: General weakness, Memory problems - Psychiatric Psychiatric: reports: Depression, Anxiety - Endocrine Endocrine: reports: Diabetes type 2 (patient with late hours; up late and sleeps in; changed metformin dosing to earlier (has not set meal times) reports blood sugar better today at 140) - Hematologic/Lymphatic Hematologic/Lymphatic: reports: Anemia - All Other Systems All Other Systems: reports: Reviewed and negative Physical Exam - Vital Signs Temperature: 96.4 C Pulse Rate: 72 Respiratory Rate: 18 O2 Saturation: 98 (ra @ rest) Blood Pressure: 122/64 - Physical Exam General Appearance: positive: Mild distress, Anxious Eyes Bilateral: positive: Normal inspection ENT: positive: No signs of dehydration, Other (small healing 0.3 cm ulcer left lower lip; no mouth lesions noted other than small area in left bucal) Neck: positive: No JVD, Trachea midline Cardiovascular: positive: Regular rate & rhythm Respiratory: positive: No respiratory distress, Breath sounds nml Abdomen: positive: Soft Skin: positive: Pallor, Dryness Extremities: positive: No pedal edema Neurologic/Psychiatric: positive: Oriented x3, Mood/affect nml, Flat affect Palliative Care - POLST Patient has POLST: Yes POLST Status: DNR, Selective Treatment Pain: Pain improved Tiredness/Fatigue: Moderate (4-6) Drowsiness/Sedation: Mild (1-3) Nausea: None Depression: Moderate (4-6) Anxiety: Severe (7-10) Dyspnea: None Anorexia: Moderate (4-6), Weight loss Sleep: Variable sleep pattern Constipation: Yes, Intermittent constipation Feelings of wellbeing/Perceived Quality of Life: Fair, Acceptable, Improved Performance Status: Patient's functional status has improved, she is ambulatory around her apartment, she has been able to go to the grocery store for short visits. She still remains limited as far as bathing secondary to her right shoulder issues. At this point in time her care needs are being met, but with any further decline will be continued to challenge without further social support or caregiving. - Palliative Care Discussion: Patient reports she is feeling much better today, she does acknowledge her anxiety with all the multiple issues and changes have the clinic set her over the edge. She does feel badly regarding her behavior, she was very anxious about seeing the PA versus oncologist. She continues to struggle with her "cancer story" and the sequela and side effects regarding her health. She does have very little social support, has been using palliative care pretty consistently to problem solve and manage her ongoing anxiety issues. Patient does have a POLST with DNR and selective treatment, patient's biggest fear is of suffering and uncontrolled pain, we have not been able to identify a D POA at this point. Will continue with patient to elicit goals, to care in the future. Results - Lab Results Lab results reviewed: Yes Impression and Recommendations - Palliative Care Impression: This is a complicated 63-year-old woman with metastatic breast cancer with multiple bone mets, continuous side effects of Afinitor, including diarrhea, elevated LFTs, mouth sores, exacerbation of DM, and weight loss/anorexia. Patient continues with pain of neoplastic origin, pain is better managed, but would like to decrease her Vicodin/acetaminophen load, and agreement to titrate fentanyl slowly. Palliative care to continue provide support for pain and symptom management, and anticipatory guidance. Recommendations/Counseling Done: 1. Pain of neoplastic origin. Patient has had much improvement in her pain management, her functional status is improved. She is still using Vicodin for breakthrough pain at 4 occasionally 6 tabs in 24 hours. She is moving easier, better able to sit in a chair. Patient does live alone, will go ahead and increase her fentanyl To 62.5 mcg. Counseling provided again regarding how long-acting pain medication works, use of short acting pain medications for breakthrough pain, and goal to decrease her Vicodin usage. Patient does have opioid intolerance, is done poorly on oxycodone in the past, as tolerated Vicodin. Patient has benefited from support of palliative care nurse visits to assist with training and management of her fentanyl patches, she feels comfortable at this point in time to manage independently. 2. Diarrhea. Patient continues to attribute this to her "opioids", reminded her this is a side effect of her Afinitor. She does have occasional intermittent constipation and will use lactulose with resulting increase in diarrhea. She is still using Imodium intermittently. Continues to be challenged and balancing her GI. 3. Diabetes mellitus. She has been working with the certified diabetes educator, she is implementing some of the basics, continues to be challenged with anything more complicated than this. Her blood sugar was down this morning she was quite pleased. She does have some anorexia, has been more diligent in trying to do meals versus grazing through the day, and has changed her sleep habits to be able to better manage her diabetic meds. Counseling provided to reiterate information that she is receiving from [facility]. We will continue to monitor. Patient hopeful in the future may not need to transition to insulin. 4. Anxiety. Patient gets quite anxious as she attributes a lot of her confusion to "chemo brain". Patient does have some short-term memory issues, she is writing things down, works very hard to manage and organize her care but does get easily overwhelmed with any kind of changes. Continuing to support her through the palliative care team including volunteer and social service agency director. 5. Metastatic breast cancer with bone mets. Patient is challenged by her underlying comorbidity of MDS. She did have a drop in her counts with radiation, she would be a candidate for radiation to her L2 lesion, at this point in time oncologist recommends continuing with current plan. Patient with better pain control and in agreement at this point. Patient continues with multiple questions regarding her treatment into the future, encouraged to write these down to follow-up with oncologist. 6. Advanced care planning. Patient does have a POLST in place with DNA R/selective treatment. She is in a better mood with her improved pain management and functional status. She does continue to struggle with quality of life issues as well as social support. Palliative care to continue provide ongoing support every 2 to 3 weeks. Time Spent: 50 minutes with greater than 50% of this done in counseling regarding pain and symptom management, anticipatory guidance, and coordination of care with oncology team.
== END 2019-03-10 15:45 | disposition home or self-care (01) ==
LOC: PC 15:44
PROVIDERS: ATTEND Nurse Practitioner Adult Health
DX: Z51.5 Encounter for palliative care (principal); G89.3 Neoplasm related pain (acute) (chronic); K13.0 Diseases of lips; R79.89 Other specified abnormal findings of blood chemistry; K52.1 Toxic gastroenteritis and colitis; T45.1X5D Adverse effect of antineoplastic and immunosuppressive drugs, subsequent encounter; E11.9 Type 2 diabetes mellitus without complications; F41.9 Anxiety disorder, unspecified; C79.51 Secondary malignant neoplasm of bone; C50.919 Malignant neoplasm of unspecified site of unspecified female breast; D46.9 Myelodysplastic syndrome, unspecified; R63.4 Abnormal weight loss; Z79.899 Other long term (current) drug therapy; Z79.891 Long term (current) use of opiate analgesic; Z79.84 Long term (current) use of oral hypoglycemic drugs; Z66 Do not resuscitate
CPT/HCPCS: 99349

== ENCOUNTER 2019-03-21 09:12 | Emergency (ER) | payer MEDICARE, MEDICAID ==
--- NOTE | 2019-03-21 09:29 | ED Physician Documentation ---
PD HPI FEMALE - Stated complaint Stated Complaint: - Chief complaint Chief Complaint: General - History obtained from History obtained from: Patient - History of Present Illness Timing - onset: How many days ago (2-3) Timing - duration: Days (2-3) Timing - details: Gradual onset, Still present Associated symptoms: Other (pain and tender lump perirectal area. No drainage. Saw PMD and referred to surgery. She called Surgery office and referred to ER.). No: Fever Similar symptoms before: Has not had sx before Review of Systems Constitutional: denies: Fever, Chills, Myalgias GI: denies: Nausea, Vomiting Skin: reports: Lesions (right perirectal area of tender lump with redness.) PD PAST MEDICAL HISTORY - Past Medical History Cardiovascular: Hypertension Respiratory: Sleep apnea, CPAP use Endocrine/Autoimmune: Type 2 diabetes GI: GERD, Cholelithiasis POWDER SHOVELER: Breast cancer : Incontinence HEENT: None Psych: Depression, Anxiety Musculoskeletal: Osteoarthritis, Other Derm: None - Past Surgical History Past Surgical History: Yes General: Colonoscopy, Other /POWDER SHOVELER: Endometrial ablation, Other - Present Medications Home Medications: Ambulatory Orders Medication Instructions Recorded Confirmed Calcium Carbonate [Calcium] 500 mg PO DAILY 04/04/15 03/22/19 Denosumab [Xgeva] 120 mg SUBQ Q28D 04/04/15 03/22/19 Biotin 5,000 mcg PO DAILY 10/16/15 03/22/19 clonazePAM [Clonazepam] 3 mg PO QPM 04/08/16 03/22/19 Glipizide [Glipizide ER] 10 mg PO BID 06/29/18 03/22/19 Everolimus [Afinitor] 10 mg PO DAILY 12/14/18 03/22/19 Exemestane 25 mg PO DAILY 12/14/18 03/22/19 Docusate Sodium 100 mg PO BID PRN 12/16/18 03/22/19 Lactulose 15 ml PO BID PRN MDD titrates 12/16/18 03/22/19 Loperamide [Imodium] 2 mg PO Q4HR PRN 01/11/19 03/22/19 Metformin HCl [Metformin ER 1,000 mg PO BID 01/11/19 03/22/19 Gastric] Ondansetron [Zuplenz] 4 mg PO Q6HR PRN 01/19/19 03/22/19 Hydrocodone/Acetaminophen 2 each PO Q4HR PRN MDD 8 tabs 03/08/19 03/22/19 [Hydrocodon-Acetaminophn 10-325] Dexamethasone [Decadron] 0.5 mg PO BID PRN 03/10/19 03/22/19 Magic Mouth Wash 15 ml PO QID PRN MDD 6 doses 03/10/19 03/22/19 fentaNYL [Fentanyl 62.5mcg patch] 62.5 mcg TOP .3DAYS 03/10/19 03/22/19 Sulfamethox/Trimeth 800/160 1 each PO BID #10 tablet MDD 5 days 03/21/19 03/22/19 [Bactrim Ds 800/160] Omeprazole 20 mg PO DAILY 03/22/19 - Allergies Allergies/Adverse Reactions: Allergies Allergy/AdvReac Type Severity Reaction Status Date / Time oxycodone HCl * Allergy Mild itch Verified 03/21/19 09:22 [From Percocet] - Social History Does the pt smoke?: No Smoking Status: Never smoker Does the pt drink ETOH?: Yes Does the pt have substance abuse?: No - Immunizations Immunizations are current?: Yes - POLST Patient has POLST: Yes POLST Status: DNR PD ED PE NORMAL - Vitals Vital signs reviewed: Yes - General General: Alert and oriented X 3, No acute distress, Well developed/nourished - Derm Derm: Normal color, Warm and dry, Other (right perirectal area soft tissue with localized area of tenderness and induration, about 2 cm size. Redness of skin. Almost pointing to main. ) Results - Vitals Vitals: Oxygen O2 Source Room air Procedures - Abscess I&D (location) right perirectal Preparation: Lidocaine 1%, With epi Incision: Incised with scalpel, Purulent drainage, Irrigated. No: Packed, Culture obtained Other: Pt tolerated well, Dressing applied, Antibiotic prescribed PD MEDICAL DECISION MAKING - ED course Complexity details: considered differential, d/w patient Departure - Departure Disposition: 01 Home, Self Care Clinical Impression: Perirectal abscess Condition: Stable Record reviewed to determine appropriate education?: Yes Instructions: ED Sari Anal Abscess IandD Follow-Up: Charo Lorenz MD [Primary Care Provider] - Renaldo Burt MD [Provider Admit Priv/Credential] - Prescriptions: Sulfamethox/Trimeth 800/160 [Bactrim Ds 800/160] 1 each PO BID #10 tablet MDD 5 days Comments: Cleanse the area with warm moist towel and have it on there for 5 or 10 minutes to promote good blood flow and help fight infection. Do this 3 times a day. Use a baby wipe or some type gentle cleanser in the area after bowel movements. Recheck if not feeling fully improved in the next several days. Consider even make an appointment with Dr. Burt's office for recheck in 2 or 3 days. Bactrim antibiotic twice daily for 5 days. Recheck if worsening over the next day or 2. Discharge Date/Time: 03/21/19 10:38
[2019-03-21] MEDS ORDERED: SULFAMETH/TRIMETH DS 800/160 MG TABLET PO STA (09:58)
[2019-03-21 10:40] VITALS: BP 135/62
== END 2019-03-21 10:38 | disposition home or self-care (01) ==
LOC: ED 09:12
DX: K61.1 Rectal abscess (principal); I10 Essential (primary) hypertension; E11.9 Type 2 diabetes mellitus without complications; Z79.84 Long term (current) use of oral hypoglycemic drugs
CPT/HCPCS: 46040; 99282; 99283; A9270

== ENCOUNTER 2019-03-22 13:00 | Outpatient (CLI) | payer MEDICARE, MEDICAID ==
--- NOTE | 2019-03-22 17:33 | CONSULTATION NOTE ---
Palliative Care Follow Up - Referral Referring Provider: Dr. Sharron Marte Time of Visit: [id number] Referral setting: Home Referral Reason: Pain of neoplastic origin/Anxiety disorder/Depression - Information Sources Records reviewed: Previous records reviewed History/Review of Systems obtained from: Patient Exam limitations: Clinical condition (patient easily overwhelmed/forgetful) - History of Present Illness Update Brief HPI Update: This is a complicated 63-year-old woman with multiple comorbidities including metastatic breast cancer, involving mets to the bone. She is currently being treated with Afinitor and exemestane. She is having a positive response with her CA 27 decreasing. She continues to struggle with anxiety, feeling overwhelmed, and now presents after an emergency room visit on 826 with a small rectal abscess which they I&D did and put her on a antibiotic. She remains quite focused and perseverating on getting an infection, she is doing good sarah- care, on examination the wound appears to be collapsing on itself and healing, no signs or symptoms of infection at this point in time. She does report the tenderness is improved. She is having some side effects with her Afinitor, with some oral lesions most of them are on her lips, which is making it complicated as they have given her dexamethasone mouth rinses as well as Magic mouthwash. She has no oral lesions, though does have what she calls "a geographic tongue", but no signs or symptoms of Melissa at this point. Patient continues to struggle with alternating diarrhea and constipation, often gets impatient, and takes her lactulose several doses in a row. She then follows up with Imodium. Currently she is having some loose stools and mild abdominal cramping. Patient remains quite perseverative on her blood sugars as well, which are running much better, her daytime fasting blood sugars have been between 113 and 124 and her evenings between 123 and 154. She reports intermittent abdominal pain, that does worsen with eating or with alcohol. She has intermittent nausea but no vomiting. She gets quite anxious about what to eat, that often does not eat at all or not adequate calorie intake. Does appear she is taking adequate fluids, and she does appear hydrated today. Patient has underlying pain, we did increase her fentanyl patch to 62 with some improvement. She still using Vicodin for breakthrough, but usually no more than 6 in 24 hours. Her pain worsens with prolonged standing, but she is able to sit more comfortably in her chair, she is walking with more of a steady gait, and she does appear much more functional than previously when impacted by the pain. Given her recent encounter with the ED, increasing symptoms from her Afinitor, and her focus on her blood sugar she has felt quite overwhelmed and isolated. She does have very poor social support. Social History - Living Situation Living arrangement: At home Living Situation: Alone Support System: Patient is estranged from her family, she has acquaintances she does for help intermittently from, she has had some support from the palliative care volunteer. She perceives herself is quite alone, with very little resources. She has been encouraged to follow-up on [place] PES, but remains quite resistant due to past experiences. She is wanting to reach out to her Sister Nurys, but remains somewhat ambivalent about this, they have not been in touch for 4 years. Medications/Allergies - Medications Home Medications: Ambulatory Orders Medication Instructions Recorded Confirmed Calcium Carbonate [Calcium] 500 mg PO DAILY 04/04/15 03/22/19 Denosumab [Xgeva] 120 mg SUBQ Q28D 04/04/15 03/22/19 Biotin 5,000 mcg PO DAILY 10/16/15 03/22/19 clonazePAM [Clonazepam] 3 mg PO QPM 04/08/16 03/22/19 Glipizide [Glipizide ER] 10 mg PO BID 06/29/18 03/22/19 Everolimus [Afinitor] 10 mg PO DAILY 12/14/18 03/22/19 Exemestane 25 mg PO DAILY 12/14/18 03/22/19 Docusate Sodium 100 mg PO BID PRN 12/16/18 03/22/19 Lactulose 15 ml PO BID PRN MDD titrates 12/16/18 03/22/19 Loperamide [Imodium] 2 mg PO Q4HR PRN 01/11/19 03/22/19 Metformin HCl [Metformin ER 1,000 mg PO BID 01/11/19 03/22/19 Gastric] Ondansetron [Zuplenz] 4 mg PO Q6HR PRN 01/19/19 03/22/19 Hydrocodone/Acetaminophen 2 each PO Q4HR PRN MDD 8 tabs 03/08/19 03/22/19 [Hydrocodon-Acetaminophn 10-325] Dexamethasone [Decadron] 0.5 mg PO BID PRN 03/10/19 03/22/19 Magic Mouth Wash 15 ml PO QID PRN MDD 6 doses 03/10/19 03/22/19 fentaNYL [Fentanyl 62.5mcg patch] 62.5 mcg TOP .3DAYS 03/10/19 03/22/19 Sulfamethox/Trimeth 800/160 1 each PO BID #10 tablet MDD 5 days 03/21/19 03/22/19 [Bactrim Ds 800/160] Omeprazole 20 mg PO DAILY 03/22/19 03/24/19 - Allergies Allergies/Adverse Reactions: Allergies Allergy/AdvReac Type Severity Reaction Status Date / Time oxycodone HCl * Allergy Mild itch Verified 03/21/19 09:22 [From Percocet] Review of Systems - Constitutional Constitutional: reports: Fatigue (improved), Poor appetite. denies: Fever, Chills - Eyes Eyes: reports: Vision loss - Ears, Nose & Throat Ears, Nose & Throat: reports: Other (lips sores) - Cardiovascular Cardiovascular: reports: Decr. exercise tolerance - Respiratory Respiratory: denies: SOB at rest - Gastrointestinal Gastrointestinal: reports: Abdominal pain (worsening with eating), Diarrhea (had constipation/now with diarrhea difficulty regulating and impatient with medications), Nausea, Poor appetite, Early satiety - Musculoskeletal Musculoskeletal: reports: Back pain, Stiffness, Muscle weakness - Integumentary Integumentary: reports: Dryness, Nail changes, Hair changes (thinning), Other (skin lesion to abdomen) - Neurological Neurological: reports: Memory problems - Psychiatric Psychiatric: reports: Depression, Anxiety - Endocrine Endocrine: reports: Diabetes type 2 (improved control) - Hematologic/Lymphatic Hematologic/Lymphatic: reports: Anemia, Recurrent infections (on ab for abcess in perirectal area for 5 days) - All Other Systems All Other Systems: reports: Reviewed and negative Physical Exam - Vital Signs Temperature: 96.1 C Pulse Rate: 71 Respiratory Rate: 18 O2 Saturation: 96 (ra @ rest) Blood Pressure: 122/72 - Physical Exam General Appearance: positive: Moderate distress, Anxious Eyes Bilateral: positive: Normal inspection ENT: positive: No signs of dehydration, Other (irregular). negative: Pharyngeal erythema Neck: positive: Trachea midline Cardiovascular: positive: Irregularly irregular Respiratory: positive: No respiratory distress, Breath sounds nml Abdomen: positive: Non-tender, Soft, Nml bowel sounds Skin: positive: Wound (small area left abdomen; some moist open area less than 0.5 cm/ using nystatin is in fold but not sure is yeast related;), Other (small slit left of rectum appears closed swelling or redness/ no s/s of infection) Extremities: positive: No pedal edema. negative: Full ROM (limited ROM of arms) Neurologic/Psychiatric: positive: Oriented x3, Depressed mood/affect (tearful and severe anxiety through visit today), Flat affect Palliative Care - POLST Patient has POLST: Yes POLST Status: DNR, Selective Treatment Pain: Pain improved, Location (hip resolving; continues with pain in lower back area; worsens with standing; does use Vicodin at night both for sleep/discomfort and 1-2 x during day total about 6 tabs) Tiredness/Fatigue: Moderate (4-6) Drowsiness/Sedation: Mild (1-3) Nausea: Mild (1-3) Depression: Severe (7-10) Anxiety: Severe (7-10) Dyspnea: Mild (1-3) Anorexia: Moderate (4-6), Weight loss Sleep: Variable sleep pattern Constipation: Intermittent constipation Feelings of wellbeing/Perceived Quality of Life: Poor, Worsening Performance Status: He continues with limitations regarding bathing, she cannot lift her hands overhead, and does need assistance with showering for her hair. She has been going to the local hair salon weekly. She can do some meal prep, but difficulty standing for long periods of time. She is quite frustrated as she cannot do many household tasks, but she has been more ambulatory and has started to drive again short distances. - Palliative Care Discussion: Patient perceives herself as having a very significantly bad week, she gets anxious because she feels like "her brain is gone". She feels like her whole day has wrapped around with the care with her warm compresses, her medications, her blood sugars and managing her medications. She she tries to write down everything, but can get quite anxious and easily panicky. Counseling provided regarding management of her anxiety and depression, she is not interested in pharmacologic support. She has multiple complaints about any providers or support for psychosocial support. Counseling provided to encourage her to break things down to small tasks, positive reinforcement for which she is been doing, as well as trying to put many of the things she is catastrophize and into context and help her better understand. She does like information, but also is overwhelmed with it, is often a balance when working with how best to support her Results - Lab Results Lab results reviewed: Yes Impression and Recommendations - Palliative Care Impression: This is a complicated 63-year-old woman with metastatic breast cancer with multiple bone mets, side effects of Afinitor, weight loss/anorexia, severe anxiety and depression. Her pain is better controlled with increasing her fentanyl. She now presents with a recent anal abscess with I&D in the emergency room, does appear to be healing and on current antibiotics. Palliative care continue to provide support and focus on management of quality of life and symptom issues. Recommendations/Counseling Done: 1. Pain of neoplastic origin. Patient has had improvement in her pain management with the fentanyl at 62.5 mcg. She has been counseled to continue to decrease her Vicodin usage, is independent with the management of her patches currently. Did observe patient doing independently, though remains quite challenged with the removal of the plastic on the patch. 2. Anal abscess. Patient currently on antibiotics, on examination it does appear to be healing without any signs or symptoms of infection. Patient is doing proper warm packs, and cleansing. She remains quite anxious, will be seeing Dr. Burt for follow-up. 3. Diarrhea. This remains somewhat challenging for patient control, she intermittently takes lactulose followed with Imodium, for the most part she is been having regular stools, occasionally loose. Counseling provided not to get inpatient, when she takes the lactulose, give several hours for it to be effective. Encouraged to continue to take her LIZETTE twice a day as this has been adequate up to this point with the Afinitor. 4. Diabetes mellitus. She has been working with the clinical informatics educator, feels quite overwhelmed and often does not eat as a way to control her blood sugars. She continues to have weight loss, she has been instructed that this is not appropriate or healthy, and higher blood sugars are still within the realm better than starvation. She is using some protein shakes, and using soups. Encouraged to increase her intake on both of these. 5. Abdominal pain. Instructed on dietary restrictions regarding no alcohol at this point in time. We will go ahead and try some omeprazole daily as this does happen after eating, she does have kind of vague low-grade nausea, but no vomiting. Instructed at time of visit to take an ondansetron. This may also be related to her alternating diarrhea and constipation patterns. 6. Anxiety. Patient continues to get easily overwhelmed, having short-term memory issues, she is trying to cope by tracking and writing things down, but felt quite overwhelmed with all the happenings this week. Continuing to support her through palliative care team including volunteer and pediatric social worker. 7. Metastatic breast cancer with bones. Patient continues to be challenged by her underlying comorbidity of MDS. Patient continues with multiple questions regarding her treatment into the future, encouraged to write these down and her follow-up with oncologist. She remains quite worried and focus on her counts as well and pancytopenia. 8. Advanced care planning. Patient does have a POLST in place with DNA R/selective treatment. She fluctuates as far as her goals of care, and continues to struggle with her quality of life as well as social support. Counseling provided regarding reaching out to her sister, she really does need a D POA and this would be the logical resource. She has asked the [employer] to reach out, but remains quite hesitant in case this is rejected. We will continue to provide support and explore her ongoing underlying issues around anxiety and grief and loss. Time Spent: 60 minutes with greater than 50% of this done in counseling regarding patient's ongoing health issues, pain and symptom management, anxiety and depression and anticipatory guidance
== END 2019-03-22 13:01 | disposition home or self-care (01) ==
LOC: PC 13:00
PROVIDERS: ATTEND Nurse Practitioner Adult Health
DX: Z51.5 Encounter for palliative care (principal); G89.3 Neoplasm related pain (acute) (chronic); K61.1 Rectal abscess; K52.1 Toxic gastroenteritis and colitis; K13.0 Diseases of lips; T45.1X5D Adverse effect of antineoplastic and immunosuppressive drugs, subsequent encounter; E11.9 Type 2 diabetes mellitus without complications; R63.4 Abnormal weight loss; F41.9 Anxiety disorder, unspecified; C79.51 Secondary malignant neoplasm of bone; C50.919 Malignant neoplasm of unspecified site of unspecified female breast; Z79.891 Long term (current) use of opiate analgesic; Z79.899 Other long term (current) drug therapy; Z79.84 Long term (current) use of oral hypoglycemic drugs; Z66 Do not resuscitate
CPT/HCPCS: 99350

== ENCOUNTER 2019-03-30 06:32 | Outpatient (CLI) | payer MEDICARE, MEDICAID ==
[2019-03-30 07:16] LABS: CREATININE,URINE 182.4 mg/dL; MICROALBUM/CREATININE RATIO,UR 41.7 ug/mg (<30.0); MICROALBUMIN,URINE 7.6 mg/dL (0-300.0)
[2019-03-30 07:16] LABS: CHOL/HDL RATIO 3.8 (<4.4); CHOLESTEROL 206 mg/dL; HDL CHOLESTEROL 54 mg/dL; LDL CHOLESTEROL,CALCULATED 111 mg/dL; LDL/HDL RATIO 2.1 (<4.4); VLDL CHOLESTEROL 41 mg/dL
[2019-03-30 09:26] LABS: HB2 TOTAL 10.7 g/dL; HEMOGLOBIN A1C 0.57 g/dL
== END 2019-03-30 06:33 | disposition home or self-care (01) ==
LOC: LAB 06:32
PROVIDERS: ATTEND Internal Medicine
DX: E11.9 Type 2 diabetes mellitus without complications (principal); Z13.6 Encounter for screening for cardiovascular disorders; Z79.899 Other long term (current) drug therapy; R20.0 Anesthesia of skin
CPT/HCPCS: 36415; 80061; 82043; 82570; 82607; 83036; 83721; 84443

== ENCOUNTER 2019-04-12 13:00 | Outpatient (CLI) | payer MEDICARE, MEDICAID ==
--- NOTE | 2019-04-12 17:58 | CONSULTATION NOTE ---
Palliative Care Follow Up - Referral Referring Provider: Dr. Sharron Marte Time of Visit: 9150-0133 Referral setting: Home Referral Reason: Pain of neoplastic origin/PAOLA/Depression/Met Breast CA to bones - Information Sources Records reviewed: Previous records reviewed History/Review of Systems obtained from: Patient Exam limitations: Clinical condition (patient with high anxiety; poor short term memory) - History of Present Illness Update Brief HPI Update: This is a complicated 63-year-old woman with multiple comorbidities including metastatic breast cancer involving mets to the bone. She is currently being treated with Afinitor and exemestane. Unfortunately, her marker CA-27 has increased again to 366. She continues to have severe anxiety, feeling overwhelmed, and it does not take much for her to escalate as more issues have continued to accumulate. She recently at her oncology appointment, came in quite confused difficulty tracking and was concern for overmedication. Patient has severe anxiety prior to her appointments, as she is worried about her blood counts, and reports afterward when trying to discern what it happened, she took zolpidem and at 3 in the morning, and as well as a Vicodin right prior to her arrival. Unclear if she may have taken some of her Klonopin as well. Patient has very poor coping, has no social support, and is presenting with increasing anxiety and deteriorating somewhat mentally. Patient has in the distant past reported "nervous breakdown", and has been followed by [facility], though not currently. Will see if she will see Palliative Care Hybrid Tester again. At today's visit, she does not seem confused, she has her usual difficulty with tracking and is writing things down. She has an old friend who is reached out, and this is caused her some distress as he wants to come visit. Is very perseverative about her bowels, and despite multiple instructions about limiting her lactulose and her use of Imodium, she continues to use it quite frequently pitting one against the other. She does have increasing abdominal pain, she is not eating well, she is fearful of her blood sugars and worries about her impact of them with her eating. She did go to the dentist, he did do panoramic x-rays, patient has been rushing and flossing at least 5 times a day, this was what he felt had increased her pain and discomfort in her jaw. He did not see any symptoms per her report of any osteonecrosis. Patient also grinds her teeth, with her increased anxiety, and has resumed using her belt tender. Patient's pain she is currently on fentanyl 62 mcg, she is able to get in and out of the chair, she is able to ambulate much easier. She is still complaining of right hip pain, but previously had not been able to sit at all or get comfortable in her chair. She is resting, her sleep is more impacted by anxiety than pain. Her new pain is this abdominal pain and discomfort with cramping, made worse by eating. She gets very anxious about eating around her blood sugars, worried she is not getting enough food, worried about what kind of food she needs to eat. Does feel the Prilosec and intermittent use of the ondansetron has helped. On examination her abdomen is soft, bowel sounds are normal, no masses appreciated, some mild tenderness in her right upper quadrant. She has not had any vomiting, she reports she is pushing fluids and urinating on a regular basis. Her other big worry, is she felt another small lump/cyst in her perirectal area. On examination it is flat, not red, no head to it, does not appear to be an abscess. She did on the other side have a small abscess they had drained, healed without any problems. But because of her worry about it, she been to the surgeon several times, as well as the ED. In her last unfortunate series of events, she did burn her left fifth pinky, it does have a dark small area of less than half centimeters of eschar, she is using Silvadene, is slightly red, she is frequently cleaning it and treating it, her PCP has her using silvadene twice a day. The swelling has improved, it is tender but able to move it. Social History - Living Situation Living arrangement: At home Living Situation: Alone Support System: Patient lives by herself in apartment at [facility]. She has a few people she pays to help her with errands that time, otherwise has alienated her feel alienated by rest of the residents. She is estranged from her family, including [place] She is stressed financially, and feels very much alone and distressed with the world. Medications/Allergies - Medications Home Medications: Ambulatory Orders Medication Instructions Recorded Confirmed Denosumab [Xgeva] 120 mg SUBQ Q28D MDD hold 04/04/15 04/13/19 clonazePAM [Clonazepam] 3 mg PO QPM 04/08/16 04/13/19 Everolimus [Afinitor] 10 mg PO DAILY 12/14/18 04/13/19 Exemestane 25 mg PO DAILY 12/14/18 04/13/19 Docusate Sodium 100 mg PO BID PRN 12/16/18 04/13/19 Lactulose 15 ml PO BID PRN MDD titrates 12/16/18 04/13/19 Loperamide [Imodium] 2 mg PO Q4HR PRN 01/11/19 04/13/19 Metformin HCl [Metformin ER 1,000 mg PO BID 01/11/19 04/13/19 Gastric] Ondansetron [Zuplenz] 4 mg PO Q6HR PRN 01/19/19 04/13/19 Hydrocodone/Acetaminophen 2 each PO Q4HR PRN MDD 8 tabs 03/08/19 04/13/19 [Hydrocodon-Acetaminophn 10-325] Dexamethasone [Decadron] 0.5 mg PO BID PRN 03/10/19 04/13/19 Magic Mouth Wash 15 ml PO QID PRN MDD 6 doses 03/10/19 04/13/19 fentaNYL [Fentanyl 62.5mcg patch] 62.5 mcg TOP .3DAYS 03/10/19 04/13/19 Omeprazole 20 mg PO DAILY 03/22/19 04/13/19 Zolpidem [Ambien] 5 mg PO DAILY 04/05/19 04/13/19 - Allergies Allergies/Adverse Reactions: Allergies Allergy/AdvReac Type Severity Reaction Status Date / Time oxycodone HCl * Allergy Mild itch Verified 04/05/19 13:25 [From Percet] Review of Systems - Constitutional Constitutional: reports: Fatigue, Weakness, Poor appetite, Weight loss (reports 5 pounds this last month). denies: Fever, Chills - Eyes Eyes: reports: Vision loss - Ears, Nose & Throat Ears, Nose & Throat: reports: Mouth lesions, Dry mouth - Cardiovascular Cardiovascular: reports: Decr. exercise tolerance. denies: Chest pain - Respiratory Respiratory: reports: SOB with exertion. denies: SOB at rest - Gastrointestinal Gastrointestinal: reports: Abdominal pain (had improved with omeprazole), Nausea, Reflux/heartburn, Bloating, Poor appetite, Early satiety. denies: Constipation - Musculoskeletal Musculoskeletal: reports: Muscle pain, Back pain, Muscle aches, Stiffness, Limited range of motion (right shoulder), Muscle weakness, Joint pain (bilateral knee pain) - Integumentary Integumentary: reports: Dryness, Other (burn on left fifith finger; improving) - Neurological Neurological: reports: General weakness, Memory problems, Abnormal gait - Psychiatric Psychiatric: reports: Depression, Anxiety - Endocrine Endocrine: reports: Diabetes type 2 - Hematologic/Lymphatic Hematologic/Lymphatic: reports: Anemia - All Other Systems All Other Systems: reports: Reviewed and negative Physical Exam - Vital Signs Temperature: 97.2 C Pulse Rate: 75 Respiratory Rate: 18 O2 Saturation: 97 (ra @ rest) Blood Pressure: 128/72 - Physical Exam General Appearance: positive: Moderate distress, Anxious Eyes Bilateral: positive: Normal inspection ENT: positive: Other (lips with some dry spots/lesions resolved; point of tongue with raw area). negative: Oral lesions Neck: positive: No JVD, Trachea midline Cardiovascular: positive: Regular rate & rhythm Respiratory: positive: No respiratory distress, Breath sounds nml Abdomen: positive: Soft, Nml bowel sounds, Tenderness (RUQ) Skin: positive: Pallor, Dryness, Other (hair is thinning) Extremities: positive: No pedal edema Neurologic/Psychiatric: positive: Oriented x3, Depressed mood/affect, Flat affect Palliative Care - POLST Patient has POLST: Yes POLST Status: DNR, Selective Treatment Pain: Pain improved, Location (see hpi) Tiredness/Fatigue: Moderate (4-6) Drowsiness/Sedation: Mild (1-3) Nausea: Moderate (4-6) Depression: Severe (7-10) Anxiety: Severe (7-10) Dyspnea: None Anorexia: Severe (7-10), Weight loss Sleep: Variable sleep pattern Constipation: Yes, Opoid induced, Intermittent constipation (Patient was prescribed lactulose because she could not get senna/DOS without prescription. She is under a lot of financial stressors, and wanted something her insurance covered. She has been using 5-10 mils 1-2 times a day but fixates on her constipation, if no bowel movement she overdoes it, if she has loose stools she takes Imodium. She has been instructed and with many times written instructions about how best to manage this. But continues to have ongoing difficulties.) Feelings of wellbeing/Perceived Quality of Life: Poor, Worsening Performance Status: Patient continues with poor activity tolerance, and limited ability to do things secondary to her pain. She is able to manage in her apartment, but is unable to wash her hair secondary to her right shoulder and left shoulder range of motion. She has been able to manage to get the store more frequently, but has a lot of concerns regarding her anxiety and going for longer periods of time. I would put her at a PPS of 70% - Palliative Care Discussion: Patient expressing just that there is "too much" to manage currently, with her oral care, tracking her medications, tracking her blood sugars, managing her bowels and all her significant anxieties regarding her different health problems. She continues to be quite distressed that she has no one to depend on, no one to help her, and feels quite alone in this journey. She worries very much about her cancer getting worse, that she is going to get sepsis because of her blood counts, and feels like her quality of life continues to deteriorate. She continues to struggle with problem solving, and feels very much alone. She denies suicidality, but does wonder how much longer she can manage if it gets much more complex. Results - Lab Results Lab results reviewed: Yes Impression and Recommendations - Palliative Care Impression: This is a complex 63-year-old woman with metastatic breast cancer with multiple bone mets, ongoing side effects related to her Afinitor, ongoing weight loss/anorexia, severe anxiety and depression. She has presented with increased abdominal pain, though continues to struggle with alternating diarrhea/constipation with an appropriate use of medication. Her pain is currently better controlled, but she does appear to be doing more poorly with her mental health issues. Palliative care continue to provide support and focus on quality of life and symptom issues, offering support as able. Recommendations/Counseling Done: 1. Pain of neoplastic origin. Patient has good pain management on her fentanyl 62.5 mcg. She is using only 1-2 Vicodin in 24 hours. She is currently independent in the management of her patches. She is much more functional than previously, but is having increasing right hip and leg pain. 2. Anal abscess. This is since resolved, this appears well-healed. Now patient is perseverating on a new small lesion on the right, it is flat, not red, not tender but she is watching it. She is quite anxious that she may have another abscess, and at risk for sepsis. Tried to reassure her, at this point in time looks fairly benign. 3. Constipation alternating with diarrhea. Again she intimately takes lactulose followed with Imodium, she continues to struggle with her anxiety regarding her bowels and constipation. Patient has been advised to minimize lactulose use, and Imodium only if she is having more than 3 or 4 regular's loose stools a day. 4. Diabetes mellitus. 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 She is continuing currently on metformin, has not needed the glipizide. She is using some protein shakes and mostly soup. She is continue to lose weight. 5. Abdominal pain. Patient is using omeprazole and some intermittent ondansetron with some improvement, but exacerbates it with her alternating constipation and diarrhea and use of lactulose. Patient has had in the past significant issues with chronic cholecystitis, she was unable to have surgery, unclear given her presentation if this may be causing some of the underlying discomfort. She was originally seen in [place] for this, cannot perceive of a way to follow up related to transportation issues. Will monitor for now, but may need to follow up with surgeon. 6. Anxiety, uncontrolled. Patient does appear to be escalating, she is not willing to consider treatment with antidepressant, she uses Klonopin 3 mg, He has been on this since she was seen at [facility]. Patient uses it to relax, she reports it does help her stomach relax as well and she feels better and able to sleep. Given her escalation and concern regarding her deteriorating mental health status, and anxiety will see if she will allow the medical palliative care social contact worker to meet with her again. She often rejects and puts up lots of barriers for any kind of suggestions are support that might be available to her. Also presents with increasing cognitive issues, she has compensated in the past by writing things down, but as she gets overwhelmed becomes more difficult for her. She certainly could have some other underlying etiology, though to consider follow-up with a brain MRI/her CT scan would most likely cause her severe distress as far as anxiety. We will continue to monitor, but may need to rule this out. 7. Metastatic breast cancer to the bones. Patient continues to be challenged by her underlying comorbidity of MDS. Most likely would benefit from follow-up radiation on the right, she did get some relief on the left. She remains at high risk though related to her pancytopenia for ongoing sequela of infection. Her CA 27 has increased, patient is having more side effects from the Afinitor, may need to weigh benefits and burdens of her current treatment regimen moving forward. 8. Advanced care planning. Patient does have POLST in place, with DNA R/selective treatment. She continues to fluctuate as far as her goals of care, she continues to struggle with her current quality of life as well as her lack of social support. She does not have a D POA, though does have a [place]. Patient is very fearful of end of life, and would want to explore DWD, this though is more focused as an option because she doesn't have anyone to care for her or about her in her mind. Time Spent: 75 minutes with greater than 50% of this done in counseling regarding ongoing patient's health issues, severe anxiety and depression, pain and symptom management, and anticipatory guidance.
== END 2019-04-12 13:01 | disposition home or self-care (01) ==
LOC: PC 13:00
PROVIDERS: ATTEND Nurse Practitioner Adult Health
DX: Z51.5 Encounter for palliative care (principal); G89.3 Neoplasm related pain (acute) (chronic); C50.911 Malignant neoplasm of unspecified site of right female breast; F41.1 Generalized anxiety disorder; F32.9 Major depressive disorder, single episode, unspecified; C79.51 Secondary malignant neoplasm of bone; Z79.811 Long term (current) use of aromatase inhibitors; Z79.899 Other long term (current) drug therapy; R41.3 Other amnesia; Z79.891 Long term (current) use of opiate analgesic; R22.2 Localized swelling, mass and lump, trunk; R10.9 Unspecified abdominal pain; R10.811 Right upper quadrant abdominal tenderness; T23.022D Burn of unspecified degree of single left finger (nail) except thumb, subsequent encounter; E11.9 Type 2 diabetes mellitus without complications; Z79.84 Long term (current) use of oral hypoglycemic drugs; Z66 Do not resuscitate; Z63.79 Other stressful life events affecting family and household; K59.03 Drug induced constipation; T40.2X5D Adverse effect of other opioids, subsequent encounter; Z60.2 Problems related to living alone; R63.0 Anorexia; D61.810 Antineoplastic chemotherapy induced pancytopenia; T45.1X5A Adverse effect of antineoplastic and immunosuppressive drugs, initial encounter; Y92.039 Unspecified place in apartment as the place of occurrence of the external cause; Z91.14 Patient's other noncompliance with medication regimen; R41.89 Other symptoms and signs involving cognitive functions and awareness
CPT/HCPCS: 99350

== ENCOUNTER 2019-04-19 13:00 | Outpatient (CLI) | payer MEDICARE, MEDICAID ==
--- NOTE | 2019-04-19 17:44 | CONSULTATION NOTE ---
Palliative Care Follow Up - Referral Referring Provider: Dr. Sharron Marte Time of Visit: 7426-1050 Referral setting: Home Referral Reason: Pain of neoplastic origin/anxiety/Breast Ca with bone mets - Information Sources Records reviewed: Previous records reviewed History/Review of Systems obtained from: Patient Exam limitations: Clinical condition (patient with high anxiety; often needs information repeated) - History of Present Illness Update Brief HPI Update: This is a complicated 63-year-old woman with multiple comorbidities including metastatic breast cancer involving mets to the bone, MDS with resulting pancytopenia diabetes type 2 most likely attributed/exacerbated as side effect of Afinitor, hypertension, severe anxiety disorder, depression, and chronic cholecystitis. Patient has poor social support, history of severe anxiety and depression, and difficult coping with her multiple follow-up of her health issues. Most recently she burned her pinky finger of her hand sewer shoes, it does appear to be healing without s/s of infection, but is worried she is going to "get sepsis". She did have a small skin abscess near her rectum, this was drained and is healed nicely, she has a small bump in similar area on the right has not increased in size, is not red nor tender but is causing her a lot of distress as far as anxiety. She has had significant weight loss, this is multifactorial in the context that she was afraid to eat because of her blood sugars, she has fluctuating pain with food intake, and no appetite. She had started some omeprazole, intermittent ondansetron, but continues with early satiety and distress with eating. She is having concerns for side effects from her Afinitor, including her exacerbation and/or initiation diabetes, she has had intermittent stomatitis, it also lists fatigue and abdominal pain and weight loss. She is having brittle tender nails, this is on the list of side effects as well which is of concern to her, and some hair loss. And she has been having intermittent diarrhea, though this is unclear if this is because of her alternating use of lactulose and Imodium. Her anxiety is exacerbated as well as her tumor marker has gone up from last month to 366 she is quite fearful she is going to have to start some "IV chemotherapy". And starts to cry as she feels overwhelmed just managing where she is right now. Patient's bone met pain, is currently controlled on on 62.5 mcg patch, she is changing it on a regular basis, she has not needed any Vicodin for several days now and she is trying to avoid it both for managing her constipation as well as her stomach pain. She has not noticed an increase in her pain or discomfort in her bones. She does have increased pain when she is more active on her right side, her baseline pain and discomfort is mostly in her left groin and lower back area, but she is more ambulatory, is able to move easier and managing in her recliner currently. Social History - Living Situation Living arrangement: At home Living Situation: Alone Support System: Patient lives by herself in apartment at [facility]. She does have a few people she can call to do [place], though she does need to pay for this. She is estranged from her family, she feels very much alone, she is stressed financially and easily decompensates when feeling overwhelmed. Medications/Allergies - Medications Home Medications: Ambulatory Orders Medication Instructions Recorded Confirmed Denosumab [Xgeva] 120 mg SUBQ Q28D MDD hold 04/04/15 04/19/19 clonazePAM [Clonazepam] 3 mg PO QPM 04/08/16 04/19/19 Everolimus [Afinitor] 10 mg PO DAILY 12/14/18 04/19/19 Exemestane 25 mg PO DAILY 12/14/18 04/19/19 Docusate Sodium 100 mg PO BID PRN 12/16/18 04/19/19 Lactulose 5 - 10 ml PO BID PRN MDD titrates 12/16/18 04/19/19 Loperamide [Imodium] 2 mg PO Q4HR PRN 01/11/19 04/19/19 Metformin HCl [Metformin ER 1,000 mg PO BID 01/11/19 04/19/19 Gastric] Ondansetron [Zuplenz] 4 mg PO Q6HR PRN 01/19/19 04/19/19 Hydrocodone/Acetaminophen 1 - 2 each PO Q4HR PRN MDD 8 tabs 03/08/19 04/19/19 [Hydrocodon-Acetaminophn 10-325] Dexamethasone [Decadron] 0.5 mg PO BID PRN 03/10/19 04/19/19 Magic Mouth Wash 15 ml PO QID PRN MDD 6 doses 03/10/19 04/19/19 fentaNYL [Fentanyl 62.5mcg patch] 62.5 mcg TOP .3DAYS 03/10/19 04/19/19 Omeprazole 20 mg PO DAILY 03/22/19 04/19/19 Zolpidem [Ambien] 5 mg PO DAILY 04/05/19 04/19/19 - Allergies Allergies/Adverse Reactions: Allergies Allergy/AdvReac Type Severity Reaction Status Date / Time oxycodone HCl * Allergy Mild itch Verified 04/05/19 13:25 [From Percocet] Review of Systems - Constitutional Constitutional: reports: Fatigue, Poor appetite, Night sweats, Weight loss. denies: Fever, Chills - Eyes Eyes: reports: Vision loss - Ears, Nose & Throat Ears, Nose & Throat: reports: Mouth lesions (resolved), Dental decay (has crown that might need replacing; saw dentist With panoramic x-ray was taken, no pathology found. 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 She is due to get a new guard entrance registrar, and is hoping to be able to get her teeth cleaned, dentist is requesting information regarding patient's immune status is what sounds like.) - Cardiovascular Cardiovascular: reports: Decr. exercise tolerance - Respiratory Respiratory: denies: SOB at rest - Gastrointestinal Gastrointestinal: reports: Abdominal pain, Diarrhea, Poor appetite, Early sa tiety - Musculoskeletal Musculoskeletal: reports: Limited range of motion (right shoulder), Muscle weakness - Integumentary Integumentary: reports: Dryness, Nail changes (nails brittle and tender), Hair changes (thinning), Other (worried about burn on finger) - Neurological Neurological: reports: General weakness, Memory problems - Psychiatric Psychiatric: reports: Depression, Anxiety - Endocrine Endocrine: reports: Diabetes type 2 (BS running 150-159; AIC on 03/30 7.0 =154 average; using only Metformin currently; poor intake concern for restarting glipizide), Intolerance to heat - Hematologic/Lymphatic Hematologic/Lymphatic: reports: Anemia - All Other Systems All Other Systems: reports: Reviewed and negative Physical Exam - Vital Signs Temperature: 96.9 C Pulse Rate: 64 Respiratory Rate: 18 O2 Saturation: 98 (ra @ rest) Blood Pressure: 122/70 - Physical Exam General Appearance: positive: Mild distress, Anxious Eyes Bilateral: positive: Normal inspection ENT: positive: No signs of dehydration. negative: Pharyngeal erythema, Oral lesions Neck: positive: No JVD, Trachea midline Cardiovascular: positive: Regular rate & rhythm Respiratory: positive: No respiratory distress, Breath sounds nml Abdomen: positive: Soft, Nml bowel sounds, Tenderness (left upper quadrant with deep palpation), Obese. negative: Guarding, Rebound, Mass, Distended Skin: positive: Pallor, Dryness, Wound (fifth pink with small eschar; dull pink no s/s infection;), Other (perirectal lesion worried about with no change/no redness or change in size flat less than 1 cm) Extremities: positive: No pedal edema Neurologic/Psychiatric: positive: Oriented x3, Depressed mood/affect, Flat affect Palliative Care - POLST Patient has POLST: Yes POLST Status: DNR, Selective Treatment Pain: Pain improved, Location (see HPI) Tiredness/Fatigue: Moderate (4-6) Drowsiness/Sedation: None Nausea: Mild (1-3) Depression: Severe (7-10) Anxiety: Severe (7-10) Dyspnea: None Anorexia: Moderate (4-6), Weight loss Sleep: Variable sleep pattern Constipation: Yes, Unmanaged, Intermittent constipation Performance Status: Patient has found a way to independently bathe herself, she is showering every 3 days which is appropriate with her breast dryness. She is quite worried about her dry scalp, she does have a few plaques, but no signs or symptoms of severe eczema/psoriasis. She is challenged with household tasks, but is unwilling to further explore [place] PES or assistance related to financial stressors. She is able to ambulate short distances, she does have some fatigue and pain can interfere as well. - Palliative Care Discussion: Patient continues to need redirection, she does get easily overwhelmed. She is worried about her increasing tumor markers, how she is going to manage if she needs "real chemotherapy". She is tracking her medications in her log, positive reinforcement given for the things that she is doing well. She does admit that she gets "neurotic", and needs to be redirected. She continues to express feelings of grief and loss and feeling very much alone in this journey. She though presents multiple barriers for looking at increased support, and does have some insight into her behaviors. Impression and Recommendations - Palliative Care Impression: This is a complex 63-year-old woman with metastatic breast cancer to the bone, ongoing side effects related to her Afinitor, weight loss/anorexia, and severe anxiety and depression. She continues to struggle with abdominal pain, alternating diarrhea/constipation, and is working at increasing her caloric intake. Patient does have severe anxiety, and easily becomes overwhelmed. Palliative care providing ongoing and continuous support in helping patient manage her current situation as well as pain and symptom management and anticipatory guidance. Recommendations/Counseling Done: 1. Pain of neoplastic origin. Patient has been tolerating using just her fentanyl 62.5 mcg. She has not used any Vicodin this week, and is independent in the management of her patches. She continues to improve functionally, is having increased right hip and leg pain with activity, left is currently controlled. 2. Diabetes mellitus. Her blood sugars are within acceptable range, she though continues to not eat because she is afraid of her blood sugars as well as her abdominal pain. She is continuing currently on the metformin, will still hold off on the glipizide until patient eating more regularly. She continues to be somewhat confounded by what to eat, and had a increase her nutritional intake. She has had continuous weight loss, have offered to hook her up with a dietitian but patient overwhelmed by the thought of another intervention or "list of things". 3. Abdominal pain. This is multifactorial, and unknown etiology could certainly be her cholecystitis and/or side effect of her Afinitor. She is using the omeprazole and intermittent ondansetron with some ease. Recommended with the duration of it to consider follow-up with GI. Her last GI doc was over [place], she would want something more local, there is a rotating GI provider who comes up to [place] [facility]. She is seeing her PCP tomorrow, recommended considering getting a referral. Patient just gets overwhelmed at the thought of further testing, she has had multiple EGDs done in the past. We will continue to monitor, her latest theory as she is been taking her exemestane on an empty stomach, though it does have instructions with food. She will try this approach as well. 4. Anxiety, uncontrolled. Patient is refusing to consider other pharmacologic interventions, she does have her Klonopin 3 mg, which she is used for many years and uses intermittently not always at bedtime but when she escalates. At this point in time she has declined again follow-up with the medical palliative care social science analyst, or other counseling. Today she is a little bit more clear as far as cognitively, she is writing down her medications and tracking her blood sugars and pain meds without problems. I have working with her with CBT approach, trying to redirect and to minimize and challenge her catastrophize them. Patient also gets fairly wound up at nighttime, has been using zolpidem and about every other night, continues with poor sleep patterns. 5. Metastatic cancer to the bone. Patient continues to be challenged with balancing her comorbidity of MDS/treatment for her cancer. Her CA 27 has increased, patient is having more side effects from the Afinitor, and is quite frightened of considering changing regimen. 6. Advanced care planning. Patient does have POLST in place with DNA R/selective treatment. She continues to fluctuate as far as her goals of care, as well as struggle with her current quality of life and her lack of social support. Patient does not have a D POA, though [place] Patient remains quite fearful regarding considering her future and needs to be redirected frequently. 7. Dental care. Patient needs to have a guard entrance registrar replaced for her nocturnal bruxism. Osteonecrosis of was ruled out, she is also due for gentle teeth cleaning. She is quite focused that dentist wants an okay for her to be able to have her teeth cleaned and question of antibiotics. And follow-up with Dr. Marte, can have gentle cleaning, it is up to dentist regarding AB, his decision, but she does not think it necessary. Labs to be drawn next Thursday, appointment on , will follow up regarding concerns as patient unable to follow thru and anxious. Time Spent: 60 minutes was given 50% of this done with counseling regarding pain and symptom management, multiple concerns and anxieties, and anticipatory guidance.
== END 2019-04-19 13:01 | disposition home or self-care (01) ==
LOC: PC 13:00
PROVIDERS: ATTEND Nurse Practitioner Adult Health
DX: Z51.5 Encounter for palliative care (principal); G89.3 Neoplasm related pain (acute) (chronic); F41.9 Anxiety disorder, unspecified; C50.919 Malignant neoplasm of unspecified site of unspecified female breast; C79.51 Secondary malignant neoplasm of bone; E11.9 Type 2 diabetes mellitus without complications; I10 Essential (primary) hypertension; F32.9 Major depressive disorder, single episode, unspecified; R22.2 Localized swelling, mass and lump, trunk; D46.9 Myelodysplastic syndrome, unspecified; K81.1 Chronic cholecystitis; T23.029A Burn of unspecified degree of unspecified single finger (nail) except thumb, initial encounter; R63.4 Abnormal weight loss; R63.0 Anorexia; R68.81 Early satiety; L60.3 Nail dystrophy; T45.1X5A Adverse effect of antineoplastic and immunosuppressive drugs, initial encounter; Y92.039 Unspecified place in apartment as the place of occurrence of the external cause; R10.9 Unspecified abdominal pain; R10.812 Left upper quadrant abdominal tenderness; R19.7 Diarrhea, unspecified; K59.00 Constipation, unspecified; K02.9 Dental caries, unspecified; G47.63 Sleep related bruxism; Z79.891 Long term (current) use of opiate analgesic; Z60.2 Problems related to living alone; Z79.811 Long term (current) use of aromatase inhibitors; Z79.84 Long term (current) use of oral hypoglycemic drugs; Z79.899 Other long term (current) drug therapy; Z66 Do not resuscitate
CPT/HCPCS: 99350

== ENCOUNTER 2019-05-04 13:00 | Outpatient (CLI) | payer MEDICARE, MEDICAID ==
--- NOTE | 2019-05-04 19:29 | CONSULTATION NOTE ---
Palliative Care Follow Up - Referral Referring Provider: Dr. Sharron Marte Time of Visit: [id number] Referral setting: Home Referral Reason: Pain of neoplastic origin/Met Breast CA - Information Sources Records reviewed: Previous records reviewed History/Review of Systems obtained from: Patient Exam limitations: Clinical condition (mild STM issues) - History of Present Illness Update Brief HPI Update: This is a complicated 63-year-old woman with multiple comorbidities including metastatic breast cancer involving mets to the bone, MDS with resulting pancytopenia, diabetes type 2 most likely attributed/exacerbated as a side effect of her Afinitor, hypertension, severe anxiety disorder, depression, and chronic cholecystitis. Patient continues to lose weight, tolerates eating poorly, reports a variety of different symptoms, she does report pain with eating at times, she reports intermittent nausea, she reports she is just not hungry and anorexia. She reports intermittent abdominal pain, and today she is perseverating about her constipation alternating with diarrhea. She is having some oral mucositis relat ed to her Afinitor, and is quite distressed over multiple skin changes, as well as an appointment regarding her "staph" in her nares. Patient does present with increased left hip pain, and describes increased back pain. She is also been more active, she reports her right hip pain is increasing as well. She is on fentanyl 62.5 mcg patch, with intermittent use of Vicodin. She continues to escalate as far as anxiety, and intermittent perseveration particularly around getting an infection. She has had a variety of things happen that have worsened her anxiety, including a burn which is healing well, scrape on her ankle which is healing well with eschar, and now a small sore in her nares and is worried she is going to get septic. Patient does have severe anxiety, she uses her Klonopin intermittently somewhat and appropriately sometimes and has very poor social support but often drives people away. She does have some insight into this, but gets very focused on this. Social History - Living Situation Living arrangement: At home Living Situation: Alone Support System: Patient does have mild cognitive impairment, this gets exacerbated when she is stressed or anxious. She does do well and compensating by writing things down, she has poor short-term memory this is not any different from her baseline. She does not present with confusion. She really does have no one checking on her, and she does check in frequently with multiple healthcare providers related to a variety of issues. I have offered in the [place] but she has declined so far Medications/Allergies - Medications Home Medications: Ambulatory Orders Medication Instructions Recorded Confirmed Denosumab [Xgeva] 120 mg SUBQ Q28D MDD hold 04/04/15 05/03/19 clonazePAM [Clonazepam] 3 mg PO QPM 04/08/16 05/03/19 Everolimus [Afinitor] 10 mg PO DAILY 12/14/18 05/03/19 Exemestane 25 mg PO DAILY 12/14/18 05/03/19 Docusate Sodium 100 mg PO BID PRN 12/16/18 05/03/19 Lactulose 5 - 10 ml PO BID PRN MDD titrates 12/16/18 05/03/19 Loperamide [Imodium] 2 mg PO Q4HR PRN 01/11/19 05/03/19 Metformin HCl [Metformin ER 1,000 mg PO BID 01/11/19 05/03/19 Gastric] Ondansetron [Zuplenz] 4 mg PO Q6HR PRN 01/19/19 05/03/19 Hydrocodone/Acetaminophen 1 - 2 each PO Q4HR PRN MDD 8 tabs 03/08/19 05/03/19 [Hydrocodon-Acetaminophn 10-325] Dexamethasone [Decadron] 0.5 mg PO BID PRN 03/10/19 05/03/19 Magic Mouth Wash 15 ml PO QID PRN MDD 6 doses 03/10/19 05/03/19 fentaNYL [Fentanyl 62.5mcg patch] 62.5 mcg TOP .3DAYS 03/10/19 05/03/19 Omeprazole 20 mg PO DAILY 03/22/19 05/03/19 Zolpidem [Ambien] 5 mg PO DAILY PRN 04/05/19 05/03/19 - Allergies Allergies/Adverse Reactions: Allergies Allergy/AdvReac Type Severity Reaction Status Date / Time oxycodone HCl * Allergy Mild itch Verified 05/03/19 11:11 [From Percocet] Review of Systems - Constitutional Constitutional: reports: Fatigue, Chills, Poor appetite, Night sweats, Weight loss. denies: Fever - Eyes Eyes: reports: Vision loss - Ears, Nose & Throat Ears, Nose & Throat: reports: Nasal congestion (light), Other (mouth sore; mild mucositis) - Cardiovascular Cardiovascular: reports: Decr. exercise tolerance - Respiratory Respiratory: reports: SOB with exertion. denies: SOB at rest - Gastrointestinal Gastrointestinal: reports: Constipation (patient with constipation for several days; now with loose stool), Diarrhea, Nausea, Reflux/heartburn, Bloating, Poor appetite, Early satiety - Genitourinary Genitourinary: reports: Frequency, Urgency - Musculoskeletal Musculoskeletal: reports: Stiffness, Muscle weakness, Joint pain - Integumentary Integumentary: reports: Dryness, Nail changes (brittle), Hair changes (thinning) - Neurological Neurological: reports: General weakness, Memory problems, Abnormal gait - Psychiatric Psychiatric: reports: Depression, Anxiety - Endocrine Endocrine: reports: Diabetes type 2 - Hematologic/Lymphatic Hematologic/Lymphatic: reports: Anemia (improved) - All Other Systems All Other Systems: reports: Reviewed and negative Physical Exam - Vital Signs Temperature: 97.0 C Pulse Rate: 86 Respiratory Rate: 18 O2 Saturation: 96 (ra @ rest) Blood Pressure: 112/72 - Physical Exam General Appearance: positive: Mild distress, Anxious Eyes Bilateral: positive: Normal inspection ENT: positive: No signs of dehydration, Oral lesions (denuded areas on tongue), Other (patient worried about "white spots" lips/nose; none noted; small ulcerated area left inner nostril no s/s infection). negative: Purulent nasal drainage, Pharyngeal erythema Neck: positive: Trachea midline Cardiovascular: positive: Regular rate & rhythm Respiratory: positive: No respiratory distress Abdomen: positive: Soft, Tenderness, Guarding, Other (reports difficulty with swallowing) Skin: positive: Pallor, Dryness Extremities: positive: No pedal edema Neurologic/Psychiatric: positive: Oriented x3, Weakness, Depressed mood/affect, Flat affect Palliative Care - POLST Patient has POLST: Yes POLST Status: DNR, Selective Treatment Pain: Pain worsening, Location (see HPI) Tiredness/Fatigue: Moderate (4-6) Drowsiness/Sedation: Mild (1-3) Nausea: Moderate (4-6) (patient has a hard time defining "nausea" though describes the symptom) Depression: Severe (7-10) Anxiety: Severe (7-10) Dyspnea: Mild (1-3) Anorexia: Severe (7-10), Weight loss Sleep: Variable sleep pattern Constipation: Yes, Opoid induced, Unmanaged Feelings of wellbeing/Perceived Quality of Life: Poor, Worsening Performance Status: Patient is ambulatory, is able to take a shower with pacing herself. She does have difficulty with household tasks. She tends to isolate herself in the apartment, though does go out for dinner quite frequently at the time i.e., unfortunately this usually involves a whiskey and coke which is not helping her GI issues. - Palliative Care Discussion: Patient continues with a long litany of complaints, poor social support, perseverating on multiple ongoing issues and very worried today about her "staph". Patient actually is doing fairly well overall, her numbers look decent, her tumor marker has decreased somewhat, she has had some exacerbation her pain, her biggest struggle continues to be her GI issues and her anxiety about managing her multiple concerns and medications. Patient remains resistant to any kind of outside social support, or medication to better manage her fluctuating mood. Results - Lab Results Lab results reviewed: Yes Impression and Recommendations - Palliative Care Impression: This is a complex 63-year-old woman with multiple comorbidities including metastatic breast cancer to the bone, pain of neoplastic origin, ongoing side effects related to her Afinitor, abdominal pain weight loss and anorexia, and severe anxiety and depression. With patient's severe anxiety she becomes easily overwhelmed, has minimal social support, And of concern has been her persistent abdominal pain and weight loss. Have recommended several times to consider further follow-up with GI, today she is more open. She was seen her primary care provider Dr. Lorenz tomorrow, from which she can get a referral. Palliative care to continue provide support regarding pain and symptom management and psychosocial support as patient allows Recommendations/Counseling Done: 1. Pain of neoplastic origin. Patient has been tolerating using her fentanyl 62.5 mcg, she has occasional use of Vicodin for breakthrough pain. She does have some increase in hip and back pain as well as right hip pain she attributes this to her increase activity. She does continue to improve functionally, and is able to ambulate longer distances. 2. Abdominal pain. This again is multifactorial and unknown etiology could certainly again beer cholecystitis and/or side effect of Afinitor. She has been instructed to double her omeprazole to twice daily, she remains quite confused about "nausea". Patient does describe the feeling of wanting to throw up, she was instructed when she feels this way to use her ondansetron, pill was given at time of visit. Patient does not want to return to [place] secondary transportation issues, and feels overwhelmed about going to [place] for yet another physician appointment. She is hopeful that Dr. Burt whom she is seen before, would be willing to provide support and possibly endoscopy for her. She will follow-up with recommendations from her PCP Dr. Lorenz, she gets quite overwhelmed and requests if she does go to Dr. Burt that I provide him with some background, agreed with happy to do so. She is also been instructed not to drink, that this is most likely exacerbating if she has gastritis or any ulcerative process going on. 3. Diabetes mellitus type 2. Her blood sugars remain acceptable range, this unfortunately plays into her lack of intake as well, she gets quite anxious about her blood sugars. With her weight loss she has had decreasing blood sug ars. 4. Anxiety, uncontrolled. Patient is refusing again to consider other pharmacologic interventions, she does have Klonopin that she uses intermittently but not always appropriately. At this point in time she has declined again follow with the medical palliative care school social worker and/or other counseling. Continue to work with CBT approach for her trying to redirect, and minimize catastrophize seen. 5. Metastatic cancer to the bone. Patient continues to be challenged with balancing her comorbidities of MDS/and treatment for her cancer. Her CA 27 has decreased, but she is experiencing more side effects from the Afinitor. 6. Advanced care planning. Patient does have a POLST in place with DNA R/selective treatment. She continues to fluctuate as far as her goals of care, she remains fairly clear at this point in time she wants to continue treatment, though she does been moaning her current quality of life and lack of social support. The palliative care volunteer has come back, but is to be setting more boundaries with patient. Time Spent: 60 minutes with greater than 50% of this done in counseling regarding goals of care, follow-up on medications and management of nausea and abdominal discomfort. Counseling provided regarding anticipatory guidance and coordination of care with oncology team.
== END 2019-05-04 13:01 | disposition home or self-care (01) ==
LOC: PC 13:00
PROVIDERS: ATTEND Nurse Practitioner Adult Health
DX: Z51.5 Encounter for palliative care (principal); G89.3 Neoplasm related pain (acute) (chronic); D46.9 Myelodysplastic syndrome, unspecified; D61.818 Other pancytopenia; E11.9 Type 2 diabetes mellitus without complications; I10 Essential (primary) hypertension; K12.31 Oral mucositis (ulcerative) due to antineoplastic therapy; T45.1X5A Adverse effect of antineoplastic and immunosuppressive drugs, initial encounter; K59.03 Drug induced constipation; T40.2X5A Adverse effect of other opioids, initial encounter; Y92.009 Unspecified place in unspecified non-institutional (private) residence as the place of occurrence of the external cause; K81.1 Chronic cholecystitis; R11.0 Nausea; R63.4 Abnormal weight loss; T42.4X6A Underdosing of benzodiazepines, initial encounter; Z91.128 Patient's intentional underdosing of medication regimen for other reason; F41.9 Anxiety disorder, unspecified; R19.7 Diarrhea, unspecified; R10.9 Unspecified abdominal pain; T30.0 Burn of unspecified body region, unspecified degree; S90.51 Abrasion of ankle; C50.919 Malignant neoplasm of unspecified site of unspecified female breast; C79.51 Secondary malignant neoplasm of bone; F32.9 Major depressive disorder, single episode, unspecified; L98.499 Non-pressure chronic ulcer of skin of other sites with unspecified severity; G31.84 Mild cognitive impairment of uncertain or unknown etiology; Z60.2 Problems related to living alone; Z79.811 Long term (current) use of aromatase inhibitors; Z79.891 Long term (current) use of opiate analgesic; Z79.84 Long term (current) use of oral hypoglycemic drugs; Z79.899 Other long term (current) drug therapy; Z66 Do not resuscitate
CPT/HCPCS: 99350

== ENCOUNTER 2019-05-14 16:02 | Outpatient (CLI) | payer MEDICARE, MEDICAID | END 2019-05-14 16:03 | disposition home or self-care (01) | LOC: LAB 16:02 | PROVIDERS: ATTEND Internal Medicine | DX: K12.30 Oral mucositis (ulcerative), unspecified (principal) | CPT/HCPCS: 87640 ==

== ENCOUNTER 2019-05-17 13:30 | Outpatient (CLI) | payer MEDICARE, MEDICAID ==
--- NOTE | 2019-05-17 17:50 | CONSULTATION NOTE ---
Palliative Care Follow Up - Referral Referring Provider: Dr. Sharron Marte Time of Visit: 7730-6382 Referral setting: Home Referral Reason: Pain of neoplastic origin/Abd pain/Met Breast CA - Information Sources Records reviewed: Previous records reviewed History/Review of Systems obtained from: Patient Exam limitations: Clinical condition (patient with high anxiety; STM issues) - History of Present Illness Update Brief HPI Update: This is a complicated 63-year-old woman with multiple comorbidities including metastatic breast cancer involving mets to the bones, MDS with resulting pancytopenia, diabetes type 2 as a side effect of her Afinitor, hypertension, severe anxiety disorder, depression, and chronic cholecystitis with increased abdominal pain. Patient is beside herself today, as she is prepping for and endoscopy/colonoscopy to be done on 05/19 to at [place]. She is quite overwhelmed as she is on metformin, and instructions regarding managing her blood sugars for the next 2 or 3 days that she is getting ready for her prep. She is perseverating over the instructions, revisiting frequently, though her blood sugars have been in a decent range and not hypoglycemic nor hyperglycemic, reassured she most likely will be fine. Continues to lose weight, has fluctuating abdominal pain, and anorexia. Some of this is her psychological response, to her diabetes that she is afraid to eat certain foods, and other compounding issues is her anxiety about her abdominal pain and often uses her clonipin to "relax" her stomach and/or whiskey and coke, though has been counseled this could be exacerbating this. She has chosen to follow-up with her GI at [place], related to her history with her cholecystitis and gallstones. She is hopeful for answers, but also very fearful that she has colon cancer, is very difficult to help her rationalize or reframe her anxiety when she gets this worked up. Continues to struggle with intermittent diarrhea, some skin lesions, her mucositis is currently controlled. Her pain of neoplastic origin, with her bones, is currently well controlled on her fentanyl 62.5 mcg patch, she only has needed at the most 2.5 Vicodin for breakthrough pain. She is able to ambulate, less pain in her hips, it does exacerbate with increased walking and relieved with rest. Social History - Living Situation Living arrangement: At home Living Situation: Alone Support System: Patient lives in the subsidized housing, by herself. She is managing all her own healthcare decisions and care as she has no family support her friends, she has alienated herself from much of her support system. She does have a friend though is coming to take her to her appointments on . She is coming from [place] and will provide transportation as well as help listen to the findings. Medications/Allergies - Medications Home Medications: Ambulatory Orders Medication Instructions Recorded Confirmed Denosumab [Xgeva] 120 mg SUBQ Q28D MDD hold 04/04/15 05/03/19 clonazePAM [Clonazepam] 3 mg PO QPM 04/08/16 05/03/19 Everolimus [Afinitor] 10 mg PO DAILY 12/14/18 05/03/19 Exemestane 25 mg PO DAILY 12/14/18 05/03/19 Docusate Sodium 100 mg PO BID PRN 12/16/18 05/03/19 Lactulose 5 - 10 ml PO BID PRN MDD titrates 12/16/18 05/03/19 Loperamide [Imodium] 2 mg PO Q4HR PRN 01/11/19 05/03/19 Metformin HCl [Metformin ER 1,000 mg PO BID 01/11/19 05/03/19 Gastric] Ondansetron [Zuplenz] 4 mg PO Q6HR PRN 01/19/19 05/03/19 Hydrocodone/Acetaminophen 1 - 2 each PO Q4HR PRN MDD 8 tabs 03/08/19 05/03/19 [Hydrocodon-Acetaminophn 10-325] Dexamethasone [Decadron] 0.5 mg PO BID PRN 03/10/19 05/03/19 Magic Mouth Wash 15 ml PO QID PRN MDD 6 doses 03/10/19 05/03/19 fentaNYL [Fentanyl 62.5mcg patch] 62.5 mcg TOP .3DAYS 03/10/19 05/03/19 Omeprazole 20 mg PO DAILY 03/22/19 05/03/19 Zolpidem [Ambien] 5 mg PO DAILY PRN 04/05/19 05/03/19 - Allergies Allergies/Adverse Reactions: Allergies Allergy/AdvReac Type Severity Reaction Status Date / Time oxycodone HCl * Allergy Mild itch Verified 05/03/19 11:11 [From Percocet] Review of Systems - Constitutional Constitutional: reports: Fatigue, Poor appetite, Weight loss. denies: Fever, Chills - Eyes Eyes: reports: Vision loss - Ears, Nose & Throat Ears, Nose & Throat: reports: Dry mouth - Cardiovascular Cardiovascular: reports: Decr. exercise tolerance. denies: Edema - Respiratory Respiratory: denies: SOB at rest - Gastrointestinal Gastrointestinal: reports: Abdominal pain, Diarrhea (intermittent), Nausea, Reflux/heartburn, Bloating, Poor appetite, Early satiety - Genitourinary Genitourinary: reports: Frequency, Incontinence (occasional) - Musculoskeletal Musculoskeletal: reports: Stiffness, Muscle weakness - Integumentary Integumentary: reports: Dryness - Neurological Neurological: reports: General weakness, Memory problems - Psychiatric Psychiatric: reports: Depression, Anxiety - Endocrine Endocrine: reports: Diabetes type 2 - Hematologic/Lymphatic Hematologic/Lymphatic: reports: Anemia. denies: Bleeding tendencies, Recurrent infections - All Other Systems All Other Systems: reports: Reviewed and negative Physical Exam - Vital Signs Temperature: 96.7 C Pulse Rate: 67 Respiratory Rate: 18 O2 Saturation: 98 (ra @rest) Blood Pressure: 108/64 - Physical Exam General Appearance: positive: Alert, Mild distress, Anxious Eyes Bilateral: positive: Normal inspection ENT: negative: Oral lesions Neck: positive: No JVD, Trachea midline Cardiovascular: positive: Regular rate & rhythm Respiratory: positive: No respiratory distress Abdomen: positive: Soft, Tenderness, Obese Skin: positive: Pallor, Other (few small facial lesions) Extremities: positive: No pedal edema Neurologic/Psychiatric: positive: Oriented x3, Depressed mood/affect, Flat affect Palliative Care - POLST Patient has POLST: Yes POLST Status: DNR, Selective Treatment Pain: Comment (Abdominal pain worsening, is scheduled for work-up on . Pain of neoplastic origin is well controlled and improved overall.) Tiredness/Fatigue: Severe (7-10) Drowsiness/Sedation: Moderate (4-6) Nausea: Mild (1-3) Depression: Severe (7-10) Anxiety: Severe (7-10) Dyspnea: Mild (1-3) Anorexia: Severe (7-10), Weight loss Sleep: Sleeps poorly, Variable sleep pattern Constipation: No Feelings of wellbeing/Perceived Quality of Life: Poor, Worsening Performance Status: Patient is able to manage her ADLs, ambulate short distances in her home. She does drive down to the [place], for regular dinners. She is limited by her chronic pain, for walking longer distances. - Palliative Care Discussion: Patient continues to feel overwhelmed, does perseverate with each health issue that comes up. She does have many things to manage as far as her oral chemotherapy, her diabetes, her is not keeping track of her medications. She does use a log, but when gets distressed tends to call multiple providers and nurses. That she has done with her prep for her endoscopy/colonoscopy. She is quite worried they are going to find something horribly wrong, and she does not feel like she can manage one more thing. She does have known social support, and continues to struggle with managing adjustment to her current situation. She has declined medical palliative care social director, and often drives others away who may be of support to her. Results - Lab Results Lab results reviewed: Yes Impression and Recommendations - Palliative Care Impression: This is a complex 63-year-old woman with multiple comorbidities including metastatic breast cancer to the bone, pain of neoplastic origin, ongoing side effects related to her Afinitor, abdominal pain weight loss and anorexia, and underlying severe anxiety disorder and depression. Patient currently pending endoscopy/colonoscopy for evaluation of her current GI symptoms of abdominal pain and intermittent and ongoing diarrhea most likely side effect of her Afinitor. She does though have a history of cholecystitis, and does warrant further follow-up to rule out anything more serious. Patient's Ca1 25 is escalating, patient is quite overwhelmed at the thought of changing her receiv ing chemotherapy. Palliative care continue to provide support on a regular basis, addressing quality of life issues and pain and symptom management Recommendations/Counseling Done: 1. Pain of neoplastic origin. Patient currently on fentanyl 62.5 mcg patch, with Vicodin for breakthrough pain. Her pain does fluctuate depending on her activity level, currently though does appear to be well controlled. Given her high anxiety today, I did assist her with a patch change will make no changes to her current baseline regimen currently. 2. Abdominal pain. Patient has finally decided to follow-up and get further work-up regarding her GI issues. She is going to see the GI person she saw [place], scheduled for endoscopy/colonoscopy tomorrow. Much time spent reviewing instructions regarding prep, management of her diabetes in the context of this, and reassured as she has not had weight fluctuation she should probably do fine. Important to keep up with her calories overall and keeping hydrated. 3. Severe anxiety disorder. Patient continues to exacerbate depending on her physical and emotional health issues as they arise. Patient uses her Klonopin 2 to 4 mg in 24 hours with a variety of different rationales and indications. She has been on this long-term, is not interested in other interventions as far as pharmacologic. She is also not interested in further counseling either. 4. Metastatic cancer to the bone. Patient continues to be challenged with balancing her comorbidities of MDS and treatment for her cancer. 5. Advanced care planning. Patient with very little social support, Is very anxious regarding any further deterioration or decline. She is worried about how she is going to manage if her care gets more complicated, which is a very good question that she has been depending on herself, her short-term memory is quite poor, as well as her coping skills. Palliative care attempting to continue to provide support with in the context of what patient is able to accept, will continue to see every other week. Also awaiting outcome of GI work-up. Time Spent: 60 minutes with greater than 50% of this done in counseling regarding follow-up on bowel prep, addressing questions regarding management of her current pain levels, as well as anticipatory guidance.
== END 2019-05-17 13:31 | disposition home or self-care (01) ==
LOC: PC 13:30
PROVIDERS: ATTEND Nurse Practitioner Adult Health
DX: Z51.5 Encounter for palliative care (principal); G89.3 Neoplasm related pain (acute) (chronic); F41.9 Anxiety disorder, unspecified; R63.0 Anorexia; R19.7 Diarrhea, unspecified; R97.1 Elevated cancer antigen 125 [CA 125]; R41.3 Other amnesia; C50.919 Malignant neoplasm of unspecified site of unspecified female breast; C79.51 Secondary malignant neoplasm of bone; D61.818 Other pancytopenia; D46.9 Myelodysplastic syndrome, unspecified; E09.9 Drug or chemical induced diabetes mellitus without complications; T45.1X5D Adverse effect of antineoplastic and immunosuppressive drugs, subsequent encounter; I10 Essential (primary) hypertension; F32.9 Major depressive disorder, single episode, unspecified; K80.10 Calculus of gallbladder with chronic cholecystitis without obstruction; Z79.84 Long term (current) use of oral hypoglycemic drugs; Z79.891 Long term (current) use of opiate analgesic; Z79.811 Long term (current) use of aromatase inhibitors; Z79.899 Other long term (current) drug therapy; Z66 Do not resuscitate
CPT/HCPCS: 99350

== ENCOUNTER 2019-06-01 14:45 | Outpatient (CLI) | payer MEDICARE, MEDICAID ==
--- NOTE | 2019-06-01 16:26 | CONSULTATION NOTE ---
Palliative Care Follow Up - Referral Referring Provider: Dr. Sharron Marte Time of Visit: [id number] Referral setting: Home Referral Reason: Pain of neoplastic origin/Anorexia/Met Breast CA to Bones - Information Sources Records reviewed: Previous records reviewed History/Review of Systems obtained from: Patient Exam limitations: Clinical condition (patient with STM uses and high anxiety) - History of Present Illness Update Brief HPI Update: This is a complicated 63-year-old woman with multiple comorbidities including metastatic breast cancer involving mets to the bones, MDS with resulting pancytopenia, type 2 diabetes as a side effect of her Afinitor, hypertension, severe anxiety disorder, depression, and chronic cholecystitis. She did follow- up with GI, to rule out any significant pathology or follow-up with looking at [place] may be adding to her discomfort. She had an endoscopy, with negative biopsies, she had some patchy chronic inflammation in her stomach, and tested negative for H. pylori. She had a colon anoscopy, with no lymphocytic colitis or other significant issues identified. This is most positive for the patient, and negative in the context that this leads most likely a side effect of her Afinitor. She is continuing on this as her CA 27 continues to decline. Patient did see oncologist, with recommendation of Megace, Marinol or [id number] CBD to help. Patient does not want to explore any marijuana, CBD, products and cannot afford nor will her insurance cover Marinol. Patient is not appropriate for Decadron, though this could be simple, with her hyperglycemia. Will trial Megace, though this too has side effects of hyperglycemia, but will see if it improves after 2 weeks. Patient's nutritional status continues to deteriorate, he continues with weight loss, as she chooses her feels like she can eat because of the stomach pain. Her pancytopenia has worsened this last blood draw, with suspicion of poor nutrition and weight loss. Patient does report increased pain in her left hip, she is quite sedentary, with weight loss unclear if this is related to pressure points. She is able to ambulate short distances in her apartment, is managing her ADLs, and has minimum use of Vicodin, usually about 1 dose of 2 tabs in 24 hours. Patient continues with her severe underlying anxiety disorder, with any new medication, or event gets quite overwhelmed, she had as a start some new drops as a result of her dry eyes and visit to eye doctor. She does have very poor s ocial support, and calls quite frequently.She is using her Klonopin, 1 mg about 3 times a day, timing it around eating, anxiety, and bedtime. Social History - Living Situation Living arrangement: At home Living Situation: Alone Support System: Patient is estranged from her family, [place] She does have a few people she can call from time to time to pay for doing errands, but has alienated herself from other residents, and often persons who reach out to help. Does have some insight into this, and alludes to previous histories of nervous breakdown/mental health issues. Medications/Allergies - Medications Home Medications: Ambulatory Orders Medication Instructions Recorded Confirmed Denosumab [Xgeva] 120 mg SUBQ Q28D MDD hold 04/04/15 06/02/19 clonazePAM [Clonazepam] 1 mg PO TID MDD 3 tabs 04/08/16 06/02/19 Everolimus [Afinitor] 10 mg PO DAILY 12/14/18 06/02/19 Exemestane 25 mg PO DAILY 12/14/18 06/02/19 Docusate Sodium 100 mg PO BID PRN 12/16/18 06/02/19 Lactulose 5 - 10 ml PO BID PRN MDD titrates 12/16/18 06/02/19 Loperamide [Imodium] 2 mg PO Q4HR PRN 01/11/19 06/02/19 Metformin HCl [Metformin ER 1,000 mg PO BID 01/11/19 06/02/19 Gastric] Ondansetron [Zuplenz] 4 mg PO Q6HR PRN 01/19/19 06/02/19 Hydrocodone/Acetaminophen 1 - 2 each PO Q4HR PRN MDD 8 tabs 03/08/19 06/02/19 [Hydrocodon-Acetaminophn 10-325] Magic Mouth Wash 15 ml PO QID PRN MDD 6 doses 03/10/19 06/02/19 dexAMETHasone [Decadron] 0.5 mg PO BID PRN 03/10/19 06/02/19 fentaNYL [Fentanyl 62.5mcg patch] 62.5 mcg TOP .3DAYS 03/10/19 06/02/19 Omeprazole 20 mg PO DAILY 03/22/19 06/02/19 Megestrol Acetate [Megace Es] 800 mg PO DAILY 06/02/19 06/02/19 - Allergies Allergies/Adverse Reactions: Allergies Allergy/AdvReac Type Severity Reaction Status Date / Time oxycodone HCl * Allergy Mild itch Verified 05/31/19 14:49 [From Percocet] Review of Systems - Constitutional Constitutional: reports: Fatigue, Poor appetite, Night sweats, Weight loss. denies: Fever, Chills - Eyes Eyes: reports: Vision loss, Other (dry eyes; meibomian gland dysfunction dx with last visit to eye MD) - Ears, Nose & Throat Ears, Nose & Throat: reports: Mouth lesions (not painful;), Dry mouth - Cardiovascular Cardiovascular: reports: Decr. exercise tolerance - Respiratory Respiratory: denies: Cough, SOB at rest - Gastrointestinal Gastrointestinal: reports: Abdominal pain (reports with food;), Diarrhea (frequent stools after eating in AM; starts formed and then progresses to watery about 4-5 x a day; fearful of taking immodium and constipation; often over medicates both direction; has done better last couple of weeks;), Nausea (mild), Bloating, Poor appetite, Early satiety. denies: Rectal bleeding, Vomiting, Reflux/heartburn - Genitourinary Genitourinary: reports: Frequency - Musculoskeletal Musculoskeletal: reports: Back pain, Muscle aches, Stiffness, Muscle weakness, Joint pain (left hip) - Integumentary Integumentary: reports: Rash (few flush lesions on face), Lesions (small dried less than 1 cm lesion on back of scalp), Dryness, Nail changes (dry brittle cracked nails), Hair changes (alopecia) - Neurological Neurological: reports: General weakness, Memory problems (writes down use of medications;) - Psychiatric Psychiatric: reports: Depression, Anxiety (easily gets overwhelmed and gets panic attacks; uses clonazepam through day 1-3 tabs; occasional 4 if distressed) - Endocrine Endocrine: reports: Diabetes type 2 (BS has been in good range) - Hematologic/Lymphatic Hematologic/Lymphatic: reports: Anemia, Other (worsening WBC) - All Other Systems All Other Systems: reports: Reviewed and negative Physical Exam - Vital Signs Temperature: 97.3 C Pulse Rate: 77 Respiratory Rate: 18 O2 Saturation: 98 (ra @ rest) Blood Pressure: 112/64 - Physical Exam General Appearance: positive: Alert, Mild distress, Anxious Eyes Bilateral: positive: Normal inspection, No lid inflammation, Conjunctivae nml, No scleral icterus ENT: positive: No signs of dehydration, Oral lesions (not painful; few scattered noted; patient hypervigilence with oral care and routine) Neck: positive: No JVD, Trachea midline Cardiovascular: positive: Regular rate & rhythm Respiratory: positive: No respiratory distress, Breath sounds nml Abdomen: positive: Soft, Nml bowel sounds, Tenderness (left upper quadrant). negative: Mass Skin: positive: Pallor, Dryness Extremities: positive: No pedal edema Neurologic/Psychiatric: positive: Oriented x3, Weakness, Depressed mood/affect, Flat affect, Other (anxious) Palliative Care - POLST Patient has POLST: Yes POLST Status: DNR, Selective Treatment Pain: Pain worsening, Location Tiredness/Fatigue: Moderate (4-6) Drowsiness/Sedation: Mild (1-3) Nausea: Mild (1-3) Depression: Severe (7-10) Anxiety: Severe (7-10) Dyspnea: None Anorexia: Severe (7-10), Weight loss Sleep: Variable sleep pattern Constipation: No Feelings of wellbeing/Perceived Quality of Life: Poor, Worsening Performance Status: Patient is able to manage her own ADLs, she does ambulate short distances. She does drive short distances to the local restaurant. She has severe anxiety disorder and does not like to go to [place]. - Palliative Care Discussion: Patient continues to be easily overwhelmed, I did cause past with the palliative care volunteer, she gets distressed with any kind of chaos. Did spend time reviewing her results from her GI doc, as she feels like she needs a slower pace to understand information, reviewed information from the eye doctor, and what she heard Dr. Paredes say. She remains quite anxious and nervous, she has a very involved routine regarding medications, and the multiple things she needs due to continue with her treatment plan. Results - Lab Results Lab results reviewed: Yes Impression and Recommendations - Palliative Care Impression: This is a very complex 63-year-old woman with multiple comorbidities including metastatic breast cancer to the bone, pain of neoplastic origin, ongoing side effects related to her Afinitor, abdominal pain without any identified pathologic underlying etiology, anorexia and weight loss, and severe anxiety disorder depression. Patient continues with high symptom burden, easily overwhelmed by her current health care needs, and very poor social support. Palliative care continue to provide support on a regular basis, addressing quality of life issues, pain and symptom management, and anticipatory guidance. Recommendations/Counseling Done: 1. Pain of neoplastic origin. Patient currently on fentanyl 62.5 mcg patch, with Vicodin for breakthrough pain. Her pain does fluctuate regarding and attributed to her activity level, as well as her intermittent abdominal pain. Counseling provided no change to regimen currently. 2. Abdominal pain. Patient did have a GI work-up, with only finding some mild gastric changes, will continue on her Prilosec twice daily. She does continue with pain, bloating, and discomfort and this is mostly attributed with eating. Patient is relieved but also discouraged, most likely has now attributed to her side effects of Afinitor, which she will continue on currently. 3. Severe anxiety disorder. Patient continues to perseverate on her physical issues and symptoms as they arise, she often gets herself quite nervous and anxious and trying to make sense and figure out things. Patient does use Klonopin 2 to 3 mg in 24 hours, with a variety of different rationales and indications. She has been on this long-term, is not willing to consider other medications nor social work support. 4. Metastatic cancer to the bone. Patient continues to be challenged with balancing her side effects, currently will be changes to her regimen. Pancytopenia though is worse this around, she is monitoring her response, she tends to isolate herself, and avoiding exposure with her neutropenia. 5. Anorexia. Patient is desperate to try something, very few options given her diabetes and financial situation. We will go ahead and prescribe Megace 40 mg/ml: 20 mls daily for two weeks. Will reevaluate in 2 weeks if effective and if patient tolerates. 6. Advanced care planning. Patient with no social support, continues to worry about how she will manage in the future, though is unwilling to meet with forensic social worker for short or long-term planning. She does have a POLST in place with DNA R and selective treatments, if she were to have a event or acute illness that she were not able to take care of herself, or be independent, she would not want her life continued and or any prolonged suffering. Time Spent: 60 minutes with greater than 50% of this done in counseling regarding follow-up from GI, goals of care, pain and symptom management.Plan for revisit in 2 weeks, particularly to reevaluate response to Megace
== END 2019-06-01 14:46 | disposition home or self-care (01) ==
LOC: PC 14:45
PROVIDERS: ATTEND Nurse Practitioner Adult Health
DX: Z51.5 Encounter for palliative care (principal); G89.3 Neoplasm related pain (acute) (chronic); F41.8 Other specified anxiety disorders; R63.0 Anorexia; R63.4 Abnormal weight loss; R10.9 Unspecified abdominal pain; C79.51 Secondary malignant neoplasm of bone; C50.911 Malignant neoplasm of unspecified site of right female breast; D46.9 Myelodysplastic syndrome, unspecified; E09.9 Drug or chemical induced diabetes mellitus without complications; T45.1X5A Adverse effect of antineoplastic and immunosuppressive drugs, initial encounter; Z79.84 Long term (current) use of oral hypoglycemic drugs; Z79.899 Other long term (current) drug therapy; Z79.891 Long term (current) use of opiate analgesic; Z60.8 Other problems related to social environment; Z66 Do not resuscitate
CPT/HCPCS: 99350

== ENCOUNTER 2019-06-12 18:43 | Emergency (ER) | payer MEDICARE, MEDICAID ==
[2019-06-12] MEDS ORDERED: HYDROcodone/ACETAM 7.5 MG/325 MG 15 ML UDC PO STA (20:00)
--- NOTE | 2019-06-12 20:02 | ED Physician Documentation ---
PD HPI HEAD INJURY - Stated complaint Stated Complaint: GLF - NECK/BACK PX - MAC PT - Chief complaint Chief Complaint: Trauma Hd/Nk - History obtained from History obtained from: Patient - History of Present Illness Mechanism of head injury: Fell (63-year-old woman with metastatic breast cancer with bony mets to neck, thoracic wall had a ground-level fall outside of the bar tonight. She landed on her left side but complains of right-sided neck pain and scapular pain. She did hit her head. 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: Breast cancer : Incontinence HEENT: None Psych: Depression, Anxiety Musculoskeletal: Osteoarthritis, Other Derm: None - Past Surgical History Past Surgical History: Yes General: Colonoscopy, Other /SUPERVISOR OVENS: Endometrial ablation, Other - Present Medications Home Medications: Ambulatory Orders Medication Instructions Recorded Confirmed Denosumab [Xgeva] 120 mg SUBQ Q28D MDD hold 04/04/15 06/02/19 clonazePAM [Clonazepam] 1 mg PO TID MDD 3 tabs 04/08/16 06/02/19 Everolimus [Afinitor] 10 mg PO DAILY 12/14/18 06/02/19 Exemestane 25 mg PO DAILY 12/14/18 06/02/19 Docusate Sodium 100 mg PO BID PRN 12/16/18 06/02/19 Lactulose 5 - 10 ml PO BID PRN MDD titrates 12/16/18 06/02/19 Loperamide [Imodium] 2 mg PO Q4HR PRN 01/11/19 06/02/19 Metformin HCl [Metformin ER 1,000 mg PO BID 01/11/19 06/02/19 Gastric] Ondansetron [Zuplenz] 4 mg PO Q6HR PRN 01/19/19 06/02/19 Hydrocodone/Acetaminophen 1 - 2 each PO Q4HR PRN MDD 8 tabs 03/08/19 06/02/19 [Hydrocodon-Acetaminophn 10-325] Magic Mouth Wash 15 ml PO QID PRN MDD 6 doses 03/10/19 06/02/19 dexAMETHasone [Decadron] 0.5 mg PO BID PRN 03/10/19 06/02/19 fentaNYL [Fentanyl 62.5mcg patch] 62.5 mcg TOP .3DAYS 03/10/19 06/02/19 Omeprazole 20 mg PO DAILY 03/22/19 06/02/19 Megestrol Acetate [Megace Es] 800 mg PO DAILY 06/02/19 06/03/19 - Allergies Allergies/Adverse Reactions: Allergies Allergy/AdvReac Type Severity Reaction Status Date / Time oxycodone HCl * Allergy Mild itch Verified 06/12/19 18:51 [From Percocet] - Social History Does the pt smoke?: No Smoking Status: Never smoker Does the pt drink ETOH?: Yes Does the pt have substance abuse?: No - Immunizations Immunizations are current?: Yes - POLST Patient has POLST: Yes POLST Status: DNR PD ED PE NORMAL - Vitals Vital signs reviewed: Yes - General General: Alert and oriented X 3, No acute distress - HEENT HEENT: PERRL, EOMI - Neck Neck: Supple, no meningeal sign, No bony TTP - Cardiac Cardiac: RRR, No murmur - Respiratory Respiratory: No respiratory distress, Clear bilaterally - Abdomen Abdomen: Non tender - Extremities Extremities: Other (There is some tenderness of the superior scapula on the right, no real rib tenderness.) - Neuro Neuro: Alert and oriented X 3, Normal speech Results - Vitals Vitals: Vital Signs - 24 hr 06/12/19 06/12/19 18:47 21:01 Temperature 36.8 C Heart Rate 80 78 Respiratory 20 16 Rate Blood Pressure 148/72 H 134/57 H O2 Saturation 100 98 Oxygen O2 Source Room air PD MEDICAL DECISION MAKING - ED course ED course: Clinically without fracture, that said she has had some alcohol, and with the widely metastatic bony disease she is at high risk for pathologic fractures. As such advanced imaging of the head, neck, and chest will be obtained. Departure - Departure Disposition: 01 Home, Self Care Clinical Impression: Neck pain Malignant neoplasm of right female breast Qualifiers: Breast location: unspecified site of breast Estrogen receptor status: unspecified Qualified Code(s): C50.911 - Malignant neoplasm of unspecified site of right female breast Injury of back Qualifiers: Encounter type: initial encounter Qualified Code(s): S39.92XA - Unspecified injury of lower back, initial encounter Fall Qualifiers: Encounter type: initial encounter Qualified Code(s): W19.XXXA - Unspecified fall, initial encounter Condition: Stable Record reviewed to determine appropriate education?: Yes Instructions: ED Neck Back Pain General Comments: Call your doctor to arrange a follow-up appointment, make the next available appointment. In the interim, return anytime if worse or if new symptoms develop.
--- NOTE | 2019-06-12 21:00 | CT Report ---
Reason: Fall, head/neck/chest wall inj Procedure Date: 06/12/2019 Accession Number: [id number] / [id number] Procedure: CT - HEAD WO CPT Code: Final Report FULL RESULT: EXAM: CT HEAD EXAM DATE: 06/12/2019 08:37 PM. CLINICAL HISTORY: Fall. Left head injury. COMPARISON: None. TECHNIQUE: Multiaxial CT images were obtained from the foramen magnum to the vertex. Reformats: Sagittal and coronal. IV contrast: None. In accordance with CT protocol optimization, one or more of the following dose reduction techniques were utilized for this exam: automated exposure control, adjustment of mA and/or KV based on patient size, or use of iterative reconstructive technique. FINDINGS: Parenchyma: No intraparenchymal hemorrhage. No evidence of mass, midline shift, or CT findings of infarction. Panda-white differentiation is distinct. Extraaxial Spaces: Normal for age. No subdural or epidural collections identified. Ventricles: Normal in size and position. Sinuses and Orbits: Imaged paranasal sinuses, orbits, and mastoids show no significant abnormality. Bones: No evidence of fracture or calvarial defect. Other: None. IMPRESSION: Normal head CT. RADIA
[2019-06-12 21:02] VITALS: BP 134/57
--- NOTE | 2019-06-12 21:08 | CT Report ---
Reason: Fall, head/neck/chest wall inj Procedure Date: 06/12/2019 Accession Number: [id number] / [id number] Procedure: CT - CHEST WO CPT Code: Final Report FULL RESULT: EXAM: CT CHEST EXAM DATE: 06/12/2019 08:43 PM. CLINICAL HISTORY: Acute pain due to trauma. COMPARISONS: ABDOMEN/PELVIS W/ 11/23/2018 12:45 PM ABDOMEN/PELVIS W/O 12/22/2018 11:54 AM. TECHNIQUE: Routine helical CT imaging was performed through the chest. IV contrast: None. Reconstructions: Coronal and sagittal. In accordance with CT protocol optimization, one or more of the following dose reduction techniques were utilized for this exam: automated exposure control, adjustment of mA and/or KV based on patient size, or use of iterative reconstructive technique. FINDINGS: Lungs/Pleura: Minor streaky and groundglass changes in the lingula region favoring atelectasis. No consolidation, effusion, or pneumothorax. Mediastinum: Mild calcified coronary artery disease. No adenopathy or masses. The heart and great vessels are normal. Bones: Unremarkable. Visualized Abdomen: Slightly enlarged spleen measuring up to 15.5 cm. Contracted gallbladder suggested. Other: Surgical clips are seen in the right breast/axilla region. No axillary adenopathy. Patchy sclerotic changes are seen in the bones presumably related to metastatic bone disease. Minor compression deformity at T8 and T9 is seen similar to prior CT. IMPRESSION: 1. Minor left upper lobe atelectasis, otherwise, no acute cardiopulmonary abnormality. 2. Scattered sclerotic bone lesions related to metastatic bone disease. Minor compression deformities at T8 and T9 are similar to 12/22/2018 CT. RADIA
--- NOTE | 2019-06-12 21:13 | CT Report ---
Reason: Fall, head/neck/chest wall inj Procedure Date: 06/12/2019 Accession Number: [id number] / [id number] Procedure: CT - CERVICAL SPINE WO CPT Code: Final Report FULL RESULT: EXAM: CT CERVICAL SPINE WITHOUT CONTRAST DATE: 06/12/2019 08:45 PM. HISTORY: Fall, head, neck, and chest wall injury. COMPARISONS: ABDOMEN/PELVIS W/O 12/22/2018 11:54 AM. TECHNIQUE: Thin-section axial images were acquired of the cervical spine without contrast. Post-processing: Coronal and sagittal reformats. Other: None. In accordance with CT protocol optimization, one or more of the following dose reduction techniques were utilized for this exam: automated exposure control, adjustment of mA and/or KV based on patient size, or use of iterative reconstructive technique. FINDINGS: Alignment: There is slight anterolisthesis of T2 relative to T3. Bones: No definite acute fracture is demonstrated. However, bones are mild to moderately osteopenic. This reduces exam sensitivity and specificity for detection of subtle bony lesions and/or fractures. There is a sclerotic metastasis within the T2 vertebral body. Lesion within the right first rib also suspected. Interspace Levels/Facets: Severe multilevel cervical spondylitic change with large bulky anterior osteophytosis, notably at C4-C5. Other: The paravertebral and prevertebral soft tissues are unremarkable. The lung apices are clear. IMPRESSION: 1. No acute bone abnormality. However, bones are mild to moderately osteopenic. This reduces exam sensitivity and specificity for detection of subtle bony lesions and/or fractures. 2. Sclerotic metastases within the T2 vertebral body is noted. 3. Slight degenerative appearing anterolisthesis of T2 relative to T3. 4. There is severe multilevel cervical spondylitic change, including large bulky anterior osteophytosis, notably at C4-C5. RADIA
== END 2019-06-12 21:33 | disposition home or self-care (01) ==
LOC: ED 18:43
DX: S39.92XA Unspecified injury of lower back, initial encounter (principal); M54.2 Cervicalgia; R51 Headache; W18.30XA Fall on same level, unspecified, initial encounter; Y92.89 Other specified places as the place of occurrence of the external cause; C50.911 Malignant neoplasm of unspecified site of right female breast; C79.51 Secondary malignant neoplasm of bone; I10 Essential (primary) hypertension; E11.9 Type 2 diabetes mellitus without complications; Z79.84 Long term (current) use of oral hypoglycemic drugs; Z66 Do not resuscitate
CPT/HCPCS: 70450; 71250; 72125; 99283; 99284; A9270

== ENCOUNTER 2019-06-14 13:00 | Outpatient (CLI) | payer MEDICARE, MEDICAID ==
--- NOTE | 2019-06-14 16:24 | CONSULTATION NOTE ---
Palliative Care Follow Up - Referral Referring Provider: Dr. Sharron Marte Time of Visit: [id number] Referral setting: Home Referral Reason: Pain of neoplastic origin/f/up fall/abd pain - Information Sources Records reviewed: Previous records reviewed History/Review of Systems obtained from: Patient Exam limitations: Clinical condition (patient with severe STM issues/anxiety) - History of Present Illness Update Brief HPI Update: This is a complicated 63-year-old woman with multiple comorbidities including metastatic breast cancer involving mets to the bones, MDS with resulting pancytopenia, type 2 diabetes a side effect of her Afinitor, severe anxiety disorder and depression, and chronic cholecystitis. Her follow-up with GI to rule out any significant pathology did not show anything other than some slight chronic inflammation in her stomach, she is continuing on her Prilosec twice a day, intermittent Gas-X for bloating and gastric stasis symptoms, or diarrhea since resolved. She still continues to complain of intermittent pain with eating, poor appetite, we did trial some Megace unfortunately increased her blood sugars and did not result in significant improvement in her appetite. Though she does think maybe she is remained stable. Patient presents today with increased right neck and shoulder pain, unfortunately on 1117 she did have a ground-level fall as she had tripped in the bar. She hit her left side, and has a large fading hematoma on the outside of her left upper arm. She does not present with any other bruising, she does have point tenderness that appears to be muscular in origin over her right side of her neck and scapula. She has been using ice, there is no swelling, they do t hink she hit her head, but her CT scan was negative. Patient continues to escalate and feel overwhelmed, she is quite tearful today, she has a significant degree of catastrophizing, and is very isolated both by choice and with lack of social support, as has estranged family and most friends. Palliative care continues to provide support, she does continue allow every 2 to 3-week visits, she does call frequently. Social History - Living Situation Living arrangement: At home Living Situation: Alone Support System: Patient with minimal social support, does have a few friends she calls from time to time. Her palliative care volunteer does provide some housekeeping support, she has been alienated from her family for several years, [place] She has trialed [place] PES in the past, but has a co-pay and declines further support. She has declined to follow up with medical palliative care outreach and education social worker. She was supported by [facility] in the past, but declines any follow-up or further referrals. Medications/Allergies - Medications Home Medications: Ambulatory Orders Medication Instructions Recorded Confirmed Denosumab [Xgeva] 120 mg SUBQ Q28D MDD hold 04/04/15 06/02/19 clonazePAM [Clonazepam] 1 mg PO TID MDD 3 tabs 04/08/16 06/02/19 Everolimus [Afinitor] 10 mg PO DAILY 12/14/18 06/02/19 Exemestane 25 mg PO DAILY 12/14/18 06/02/19 Docusate Sodium 100 mg PO BID PRN 12/16/18 06/02/19 Lactulose 5 - 10 ml PO BID PRN MDD titrates 12/16/18 06/02/19 Loperamide [Imodium] 2 mg PO Q4HR PRN 01/11/19 06/02/19 Metformin HCl [Metformin ER 1,000 mg PO BID 01/11/19 06/02/19 Gastric] Ondansetron [Zuplenz] 4 mg PO Q6HR PRN 01/19/19 06/02/19 Hydrocodone/Acetaminophen 1 - 2 each PO Q4HR PRN MDD 8 tabs 03/08/19 06/02/19 [Hydrocodon-Acetaminophn 10-325] Magic Mouth Wash 15 ml PO QID PRN MDD 6 doses 03/10/19 06/02/19 dexAMETHasone [Decadron] 0.5 mg PO BID PRN 03/10/19 06/02/19 fentaNYL [Fentanyl 62.5mcg patch] 62.5 mcg TOP .3DAYS 03/10/19 06/02/19 Omeprazole 20 mg PO DAILY 03/22/19 06/02/19 Megestrol Acetate [Megace Es] 800 mg PO DAILY 06/02/19 06/03/19 - Allergies Allergies/Adverse Reactions: Allergies Allergy/AdvReac Type Severity Reaction Status Date / Time oxycodone HCl * Allergy Mild itch Verified 06/12/19 18:51 [From Percocet] Review of Systems - Constitutional Constitutional: reports: Fatigue, Poor appetite. denies: Fever, Chills - Eyes Eyes: reports: Vision loss, Other (dry eyes; has frequent drops which cause her distress) - Ears, Nose & Throat Ears, Nose & Throat: reports: Dry mouth. denies: Mouth lesions (has "rinse" that she does bid, flosses and perserverates on mouth care) - Cardiovascular Cardiovascular: denies: Chest pain, Lightheadedness - Respiratory Respiratory: reports: SOB with exertion. denies: SOB at rest - Gastrointestinal Gastrointestinal: reports: Abdominal pain (improved but attributed to eating), Constipation, Diarrhea (improved), Bloating, Poor appetite, Early satiety - Genitourinary Genitourinary: reports: Frequency - Musculoskeletal Musculoskeletal: reports: Back pain, Stiffness, Limited range of motion (right shoulder), Muscle weakness - Integumentary Integumentary: reports: Dryness, Other (face rash improved) - Neurological Neurological: reports: General weakness, Dizziness ("thirty years" inter mittent), Memory problems (tracks everything in book) - Psychiatric Psychiatric: reports: Depression, Anxiety (worsening with increase health problems), Other - Endocrine Endocrine: reports: Diabetes type 2 (BS elevated suspect due to Megace; 06/11 256; 06/12 254) - Hematologic/Lymphatic Hematologic/Lymphatic: reports: Anemia (10.8), Bruising (left arm from fall). denies: Recurrent infections (recent negative urine) - All Other Systems All Other Systems: reports: Reviewed and negative Physical Exam - Vital Signs Temperature: 97.0 C Pulse Rate: 68 Respiratory Rate: 18 O2 Saturation: 98 (ra @ rest) - Physical Exam General Appearance: positive: Alert, Mild distress, Anxious Eyes Bilateral: positive: Normal inspection, No scleral icterus ENT: positive: No signs of dehydration. negative: Oral lesions Neck: positive: No JVD, Trachea midline, Stiff neck (right side; tender to palpation) Cardiovascular: positive: Regular rate & rhythm Respiratory: positive: No respiratory distress, Diminished in bases (left greater than right). negative: Wheezes, Rales, Rhonchi Abdomen: positive: Soft, Tenderness (LLQ tenderness to palapation; no masses or swelling noted) Skin: positive: Pallor, Dryness Extremities: positive: No pedal edema Neurologic/Psychiatric: positive: Oriented x3, Depressed mood/affect, Flat affect Palliative Care - POLST Patient has POLST: Yes POLST Status: DNR, Selective Treatment Pain: Pain worsening, Location (Patient's baseline pain, with bony mets, had exacerbated on her left side, she had done a couple days of more frequent Vicodin, with relief. She was doing quite well, until her ground-level fall. Now she has residual right neck and scapular pain, more acute in nature. She does report it as moderate to severe. She is currently on fentanyl 62 mcg patch, with 1-2 Vicodin every 4 hours as needed breakthrough pain. Rx for Vicodin dropped off at [facility].) Tiredness/Fatigue: Moderate (4-6) Drowsiness/Sedation: Mild (1-3), Comment (continues with irregular sleep patterns; often up late at night and sleeps to 10-11 am) Nausea: Mild (1-3) (doesn't know if it's nause her stomach distress) Anorexia: Moderate (4-6), Weight loss (184) Dyspnea: Mild (1-3) Depression: Severe (7-10) Anxiety: Severe (7-10) Feelings of wellbeing/Perceived Quality of Life: Poor, Worsening Sleep: Variable sleep pattern Constipation: Yes, Opoid induced, Intermittent constipation Performance Status: Patient is managing her ADLs, she does pace herself and does spend quite a bit of time with her regimen with her medications, eating, fluids, and treatments. She has had some help with household tasks, this is improved her baseline pain of her right shoulder as it was being exacerbated by vacuuming. - Palliative Care Discussion: Yamileth presents overwhelmed, and more tearful. The fall did throw her for loop, though she reports she "tripped". She had been at the bar, she did actually have a drink, but does not feel like this contributed to it. She often feels victimized, the people do not like her, that people do not know how to do their jobs. She has very little insight into how her behaviors and interactions often impact how people treat her. She feels very isolated alone, but is very resistant to any kind of interventions or conversation about how best to help her. She does have multiple underlying serious illness, and is very worried about dying, particularly about who is going to care for her. Though she is unwilling to have any further conversation or movement to make a plan or put some components in place. Patient does have a POLST as DNA R, selective treat ments, she does feel that end of life she would like to do DWD, but currently her prognosis is in months to years. Results - Lab Results Lab results reviewed: Yes Impression and Recommendations - Palliative Care Impression: This is a very complex 63-year-old woman with multiple comorbidities including metastatic breast cancer to the bone, pain of neoplastic origin, ongoing side effects related to her Afinitor, abdominal pain without any identified pathologic underlying etiology though most likely attributed to her Afinitor, as well as anorexia and weight loss and severe anxiety disorder/depression. Patient continues with high symptom burden, poor social support, and now most recently with a ground-level fall. Palliative care continues to provide support on a regular basis, addressing quality of life issues of pain and symptom management and anticipatory guidance as patient will allow. Recommendations/Counseling Done: 1. Pain of neoplastic origin. Patient currently on fentanyl 62.5 mcg patch, with Vicodin for breakthrough pain. She now presents with acute on chronic pain, encouraged to use her Vicodin 1-2 tabs 3-4 times a day, as well as ice alternating with heat in her acute right neck injury, she will call if this is not resolved. Counseling provided at this point in time with no change in her regimen, [facility]. 2. Anorexia. She continues with abdominal pain, her GI work-up only showed so me mild gastric changes, she continues on her Prilosec twice daily, use of Gas- X, and intermittent ondansetron. We did trial the Megace, patient does not see any benefit or improvement, this is been for 2 weeks, would expect some outcome at this point. She feels that most often she feels "more hungry" after she takes her Vicodin it "relaxes" her stomach as well as her clonazepam so she can eat. In review, she is doing little bit better as far as introducing some foods that she is tolerating. We will discontinue the Megace secondary to has impacted and increased her blood sugars which has caused more distress for her, that she stopped taking it. 3. Severe anxiety disorder. Patient continues to perseverate on her physical issues and symptoms, and that she has had a fall, she is overwhelmed and was told she hit her head, she is afraid she is going to go into a coma. Patient is bright alert interactive does have only a little bit of residual from her fall as well as some right neck and shoulder pain. She does use Klonopin 2 to 3 mg in 24 hours, gets quite frustrated and anxious at the time is time to refill it, requesting palliative care provide prescription. Patient has had benzo issues in the past, had to be weaned off alprazalom. Instructed she is at the max at 3 mg in 24 hours, will not titrate this up but I am willing to write the prescription to decrease her anxiety regarding this. She is in agreement, will notify Dr. Lorenz I will write clonazepam order. Patient continues to be resistant to any kind of counseling, referral to psychiatrist, or introduction of other medications. 4. Metastatic breast cancer with bone mets. Patient continuing on her oral medication, she is getting some benefit from balancing side effects currently. She continues with pancytopenia, she does tend to isolate herself and is quite fearful of exposure with her neutropenia. 5. Advanced care planning. Patient with no social support, continues to worry how she will manage in the future though unwilling to meet with outreach and education social worker for planning. She does have a POLST in place with DNA R and selective treatments, if she were to have an event or acute illness some not able to take care of herself or be independent she would not want life continued, anything treated and/or prolong suffering. Time Spent: 60 minutes with getting 50% of this done in counseling regarding pain and symptom management, addressing anxiety disorder, and anticipatory guidance.
== END 2019-06-14 13:01 | disposition home or self-care (01) ==
LOC: PC 13:00
PROVIDERS: ATTEND Nurse Practitioner Adult Health
DX: Z51.5 Encounter for palliative care (principal); G89.3 Neoplasm related pain (acute) (chronic); S19.9XXA Unspecified injury of neck, initial encounter; S40.022A Contusion of left upper arm, initial encounter; W01.0XXA Fall on same level from slipping, tripping and stumbling without subsequent striking against object, initial encounter; Y92.89 Other specified places as the place of occurrence of the external cause; R10.9 Unspecified abdominal pain; R63.0 Anorexia; R63.4 Abnormal weight loss; R41.3 Other amnesia; F41.9 Anxiety disorder, unspecified; C50.911 Malignant neoplasm of unspecified site of right female breast; C79.51 Secondary malignant neoplasm of bone; D46.9 Myelodysplastic syndrome, unspecified; D61.818 Other pancytopenia; F32.9 Major depressive disorder, single episode, unspecified; K81.1 Chronic cholecystitis; K29.50 Unspecified chronic gastritis without bleeding; E09.65 Drug or chemical induced diabetes mellitus with hyperglycemia; T38.5X5A Adverse effect of other estrogens and progestogens, initial encounter; T45.1X5D Adverse effect of antineoplastic and immunosuppressive drugs, subsequent encounter; Z79.811 Long term (current) use of aromatase inhibitors; Z79.84 Long term (current) use of oral hypoglycemic drugs; Z79.891 Long term (current) use of opiate analgesic; Z79.899 Other long term (current) drug therapy; Z66 Do not resuscitate; Z60.2 Problems related to living alone
CPT/HCPCS: 99350

== ENCOUNTER 2019-06-24 15:59 | Outpatient (CLI) | payer MEDICARE, MEDICAID | END 2019-06-24 16:00 | disposition home or self-care (01) | LOC: PC 15:59 | PROVIDERS: ATTEND Nurse Practitioner Adult Health | DX: Z51.5 Encounter for palliative care (principal); K12.31 Oral mucositis (ulcerative) due to antineoplastic therapy; E09.9 Drug or chemical induced diabetes mellitus without complications; T45.1X5D Adverse effect of antineoplastic and immunosuppressive drugs, subsequent encounter; G89.3 Neoplasm related pain (acute) (chronic); R63.0 Anorexia; F41.9 Anxiety disorder, unspecified; C79.51 Secondary malignant neoplasm of bone; C50.919 Malignant neoplasm of unspecified site of unspecified female breast; K59.00 Constipation, unspecified; R19.7 Diarrhea, unspecified; Z79.891 Long term (current) use of opiate analgesic; Z79.899 Other long term (current) drug therapy; Z79.84 Long term (current) use of oral hypoglycemic drugs; Z66 Do not resuscitate; Z60.8 Other problems related to social environment | CPT/HCPCS: 99349 ==

== ENCOUNTER 2019-06-28 16:09 | Emergency (ER) | payer MEDICARE, MEDICAID ==
[2019-06-28 16:23] VITALS: BP 160/89
--- NOTE | 2019-06-28 17:00 | ED Physician Documentation ---
PD HPI HEENT - Stated complaint Stated Complaint: DENTAL - Chief complaint Chief Complaint: Heent - History obtained from History obtained from: Patient - History of Present Illness Timing - onset: Today Timing - details: Gradual onset Location: Tooth Associated symptoms: No: Fever, Congestion, Rhinorrhea Recently seen: Clinic - Additional information Additional information: This is a 63-year-old woman who presents with complaints that she has stage IV cancer and myelodysplastic disorder with mets to 15 bones who is taking an oral chemotherapy that causes sores in her mouth and thrush. She started having pain in her left upper molars 2 nights ago and the pains been so severe that she cannot sleep. She says she thinks this is from flossing so aggressively and she called the dentist today they told her to go to the emergency department where they could tell her if she had an abscess and put her on antibiotics. She had an appointment at the oncology clinic so she went there got her lab report that showed her white blood cell count was up to 1.6 and her platelets had increased and they told her to come to the emergency department to get antibiotics for her tooth. She has not been running a fever. She says she is lost 70 pounds because of this cancer. Her esophagus hurts when she tries to swallow. She started taking nystatin swish and swallow last night for the oral thrush and sores in her mouth. Review of Systems Constitutional: reports: Weight Loss. denies: Fever Throat: reports: Dental pain / toothache, Oral lesions / sores, Sore throat GI: denies: Vomiting PD PAST MEDICAL HISTORY - Past Medical History Cardiovascular: Hypertension Respiratory: Sleep apnea, CPAP use Endocrine/Autoimmune: Type 2 diabetes GI: GERD, Cholelithiasis POWER SYSTEM OPERATOR: Breast cancer : Incontinence HEENT: None Psych: Depression, Anxiety Musculoskeletal: Osteoarthritis, Other Derm: None - Past Surgical History Past Surgical History: Yes General: Colonoscopy, Other /POWER SYSTEM OPERATOR: Endometrial ablation, Other - Present Medications Home Medications: Ambulatory Orders Medication Instructions Recorded Confirmed Denosumab [Xgeva] 120 mg SUBQ Q28D MDD hold 04/04/15 06/28/19 clonazePAM [Clonazepam] 1 mg PO TID MDD 3 tabs 04/08/16 06/28/19 Everolimus [Afinitor] 10 mg PO DAILY 12/14/18 06/28/19 Exemestane 25 mg PO DAILY 12/14/18 06/28/19 Docusate Sodium 100 mg PO BID PRN 12/16/18 06/28/19 Lactulose 5 - 10 ml PO BID PRN MDD titrates 12/16/18 06/28/19 Loperamide [Imodium] 2 mg PO Q4HR PRN 01/11/19 06/28/19 Metformin HCl [Metformin ER 1,000 mg PO BID 01/11/19 06/28/19 Gastric] Ondansetron [Zuplenz] 4 mg PO Q6HR PRN 01/19/19 06/28/19 Hydrocodone/Acetaminophen 1 - 2 each PO Q4HR PRN MDD 8 tabs 03/08/19 06/28/19 [Hydrocodon-Acetaminophn 10-325] Magic Mouth Wash 15 ml PO QID PRN MDD 6 doses 03/10/19 06/28/19 dexAMETHasone [Decadron] 0.5 mg PO BID PRN MDD hold 03/10/19 06/28/19 fentaNYL [Fentanyl 62.5mcg patch] 62.5 mcg TOP .3DAYS 03/10/19 06/28/19 Omeprazole 20 mg PO DAILY 03/22/19 06/28/19 Amoxicillin 500 mg PO TID #21 capsule 06/28/19 Nystatin 15 ml PO BID 06/28/19 06/28/19 traZODone [Desyrel] 1 - 2 tab PO QPM 06/28/19 06/28/19 - Allergies Allergies/Adverse Reactions: Allergies Allergy/AdvReac Type Severity Reaction Status Date / Time oxycodone HCl * Allergy Mild itch Verified 06/28/19 16:19 [From Percocet] - Social History Does the pt smoke?: No Smoking Status: Never smoker Does the pt drink ETOH?: Yes Does the pt have substance abuse?: No - Immunizations Immunizations are current?: Yes - POLST Patient has POLST: Yes POLST Status: DNR PD ED PE NORMAL - Vitals Vital signs reviewed: Yes - General General: Alert and oriented X 3, No acute distress, Well developed/nourished - HEENT HEENT: Atraumatic, PERRL, EOMI, Moist mucous membranes, Pharynx benign, Other (There are multiple crowns on her teeth. She does have some erosive lesions on her tongue diffusely. There is no other evidence of thrush.) - Neck Neck: No adenopathy - Respiratory Respiratory: No respiratory distress - Neuro Neuro: Alert and oriented X 3, meat packager 2-12 intact, No motor deficit, Normal speech Results - Vitals Vitals: Vital Signs - 24 hr 06/28/19 16:19 Temperature 37 C Heart Rate 90 Respiratory 18 Rate Blood Pressure 160/89 H O2 Saturation 99 Oxygen O2 Source Room air PD MEDICAL DECISION MAKING - ED course Complexity details: d/w patient ED course: Patient will be placed on amoxicillin 500 3 times daily. She plans to see the dentist tomorrow where they can do x-rays to confirm whether or not there is a dental abscess at the root of the tooth. Continue with the nystatin swish and swallow. She has a fentanyl patch that she wears and can take her home hydrocodone if needed for pain. Departure - Departure Disposition: 01 Home, Self Care Clinical Impression: Pain, dental Condition: Good Instructions: ED Tooth Pain Follow-Up: Charo Lorenz MD [Primary Care Provider] - Prescriptions: Amoxicillin 500 mg PO TID #21 capsule Comments: Start the amoxicillin in the morning. You were given your first dose here tonight. Continue to use the nystatin swish and swallow to treat the thrush. Keep the appointment with the dentist tomorrow for further evaluation about definitive treatment.
[2019-06-28] MEDS ORDERED: AMOXICILLIN 250 MG CAPSULE PO STA (17:32)
== END 2019-06-28 18:07 | disposition home or self-care (01) ==
LOC: ED 16:09
DX: K08.89 Other specified disorders of teeth and supporting structures (principal); B37.0 Candidal stomatitis; C50.919 Malignant neoplasm of unspecified site of unspecified female breast; C79.51 Secondary malignant neoplasm of bone; C94.6 Myelodysplastic disease, not elsewhere classified; I10 Essential (primary) hypertension; E11.9 Type 2 diabetes mellitus without complications; Z79.84 Long term (current) use of oral hypoglycemic drugs
CPT/HCPCS: 99282; 99284; A9270

== ENCOUNTER 2019-07-02 08:48 | Emergency (ER) | payer MEDICARE, MEDICAID ==
--- NOTE | 2019-07-02 09:03 | ED Physician Documentation ---
PD HPI HEENT - Stated complaint Stated Complaint: LT SIDED MOUTH PX - Chief complaint Chief Complaint: Heent - History obtained from History obtained from: Patient - History of Present Illness Timing - onset: How many days ago (6) Timing - duration: Days (6) Timing - details: Gradual onset, Still present (onset of tooth pain and swelling 6 days ago, seen by dentist 2 days ago and had tooth extracted. Placed on Amox for it. Patient says extraction site is not having drainage but there is gum swelling and tenderness adjacent to it and on buccal cheek, with some white drainage. Called her dentist today, who referred her to the ER for "stronger IV antibiotic and admission to the hospital". Patient asked if her dentist had called ahead, but he had not.) Location: Tooth (left upper tooth extraction site (2nd molar) and the buccal area adjacent to it.) Worsens: Other (movement of her mouth causes rubbing of the area and hurting.) Associated symptoms: No: Fever, Congestion, Swollen nodes Similar symptoms before: Has not had sx before Recently seen: Clinic (dentist 2 days ago) Review of Systems Constitutional: denies: Fever, Chills Nose: denies: Rhinorrhea / runny nose, Congestion Throat: reports: Dental pain / toothache (see HPI), Oral lesions / sores. 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 HOUSE MANAGER: Endometrial ablation, Other - Present Medications Home Medications: Ambulatory Orders Medication Instructions Recorded Confirmed Denosumab [Xgeva] 120 mg SUBQ Q28D MDD hold 04/04/15 06/28/19 clonazePAM [Clonazepam] 1 mg PO TID MDD 3 tabs 04/08/16 06/28/19 Everolimus [Afinitor] 10 mg PO DAILY 12/14/18 06/28/19 Exemestane 25 mg PO DAILY 12/14/18 06/28/19 Docusate Sodium 100 mg PO BID PRN 12/16/18 06/28/19 Lactulose 5 - 10 ml PO BID PRN MDD titrates 12/16/18 06/28/19 Loperamide [Imodium] 2 mg PO Q4HR PRN 01/11/19 06/28/19 Metformin HCl [Metformin ER 1,000 mg PO BID 01/11/19 06/28/19 Gastric] Ondansetron [Zuplenz] 4 mg PO Q6HR PRN 01/19/19 06/28/19 Hydrocodone/Acetaminophen 1 - 2 each PO Q4HR PRN MDD 8 tabs 03/08/19 06/28/19 [Hydrocodon-Acetaminophn 10-325] Magic Mouth Wash 15 ml PO QID PRN MDD 6 doses 03/10/19 06/28/19 dexAMETHasone [Decadron] 0.5 mg PO BID PRN MDD hold 03/10/19 06/28/19 fentaNYL [Fentanyl 62.5mcg patch] 62.5 mcg TOP .3DAYS 03/10/19 06/28/19 Omeprazole 20 mg PO DAILY 03/22/19 06/28/19 Amoxicillin 500 mg PO TID #21 capsule 06/28/19 Nystatin 15 ml PO BID 06/28/19 06/28/19 traZODone [Desyrel] 1 - 2 tab PO QPM 06/28/19 06/28/19 Clindamycin HCl [Clindamycin 300MG 300 mg PO TID #18 capsule 07/02/19 CAP] Morphine Ir [Ms Ir] 15 mg PO TID PRN #12 tablet 07/02/19 - Allergies Allergies/Adverse Reactions: Allergies Allergy/AdvReac Type Severity Reaction Status Date / Time oxycodone HCl * Allergy Mild itch Verified 07/02/19 09:02 [From Percocet] - Social History Does the pt smoke?: No Smoking Status: Never smoker Does the pt drink ETOH?: Yes Does the pt have substance abuse?: No - Immunizations Immunizations are current?: Yes - POLST Patient has POLST: Yes POLST Status: DNR PD ED PE NORMAL - Vitals Vital signs reviewed: Yes - General General: Alert and oriented X 3, No acute distress, Well developed/nourished - HEENT HEENT: No: Dentition benign (left upper 2nd molar with extraction, with site having no noted clot nor drainage. The buccal area in contact there with swelling and superficial white ulceration. Posterior to the molar in the gum is a pointed small white pimple looking spot that I poked with tip of scalpel and got drop or so of pus out. Otherwise the area and cheek did not have any fluctu ance, just soft tissue swelling and no induration. ) - Neck Neck: Supple, no meningeal sign, No adenopathy - Cardiac Cardiac: RRR, No murmur - Respiratory Respiratory: Clear bilaterally - Derm Derm: Normal color, Warm and dry - Neuro Neuro: Alert and oriented X 3, No motor deficit, Normal speech - Psych Psych: No: Normal affect (anxious) Results - Vitals Vitals: Vital Signs - 24 hr 07/02/19 07/02/19 07/02/19 08:55 09:09 11:30 Temperature 37 C 37 C 37 C Heart Rate 105 H 91 80 Respiratory 18 16 16 Rate Blood Pressure 173/85 H 168/84 H 153/69 H O2 Saturation 97 98 99 07/02/19 13:36 Temperature 37.0 C Heart Rate 92 Respiratory 16 Rate Blood Pressure 163/89 H O2 Saturation 97 Oxygen O2 Source Room air - Labs Labs: Laboratory Tests 07/02/19 07/02/19 07/02/19 09:40 09:40 11:49 WBC 1.1 L* RBC 4.07 L Hgb 9.9 L Hct 30.8 L MCV 75.7 L MCH 24.3 L MCHC 32.1 RDW 15.9 H Plt Count 75 L MPV 8.7 Neut # (Auto) 0.7 L Lymph # (Auto) 0.3 L [place] # (Auto) 0.2 Eos # (Auto) 0.0 Baso # (Auto) 0.0 Absolute Nucleated RBC 0.00 Nucleated RBC % 0.0 Manual Slide Review Indicated RBC Morph Micro Appear 1+ ANISOCYTOSIS Sodium 138 Potassium 3.5 Chloride 105 Carbon Dioxide 20 L Anion Gap 13.0 BUN 8 Creatinine 0.8 Estimated GFR (MDRD) 72 L Glucose 122 H POC Whole Bld Glucose 108 H Calcium 8.8 Total Bilirubin 1.0 AST 26 ALT 24 Alkaline Phosphatase 48 Total Protein 7.0 Albumin 3.9 Globulin 3.1 Albumin/Globulin Ratio 1.3 Lipase 18 L PD MEDICAL DECISION MAKING - ED course Complexity details: re-evaluated patient (she is nervous/anxious about going home. Wants to be admitted but not really any criteria for it. Allowed her extended stay in ER for time that she felt better after PO abx and pain meds. ), considered differential (dental/gum infection without abscess and not systemically sick. Chemo patient but wbc 1.1 with neutrophils .6, for ANC over 500. She is on high amount pain meds baseline, so gave goodly dose of meds to help with added pain of the dental infection. ), d/w patient Departure - Departure Disposition: 01 Home, Self Care Clinical Impression: Dental infection Condition: Stable Record reviewed to determine appropriate education?: Yes Instructions: ED Abscess Dental Follow-Up: Charo Lorenz MD [Primary Care Provider] - Prescriptions: Clindamycin HCl [Clindamycin 300MG CAP] 300 mg PO TID #18 capsule Morphine Ir [Ms Ir] 15 mg PO TID PRN #12 tablet PRN Reason: Pain Comments: Add clindamycin antibiotic as directed. Use antiseptic mouthwash a few times a day - swish and spit out to help cleanse off the area. Continue usual medications. Add pain medicine if needed. Follow-up with your dentist and primary care on Thursday or Thursday if not considerably improved. Discharge Date/Time: 07/02/19 13:36
[2019-07-02] MEDS ORDERED: HYDROmorphone 2 MG/ML VIAL IM STA ×2 (09:28→12:04)
[2019-07-02] MEDS ORDERED: LIDOCAINE VISCOUS 2% 15 ML UDC MM STA (09:28)
[2019-07-02] MEDS ORDERED: CLINDAMYCIN 150 MG CAPSULE PO STA (09:28)
[2019-07-02 09:48] LABS: EOSINOPHILS % (AUTO) 2.7 %; HGB - HEMOGLOBIN 9.9 g/dL (12.0-16.0); LYMPHOCYTES # (AUTO) 0.3 10^3/uL (1.5-3.5); LYMPHOCYTES % (AUTO) 22.3 %; MEAN CORPUSCULAR HEMOGLOBIN 24.3 pg (27.0-31.0); MEAN CORPUSCULAR HGB CONC 32.1 g/dL (32.0-36.0); MEAN CORPUSCULAR VOLUME 75.7 fL (81.0-99.0); MEAN PLATELET VOLUME 8.7 fL (7.9-10.8); MONOCYTES # (AUTO) 0.2 10^3/uL (0.0-1.0); MONOCYTES % (AUTO) 15.2 %; NEUTROPHILS # (AUTO) 0.7 10^3/uL (1.5-6.6); NEUTROPHILS % (AUTO) 59.8 %; PLT - PLATELET COUNT 75 10^3/uL (130-450); RED BLOOD COUNT 4.07 10^6/uL (4.20-5.40); RED CELL DISTRIBUTION WIDTH 15.9 % (12.0-15.0)
[2019-07-02 09:52] LABS: WHITE BLOOD COUNT 1.1 x10^3/uL (4.8-10.8)
[2019-07-02 09:59] LABS: ALBUMIN 3.9 g/dL (3.2-5.5); ALBUMIN/GLOBULIN RATIO 1.3 (1.0-2.2); CALCIUM 8.8 mg/dL (8.5-10.3); CREATININE 0.8 mg/dL (0.4-1.0)
[2019-07-02 10:03] LABS: RBC MORPHOLOGY (MULTIPLE) 1+ ANISOCYTOSIS (NORMAL)
[2019-07-02 13:37] VITALS: BP 163/89
== END 2019-07-02 13:36 | disposition home or self-care (01) ==
LOC: ED 08:48
DX: K04.7 Periapical abscess without sinus (principal); Z98.818 Other dental procedure status; C50.919 Malignant neoplasm of unspecified site of unspecified female breast; I10 Essential (primary) hypertension; E11.9 Type 2 diabetes mellitus without complications; Z79.84 Long term (current) use of oral hypoglycemic drugs
CPT/HCPCS: 36415; 80053; 83690; 85025; 96372; 99283; 99284; A9270; J1170

== ENCOUNTER 2019-07-04 09:18 | Emergency (ER) | payer MEDICARE, MEDICAID ==
[2019-07-04 09:33] VITALS: BP 151/81
--- NOTE | 2019-07-04 09:45 | ED Physician Documentation ---
PD HPI HEENT - Stated complaint Stated Complaint: TOOTH PAIN - Chief complaint Chief Complaint: Heent - History obtained from History obtained from: Patient - History of Present Illness Timing - onset: How many days ago (several) Timing - duration: Days (several) Timing - details: Gradual onset Severity Comments: moderate Location: Tooth (Left upper tooth) Improves: Nothing, Other (no improvement with vicodin) Worsens: Everything Associated symptoms: Facial swelling. No: Fever, Congestion, Rhinorrhea, Trismus, Unable to swallow, Swollen nodes, Headache, Cough Similar symptoms before: Diagnosis (was seen in the ED twice in the last week for the same. Last seen 2 days ago and diagnosed with a possible post extraction infection, started on amoxicillin initially and then added clindamycin. Pt has vicodin at home for pain and morphine was given at her last ED visit) Recently seen: Emergency Dept - Treatment prior to arrival Treatment prior to arrival: vicodin, amoxicillin and clindamycin Review of Systems Ten Systems: 10 systems reviewed and negative Constitutional: denies: Fever Eyes: reports: Reviewed and negative Ears: reports: Reviewed and negative Throat: reports: Dental pain / toothache Respiratory: reports: Reviewed and negative GI: reports: Reviewed and negative : reports: Reviewed and negative Skin: reports: Reviewed and negative Musculoskeletal: reports: Reviewed and negative Neurologic: reports: Reviewed and negative Immunocompromised: reports: Chemotherapy PD PAST MEDICAL HISTORY - Past Medical History Past Medical History: Yes Cardiovascular: Hypertension Respiratory: Sleep apnea, CPAP use Endocrine/Autoimmune: Type 2 diabetes GI: GERD, Cholelithiasis 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: Breast cancer (on chemo) : Incontinence HEENT: None Psych: Depression, Anxiety Musculoskeletal: Osteoarthritis, Other Derm: None - Past Surgical History Past Surgical History: Yes General: Colonoscopy, Other /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: Endometrial ablation, Other - Present Medications Home Medications: Ambulatory Orders Medication Instructions Recorded Confirmed Denosumab [Xgeva] 120 mg SUBQ Q28D MDD hold 04/04/15 06/28/19 clonazePAM [Clonazepam] 1 mg PO TID MDD 3 tabs 04/08/16 06/28/19 Everolimus [Afinitor] 10 mg PO DAILY 12/14/18 06/28/19 Exemestane 25 mg PO DAILY 12/14/18 06/28/19 Docusate Sodium 100 mg PO BID PRN 12/16/18 06/28/19 Lactulose 5 - 10 ml PO BID PRN MDD titrates 12/16/18 06/28/19 Loperamide [Imodium] 2 mg PO Q4HR PRN 01/11/19 06/28/19 Metformin HCl [Metformin ER 1,000 mg PO BID 01/11/19 06/28/19 Gastric] Ondansetron [Zuplenz] 4 mg PO Q6HR PRN 01/19/19 06/28/19 Hydrocodone/Acetaminophen 1 - 2 each PO Q4HR PRN MDD 8 tabs 03/08/19 06/28/19 [Hydrocodon-Acetaminophn 10-325] Magic Mouth Wash 15 ml PO QID PRN MDD 6 doses 03/10/19 06/28/19 dexAMETHasone [Decadron] 0.5 mg PO BID PRN MDD hold 03/10/19 06/28/19 fentaNYL [Fentanyl 62.5mcg patch] 62.5 mcg TOP .3DAYS 03/10/19 06/28/19 Omeprazole 20 mg PO DAILY 03/22/19 06/28/19 Amoxicillin 500 mg PO TID #21 capsule 06/28/19 Nystatin 15 ml PO BID 06/28/19 06/28/19 traZODone [Desyrel] 1 - 2 tab PO QPM 06/28/19 06/28/19 Clindamycin HCl [Clindamycin 300MG 300 mg PO TID #18 capsule 07/02/19 CAP] Morphine Ir [Ms Ir] 15 mg PO TID PRN #12 tablet 07/02/19 - Allergies Allergies/Adverse Reactions: Allergies Allergy/AdvReac Type Severity Reaction Status Date / Time oxycodone HCl * Allergy Mild itch Verified 07/04/19 09:33 [From Percet] - Social History Does the pt smoke?: No Smoking Status: Never smoker Does the pt drink ETOH?: Yes Does the pt have substance abuse?: No - Immunizations Immunizations are current?: Yes Immunizations: TDAP >10years/unknown - POLST Patient has POLST: Yes POLST Status: DNR PD ED PE NORMAL - Vitals Vital signs reviewed: Yes - General General: Alert and oriented X 3, No acute distress, Well developed/nourished - HEENT HEENT: Atraumatic, Moist mucous membranes, Pharynx benign - Neck Neck: Supple, no meningeal sign - Cardiac Cardiac: RRR - Respiratory Respiratory: No respiratory distress - Abdomen Abdomen: Non distended - Female Female : Deferred - Rectal Rectal: Deferred - Derm Derm: Normal color, Warm and dry, No rash - Extremities Extremities: No deformity - Neuro Neuro: Alert and oriented X 3 Eye Opening: Spontaneous Motor: Obeys Commands Verbal: Oriented GCS Score: 15 - Psych Psych: Normal mood, Normal affect PD ED PE EXPANDED - HEENT HEENT: Other (left cheek with very mild swelling and tenderness. Tooth #11 s/p extraction with some spontaneous drainage from the extraction site. no malodor. no trismus or drooling or difficulty swallowing.) Results - Vitals Vitals: Vital Signs - 24 hr 07/04/19 09:30 Temperature 37.3 C Heart Rate 95 Respiratory 16 Rate Blood Pressure 151/81 H O2 Saturation 98 Oxygen O2 Source Room air PD MEDICAL DECISION MAKING - ED course Complexity details: reviewed old records, re-evaluated patient, considered differential, d/w patient ED course: ddx- dental pain, dental abscess, post extraction pain, dry socket 63 y/o F with ongoing pain after a dental extraction last week and has had multiple ED visits since the extraction. She is a chemotherapy pt but had labs done less than 2 days ago and no neutropenia. Pt also has not had a fever. Has some mild facial swelling in the area of the extraction and tenderness of the dental extraction site with a white film overlying. No trismus. No change in voice. No airway compromise. I advised her to continue her antibiotics given the possibility of an infection and f/u with her dentist. I offered her a dental block for her pain control but she declined. She agrees to f/u as an outpt with her dentist. Departure - Departure Disposition: 01 Home, Self Care Clinical Impression: Pain, dental Condition: Stable Record reviewed to determine appropriate education?: Yes Instructions: ED Tooth Pain Follow-Up: your, dentist [Other] Comments: Your exam shows a likely postextraction dental infection. You are on the appropriate antibiotics and pain medicines. Continue these and follow up with your dentist for a recheck. You recent lab work showed that you are not neutropenic. If you have a documented fever return to the ED. Discharge Date/Time: 07/04/19 10:27
== END 2019-07-04 10:27 | disposition home or self-care (01) ==
LOC: ED 09:18
DX: K08.89 Other specified disorders of teeth and supporting structures (principal); Z98.818 Other dental procedure status; C50.919 Malignant neoplasm of unspecified site of unspecified female breast; I10 Essential (primary) hypertension; E11.9 Type 2 diabetes mellitus without complications; Z79.84 Long term (current) use of oral hypoglycemic drugs
CPT/HCPCS: 99281; 99282

== ENCOUNTER 2019-07-05 13:20 | Outpatient (CLI) | payer MEDICARE, MEDICAID ==
--- NOTE | 2019-07-05 17:30 | CONSULTATION NOTE ---
Palliative Care Follow Up - Referral Referring Provider: Dr. Sharron Marte Time of Visit: 6818-1289 Referral setting: Home Referral Reason: Acute on chronic pain/weight loss/anxiety/met breast CA - Information Sources Records reviewed: Previous records reviewed History/Review of Systems obtained from: Patient Exam limitations: Clinical condition (patient with STM issues and severe anxiety) - History of Present Illness Update Brief HPI Update: This is a 63-year-old woman who continues to have escalating anxiety and now particular around her abscessed tooth. After much distress, she finally had her tooth pulled, left upper, she reports there is a stitch in there, she is due to have a follow-up with the dentist on . She is quite perseverative, in the context they want to send her to an oral surgeon. She is fearful and concerned she is going to get an infection and "". She is feeling very scared about the whole thing, and spends a significant amount of time doing her oral care and examining her mouth. She has been to the ED 3 times over this last week, and now continues with escalating weight loss that she does not feel like she can eat. She is keeping up with her fluids, reports drinking 8 to 9 glasses of fluid daily, and is urinating on a regular basis. She is only able to eat small amounts of yogurt and her boost supplement 1-2 times a day. She is off on her sleep-wake cycle, she is taking up to 8 Vicodin a day for her acute pain. She continues with very little social support, isolated, and frequent calls to healthcare providers including palliative care team. Patient's baseline pain for her back hip and ribs, is currently well controlled. She has acute pain in her left cheek area, for which she is using the breakthrough Vicodin medication. The ED had also given her some MSIR 15 mg, though does not perceive this helps. She continues with escalating anxiety, using her Klonopin 1 mg up to 3 times a day, to help her "relax" and eat. She continues with intermittent abdominal pain, fearful of eating despite multiple attempts to assist her with dietary recommendations, she has multiple barriers. She has tried Megace and did not feel it helpful as well, her blood sugars been running low, so she has held her metformin. Her past medical history includes MDS with ongoing pancytopenia, metastatic breast cancer to the bones, type 2 diabetes as a side effect of her Afinitor, chronic cholecystitis, and severe anxiety disorder and depression. Social History - Living Situation Living arrangement: At home Living Situation: Alone Support System: Patient lives alone, she estranged from her family, she often pushes away friends or anyone is trying to help. She has been offered the medical palliative care renal social worker, as well as follow-up with [facility], continues to put many barriers. Medications/Allergies - Medications Home Medications: Ambulatory Orders Medication Instructions Recorded Confirmed Denosumab [Xgeva] 120 mg SUBQ Q28D MDD hold 04/04/15 06/28/19 clonazePAM [Clonazepam] 1 mg PO TID MDD 3 tabs 04/08/16 06/28/19 Everolimus [Afinitor] 10 mg PO DAILY 12/14/18 06/28/19 Exemestane 25 mg PO DAILY 12/14/18 06/28/19 Docusate Sodium 100 mg PO BID PRN 12/16/18 06/28/19 Lactulose 5 - 10 ml PO BID PRN MDD titrates 12/16/18 06/28/19 Loperamide [Imodium] 2 mg PO Q4HR PRN 01/11/19 06/28/19 Metformin HCl [Metformin ER 1,000 mg PO BID 01/11/19 06/28/19 Gastric] Ondansetron [Zuplenz] 4 mg PO Q6HR PRN 01/19/19 06/28/19 Hydrocodone/Acetaminophen 1 - 2 each PO Q4HR PRN MDD 8 tabs 03/08/19 06/28/19 [Hydrocodon-Acetaminophn 10-325] Magic Mouth Wash 15 ml PO QID PRN MDD 6 doses 03/10/19 06/28/19 dexAMETHasone [Decadron] 0.5 mg PO BID PRN MDD hold 03/10/19 06/28/19 Omeprazole 20 mg PO DAILY 03/22/19 06/28/19 Amoxicillin 500 mg PO TID #21 capsule 06/28/19 Nystatin 15 ml PO BID 06/28/19 06/28/19 traZODone [Desyrel] 1 - 2 tab PO QPM 06/28/19 06/28/19 Clindamycin HCl [Clindamycin 300MG 300 mg PO TID #18 capsule 07/02/19 CAP] Morphine Ir [Ms Ir] 15 mg PO TID PRN #12 tablet 07/02/19 fentaNYL [Fentanyl 62.5mcg patch] 62.5 mcg TOP .72 HOURS #10 patch 07/06/19 - Allergies Allergies/Adverse Reactions: Allergies Allergy/AdvReac Type Severity Reaction Status Date / Time oxycodone HCl * Allergy Mild itch Verified 07/04/19 09:33 [From Percocet] Review of Systems - Constitutional Constitutional: reports: Fatigue, Poor appetite, Weight loss (07/04 176; 06/12 183.5; 05/03 198; 03/21 204.5; 02/08 224). denies: Fever, Chills - Eyes Eyes: reports: Irritation (using drops; SE of affintor gland issues per eye md), Blurred vision, Vision loss - Ears, Nose & Throat Ears, Nose & Throat: reports: Dental pain, Other (recent tooth extraction; "freaking out"; on 2 AB; pain and erythema lessening but patient presents as distressed and with acute pain). denies: Mouth lesions - Cardiovascular Cardiovascular: reports: Lightheadedness - Respiratory Respiratory: denies: SOB at rest - Gastrointestinal Gastrointestinal: reports: Abdominal pain (with eating), Constipation (alternating with diarrhea), Bloating, Poor appetite, Early satiety. denies: Nausea - Genitourinary Genitourinary: reports: Frequency - Musculoskeletal Musculoskeletal: reports: Back pain, Stiffness, Limited range of motion, Muscle weakness - Integumentary Integumentary: reports: Rash (reports started prior to her antibiotics; has not worsened), Dryness, Hair changes (thinning) - Neurological Neurological: reports: General weakness, Memory problems (worsen with anxiety) - Psychiatric Psychiatric: reports: Depression, Anxiety - Endocrine Endocrine: reports: Diabetes type 2 (BS running low few recorded 106;93;97 not taking metformin) - Hematologic/Lymphatic Hematologic/Lymphatic: reports: Anemia - All Other Systems All Other Systems: reports: Other (limited ROS with patient's anxiety) Physical Exam - Vital Signs Temperature: 97.3 C Pulse Rate: 63 Respiratory Rate: 18 O2 Saturation: 98 (ra @ rest) Blood Pressure: 142/82 - Physical Exam General Appearance: positive: Alert, Moderate distress Eyes Bilateral: positive: Normal inspection ENT: positive: No signs of dehydration (patient taking at least 8 glasses fluid/water daily), Other (patient with left cheek lesion of less than 0.5 cm appears related to pressure of proceduure; filling in/white shallow crater; very little facial swelling, mild tenderness on exam; no erythema; reassured;). negative: Oral lesions (oral candidiasis resolved; no erythema or s/s mucositis observed) Neck: positive: No JVD, Trachea midline Cardiovascular: positive: Regular rate & rhythm Respiratory: positive: No respiratory distress, Breath sounds nml Abdomen: positive: Soft, Tenderness Skin: positive: Pallor, Rash (diffuse rash upper back and inner upper arms; appears to be healing can see where scratching) Extremities: positive: No pedal edema Neurologic/Psychiatric: positive: Oriented x3, Weakness, Depressed mood/affect, Flat affect Palliative Care - POLST Patient has POLST: Yes POLST Status: DNR, Selective Treatment Pain: Pain unchanged (baseline pain in back/hips/ribs controlled current dosing), Pain worsening (mouth pain such using 2 vicodin up to 4x a day; has tried provided MS IR 15 mg from ED but does not feel it "works" has 15 tabs) Tiredness/Fatigue: Severe (7-10) Drowsiness/Sedation: Moderate (4-6) (worsening with increase use of pain meds for tooth pain; she wants to sleep all the time because it "hurts too much") Nausea: None Anorexia: Severe (7-10), Weight loss (patient with over 25 pound weight loss last few months; patient reports "80 pounds" overall) Dyspnea: Mild (1-3) (with exertion) Depression: Severe (7-10) Anxiety: Severe (7-10) (has been to the ED three times this last week related to tooth pain; worried she is going to get infection and ""; feels "they don't care") Feelings of wellbeing/Perceived Quality of Life: Poor, Worsening Sleep: Sleeps poorly, Variable sleep pattern Constipation: Yes, Opoid induced, Unmanaged Performance Status: Patient does spend most of her time in bed or in her recliner, she is quite sedentary. She is afraid to go out, and spends her time isolated in her room. She can attend to her ADLs, she is quite focused on her oral care and managing all her medications. - Palliative Care Discussion: Patient's depression and anxiety continues to worsen, now triggered with her needing to deal with the recent tooth extraction and sequela regarding this. She is very frightened that she is going to have to go to an oral surgeon, is unable to really piece together the steps that would need to make that to happen, as well as the financial stress regarding that. She continues to pose separate and feel overwhelmed, is very difficult to redirect her provide her support that is acceptable or meaningful to her. She perceives her quality of life is worsening, she does target her current decline to her side effects of her Afinitor, but is very frightened to consider regular chemotherapy. She lives independently, but is worried about how she will get her care needs met if she declines further. Results - Lab Results Lab results reviewed: Yes Impression and Recommendations - Palliative Care Impression: This is a 63-year-old [place] woman who is very complex, with multiple comorbidities and underlying mental health issues. This is recently exacerbated in the context of her recent tooth exacerbation, with increased acute pain, decreased food intake, weight loss, exacerbated anxiety and depression. Patient continues with high symptom burden, poor social support, and resistance to multiple suggestions and our interventions. Palliative care continues to provide support on a regular basis, addressing quality of life issues and anticipatory guidance as patient will allow or accept. Recommendations/Counseling Done: 1. Tooth abscess. Patient has had tooth extracted, she is currently on amoxicillin and clindamycin. She does not appear with any acute signs or symptoms of infection, though has continued with persistent pain and discomfort. She is due to see the dentist on , for removal of the stitch and examination. She is quite overwhelmed with the thought of this appointment, as well as consideration of possibly needing to see oral surgeon. Reassurance provided, and counseling regarding her oral care. She is quite fastidious, and may be adding to her trauma. 2. Oral candidiasis. Today she does not present with any symptoms of oral candidiasis, she will be completing her 10 days tomorrow. We will go ahead and reorder, in the context she is now on antibiotics, she will restart if notices recurrent white patches. 3. Mucositis. Patient's mouth does have some bright redness and erythema, but decrease in denuding and lesions. She has been doing her rinses, and seems to have improved with the treatment of the oral candidiasis. 4. Pain of neoplastic origin. She is currently on fentanyl 62.5 mcg patch, her acute pain from her fall has since resolved, but now unfortunately she has acute pain from her tooth extraction/abscess. Patient has been instructed to use either the morphine or the Vicodin every 4 hours, not to combine the 2. 5. Anorexia. She continues to have intermittent abdominal pain and discomfort, now even further decreased intake and weight loss with her inability to tolerate cold or food plus the cleaning that she has to do after she eats. She has been instructed to increase her supplemental drinks, though remains quite resistant to increasing her food intake. 6. Diabetes type 2. Patient with creased intake, and weight loss, her blood sugars have been running quite low, counseling provided to continue to hold her metformin in response. 7. Anxiety disorder. Patient continues to feel overwhelmed and victimized by her ongoing side effects and sequela from her disease and "things keep happening". She does not cope well with it changes, and accesses and calls frequently the pharmacy, palliative care, and providers. She is quite isolated with no social support. She will not consider further medications and is resistant to any kind of counseling or referral. 8. Metastatic breast cancer with bone mets only. Her tumor marker has remained stable, she is to continue on a combination of of her Afinitor and exemestane, though blames the Afinitor for her continued decline in quality of life. She is frightened thought of having "real chemotherapy", encouraged to continue convers ation with oncologist. 9. Advanced care planning. Patient has no social support, she does worry about the future appropriately, but is unwilling to make any plans or meet with renal social worker. She does have POLST in place with DNA R and selective treatments, she perceives her quality of life is continued to deteriorate. If she were to have an acute event or illness and unable to take care of herself or be independent, she is quite strong in her opinion she would not want life to continue. She continues to weigh burdens and benefits of continuing on with treatment on a regular basis. Time Spent: 60 minutes with greater than 50% of this done in counseling regarding patient's ongoing distress and care needs, patient is very difficult to reassure giving her escalating anxiety, palliative care to continue to try and provide ongoing support given this complex situation.
== END 2019-07-05 13:21 | disposition home or self-care (01) ==
LOC: PC 13:20
PROVIDERS: ATTEND Nurse Practitioner Adult Health
DX: Z51.5 Encounter for palliative care (principal); K04.7 Periapical abscess without sinus; F41.9 Anxiety disorder, unspecified; R63.4 Abnormal weight loss; K08.499 Partial loss of teeth due to other specified cause, unspecified class; Z79.891 Long term (current) use of opiate analgesic; R10.9 Unspecified abdominal pain; D46.9 Myelodysplastic syndrome, unspecified; D61.818 Other pancytopenia; C50.911 Malignant neoplasm of unspecified site of right female breast; C79.51 Secondary malignant neoplasm of bone; E09.9 Drug or chemical induced diabetes mellitus without complications; T45.1X5D Adverse effect of antineoplastic and immunosuppressive drugs, subsequent encounter; F32.9 Major depressive disorder, single episode, unspecified; K81.1 Chronic cholecystitis; Z60.2 Problems related to living alone; R63.0 Anorexia; R21 Rash and other nonspecific skin eruption; Z66 Do not resuscitate; K12.30 Oral mucositis (ulcerative), unspecified; G89.3 Neoplasm related pain (acute) (chronic); Z91.81 History of falling; Z79.811 Long term (current) use of aromatase inhibitors
CPT/HCPCS: 99350

== ENCOUNTER 2019-07-12 10:06 | Outpatient (CLI) | payer MEDICARE, MEDICAID ==
[2019-07-12 10:55] LABS: GLUCOSE, URINE (UA) NEGATIVE (NEGATIVE); KETONES,URINE (UA) >=80 mg/dL (NEGATIVE); LEUKOCYTE ESTERASE, URINE NEGATIVE (NEGATIVE); NITRITE,URINE NEGATIVE (NEGATIVE); OCCULT BLOOD,URINE NEGATIVE (NEGATIVE); PH,URINE 5.5 PH (5.0-7.5); PROTEIN,URINE NEGATIVE (NEGATIVE); UROBILINOGEN,URINE 0.2 (NORMAL) E.U./dL (NORMAL)
[2019-07-12 11:13] LABS: HB2 TOTAL 11.8 g/dL; HEMOGLOBIN A1C 0.57 g/dL; HEMOGLOBIN A1C % 6.6 % (4.6-6.2)
[2019-07-12 11:58] LABS: BILIRUBIN,URINE NEGATIVE (NEGATIVE); CLARITY,URINE CLEAR (CLEAR); ICTOTEST,URINE NEGATIVE
== END 2019-07-12 10:07 | disposition home or self-care (01) ==
LOC: LAB 10:06
PROVIDERS: ATTEND Internal Medicine
DX: Z79.899 Other long term (current) drug therapy (principal); E11.9 Type 2 diabetes mellitus without complications; R53.0 Neoplastic (malignant) related fatigue; C50.919 Malignant neoplasm of unspecified site of unspecified female breast
CPT/HCPCS: 36415; 81001; 81003; 82306; 82607; 83036; 87086

== ENCOUNTER 2019-07-19 12:00 | Outpatient (CLI) | payer MEDICARE, MEDICAID ==
--- NOTE | 2019-07-19 14:03 | CONSULTATION NOTE ---
Palliative Care Follow Up - Referral Referring Provider: Dr. Sharron Marte Time of Visit: 12-1300 Referral setting: Home Referral Reason: Anxiety/Pain neoplastic origin/Met Breast CA - Information Sources Records reviewed: Previous records reviewed History/Review of Systems obtained from: Patient Exam limitations: No limitations - History of Present Illness Update Brief HPI Update: This is a 63-year-old woman who continues to have escalating anxiety, and worries as well as perseverates on her mouth. She did have a tooth pulled, left upper and has had follow-up with a dentist. She perceives there is "pus", though does report it is healing, is not as painful, swelling has decreased. She is very upset with the dentist who said he cannot do anything more for her, and recommended oral surgeon. In examination of her mouth I do not see any acute signs or symptoms of infection, and recommended she wait for normal healing process to happen. She continues to examine her mouth fairly aggressively and frequently, I do not see anything other than a dull red mucositis, no signs or symptoms of oral candidiasis she does have some redness in the back of her fair next, but looks consistent with mucositis. She is using all kinds of rinses and topicals, and is eating small amounts. She continues with weight loss, some of this is due to appetite, difficulty with her mouth, meal prep, and her overall anxiety. She has been trialed on Megace, this was not effective, she does have diabetes if not started Decadron, I did introduce mirtazapine with recommendation today to try, patient is quite hesitant to try anything new. Patient's baseline pain for her back, hips, and ribs is currently controlled on fentanyl 62.5 mcg. She is able to get up and down from the chair, she did have an acute exacerbation of the pain with a fall, and then her pain in her mouth was "excruciating". She went from Vicodin 812 in 24 hours, down now to 4-6. She continues absolutely overwhelmed, worried about all the things that could go wrong, has very little social support, but does actually seem in a fairly good mood today. She did reach out to her family, her brother was quite responsive, and the rest were not up to her expectations. Her past medical history includes MDS with ongoing pancytopenia. Metastatic breast cancer to the bones, type 2 diabetes as a result of Afinitor, chronic cholecystitis, and severe anxiety disorder and depression. Social History - Living Situation Living arrangement: At home Living Situation: Alone Support System: Lives Alone in subsidized housing, She is pretty much estranged herself from most of her family and her friends. She has been offered multiple resources, and continues to put many barriers. She does report she did reach out to her family, with varying degrees of response. Medications/Allergies - Medications Home Medications: Ambulatory Orders Medication Instructions Recorded Confirmed Denosumab [Xgeva] 120 mg SUBQ Q28D MDD hold 04/04/15 07/19/19 clonazePAM [Clonazepam] 1 mg PO TID MDD 3 tabs 04/08/16 07/19/19 Everolimus [Afinitor] 10 mg PO DAILY 12/14/18 07/19/19 Exemestane 25 mg PO DAILY 12/14/18 07/19/19 Docusate Sodium 100 mg PO BID PRN 12/16/18 07/19/19 Lactulose 5 - 10 ml PO BID PRN MDD titrates 12/16/18 07/19/19 Loperamide [Imodium] 2 mg PO Q4HR PRN 01/11/19 07/19/19 Metformin HCl [Metformin ER 1,000 mg PO BID PRN 01/11/19 07/19/19 Gastric] Ondansetron [Zuplenz] 4 mg PO Q6HR PRN 01/19/19 07/19/19 Hydrocodone/Acetaminophen 1 - 2 each PO Q4HR PRN MDD 8 tabs 03/08/19 07/19/19 [Hydrocodon-Acetaminophn 10-325] Magic Mouth Wash 15 ml PO QID PRN MDD 6 doses 03/10/19 07/19/19 dexAMETHasone [Decadron] 0.5 mg PO BID PRN MDD hold 03/10/19 07/19/19 Omeprazole 20 mg PO DAILY 03/22/19 07/19/19 Nystatin 15 ml PO BID 06/28/19 07/19/19 traZODone [Desyrel] 50 - 100 mg PO QPM 06/28/19 07/19/19 fentaNYL [Fentanyl 62.5mcg patch] 62.5 mcg TOP .72 HOURS #10 patch 07/06/19 07/19/19 - Allergies Allergies/Adverse Reactions: Allergies Allergy/AdvReac Type Severity Reaction Status Date / Time oxycodone HCl * Allergy Mild itch Verified 07/04/19 09:33 [From Percocet] Review of Systems - Constitutional Constitutional: reports: Fatigue, Weakness, Poor appetite, Weight loss. denies: Fever, Chills - Eyes Eyes: reports: Vision loss, Other (dry "crusting" on eyelids) - Ears, Nose & Throat Ears, Nose & Throat: reports: Hearing loss, Mouth lesions ("geographic tongue" spends significant amount of time examining and looking at mouth), Dental pain (improved where tooth pulled) - Cardiovascular Cardiovascular: reports: Lightheadedness (improved), Decr. exercise tolerance. denies: Chest pain - Respiratory Respiratory: denies: SOB at rest - Gastrointestinal Gastrointestinal: reports: Abdominal pain (lessened), Constipation (alternating with diarrhea), Poor appetite, Early satiety, Other (swallowing improved) - Genitourinary Genitourinary: reports: Dysuria (c/o vaginal discomfort; some retention; UA was negative), Urgency - Musculoskeletal Musculoskeletal: reports: Muscle aches, Stiffness, Muscle weakness - Integumentary Integumentary: reports: Rash (resolving), Dryness, Nail changes (thinning and splitting), Hair changes (thinning) - Neurological Neurological: reports: General weakness, Memory problems, Abnormal gait - Psychiatric Psychiatric: reports: Depression, Anxiety - Endocrine Endocrine: reports: Diabetes type 2 (not needing metformin) - Hematologic/Lymphatic Hematologic/Lymphatic: reports: Anemia - All Other Systems All Other Systems: reports: Reviewed and negative Physical Exam - Vital Signs Temperature: 97.0 C Pulse Rate: 87 Respiratory Rate: 18 O2 Saturation: 98 (ra @ rest) Blood Pressure: 118/68 - Physical Exam General Appearance: positive: Mild distress, Anxious Eyes Bilateral: positive: Normal inspection ENT: positive: No signs of dehydration, Pharyngeal erythema (mild in back; appears consistent with mucositis; candidiasis improved/resolved; continue to point out small changes in mucous membranes; no areas of concern), Oral lesions (buccal lesion on left up by tooth pull filling in; tooth socket no bulging or redness; no "pus pockets' observed just swelling at gum line (patient aggressively cleans teeth)) Neck: positive: No JVD, Trachea midline Cardiovascular: positive: Regular rate & rhythm Respiratory: positive: No respiratory distress, Breath sounds nml Abdomen: positive: Soft, Nml bowel sounds, Obese Skin: positive: Pallor, Dryness (feet), Rash (on back resolving). negative: Pressure wound Extremities: positive: No pedal edema Neurologic/Psychiatric: positive: Oriented x3, Weakness, Depressed mood/affect, Flat affect, Other (highly anxious; easily tearful) Palliative Care - POLST Patient has POLST: Yes POLST Status: DNR, Selective Treatment Pain: Pain improved, Location (acute pain in mouth improving; using less vicodin from 8-12 down to 4-6; pain in hips and back stable) Tiredness/Fatigue: Moderate (4-6) Drowsiness/Sedation: Moderate (4-6) (patient takes clonipin) Nausea: None Anorexia: Moderate (4-6), Weight loss Dyspnea: None Depression: Severe (7-10) Anxiety: Severe (7-10) Feelings of wellbeing/Perceived Quality of Life: Poor, Improved Sleep: Variable sleep pattern (did try trazadone at 100 mg and feels is working now) Constipation: Intermittent constipation (patient alternates often related to her medication use/misuse) Performance Status: Patient is less dizzy, she is ambulatory around her apartment. She does have the volunteer coming to give her some assistance. She continues to stay isolated in her apartment, she is worried about getting an infection or sick. She has very little to distract herself, and feels often overwhelmed by her regimen that is both prescribed and self-imposed. - Palliative Care Discussion: Patient has 7 siblings, she did reach out to her brother neck, she reports this was a positive experience and was very helpful and wanting to know what they could do for her. She reached out to 2 other sisters, that was a negative e xperience, [place] like [place] approach. In trying to re-direct her to the positive connection she has made, she is very difficult to keep from going down rabbit holes. We will explore this further, she does need a D POA, if her brother might be willing to do this. Patient does have a POLST in place, but no D POA. Results - Lab Results Lab results reviewed: Yes Impression and Recommendations - Palliative Care Impression: This is a 63-year-old [place] woman who is very complex both with multiple core morbidities and underlying mental health issues. This is been recently exacerbated in the context of her recent tooth extraction. Pain is improving, today does not present with any acute signs or symptoms of infection, she has had increased intake and is able to stay hydrated. She continues to perceive her quality of life is worsening, though her counts are improving and her numbers are better. She does live currently independently, but is overwhelmed with her current regimen and presents with fairly high symptom burden. Palliative care providing support on a regular basis, and attempts to mitigate her ongoing escalating anxiety and depression. Recommendations/Counseling Done: 1. Tooth socket. Patient has had tooth extracted, she is completed her antibiotics, she does not present with any acute signs or symptoms of infection, does appear to be healing. Her pain is improved as well as the swelling and any redness. She is quite overwhelmed the thought of seeing an oral surgeon, I suspect they recommended this in response to her complaints she had "pus pockets". I do not see any signs or symptoms of infection on this examination, though she is at high risk. She is quite fastidious with her oral care, and certainly can be adding to her trauma. 2. Oral candidiasis. Today she does not present with any symptoms of oral candidiasis, she is completed her nystatin, she does have available to restart if needed. She is quite perseverative around this, I did recommend to keep it on hold for now. 3. Mucositis. 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 She has been doing her dexamethasone rinse as well as magic mouth wash. Is hard to convince that her mouth looks actually fairly well and what we would expect. 4. Pain of neoplastic origin. She is currently on fentanyl 62.5 mcg patch, she is doing fairly well on this, her back ribs and hip pain are well controlled. Her acute pain from her tooth extraction/abscess has improved, she had been using 8-12 Vicodin, she is down to 4-6. She has been instructed not to exceed 6 to 8 tablets. 5. Anorexia. Patient continues with multiple issues around eating. She complains of intermittent abdominal pain, alternating constipation and diarrhea though she induces this with her med management, she complains of taste changes, and is worried about her blood sugars. She reports she gets quite anxious, the only way she can eat is with her Klonopin, that relaxes her for her to be able to eat. Counseling provided regarding again strategies to increase her intake, she has been doing more soup, recommended that we trial some mirtazapine, she will consider. 6. Diabetes type 2. Patient with decreased intake and weight loss, her blood sugars have continued quite low, she has been instructed to continue to hold her Metformin in response. 7. Anxiety disorder. Patient continues to feel overwhelmed and victimized by her ongoing side effects and sequela from her disease, and "things keep happening". She does not cope well with change, she accesses and calls frequently the pharmacy, palliative care, and providers. She is isolated with minimal social support, she did reach out to her family with mixed response. 8. Metastatic breast cancer with bone mets only. Her tumor markers continue to improve, she continues on a combination of her Afinitor and exemestane, she continues to complain of quality of life but is frightened of "real chemotherapy". She gets overwhelmed and immobilized when she meets with her oncologist, she is very fearful of bad news. 9. Advanced care planning. Patient continues with minimal social support, she does worry about the future this is an appropriate concern, but is unwilling to make any plans or meet with the social problems specialist. She does have POLST in place with DNA R and selective treatments, she has reached out with a positive interaction with her brother, will pursue this further for D POA. She continues to weigh better burdens and benefits to continue on with treatment on a regular basis. Time Spent: 60 minutes with greater than 50% of this done in counseling regarding depression and anxiety, pain and symptom management, review of her medications and oral care and coordination of care.
== END 2019-07-19 12:01 | disposition home or self-care (01) ==
LOC: PC 12:00
PROVIDERS: ATTEND Nurse Practitioner Adult Health
DX: Z51.5 Encounter for palliative care (principal); G89.3 Neoplasm related pain (acute) (chronic); R63.0 Anorexia; K12.30 Oral mucositis (ulcerative), unspecified; F41.9 Anxiety disorder, unspecified; E09.9 Drug or chemical induced diabetes mellitus without complications; T45.1X5D Adverse effect of antineoplastic and immunosuppressive drugs, subsequent encounter; C79.51 Secondary malignant neoplasm of bone; C50.919 Malignant neoplasm of unspecified site of unspecified female breast; Z79.899 Other long term (current) drug therapy; Z79.891 Long term (current) use of opiate analgesic; Z66 Do not resuscitate; Z63.8 Other specified problems related to primary support group
CPT/HCPCS: 99350

== ENCOUNTER 2019-07-28 01:52 | Outpatient (CLI) | payer MEDICARE, MEDICAID | END 2019-07-28 01:53 | disposition critical access hospital (66) | LOC: EMS 01:52 | PROVIDERS: ATTEND Surgery | DX: R10.9 Unspecified abdominal pain (principal); R19.8 Other specified symptoms and signs involving the digestive system and abdomen | CPT/HCPCS: A0425; A0428 ==

== ENCOUNTER 2019-07-28 01:57 | Emergency (ER) | payer MEDICARE, MEDICAID ==
[2019-07-28] MEDS ORDERED: LIDOCAINE VISCOUS 2% 100 ML BOTTLE MM STA ×2 (02:10→02:16)
--- NOTE | 2019-07-28 02:14 | ED Physician Documentation ---
History of Present Illness - Stated complaint Stated Complaint: IMPACTED STOOL - Chief complaint Chief Complaint: General - History obtained from History obtained from: Patient - History of Present Illness Timing: Today - Additonal information Additional information: This is a 63-year-old woman who is a patient and on chronic narcotics who presents with complaints that she has a "anal plug". 2 days ago she had to push really hard in order to get stool out and it was quite large. Then today she just could not get comfortable and is did not want to sit on the toilet to push any stool out. She called to the emergency department and was told it would be a 6-hour wait so she waited to call the ambulance because she did not want to come in then and have to wait. She does take stool softeners but still deals with constipation. Review of Systems Constitutional: denies: Fever GI: reports: Constipation PD PAST MEDICAL HISTORY - Past Medical History Cardiovascular: Hypertension Respiratory: Sleep apnea, CPAP use Endocrine/Autoimmune: Type 2 diabetes GI: GERD, Cholelithiasis [employer]IC: Breast cancer (on chemo) : Incontinence HEENT: None Psych: Depression, Anxiety Musculoskeletal: Osteoarthritis, Other Derm: None - Past Surgical History Past Surgical History: Yes General: Colonoscopy, Other /[employer]MECH[employer]IC: Endometrial ablation, Other - Present Medications Home Medications: Ambulatory Orders Medication Instructions Recorded Confirmed Denosumab [Xgeva] 120 mg SUBQ Q28D MDD hold 04/04/15 07/19/19 clonazePAM [Clonazepam] 1 mg PO TID MDD 3 tabs 04/08/16 07/19/19 Everolimus [Afinitor] 10 mg PO DAILY 12/14/18 07/19/19 Exemestane 25 mg PO DAILY 12/14/18 07/19/19 Docusate Sodium 100 mg PO BID PRN 12/16/18 07/19/19 Lactulose 5 - 10 ml PO BID PRN MDD titrates 12/16/18 07/19/19 Loperamide [Imodium] 2 mg PO Q4HR PRN 01/11/19 07/19/19 Metformin HCl [Metformin ER 1,000 mg PO BID PRN 01/11/19 07/19/19 Gastric] Ondansetron [Zuplenz] 4 mg PO Q6HR PRN 01/19/19 07/19/19 Hydrocodone/Acetaminophen 1 - 2 each PO Q4HR PRN MDD 8 tabs 03/08/19 07/19/19 [Hydrocodon-Acetaminophn 10-325] Magic Mouth Wash 15 ml PO QID PRN MDD 6 doses 03/10/19 07/19/19 dexAMETHasone [Decadron] 0.5 mg PO BID PRN MDD hold 03/10/19 07/19/19 Omeprazole 20 mg PO DAILY 03/22/19 07/19/19 Nystatin 15 ml PO BID 06/28/19 07/19/19 traZODone [Desyrel] 50 - 100 mg PO QPM 06/28/19 07/19/19 fentaNYL [Fentanyl 62.5mcg patch] 62.5 mcg TOP .72 HOURS #10 patch 07/06/1906/27 - Allergies Allergies/Adverse Reactions: Allergies Allergy/AdvReac Type Severity Reaction Status Date / Time oxycodone HCl * Allergy Mild itch Verified 07/28/19 02:06 [From Percocet] - Social History Does the pt smoke?: No Smoking Status: Never smoker Does the pt drink ETOH?: Yes Does the pt have substance abuse?: No - Immunizations Immunizations are current?: Yes Immunizations: TDAP >10years/unknown - POLST Patient has POLST: Yes POLST Status: DNR PD ED PE NORMAL - Vitals Vital signs reviewed: Yes - General General: Alert and oriented X 3, Well developed/nourished, Other (Patient is sitting on the edge of the bed and moaning) - Respiratory Respiratory: No respiratory distress - Abdomen Abdomen: Normal bowel sounds, Soft - Rectal Rectal: Other (There is stool in the rectal vault that firm. Was too uncomfortable for me to be able to manually disimpact much of this. There was no blood.) - Derm Derm: Normal color, Warm and dry, No rash - Neuro Neuro: Alert and oriented X 3, No motor deficit, No sensory deficit, Normal speech Results - Vitals Vitals: Vital Signs - 24 hr 07/28/19 02:01 Temperature 37.1 C Heart Rate 82 Respiratory 17 Rate Blood Pressure 137/78 H O2 Saturation 100 Oxygen O2 Source Room air PD MEDICAL DECISION MAKING - ED course ED course: Patient was given a fleets enema and a soapsuds enema without any significant results. She was then manually disimpacted by myself. As she was sitting on the toilet evacuating her bowel following that she told the nurse that her doctor had told her if her nose hurt or turned red she should come into the emergency department and get a nasal swab and she is complaining of pain in her nose to the nursing staff. A nasal PCR screen was ordered and she will be couns eled that she needs to obtain results from her primary provider. She is repeatedly expressing concerns that she is going to get stool in her vagina and yet despite being counseled by nursing staff continues to wipe herself from front to back. Departure - Departure Disposition: Home, Self Care Clinical Impression: Fecal impaction Condition: Good Instructions: ED Impaction Fecal Treated Follow-Up: Charo Lorenz MD [Provider Admit Priv/Credential] - Comments: Be sure to take a stool softener or the prescription you have been given by your primary provider for constipation especially if you are taking narcotics. Drink plenty of water. Wipe from front to back to prevent contaminating your vagina when wiping. Your primary care provider will need to follow-up on the nasal MRSA swab since we will not have access to those results until later today or possibly even later due to machine malfunction at this time.
[2019-07-28] MEDS ORDERED: LIDOCAINE VISCOUS 2% 15 ML UDC MM STA (02:15)
[2019-07-28] MEDS ORDERED: LIDOCAINE 2% URO-JET 5 ML SYRINGE UR STA (02:16)
[2019-07-28 06:03] VITALS: BP 144/91
== END 2019-07-28 06:03 | disposition home or self-care (01) ==
LOC: EDUNIT# → ED 01:57
DX: K56.41 Fecal impaction (principal); J34.89 Other specified disorders of nose and nasal sinuses; E11.9 Type 2 diabetes mellitus without complications; I10 Essential (primary) hypertension; Z79.84 Long term (current) use of oral hypoglycemic drugs
CPT/HCPCS: 87640; 99283; 99284

== ENCOUNTER 2019-08-02 13:00 | Outpatient (CLI) | payer MEDICARE, MEDICAID ==
--- NOTE | 2019-08-02 16:28 | CONSULTATION NOTE ---
Palliative Care Follow Up - Referral Referring Provider: Dr. 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 She recently had surgery to pull her tooth, which causes her extreme amount of angst and distress. It also escalated her pain, she is now healing, without any signs or symptoms of infection. She is on Afinitor and exemestane, she has had fluctuating side effects particularly around mucositis and intermittent candidiasis. She remains quite perseverative on her mouth, skin issues, and side effects of Afinitor. Unfortunately her most significant issue is her ongoing weight loss. She has had had intermittent constipation, often created by her her overuse of lactulose alternating with Imodium. She had a emergency department visit on for disimpaction. She remains quite perseverative on her bowels as well. Patient seen today to follow-up on her pain, she is on 62.5 mcg fentanyl, this is providing good relief. She has not needed any Vicodin for breakthrough pain. She is also avoiding it secondary to constipation. She does present with symptoms of gastric stasis, she reports early satiety, intermittent nausea, and is quite fearful of eating. She has had GI work-up, with no acute findings to explain her underlying gastric issues and her ongoing fluctuating abdominal pain. She also has severe anxiety, and has used her Klonopin 1 mg tabs, she has been allotted 3 a day, and has uses 10 days early. She attributes this to her mouth issues, tooth, the holidays, and distressed with her family. Patient does have known underlying mental health issues, with severe day anxiety disorder, and has been unwilling to work with referrals, other team members, or alternative medications. Social History - Living Situation Living arrangement: At home Living Situation: Alone Support System: Patient has recently reached out to her siblings, I believe there are 7 of them. This is caused her is a significant amount of angst, remains quite isolated, with very little social support. She does call the palliative care team frequently at least daily, alternating with her primary care and oncology clinic. Medications/Allergies - Medications Home Medications: Ambulatory Orders Medication Instructions Recorded Confirmed Denosumab [Xgeva] 120 mg SUBQ Q28D MDD hold 04/04/15 08/02/19 clonazePAM [Clonazepam] 1 mg PO TID MDD 3 tabs 04/08/16 08/02/19 Everolimus [Afinitor] 10 mg PO DAILY 12/14/18 08/02/19 Exemestane 25 mg PO DAILY 12/14/18 08/02/19 Lactulose 5 - 10 ml PO BID PRN MDD titrates 12/16/18 08/02/19 Loperamide [Imodium] 2 mg PO Q4HR PRN 01/11/19 08/02/19 Metformin HCl [Metformin ER 1,000 mg PO BID PRN MDD hold 01/11/19 08/02/19 Gastric] Ondansetron [Zuplenz] 4 mg PO Q6HR PRN 01/19/19 08/02/19 Hydrocodone/Acetaminophen 1 - 2 each PO Q4HR PRN MDD 8 tabs 03/08/19 08/02/19 [Hydrocodon-Acetaminophn 10-325] Magic Mouth Wash 15 ml PO QID PRN MDD 6 doses 03/10/19 08/02/19 dexAMETHasone [Decadron] 0.5 mg PO BID PRN MDD hold 03/10/19 08/02/19 Omeprazole 20 mg PO DAILY 03/22/19 08/02/19 Nystatin 5 ml PO QID PRN MDD hold now 06/28/19 08/02/19 traZODone [Desyrel] 50 - 100 mg PO QPM 06/28/19 08/02/19 fentaNYL [Fentanyl 62.5mcg patch] 62.5 mcg TOP .72 HOURS #10 patch 07/06/19 08/02/19 Metoclopramide HCl 5 mg PO TID 08/02/19 08/02/19 polyethylene glycoL 3350 [Miralax] 17 gm PO DAILY 08/02/19 08/02/19 - Allergies Allergies/Adverse Reactions: Allergies Allergy/AdvReac Type Severity Reaction Status Date / Time oxycodone HCl * Allergy Mild itch Verified 07/28/19 02:06 [From Percet] Review of Systems - Constitutional Constitutional: reports: Fatigue, Weakness, Poor appetite, Weight loss (multiple reasons and perseverations regarding food intake/bowels/anxiety/with severely decreased caloric intake). denies: Fever, Chills - Eyes Eyes: reports: Vision loss, Other (worried about dryness at eyelashes; scratchy eyes;) - Ears, Nose & Throat Ears, Nose & Throat: reports: Other (tooth removed left upper molar; socket appears well healed; having follow up at dentist this week; pain resolved; now worried about receding gumline; does aggressive oral care several times a week;). denies: Mouth lesions - Cardiovascular Cardiovascular: reports: Lightheadedness (improved), Decr. exercise tolerance - Respiratory Respiratory: reports: SOB with exertion. denies: SOB at rest - Gastrointestinal Gastrointestinal: reports: Abdominal pain, Abdominal distention, Constipation (alternating with diarrhea; went to the ED 1/2 for disimpaction;), Diarrhea (gets anxious then takes lactulose; gets diarrhea then takes immodium last BM 4days a go and severely anxious needs to be disimpacted again), Bloating, Poor appetite, Early satiety. denies: Nausea, Reflux/heartburn - Musculoskeletal Musculoskeletal: reports: Muscle aches, Stiffness, Muscle weakness - Integumentary Integumentary: reports: Dryness, Nail changes, Hair changes (thinning and breaking) - Neurological Neurological: reports: General weakness, Memory problems, Abnormal gait - Psychiatric Psychiatric: reports: Depression, Anxiety - Endocrine Endocrine: reports: Diabetes type 2 (has not needed metformin;) - Hematologic/Lymphatic Hematologic/Lymphatic: reports: Anemia. denies: Recurrent infections - All Other Systems All Other Systems: reports: Reviewed and negative Physical Exam - Vital Signs Temperature: 97.9 C Pulse Rate: 67 Respiratory Rate: 18 O2 Saturation: 97 (ra @ rest) Blood Pressure: 152/62 - Physical Exam General Appearance: positive: Mild distress, Anxious Eyes Bilateral: positive: Normal inspection ENT: positive: No signs of dehydration, Other (mouth clear; no lesions; no s/s of candidiasis;). negative: Pharyngeal erythema, Oral lesions, Dry mucous membranes Neck: positive: No JVD, Trachea midline Cardiovascular: positive: Regular rate & rhythm Respiratory: positive: No respiratory distress Abdomen: positive: Soft, Abnml bowel sounds (hyperactive; had taken dose of lactulose prior to arrival), Tenderness, Other (rectal exam; small external hemmorhoid not swollen or inflammed;) Skin: positive: Pallor, Dryness, Other (worried about skin issues on face; no active lesions; area of roughness no rash) Extremities: positive: No pedal edema Neurologic/Psychiatric: positive: Oriented x3, Weakness, Depressed mood/affect Palliative Care - POLST Patient has POLST: Yes POLST Status: DNR, Selective Treatment Pain: Pain improved, Location (Patient's acute pain from tooth removal, is resolved, no longer needing Vicodin. Her back and hip pains, are currently managed on the fentanyl.) Tiredness/Fatigue: Severe (7-10) (Patient gets perseverating at night, has difficulty sleeping. Alternating awake during the day, is not staying to any routine despite encouragement otherwise.) Drowsiness/Sedation: Mild (1-3) Nausea: Mild (1-3) Anorexia: Severe (7-10), Weight loss Dyspnea: None Depression: Severe (7-10) Anxiety: Severe (7-10) Feelings of wellbeing/Perceived Quality of Life: Poor, Worsening Sleep: Sleeps poorly, Variable sleep pattern Constipation: Unmanaged, Intermittent constipation (patient uses at baseline 3 LIZETTE daily; then intermittently lactulose does not wait for it to work; takes several times then take immodium when creates diarrhea) Performance Status: She has had a decline in functional status, she is getting weaker, she does spend most of her time sitting in her recliner. She is keep herself isolated in her room, she is able to bathe, but does take quite a bit of energy. She has complicated sleep-wake patterns, so is often tired. - Palliative Care Discussion: Patient continues to have high anxiety, which then interferes in her ability to cope and to follow through on a regimen. She does get quite overwhelmed easily, is often impulsive in her decision-making. She overused her Klonopin this last month, attributes this to her ongoing saga with her family members, she did finally reach out and is found this actually to be quite a painful experience. She attributes her over use also to her lack of ability to eat, she reports "it relaxes my stomach", and calms her nerves. She also found the holidays very depressing and felt like it was the only thing that helped her cope. She does report her brother has been supportive when she reached out, her sisters do want a come visit, but now she does not want them because it is overwhelming. She has friends that she is estranged from, she is gets her feelings easily hurt. She remains quite isolated. She does not have any psychosocial or physical support to manage her ongoing complex medical issues. Results - Lab Results Lab results reviewed: Yes Impression and Recommendations - Palliative Care Impression: This is a 63-year-old [place] woman, with very complex multiple comorbidities and underlying mental health issues. She has metastatic breast cancer with bone mets, and recently had a tooth extraction, with improving pain. She is on Afinitor and exemestane, she has intermittent fluctuating side effects, including mucositis, decreased appetite and weight loss, her blood sugars currently are under control. She has had improvement in her counts, she continues to perceive her quality of life though is worsening. She has underlying severe anxiety disorder which was exacerbated recently with the holidays. She does live independently, but gets easily overwhelmed and presents ongoing with high symptom burden. Palliative care providing support on a regular basis and attempts to mitigate her ongoing escalating anxiety and depression and ED visits. Recommendations/Counseling Done: 1. Constipation. Patient reports was distressed regarding no bowel movement since Thursday, though when she had a loose bowel movement Thursday she took an Imodium. She continues to take daily DOS, and perseverate on her bowels after her disimpaction in the ED on 07/28. Rectal done no stool in her lower vault, gave fleets enema with results of soft moderate amount of stool with very little problem. Patient is been instructed to discontinue D OS S, and start MiraLAX 17 g daily, and use the lactulose only at 5 mils every 4 hours if no BM in 48 hours. Written instructions provided secondary to patient's poor short-term memory and high anxiety. 2. Pain of neoplastic origin. Patient has not needed any further Vicodin, her mouth pain has resolved, with her extracted tooth socket healing. No signs or symptoms of infection. She is on fentanyl 62.5 mcg patch, for her bone pain. She does have intermittent hip and back pain, but has not needed anything for breakthrough. At this point in time we will not make any changes, given patient is finally stable on her pain meds. 3. Anxiety. Patient has completed her Klonopin prescription 1 mg 3 times daily 10 days early. Patient attributes this to her high escalating anxiety regarding her tooth extraction, holidays, and reconnection with her family. Patient is canceled several physician appointments, as she has been overwhelmed. Patient's been counseled this is not appropriate use of her Klonopin, have recommended psychiatric referral, and or at least counseling. Patient remains quite resistant to any kind of suggestions or resources offered. Patient was given a short supply to get her to her prescription allotment, as patient only had one left and did not want to facilitate [place] any kind of withdrawal symptoms given her history. She has been on Klonopin for several years on the current dose. She is been counseled I will not increase her dosing regarding this, she needs to stay within the allotted amount. 3. Gastric stasis. Patient controlling of bloating, early satiety, attributing some of this to her decreased intake. She is trying to eat more, using Glucerna, pured soups and her yogurt. Will trial metoclopramide 5 mg 3 times daily, this may assist with her bowels as well. 4. Diabetes type 2. With patient's decreased intake and weight loss, her blood sugars have been quite low, she is holding her metformin currently 5. Weight loss. Patient has been trialed on Megace, she did not do well. I have recommended mirtazapine, but she is afraid to try anything new, she is using trazodone with good effect for sleep and does not want to trade this out. Counseling provided regarding again need to increase calories, strategies to add ress this. 6. Metastatic breast cancer with bone mets only. 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 She easily gets overwhelmed and immobilized before she meets her oncologist, she is always fearful of bad news. She has though been having ongoing positive response despite her side effects of her medications. She is very frightened "of real ch emotherapy". 7. Advanced care planning. Patient continues with minimal social support, she does worry about this in the future and this is an appropriate concern. She has recently reached out to her family, will try and pin her down for a D POA. She does have POLST in place with DNA R and selective treatments, she continues to weigh benefits and burdens about continuing treatment on a regular basis. Time Spent: 60 minutes with greater than 50% of this done in counseling regarding depression and anxiety, pain and symptom management, review and counseling regarding medications and coordination of care.
== END 2019-08-02 13:01 | disposition home or self-care (01) ==
LOC: PC 13:00
PROVIDERS: ATTEND Nurse Practitioner Adult Health
DX: Z51.5 Encounter for palliative care (principal); R63.4 Abnormal weight loss; K59.00 Constipation, unspecified; G89.3 Neoplasm related pain (acute) (chronic); F41.9 Anxiety disorder, unspecified; E11.9 Type 2 diabetes mellitus without complications; R19.8 Other specified symptoms and signs involving the digestive system and abdomen; R53.81 Other malaise; C79.51 Secondary malignant neoplasm of bone; C50.919 Malignant neoplasm of unspecified site of unspecified female breast; Z79.899 Other long term (current) drug therapy; Z79.891 Long term (current) use of opiate analgesic; Z66 Do not resuscitate
CPT/HCPCS: 99350

== ENCOUNTER 2019-08-17 16:26 | Outpatient (CLI) | payer MEDICARE, MEDICAID ==
--- NOTE | 2019-08-17 17:10 | CONSULTATION NOTE ---
Palliative Care Follow Up - Referral Referring Provider: Dr. Sharron Marte Time of Visit: 3926-2115 Referral setting: Home Referral Reason: Pain of neoplastic origin/met breast ca/anxiety - Information Sources Records reviewed: Previous records reviewed History/Review of Systems obtained from: Patient Exam limitations: Clinical condition (patient with severe anxiety; STM issues) - History of Present Illness Update Brief HPI Update: This is a 63-year-old woman with metastatic breast cancer to the bones only, she continues on her Afinitor and exemestane, her Xgeva is currently on hold. She continues to suffer with extreme anxiety, has had multiple persistent side effects from her Afinitor, including anorexia, weight loss, oral mucositis, and skin rash. These fluctuate in severity but cause her much worry. Currently her mouth is clear of any oral candidiasis, she does have some pain at the tip of her tongue, had currently had her dexamethasone on hold, instructed to restart. She has continued to recover from her extracted tooth, just some tenderness with chewing, but no signs or symptoms of infection. She continues with intermittent abdominal discomfort, but has improved on the metoclopramide 3 times daily, no further constipation, and has been doing better with her intake. Though her over all weight loss remains significant. Patient has had an exacerbation of her charisma pain, the elevator was broken, and she is had to walk up and down the stairs. Her pain is mostly located bilaterally in her hips and knees, she does have some sepulveda pain. Her biggest concern which is is a new symptom, for greater than a week, she has had some mild trace swelling in her foot and ankle, negative Homans sign, no redness warmth or progressive evidence of clot though certainly at high risk. Patient has been started on hydrochlorothiazide by her PCP, without much improvement. Patient's discomfort is mostly from the edema, there are no other localized areas of pain. Social History - Living Situation Living arrangement: At home Living Situation: Alone Support System: Patient remains quite isolated, with very little social support. She continues to call frequently the palliative care team, alternating with her primary care oncology clinic. Unfortunately she also uses the pharmacy, and now she is worried about congestive heart failure. She easily gets overwhelmed, has difficulty remembering things, she is keeping track going keeps a journal. Medications/Allergies - Medications Home Medications: Ambulatory Orders Medication Instructions Recorded Confirmed Denosumab [Xgeva] 120 mg SUBQ Q28D MDD hold 04/04/15 08/18/19 clonazePAM [Clonazepam] 1 mg PO TID MDD 3 tabs 04/08/16 08/18/19 Everolimus [Afinitor] 10 mg PO DAILY 12/14/18 08/18/19 Exemestane 25 mg PO DAILY 12/14/18 08/18/19 Lactulose 5 - 10 ml PO BID PRN MDD titrates 12/16/18 08/18/19 Loperamide [Imodium] 2 mg PO Q4HR PRN 01/11/19 08/18/19 Ondansetron [Zuplenz] 4 mg PO Q6HR PRN 01/19/19 08/18/19 Hydrocodone/Acetaminophen 1 - 2 each PO Q4HR PRN MDD 8 tabs 03/08/19 08/18/19 [Hydrocodon-Acetaminophn 10-325] Magic Mouth Wash 15 ml PO QID PRN MDD 6 doses 03/10/19 08/18/19 Omeprazole 20 mg PO DAILY 03/22/19 08/18/19 traZODone [Desyrel] 50 - 100 mg PO QPM 06/28/19 08/18/19 fentaNYL [Fentanyl 62.5mcg patch] 62.5 mcg TOP .72 HOURS #10 patch 07/06/19 08/18/19 Metoclopramide HCl 5 mg PO TID 08/02/19 08/18/19 polyethylene glycoL 3350 [Miralax] 17 gm PO DAILY 08/02/19 08/18/19 hydroCHLOROthiazide 25 mg PO DAILY 08/18/19 08/18/19 [Hydrochlorothiazide] - Allergies Allergies/Adverse Reactions: Allergies Allergy/AdvReac Type Severity Reaction Status Date / Time oxycodone HCl * Allergy Mild itch Verified 08/09/19 13:56 [From Percocet] Review of Systems - Constitutional Constitutional: reports: Fatigue, Weakness, Poor appetite, Night sweats (intermittent), Weight loss (slowing). denies: Fever - Eyes Eyes: reports: Vision loss - Ears, Nose & Throat Ears, Nose & Throat: reports: Dry mouth. denies: Mouth lesions - Cardiovascular Cardiovascular: reports: Edema (left foot for one week;), Decr. exercise tolerance - Respiratory Respiratory: reports: SOB with exertion, Other (hx of CPAP; "threw it out" not working;). denies: SOB at rest - Gastrointestinal Gastrointestinal: reports: Abdominal pain (less but still intermittent with eating), Bloating (improved), Early satiety. denies: Constipation, Diarrhea (several loose soft a day; not watery), Nausea - Genitourinary Genitourinary: reports: Frequency (with restarting hctz) - Musculoskeletal Musculoskeletal: reports: Back pain, Muscle aches, Stiffness, Muscle weakness, Joint pain (bilateral hips) - Integumentary Integumentary: reports: Dryness, Nail changes (thinning), Hair changes (thinning on head). denies: Rash - Neurological Neurological: reports: General weakness, Numbness (c/o new numbness in feet; balls of feet), Memory problems, Abnormal gait - Psychiatric Psychiatric: reports: Depression, Anxiety - Endocrine Endocrine: reports: Diabetes type 2 (not checking blood sugars;), Intolerance to cold - Hematologic/Lymphatic Hematologic/Lymphatic: reports: Anemia, Recurrent infections (last treated 07/14 for tooth infection) - All Other Systems All Other Systems: reports: Reviewed and negative Physical Exam - Vital Signs Temperature: 97.2 C Pulse Rate: 72 Respiratory Rate: 18 O2 Saturation: 97 (ra @ rest ) Blood Pressure: 132/68 - Physical Exam General Appearance: positive: Alert, Mild distress, Anxious Eyes Bilateral: positive: Normal inspection, Other (periorbital edema) ENT: negative: Oral lesions (slight redness soreness tip of tongue; no s/s yeast;) Neck: positive: No JVD, Trachea midline Cardiovascular: positive: Regular rate & rhythm Respiratory: positive: No respiratory distress, Breath sounds nml Abdomen: positive: Soft, Nml bowel sounds, Tenderness Skin: positive: Pallor, Dryness. negative: Rash Extremities: positive: Pedal edema (left foot with localized edema into ankle and 1/2 up calf; trace ; none on right; has been on diuretics one week no improvement; no redness/pain/neg holmans; no swelling in morining; increases through the day), Other (gait ataxic;). negative: Calf tenderness, Joint swelling Neurologic/Psychiatric: positive: Oriented x3, Weakness, Depressed mood/affect, Flat affect Palliative Care - POLST Patient has POLST: Yes POLST Status: DNR, Selective Treatment Pain: Pain worsening, Location (reports increased pain in bilateral hips; now developed some in shins; elevator out and has been up and down stairs; worsened with activity;) Tiredness/Fatigue: Severe (7-10) Drowsiness/Sedation: Mild (1-3) Nausea: Mild (1-3) Anorexia: Moderate (4-6) (improved intake for last week) Dyspnea: Mild (1-3) Depression: Moderate (4-6) Anxiety: Severe (7-10) Feelings of wellbeing/Perceived Quality of Life: Fair, Worsening Sleep: Variable sleep pattern Constipation: Yes, Opoid induced, Intermittent constipation Performance Status: Patient remains quite sedentary, unfortunately with her elevator out, she was fairly stressed going up and down the stairs. She is quite deconditioned. She is able to bathe, but has to pace her activity. She is not interested in any kind of home exercise program or supporting herself and improving her physical status. - Palliative Care Discussion: Patient continues to struggle with her quality of life, she wanted to start the " with dignity" process. We did discuss in the context of this her longevity her prognosis is not 6 months or less. She would not meet criteria, I also suspect she would not meet it based on her mental health issues. She continues to struggle with her anxiety, she is quite worried and perseverating. It is difficult in the context of this to give her information as she does get herself quite worked up. Palliative care continue to provide ongoing support every 2 weeks, secondary to high anxiety and helping to keep her out of the ED. She does make frequent contact and needs reassurance and reinstruction. Results - Lab Results Lab results reviewed: Yes Impression and Recommendations - Palliative Care Impression: This is a 63[facility] with very complex multiple comorbidities and underlying mental health issues. She does have metastatic breast cancer with bone mets, and continues to struggle with fluctuating pain.She continues to perseverate on her symptoms regarding her mouth, currently she is without oral candidiasis, but does have some mild symptoms of mucositis. Her appetite is improving, she her bowels are working okay, unfortunately today she presents with left lower extremity mild swelling, with high anxiety resulting. Palliative care continues to provide support regarding pain and symptom management and psychosocial support as well as coordination of care Recommendations/Counseling Done: 1. Constipation. Patient is doing much better on the daily MiraLAX, she does have several loose stools a day, we did discuss cutting back, but she gets quite anxious regarding this. Instructed instead of full capful of MiraLAX, to try a half or a capful every other day. She will consider. 2. Pain of neoplastic origin. She is on fentanyl 62.5 mcg patch, she has an exacerbation of her pain this is most likely been exacerbated by her increase in activity with the elevator out. She is fearful of taking Vicodin, did review and encourage PRN use for breakthrough pain, as she is quite uncomfortable today. 3. Left lower extremity swelling. This is mild in nature, currently does not show any obvious signs of clot, no redness, no warmth, edema is only trace in her foot and ankle. Patient has been instructed to try some compression diabetic support hose, and elevate her feet. If it worsens, or develops pain, she is to contact her PCP or myself. She is at high risk for clot. At this point in time the swelling is very mild. It does cause her quite a bit of worry, and trying to find a balance for her to notify for increased symptoms as well as not cause her to panic is challenging. 4. Gastric stasis. Patient's bloating and early satiety is improved with metoclopramide 5 mg 3 times daily, she is doing better with eating, and reports her calorie intake is improved. 5. Diabetes type 2. Patient is not taking her blood sugars, she is no longer on metformin, her blood sugars have been elevated in her labs, but she gets quite worked out and are not in a dangerous zone. 6. Metastatic breast cancer with bone mets only. Her tumor markers continue to improve, her pancytopenia for her MDS fluctuates but is been fairly stable. She easily gets overwhelmed and immobilized in concern for getting "bad news" her numbers. Reassurance given, and encouraged to focus on outside interests. Patient is quite isolated, and her anxiety exacerbates quite easily. 7. Advanced care planning. Patient continues with minimal support, she does have a volunteer who does help her with practical issues and shopping. She does have a POLST in place with DNR and select treatments, she is wanting to pursue when appropriate DWD, reviewed currently she would need to be given a prognosis of 6 months or less. Time Spent: 50 minutes with greater than 50% of this done in counseling regarding pain and symptom management, medication management, as well as addressing anxiety, and anticipatory guidance.
== END 2019-08-17 16:27 | disposition home or self-care (01) ==
LOC: PC 16:26
PROVIDERS: ATTEND Nurse Practitioner Adult Health
DX: Z51.5 Encounter for palliative care (principal); G89.3 Neoplasm related pain (acute) (chronic); F41.9 Anxiety disorder, unspecified; K59.03 Drug induced constipation; T40.2X5A Adverse effect of other opioids, initial encounter; R60.0 Localized edema; E11.9 Type 2 diabetes mellitus without complications; R14.0 Abdominal distension (gaseous); R68.81 Early satiety; C79.51 Secondary malignant neoplasm of bone; C50.919 Malignant neoplasm of unspecified site of unspecified female breast; Z79.899 Other long term (current) drug therapy; Z79.891 Long term (current) use of opiate analgesic; Z66 Do not resuscitate
CPT/HCPCS: 99349

== ENCOUNTER 2019-08-19 21:36 | Emergency (ER) | payer MEDICARE, MEDICAID ==
--- NOTE | 2019-08-19 22:06 | ED Physician Documentation ---
History of Present Illness - Stated complaint Stated Complaint: LT LEG SWELLING/PAIN, RT FOOT PAIN - Chief complaint Chief Complaint: Ext Problem - History obtained from History obtained from: Patient (Patient is a very pleasant 63-year-old female With a significant past medical history of diffuse cancer that is metastatic who reports she iscurrently on palliative care presents with a chief complaint of left lower extremity swelling and edema the patient reports that she is concerned that she could have a deep vein thrombosis she denies any trauma or chest pain or shortness of breath she denies any redness but does report edema to her left lower extremity. She denies a history of prior of any prior or previous DVTs or PE.) Review of Systems Constitutional: reports: Reviewed and negative Eyes: reports: Reviewed and negative Ears: reports: Reviewed and negative Nose: reports: Reviewed and negative Throat: reports: Reviewed and negative Cardiac: reports: Reviewed and negative Respiratory: reports: Reviewed and negative GI: reports: Reviewed and negative : reports: Reviewed and negative Skin: reports: Other (Reports edema to the left lower extremity) Musculoskeletal: reports: Extremity swelling (Reports swelling to the left lower extremity), Reviewed and negative Neurologic: reports: Reviewed and negative Psychiatric: reports: Reviewed and negative Endocrine: reports: Reviewed and negative Immunocompromised: reports: Reviewed and negative PD PAST MEDICAL HISTORY - Past Medical History Cardiovascular: Hypertension Respiratory: Sleep apnea, CPAP use Endocrine/Autoimmune: Type 2 diabetes GI: GERD, Cholelithiasis ABORIGINAL LIAISON OFFICER: Breast cancer (on chemo) : Incontinence HEENT: None Psych: Depression, Anxiety Musculoskeletal: Osteoarthritis, Other Derm: None - Past Surgical History Past Surgical History: Yes General: Colonoscopy, Other /ABORIGINAL LIAISON OFFICER: Endometrial ablation, Other - Present Medications Home Medications: Ambulatory Orders Medication Instructions Recorded Confirmed Denosumab [Xgeva] 120 mg SUBQ Q28D MDD hold 04/04/15 08/18/19 clonazePAM [Clonazepam] 1 mg PO TID MDD 3 tabs 04/08/16 08/18/19 Everolimus [Afinitor] 10 mg PO DAILY 12/14/18 08/18/19 Exemestane 25 mg PO DAILY 12/14/18 08/18/19 Lactulose 5 - 10 ml PO BID PRN MDD titrates 12/16/18 08/18/19 Loperamide [Imodium] 2 mg PO Q4HR PRN 01/11/19 08/18/19 Ondansetron [Zuplenz] 4 mg PO Q6HR PRN 01/19/19 08/18/19 Hydrocodone/Acetaminophen 1 - 2 each PO Q4HR PRN MDD 8 tabs 03/08/19 08/18/19 [Hydrocodon-Acetaminophn 10-325] Magic Mouth Wash 15 ml PO QID PRN MDD 6 doses 03/10/19 08/18/19 Omeprazole 20 mg PO DAILY 03/22/19 08/18/19 traZODone [Desyrel] 50 - 100 mg PO QPM 06/28/19 08/18/19 fentaNYL [Fentanyl 62.5mcg patch] 62.5 mcg TOP .72 HOURS #10 patch 07/06/19 08/18/19 Metoclopramide HCl 5 mg PO TID 08/02/19 08/18/19 polyethylene glycoL 3350 [Miralax] 17 gm PO DAILY 08/02/19 08/18/19 hydroCHLOROthiazide 25 mg PO DAILY 08/18/19 08/18/19 [Hydrochlorothiazide] - Allergies Allergies/Adverse Reactions: Allergies Allergy/AdvReac Type Severity Reaction Status Date / Time oxycodone HCl * Allergy Mild itch Verified 08/19/19 21:50 [From Percocet] - Social History Does the pt smoke?: No Smoking Status: Never smoker Does the pt drink ETOH?: Yes Does the pt have substance abuse?: No - Immunizations Immunizations are current?: Yes Immunizations: TDAP >10years/unknown - POLST Patient has POLST: Yes POLST Status: DNR PD ED PE NORMAL - Vitals Vital signs reviewed: Yes - General General: Alert and oriented X 3, No acute distress - HEENT HEENT: PERRL - Neck Neck: Supple, no meningeal sign - Cardiac Cardiac: RRR, No murmur - Respiratory Respiratory: Clear bilaterally - Abdomen Abdomen: Normal bowel sounds, Soft, Non tender, Non distended - Derm Derm: Warm and dry - Extremities Extremities: No deformity, Other (There is a minimal amount of swelling in the left lower extremity compared to the right lower extremity there is 1+ edema as well as some mild edema around the foot and ankle and pretibial as well as the knee she is able to ambulate. She is neurovascular intact her compartments are soft there is no rashes she has palpable DP and PT pulses.) - Neuro Neuro: Alert and oriented X 3 - Psych Psych: Normal mood, Normal affect Results - Vitals Vitals: Vital Signs - 24 hr 08/19/19 21:47 Temperature 36.9 C Heart Rate 88 Respiratory 17 Rate Blood Pressure 144/66 H O2 Saturation 99 Oxygen O2 Source Room air PD MEDICAL DECISION MAKING - ED course Complexity details: other (I had a lengthy discussion with this patient regarding regarding her results of the ultrasound. I do not quite have an answer for her left lower extremity edema I did offer to do x-rays as well as lab work and further evaluation however the patient would like to be discharged home at this time and follow-up with her primary care provider she does have medical decision-making capability and capacity.) Departure - Departure Disposition: 01 Home, Self Care Clinical Impression: Pain of lower extremity Qualifiers: Laterality: left Qualified Code(s): M79.605 - Pain in left leg Condition: Good Instructions: ED Muscle Pain Leg Cramps Follow-Up: Charo Lorenz MD [Primary Care Provider] -
--- NOTE | 2019-08-19 23:47 | Ultrasound Report ---
Reason: LLE SWELLING DVT Procedure Date: 08/19/2019 Accession Number: [id number] / [id number] Procedure: US - Duplex Ext Veins Left CPT Code: Final Report FULL RESULT: EXAM: LEFT LOWER EXTREMITY VENOUS ULTRASOUND EXAM DATE: 08/19/2019 11:13 PM. CLINICAL HISTORY: LLE SWELLING. COMPARISON: None. TECHNIQUE: Real-time sonographic vascular imaging was performed by the commercial painter through the lower extremity utilizing both color-flow and Doppler spectral analysis. Multiple provider relations representative static images were saved for review. FINDINGS: Common Femoral Vein (CFV): Normal. CFV-GSV Junction: Normal. Profunda Femoral Vein (PFV): Normal. Femoral Vein (FV) Prox: Normal. Femoral Vein (FV) Mid: Normal. Femoral Vein (FV) Dist: Normal. Popliteal Vein: Normal. Posterior Tibial Veins: Normal. Peroneal Veins: Normal. Other: Anterior fluid collection at the knee 3.4 x 0.7 x 2.1 cm. IMPRESSION: No evidence for deep venous thrombosis. [facility]
[2019-08-20 01:14] VITALS: BP 134/68
== END 2019-08-20 01:13 | disposition home or self-care (01) ==
LOC: ED 21:36
DX: R60.0 Localized edema (principal); M79.605 Pain in left leg; I10 Essential (primary) hypertension; E11.9 Type 2 diabetes mellitus without complications
CPT/HCPCS: 99283; 99284

== ENCOUNTER 2019-09-01 15:15 | Outpatient (CLI) | payer MEDICARE, MEDICAID ==
--- NOTE | 2019-09-01 17:48 | CONSULTATION NOTE ---
Palliative Care Follow Up - Referral Referring Provider: Dr. Sharron Marte Time of Visit: [id number] Referral setting: Home Referral Reason: Pain of neoplastic origin/Anorexia/Right leg swelling - Information Sources Records reviewed: Previous records reviewed History/Review of Systems obtained from: Patient Exam limitations: Clinical condition (patient with memory problems and high anxiety) - History of Present Illness Update Brief HPI Update: This is a 63-year-old woman with metastatic breast cancer, to the bones only. She continues on her Afinitor and Exmestane, her Xgevea is currently on hold. She continues to suffer with extreme anxiety, has multiple persistent side effects from her Afinitor, including anorexia, weight loss, fluctuating oral mucositis, and skin rash. She has had a series of unfortunate events, related both to her complex social situation, as well as her ongoing health issues. She did present to the ED in follow-up regarding her Left lower leg swelling, on 08/19/2019. They did rule out DVT, and it has not worsened in pain, swelling, or developed any signs or symptoms of redness, erythema, or underlying identifiable etiology. Her PCP restarted her HCTZ with little effect. She unfortunately has been elevating it significantly high, with her poor chair seating and high pillow, she has developed some groin pain as is putting significant amount of pressure into her left groin and hip area. This is relieved when she repositions, but has more pain with weight bearing, but again has been more active. Today she presents with recurrence of her oral candidiasis, she does have a geographic tongue now with enhanced white lesions, and bugle lesions as well. She also reports taste changes and more jered feel. She had had some improvement in her appetite with the initiation of metoclopramide, now she reports she is feeling anorexic again. She does want to retry the Megace, though with her poor memory she does not recall it had no effect last time, but given her willingness to engage, will do. She would also like to meet with a dietitian at this point, will see if can coordinate with her appointment on Thursday. Patient continues to have persistent feelings of depression and fluctuating anxiety. She is feeling quite isolated, she does tend to alienate mostly when he tries to help her, as she is quite persnickity and critical, and has very little insight into her behaviors. She declines meeting with the medical palliative care social media sr strategy manager, she has met him before, but would be willing at this point to try the conditioning coach. Social History - Living Situation Living arrangement: At home Living Situation: Alone Support System: Patient remains isolated with very little social support. She continues to reach out to her medical providers frequently, including palliative care team alternating with her primary care, and oncology clinic. She is estranged from her family, she gets easily overwhelmed and has difficult remember things and keeps track by using a journal. She gets "scared" and has difficulty with problem-solving. Medications/Allergies - Medications Home Medications: Ambulatory Orders Medication Instructions Recorded Confirmed Denosumab [Xgeva] 120 mg SUBQ Q28D MDD hold 04/04/15 09/02/19 clonazePAM [Clonazepam] 1 mg PO TID MDD 3 tabs 04/08/16 09/02/19 Everolimus [Afinitor] 10 mg PO DAILY 12/14/18 08/18/19 Exemestane 25 mg PO DAILY 12/14/18 09/02/19 Lactulose 5 - 10 ml PO BID PRN MDD titrates 12/16/18 09/02/19 Loperamide [Imodium] 2 mg PO Q4HR PRN 01/11/19 09/02/19 Ondansetron [Zuplenz] 4 mg PO Q6HR PRN 01/19/19 09/02/19 Hydrocodone/Acetaminophen 1 - 2 each PO Q4HR PRN MDD 8 tabs 03/08/19 09/02/19 [Hydrocodon-Acetaminophn 10-325] Magic Mouth Wash 15 ml PO QID PRN MDD 6 doses 03/10/19 09/02/19 Omeprazole 20 mg PO DAILY 03/22/19 09/02/19 traZODone [Desyrel] 50 - 100 mg PO QPM 06/28/19 09/02/19 fentaNYL [Fentanyl 62.5mcg patch] 62.5 mcg TOP .72 HOURS #10 patch 07/06/19 09/02/19 Metoclopramide HCl 5 mg PO TID 08/02/19 09/02/19 polyethylene glycoL 3350 [Miralax] 17 gm PO DAILY 08/02/19 09/02/19 hydroCHLOROthiazide 25 mg PO DAILY 08/18/19 09/02/19 [Hydrochlorothiazide] Megestrol Acetate 20 ml PO DAILY 09/02/19 09/02/19 Nystatin 5 ml PO TID MDD 10 days 09/02/19 09/02/19 - Allergies Allergies/Adverse Reactions: Allergies Allergy/AdvReac Type Severity Reaction Status Date / Time oxycodone HCl * Allergy Mild itch Verified 08/19/19 21:50 [From Percocet] Review of Systems - Constitutional Constitutional: reports: Fatigue, Poor appetite, Weight loss. denies: Fever, Chills - Eyes Eyes: reports: Vision loss - Ears, Nose & Throat Ears, Nose & Throat: reports: Mouth lesions (recurrent oral candidiasis and noted "geographic tongue"; increased white coating today), Other (recent tooth out) - Cardiovascular Cardiovascular: reports: Edema (new RLE trace in ankle/foot), Decr. exercise tolerance - Respiratory Respiratory: denies: SOB at rest - Gastrointestinal Gastrointestinal: reports: Constipation (alternating but improved with miralax initiation), Diarrhea (attributed to glycerna), Poor appetite, Early satiety, Other (wants to retry megace). denies: Nausea, Reflux/heartburn - Genitourinary Genitourinary: reports: Frequency. denies: Dysuria - Musculoskeletal Musculoskeletal: reports: Back pain, Stiffness, Limited range of motion, Muscle weakness, Joint pain - Integumentary Integumentary: reports: Rash (intermittent skin "patches" changes; resolve with use of hydrocortisone cream), Nail changes (thinned and tender), Hair changes (hair loss top of head) - Neurological Neurological: reports: General weakness, Numbness (new numbness tingling in feet; sometimes in hand), Memory problems, Abnormal gait (ataxic not new) - Psychiatric Psychiatric: reports: Depression, Anxiety (escalates easilty) - Endocrine Endocrine: reports: Diabetes type 2 (not tracking BS nor taking Metformin), Intolerance to cold - Hematologic/Lymphatic Hematologic/Lymphatic: reports: Anemia. denies: Recurrent infections - All Other Systems All Other Systems: reports: Reviewed and negative Physical Exam - Vital Signs Temperature: 98.8 C Pulse Rate: 71 Respiratory Rate: 18 O2 Saturation: 97 (ra @ rest) - Physical Exam General Appearance: positive: Alert, Mild distress, Anxious Eyes Bilateral: positive: Normal inspection ENT: positive: Oral lesions (recurrent oral candidiasis with enhance geographic tongue and buccal lesions) Neck: positive: No JVD, Trachea midline Cardiovascular: positive: Regular rate & rhythm Respiratory: positive: No respiratory distress Abdomen: positive: Soft Skin: positive: Pallor, Dryness Extremities: positive: Pedal edema (RLE confined to top of foot and ankle; feels improved with use of PACHECO hose; worried about knee; no swelling or tenderness;thighs even) Neurologic/Psychiatric: positive: Oriented x3, Weakness, Depressed mood/affect, Flat affect Palliative Care - POLST Patient has POLST: Yes POLST Status: DNR, Selective Treatment Pain: Pain worsening, Location (see hPI) Tiredness/Fatigue: Severe (7-10) Drowsiness/Sedation: Mild (1-3) Nausea: None Anorexia: Severe (7-10), Weight loss (12/21/18 235; 05/03/2019 198; 07/12/2019 178; 08/19/2018 170) Dyspnea: Mild (1-3) Depression: Moderate (4-6) Anxiety: Severe (7-10) Feelings of wellbeing/Perceived Quality of Life: Fair, Worsening Sleep: Variable sleep pattern Constipation: Yes, Opoid induced, Unmanaged Performance Status: Patient is ambulatory in her apartment, though remains quite sedentary and spends most the time in her bed and or in chair. Chair is falling apart, she did get financing to get a new chair, but is not been able to get out of her apartment or get assistance to order one. She is quite deconditioned, she does bathe every 4 to 5 days, finds this quite exhausting, I would put her at a PPS of 50% - Palliative Care Discussion: Patient does have some insight into her behaviors, she does report she gets anxious and tends to overreact. She finds it quite distressing people do not understand that about her, but in truth she does have a fairly complex medical needs as well as mental health issues. Patient shared that she had reached out to her family, but unfortunately this is been a mixed bag for her, she has high expectations of how they should support her, but then is also disappointed with the communications that have happened, and is able to reflect it has much to do with their family culture. Patient has continued to deteriorate, with weight loss, functional decline, and fluctuating cognitive status definitely impacted by her anxiety. Her complex social situation, makes it challenging to get accurate information, as well as she is lacking in social support to be able to follow through on many things that would be of help for her. She has had many things go wrong in her apartment, and gets quite overwhelmed with all the steps and phone calls that need to happen. Patient does have POLST in place with DNA R and selective treatments, she does not have a D POA identified, she does have a sister "Carmela" that might be appropriate, will continue to explore as patient's anxiety allows. Results - Lab Results Lab results reviewed: Yes Impression and Recommendations - Palliative Care Impression: This is an anxious 63-year-old [place] woman with multiple comorbidities, and complex underlying mental health issues particularly in the context of her anxiety. Patient has metastatic breast cancer with bone mets, continues to struggle with fluctuating side effects and pain. Palliative care continues to provide support regarding pain and symptom management, psychosocial support, as well as coordination of care. Recommendations/Counseling Done: 1. Pain of neoplastic origin. Suspect pain is exacerbated by patient's positioning and sedentary activity level, particularly with elevating her left leg exacerbating her groin pain. She is using 1 Vicodin at night. We will continue the fentanyl at 62.5 mcg patch every 3 days as this has been effective in managing up to this point. Same provided regarding positioning, management of pain, also encouraged to increase activity with progressive ambulation program. She does report she can walk back and forth down the halls in the evening when people are around as she is quite fearful of infection. 2. Oral candidiasis. Patient is to restart nystatin 5 mils 3-4 times a day sleep-wake cycle, with swish and swallow. Will put this is time-limited 10 days. Patient verbalizes understanding and written instructions provided. 3. Anorexia. Patient will reinitiate Megace 800 mg daily, will trial for 2 weeks, if effective will continue if not we will discontinue. Patient willing to meet with dietitian, referral put in and report given regarding patient's anxieties and limitations. Given patient's diarrhea with Glycerna, encouraged to use smoothies versus supplements at this point in time. 4. Left foot swelling. Patient does not show any progressive signs or symptoms or concerns for DVT, if anything swelling is improved. Patient using PACHECO hose with good relief, as well as elevation. Patient does know if worsens, or develops pain to notify PCP or palliative care provider. 5. Depression/anxiety. Patient continues to fluctuate with severe symptoms of depression and anxiety, continues unwilling to trial any antidepressants has had poor experiences in the past. She is willing though to have someone "to talk to", but will not go for formal counseling. Discussed options, is agreeable to have palliative care conditioning coach for support. 6. Advanced care planning. Patient does have POLST in place with DNR and selective treatments. She dari quite anxious regarding anything that might be perceived as a decline or worsening of her health. She has little social support, at this point in time do not have a good plan if she declines further functionally or has an acute healthcare crisis. Palliative care continue to provide support within limitations of service. Time Spent: 60 minutes with greater than 50% of this done in counseling regarding pain and symptom management, anxiety, and anticipatory guidance.
== END 2019-09-01 15:16 | disposition home or self-care (01) ==
LOC: PC 15:15
PROVIDERS: ATTEND Nurse Practitioner Adult Health
DX: Z51.5 Encounter for palliative care (principal); G89.3 Neoplasm related pain (acute) (chronic); B37.0 Candidal stomatitis; R63.4 Abnormal weight loss; R63.0 Anorexia; L27.0 Generalized skin eruption due to drugs and medicaments taken internally; T45.1X5A Adverse effect of antineoplastic and immunosuppressive drugs, initial encounter; K59.03 Drug induced constipation; T40.2X5A Adverse effect of other opioids, initial encounter; F41.8 Other specified anxiety disorders; R60.0 Localized edema; C79.51 Secondary malignant neoplasm of bone; C50.919 Malignant neoplasm of unspecified site of unspecified female breast; Z79.899 Other long term (current) drug therapy; Z79.891 Long term (current) use of opiate analgesic; Z66 Do not resuscitate
CPT/HCPCS: 99350

== ENCOUNTER 2019-09-20 14:30 | Outpatient (CLI) | payer MEDICARE, MEDICAID ==
--- NOTE | 2019-09-20 16:28 | CONSULTATION NOTE ---
Palliative Care Follow Up - Referral Referring Provider: Dr. Sharron Marte Time of Visit: 9989-8221 Referral setting: [facility] – [place] Referral Reason: Constipation/Pain of neoplastic origin/Met Breast CA - Information Sources Records reviewed: Previous records reviewed History/Review of Systems obtained from: Patient Exam limitations: Clinical condition (patient with poor STM) - History of Present Illness Update Brief HPI Update: This is an anxious 63-year-old woman with metastatic breast cancer to the bones only. She continues on her Afinitor and exemestane, has extreme anxiety, and short term memory issues. She has had multiple fluctuating persistent effects from her Afinitor, including anorexia, weight loss, oral mucositis, and skin rash. She actually had been doing fairly well for a couple weeks, we had trialed Megace again with some success, she is currently off of it. She has been eating and drinking better, unfortunately she stopped her MiraLAX as her bowels have been moving. She lives in low income housing, the elevator had been broken for several days, she had an exacerbation of her pain in her left hip, needing more Vicodin which compounded the problem. Patient has been to the ED for disimpaction, she was convinced that she was impacted again and requested a home visit as she was quite distressed. On exam her abdomen is soft, nontender, has normal bowel tones. She does have external hemorrhoids, has a feeling of rectal pressure, her bowels have not moved for 48 hours. On rectal exam she has soft formed stool in her lower rectal vault, but is uncomfortable with her hemorrhoids. She has no nausea or vomiting, unfortunately has not been eating or drinking much today because of her situation. She does get easily overwhelmed, she has no social support, and poor problem-solving skills. Patient was given a fleets with good results of a large amount of soft formed stool and relief of her distress. She also has persistent left lower extremity edema, has been restarted on her HCTZ, with various degree of success. It is 1+ pooling around her ankle and mid calf. No signs or symptoms of erythema, redness, or pain. She has been managing with elevation and compression. Patient's oral cavity today, has no signs or symptoms of oral candidiasis, she has completed her nystatin. She does have a geographic tongue. Has been alternating over the last months between dexamethasone rinse for s/s mucositis, nystatin with recurrent candidiasis, and magic mouthwash for symptoms of discomf ort. 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 Social History - Living Situation Living arrangement: At home Living Situation: Alone Support System: Patient remains isolated with very little social support. She does recheck to her medical providers frequently, including the palliative care team alternating with her primary care and oncology clinic. She is estranged from her family, gets easily overwhelmed and has difficult time remembering things, she keeps track by using a general. She gets often "scared" which often results in poor problem solving and decision making. Medications/Allergies - Medications Home Medications: Ambulatory Orders Medication Instructions Recorded Confirmed Denosumab [Xgeva] 120 mg SUBQ Q28D MDD hold 04/04/15 09/20/19 clonazePAM [Clonazepam] 1 mg PO TID MDD 3 tabs 04/08/16 09/20/19 Everolimus [Afinitor] 10 mg PO DAILY 12/14/18 09/20/19 Exemestane 25 mg PO DAILY 12/14/18 09/20/19 Lactulose 5 - 10 ml PO BID PRN MDD titrates 12/16/18 09/20/19 Loperamide [Imodium] 2 mg PO Q4HR PRN 01/11/19 09/20/19 Ondansetron [Zuplenz] 4 mg PO Q6HR PRN 01/19/19 09/20/19 Hydrocodone/Acetaminophen 1 - 2 each PO Q4HR PRN MDD 6 tabs 03/08/19 09/20/19 [Hydrocodon-Acetaminophn 10-325] Magic Mouth Wash 15 ml PO QID PRN MDD 6 doses 03/10/19 09/20/19 Omeprazole 20 mg PO DAILY 03/22/19 09/20/19 fentaNYL [Fentanyl 62.5mcg patch] 62.5 mcg TOP .72 HOURS #10 patch 07/06/19 09/20/19 Metoclopramide HCl 5 mg PO TID MDD sched bid 08/02/19 09/20/19 polyethylene glycoL 3350 [Miralax] 17 gm PO DAILY 08/02/19 09/20/19 hydroCHLOROthiazide 25 mg PO DAILY 08/18/19 09/20/19 [Hydrochlorothiazide] Zolpidem [Ambien] 5 mg PO QPM PRN 09/21/19 09/21/19 - Allergies Allergies/Adverse Reactions: Allergies Allergy/AdvReac Type Severity Reaction Status Date / Time oxycodone HCl * Allergy Mild itch Verified 09/06/19 13:15 [From Percocet] Review of Systems - Constitutional Constitutional: reports: Fatigue. denies: Fever, Chills - Eyes Eyes: reports: Vision loss - Ears, Nose & Throat Ears, Nose & Throat: reports: Dry mouth. denies: Mouth lesions - Cardiovascular Cardiovascular: reports: Edema (left foot/ankle only), Decr. exercise tolerance - Respiratory Respiratory: denies: SOB at rest - Gastrointestinal Gastrointestinal: reports: Constipation (no bm for 48 hours; anxious; reports hemmorhoids), Good appetite. denies: Nausea, Reflux/heartburn - Genitourinary Genitourinary: reports: Frequency. denies: Dysuria - Musculoskeletal Musculoskeletal: reports: Back pain, Stiffness, Muscle weakness, Joint pain (left hip worse with increased activity of no elevator) - Integumentary Integumentary: reports: Dryness - Neurological Neurological: reports: General weakness, Memory problems, Abnormal gait - Psychiatric Psychiatric: reports: Depression, Anxiety - Endocrine Endocrine: reports: Diabetes type 2 (currently no metformin needed; medication induced) - Hematologic/Lymphatic Hematologic/Lymphatic: reports: Anemia. denies: Recurrent infections - All Other Systems All Other Systems: reports: Reviewed and negative Physical Exam - Vital Signs Pulse Rate: 76 Respiratory Rate: 18 O2 Saturation: 99 (ra @ rest) Blood Pressure: 146/72 - Physical Exam General Appearance: positive: Alert, Moderate distress, Anxious Eyes Bilateral: positive: Normal inspection ENT: positive: Other ("geographic tongue" no candidiasis or lesions today) Neck: positive: Trachea midline Cardiovascular: positive: Regular rate & rhythm Respiratory: positive: No respiratory distress, Breath sounds nml Abdomen: positive: Soft, Nml bowel sounds, Other (external hemmorhoids; no red or inflammed but tender; rectal soft stool in vault) Skin: positive: Pallor, Dryness Extremities: positive: Pedal edema (LLE in ankle/foot only), Other (gait wide stanced) Neurologic/Psychiatric: positive: Oriented x3, Weakness, Depressed mood/affect, Flat affect Palliative Care - POLST Patient has POLST: Yes POLST Status: DNR, Selective Treatment Pain: Pain worsening, Location (Patient's pain is mostly located in her left hip, worsening with weightbearing, and in her back radiating to her groin bilaterally. She does have some residual right upper shoulder pain. She is fairly sedentary, unfortunately with the elevator out, they do have to use the stairs. This has aggravated her left hip. She is on fentanyl 62.5 mcg patch, had been using 2 Vicodin about 3 times a day with relief.) Tiredness/Fatigue: Severe (7-10) Drowsiness/Sedation: Moderate (4-6) (Patient has difficulty with sleep-wake cycles, is often up late and into the wee hours of the morning. She does sleep quite a bit during the day, and gets frustrated when she cannot sleep at night. She perceives the trazodone is not working, we did alternately try the Ambien with not much improvement.) Nausea: None Anorexia: None Dyspnea: None Depression: Moderate (4-6) Anxiety: Severe (7-10) Feelings of wellbeing/Perceived Quality of Life: Poor, No change Sleep: Variable sleep pattern Constipation: Yes, Opoid induced, Unmanaged Performance Status: Patient when she is feeling better, is able to drive to the grocery store. Today she is feeling quite weak and distressed as result of her constipation, is not go out. She reports she is not had enough energy or felt confident enough, to shower independently. She is doing spit baths. She can do meal prep,. She does spend most of her time in her chair. - Palliative Care Discussion: Patient has fluctuating mood, gets easily overwhelmed, vacillates from does not want to and life is improving, to wanting this to be over with and asking when she can use with dignity. Patient is quite fearful about her impending decline, though has been reassured currently she is stable. She does have very poor to no social support, and despite multiple attempts to plan for the future or engage in long-term planning, she remains quite resistant to this.She does have a POLST as DNA R and selective treatments, she would not want anything to prolong her suffering, particular if she were not able to return to her independence. She is fearful of ending up in a penitentiary. Results - Lab Results Lab results reviewed: Yes Impression and Recommendations - Palliative Care Impression: This is an anxious 63-year-old [place] woman with us cancer to the bone, high symptom burden, and complex underlying mental health issues particularly in the context of her anxiety. Today she presents with opioid-induced constipation. Palliative care continues to provide support regarding pain and symptom management, psychosocial support, as well as coordination of care. Recommendations/Counseling Done: 1. Pain of neoplastic origin. Patient has had an exacerbation of her left hip pain, discussed with patient titrating up versus using Vicodin secondary to con stipation issues. Patient does not want to change anything, she has been instructed not to use more than 6 tabs of Vicodin in 24 hours. [facility], of refill on Vicodin. I will continue to monitor. Her pain is also exacerbated by her poor seating with her chair, she has many barriers to getting this replaced, but has found funding for it. Encouraged that she is feeling better to try and see this through. 2. Oral candidiasis. This is resolved at this visit, she continues with geographic tongue, no signs or symptoms of mucositis today. Patient is perseverative on her oral care. 3. Anorexia. Patient did trial the Megace for couple weeks, she did actually have a good response. She currently is not taking it as she has been eating and drinking up till today with much less distress. Counseling provided regarding did get some "protein powder" was way, worried it was milk product, reviewed with her it is okay for lactose intolerance, as it does not contain the lactose sugar. Instructions reviewed on ways to incorporate into her diet, though she is quite anxious regarding this. In contact with dietitian, will try and see her when she is here next visit. Patient has trouble following through. 4. Left foot swelling. Patient does not show any progressive signs or symptoms or concerns for DVT, swelling seems to have improved actually. Patient using compression with good relief as well as elevation. 5. Constipation. Patient is instructed to restart her MiraLAX 17 g daily, to continue it on a regular basis even if she is having regular bowel movements. She has been instructed to take her lactulose for breakthrough, if she has had no BM in 48 hours. She is to take 5 mils every 4 hours until she goes. This is been written out and reviewed multiple times with her. She was given a fleets with good results of a large amount of soft brown stool. She does have external hemorrhoids, instructed in applied hemorrhoidal cream. 6. Depression/anxiety. Patient continues to fluctuate with severe symptoms of depression and anxiety, is unwilling to trial any medications to attempt to manage her mood. This is related to explore experiences in the past, she has been followed by psychiatry. She is agreeable to have the palliative care blind lacer for support, will follow-up as she "needs someone to talk to". 7. Advanced care planning. Patient does have POLST in place with DNA R and selective treatments. She gets quite anxious regarding anything that might be perceived as a decline or worsening of her health. She does have little to no social support, and does not have a plan if she declines functionally or has an acute healthcare crisis. Palliative care continue provide support within the limitations of the service. 2. Time Spent: 60 minutes with been 50% of this done in counseling regarding constipation pain and symptom management and coordination of care.
== END 2019-09-20 14:31 | disposition home or self-care (01) ==
LOC: PC 14:30
PROVIDERS: ATTEND Nurse Practitioner Adult Health
DX: Z51.5 Encounter for palliative care (principal); G89.3 Neoplasm related pain (acute) (chronic); K59.03 Drug induced constipation; T40.2X5A Adverse effect of other opioids, initial encounter; K64.4 Residual hemorrhoidal skin tags; B37.0 Candidal stomatitis; R63.0 Anorexia; R60.0 Localized edema; F41.8 Other specified anxiety disorders; R53.83 Other fatigue; G47.20 Circadian rhythm sleep disorder, unspecified type; C79.51 Secondary malignant neoplasm of bone; C50.919 Malignant neoplasm of unspecified site of unspecified female breast; Z79.899 Other long term (current) drug therapy; Z79.891 Long term (current) use of opiate analgesic; Z66 Do not resuscitate
CPT/HCPCS: 99215

== ENCOUNTER 2019-10-05 15:45 | Outpatient (CLI) | payer MEDICARE, MEDICAID ==
--- NOTE | 2019-10-05 17:52 | CONSULTATION NOTE ---
Palliative Care Follow Up - Referral Referring Provider: Dr. Sharron Marte Time of Visit: [id number] Referral setting: Home Referral Reason: Depression/Pain of neoplastic origin/Met Breast Ca - Information Sources Records reviewed: Previous records reviewed History/Review of Systems obtained from: Patient Exam limitations: Clinical condition (patient with high anxiety; difficulty with STM) - History of Present Illness Update Brief HPI Update: This is an extremely anxious 63-year-old woman with metastatic breast cancer to the bones only, she continues on her Afinitor and exemestane, has ongoing severe/extreme anxiety, depression, and short-term memory issues. Most recently she has been feeling overwhelmed, related to a series of unfortunate events including her car breaking down, and has been misusing her medications as well as drinking, have spoken to her over several days, she has stopped drinking as of Thursday, but did experience some withdrawals as well as now is severely depressed and perseverating about everything. She will not leave her home, she is afraid to drive, she has no social support and will not reach out for rides. She needs to have her labs done, she did cancel her oncology appointment, she is an extremely hard stick so did not offered to draw on my visit today. Patient's most perseverating symptom, has come back again around to her appetite. She feels like she has no appetite, she is getting her days and nights mixed up, with sleeping most the day, and up to 3 AM. She does report some intermittent abdominal discomfort, continues to perseverate on her bowels, though they do appear to be moving most days, she has been focused most recently on intermittent "jitteriness", unclear what she is doing with her medications. She does write down daily in her log, and tends to review this and perseverate on this with each phone call. She is taking adequate fluids though, she is using some protein drinks, she has had trouble getting groceries. She has been sleeping more in her recliner, thus exacerbating her hip pain, and remains a fairly poor problem solver. I have recommended follow-up with psychiatric assistance, I did give her the information for [facility], though she creates all kinds of barriers why she cannot go. It is though daunting task to follow through on, you go either Thursday or morning between 830 and 1030 and get an evaluation and then they decide what kind to help they can give. She remains quite perseverative on her low counts, worried about exposure to Covid19, though denies suicidality, is extremely afraid of dying, and also doesn't think she can do this alone. Her sister Carmela has reached out several times to [facility], but then ends that declines nor can see how this would be of help except for more stressful for her. Patient continues to have fatigue, she has not had any recent mucositis or candidiasis, she does have 1+ pedal edema, but no signs erythema, redness or pain, she is managing this with elevation and compression. Patient's past medical history includes MDS with ongoing pancytopenia, no recent labs, metastatic breast cancer to the bones, type 2 diabetes with a side effect of her Afinitor, chronic cholecystitis, and severe anxiety disorder and depression. Social History - Living Situation Living arrangement: At home Living Situation: Alone Support System: Patient remains isolated with very little social support, she tends to call her medical providers frequently, she is estranged from her family and gets easily overwhelmed. She often gets "scared" which often results in poor problem solving and decision making. She has declined several avenues of counseling or support available for her. Medications/Allergies - Medications Home Medications: Ambulatory Orders Medication Instructions Recorded Confirmed Denosumab [Xgeva] 120 mg SUBQ Q28D MDD hold 04/04/15 10/07/19 clonazePAM [Clonazepam] 1 mg PO TID MDD 3 tabs 04/08/16 10/07/19 Everolimus [Afinitor] 10 mg PO DAILY 12/14/18 10/07/19 Exemestane 25 mg PO DAILY 12/14/18 10/07/19 Lactulose 5 - 10 ml PO BID PRN MDD titrates 12/16/18 10/07/19 Loperamide [Imodium] 2 mg PO Q4HR PRN 01/11/19 10/07/19 Ondansetron [Zuplenz] 4 mg PO Q6HR PRN 01/19/19 10/07/19 Hydrocodone/Acetaminophen 1 - 2 each PO Q4HR PRN MDD 6 tabs 03/08/19 10/07/19 [Hydrocodon-Acetaminophn 10-325] Magic Mouth Wash 15 ml PO QID PRN MDD 6 doses 03/10/19 10/07/19 Omeprazole 20 mg PO DAILY 03/22/19 10/07/19 fentaNYL [Fentanyl 62.5mcg patch] 62.5 mcg TOP .72 HOURS #10 patch 07/06/19 10/07/19 Metoclopramide HCl 5 mg PO TID MDD sched bid 08/02/19 10/07/19 polyethylene glycoL 3350 [Miralax] 17 gm PO DAILY 08/02/19 10/07/19 hydroCHLOROthiazide 25 mg PO DAILY MDD hold 08/18/19 10/07/19 [Hydrochlorothiazide] - Allergies Allergies/Adverse Reactions: Allergies Allergy/AdvReac Type Severity Reaction Status Date / Time oxycodone HCl * Allergy Mild itch Verified 09/06/19 13:15 [From Percet] Review of Systems - Constitutional Constitutional: reports: Fatigue, Chills, Weakness, Poor appetite, Weight loss. denies: Fever - Eyes Eyes: reports: Vision loss, Other (dry eyes) - Ears, Nose & Throat Ears, Nose & Throat: reports: Hearing loss (mild), Nasal congestion (mild), Dry mouth, Other (geographic tongue) - Cardiovascular Cardiovascular: reports: Edema (left foot;slight), Decr. exercise tolerance - Respiratory Respiratory: denies: Cough, Wheezing, SOB at rest - Gastrointestinal Gastrointestinal: reports: Diarrhea (alternating with perceived constipation; going almost every day; loose stools with eating /shakes), Nausea, Bloating, Poor appetite, Early satiety. denies: Vomiting - Genitourinary Genitourinary: reports: Frequency - Musculoskeletal Musculoskeletal: reports: Back pain, Muscle aches, Stiffness, Muscle weakness - Integumentary Integumentary: reports: Dryness, Hair changes (thinning top of head from tx) - Neurological Neurological: reports: General weakness, Memory problems (tracks with log; perseveratates on schedule; worsens with anxiety), Abnormal gait, Other (peripheral neuropathy) - Psychiatric Psychiatric: reports: Depression, Anxiety. denies: Suicidal - Endocrine Endocrine: reports: Intolerance to cold - Hematologic/Lymphatic Hematologic/Lymphatic: reports: Anemia. denies: Recurrent infections - All Other Systems All Other Systems: reports: Reviewed and negative Physical Exam - Vital Signs Temperature: 97.5 C Pulse Rate: 72 Respiratory Rate: 18 O2 Saturation: 98 (ra @ rest) Blood Pressure: 138/72 - Physical Exam General Appearance: positive: Alert, Mild distress, Anxious Eyes Bilateral: positive: Normal inspection ENT: positive: No signs of dehydration, Other (georgraphic tongue; no candidasis or erythema) Neck: positive: No JVD, Trachea midline Cardiovascular: positive: Regular rate & rhythm Respiratory: positive: No respiratory distress, Breath sounds nml Abdomen: positive: Soft, Tenderness (mid abdominal area) Skin: positive: Pallor, Dryness Extremities: positive: Pedal edema (slight pedal edema in left foot; improved) Neurologic/Psychiatric: positive: Oriented x3, Weakness, Depressed mood/affect, Flat affect Palliative Care - POLST Patient has POLST: Yes POLST Status: DNR, Selective Treatment Pain: Pain unchanged, Location (right and left hip; right greater than left; lower back area; using fentanyl 62.5 mcg with vicodin 2 tabs 2-3 x a day for hip pain) Tiredness/Fatigue: Moderate (4-6) Drowsiness/Sedation: Moderate (4-6), Comment (sleep /awake cycles mixed up) Nausea: Mild (1-3) Anorexia: Severe (7-10) Dyspnea: Mild (1-3) (with exertion) Depression: Severe (7-10) Anxiety: Severe (7-10) Feelings of wellbeing/Perceived Quality of Life: Poor, Worsening Sleep: Variable sleep pattern Constipation: Yes, Opoid induced, Unmanaged Performance Status: Patient does spend most of her time sitting in her recliner, or laying in her be d. She can ambulate short distances in her apartment. She does perceive increased activity increases her pain bilaterally in her hips. She does have a modified shower, but finds herself too anxious to bathe at this time. - Palliative Care Discussion: Patient's mental health issues seem to be exacerbated, suspect as she is admitted since drinking since the holidays, she is left with less to cope with in the ways of self-medicating. Patient is instructed if she feels suicidal, or worsening to seek emergent care, but recommended she follow-up with [facility] for evaluation and assistance. She has received help from them in the past, though as with most things she does not perceive anything helpful. She remains resistant to other sources of support, nor medications that may help, she is on her Klonopin 1 mg up to 3 times a day, I have told her I will not reorder the Ambien or trazodone given her misuse and high risk for poor outcome when combining all these medications at same time. She is very fearful of dying, and being a lone given she has alienated all of her friends and family. Patient does have a POLST with DNA R and selective treatments, she would not want thing to prolong her suffering, particular issue not able to return to a level of independence are full of ending up in a fpc and this would be not quality of life for her. Results - Lab Results Lab and Imaging Results: patient has been instructed to go to the lab as soon as she feels she can emotionally, important to continue to track even without oncology appointment this month. Impression and Recommendations - Palliative Care Impression: This is an anxious 63-year-old [place] woman with breast cancer with mets to the bone, high symptom burden, and complex underlying mental health issues particularly in the context of her anxiety. Palliative care continues to provide support regarding pain and symptom management, psychosocial support, as well as coordination of care as able. Recommendations/Counseling Done: 1. Pain of neoplastic origin. Patient has had an exacerbation actually in her right hip, last time it was her left. She continues to use Vicodin 2 tabs about twice a day, her pain is exacerbated by her poor seating within her chairs, though she continues with many barriers in getting this replaced. Has been encouraged to follow through on this. We will not change her regimen, currently fentanyl 62.5 mcg every 3 days. 2. Anorexia. Patient restarted Megace as her anorexia has returned. She reports this is been about a week, has not improved her intake. She continues to perseverate regarding her calories, though she does manage to keep her fluids going. Has been counseled multiple times and calls frequently regarding what she should eat, had increase her intake, and difficulty with eating. She does not present with any oral candidiasis, no mucositis, abdomen is soft and no tenderness on palpation today. 3. Left foot swelling. Patient does not show any progressive signs or symptoms or concerns for DVT, she is managing it with compression, concerned with her decreased intake, has been instructed to stop HCTZ for now. Her perception of swelling, is probably trace and located and confined to her ankle and up 3 to 4 inches into her calf. 4. Constipation. Patient continues to perseverate regarding her bowels, she has been instructed to continue the MiraLAX 17 g daily, on a regular basis even if she is having regular bowel movements. She uses her "Glucerna" if she needs to move her bowels, this usually causes diarrhea though. She does have some external hemorrhoids, and does have written out instructions but second guesses herself all the time. 5. Depression/anxiety. Patient now admits to having been drinking fairly regularly since , was on the phone frequently with her, over the last week and half secondary to symptoms of withdrawal, she was able to manage with her Klonopin and support. At this point in time she reports she is not drinking, though she does understand I will not reorder her Ambien or trazodone as she misused it during this time. She has been given instruction to follow-up with [facility], also she is feeling suicidal or unable to cope her to follow-up with emergency room if needed, patient has been seen by [facility] in the past, she is also been instructed to limit her Klonopin to 2 times a day if possible. 6. Advanced care planning. Patient does have POLST in place with DNA R and selective treatments. She gets quite anxious regarding anything that might be perceived as a decline or worsening her health. She has little to no social support, and does not have a plan if she declines functionally or has an acute healthcare crisis. Palliative care continues to provide support within the limitations of the service. 7. Metastatic breast cancer. Patient is been instructed to follow-up on labs, she does have a standing lab order, she was unable emotionally and/or physically to get to her oncology appointment this week. She has been asked to get labs though to check her status. Time Spent: 60 minutes with greater than 50% of this done in counseling regarding management of anxiety, pain, constipation, anorexia, and psychosocial support and anticipatory guidance.
== END 2019-10-05 15:46 | disposition home or self-care (01) ==
LOC: PC 15:45
PROVIDERS: ATTEND Nurse Practitioner Adult Health
DX: Z51.5 Encounter for palliative care (principal); G89.3 Neoplasm related pain (acute) (chronic); C79.51 Secondary malignant neoplasm of bone; R63.0 Anorexia; R60.0 Localized edema; F41.8 Other specified anxiety disorders; G47.23 Circadian rhythm sleep disorder, irregular sleep wake type; G62.9 Polyneuropathy, unspecified; K59.03 Drug induced constipation; T40.2X5D Adverse effect of other opioids, subsequent encounter; R19.7 Diarrhea, unspecified; D46.9 Myelodysplastic syndrome, unspecified; R53.1 Weakness; C50.919 Malignant neoplasm of unspecified site of unspecified female breast; Z79.899 Other long term (current) drug therapy; Z79.891 Long term (current) use of opiate analgesic; Z66 Do not resuscitate
CPT/HCPCS: 99350

== ENCOUNTER 2019-10-19 13:30 | Outpatient (CLI) | payer MEDICARE, MEDICAID ==
--- NOTE | 2019-10-19 18:13 | CONSULTATION NOTE ---
Palliative Care Follow Up - Referral Referring Provider: Dr. Sharron Marte Time of Visit: 9143-0638 Referral setting: Home Referral Reason: Anxiety/Depression/Pain of neoplastic origin/Met Breast CA - Information Sources Records reviewed: Previous records reviewed History/Review of Systems obtained from: Patient Exam limitations: Clinical condition (patient with severe anxiety/poor memory) - History of Present Illness Update Brief HPI Update: This is an extremely anxious and challenging 63-year-old woman with metastatic breast cancer to the bones only, she continues on her Afinitor and exemestane, but continues to fluctuate as far as her mental health issues. She has ongoing severe/extreme anxiety, depression, and short-term memory issues which compounded the problem. She has had multiple stressors, combined with the concerns regarding infection and coronavirus, has not been coping very well. Her one-person she did use for groceries, is currently quarantined. She is absolutely terrified of leaving her home, she is afraid to drive and having issues with her car, she has no social support and has limited problem solving ability. She does need to have her labs drawn, but now will defer until her 10/31 visit with oncology. Patient has been having trouble with misuse issues, she had been drinking fairly heavily for a few months, she is stopped and gone through withdrawals regarding this. She was overusing and misusing her Ambien and trazodone, and now she presents with having overused her Klonopin. This will have been the second time, did review with her am not going to do early really fill. She is going to have to pace her medications, she last had it filled on 10/02 for 1 mg 3 times daily. She has been told this multiple times on several phone calls as she does call almost every day. She broke her phone, so now has a burner phone without any of her numbers in it, this has caused her significant distress that she is not able to retrieve her voicemails, nor has her call list in there. She does have someone who is coming over today to try and help her resolve this issue. Patient has had 2 falls, without trauma injury, but does present with bruising on her left knee. She reports this has exacerbated her pain, though does not present with any specific pain complaints, she is able to ambulate, she does spend most of her time sitting and napping in her recliner in a dark room. She is using her Vicodin for breakthrough pain, anywhere from 4-8 tabs in 24 hours, she did use these up early as well, did get a 4-day early refill on this. She is on baseline fentanyl 62.5 mcg, her pain is most intense in her hips bilaterally, and her left leg. These have been her baseline pain, it worsens when she spends a large amount of time in a recliner. She does not appear significantly worse than her last visit a couple weeks ago. Patient has been referred to [facility], concerned about her ongoing psychiatric issues. She denies suicidality, though does present with hopelessness and helplessness. She was able though to find someone to get her groceries. She does tend to alienate and be paranoid about her neighbors, and cannot identify anyone in the community that has not "done her wrong". She has been resistant to looking at any other clinic antidepressant, or mood stabilizer, though today she was open to trying some mirtazapine as we have talked about this multiple visits. Patient's anorexia has improved somewhat, she intermittently takes her Megace, she does stay hydrated. Her other chief complaint has been her lower extremity edema, she only has maybe trace in her left ankle, otherwise has resolved. She is currently off of her hydrochlorothiazide in the context of worrying about her falls. Social History - Living Situation Living arrangement: At home Living Situation: Alone Support System: Patient has very few resources, she has alienated most of her family friends and neighbors. She did identify she has been in touch with her sister Janet Dangelo, in [place], And would want her to be her D POA as well as notified if anything were to happen to her. Medications/Allergies - Medications Home Medications: Ambulatory Orders Medication Instructions Recorded Confirmed Denosumab [Xgeva] 120 mg SUBQ Q28D MDD hold 04/04/15 10/20/19 clonazePAM [Clonazepam] 1 mg PO TID MDD 3 tabs 04/08/16 10/20/19 Everolimus [Afinitor] 10 mg PO DAILY 12/14/18 10/20/19 Exemestane 25 mg PO DAILY 12/14/18 10/20/19 Lactulose 5 - 10 ml PO BID PRN MDD titrates 12/16/18 10/20/19 Loperamide [Imodium] 2 mg PO Q4HR PRN 01/11/19 10/20/19 Ondansetron [Zuplenz] 4 mg PO Q6HR PRN 01/19/19 10/20/19 Hydrocodone/Acetaminophen 1 - 2 each PO Q4HR PRN MDD 6 tabs 03/08/19 10/20/19 [Hydrocodon-Acetaminophn 10-325] Magic Mouth Wash 15 ml PO QID PRN MDD 6 doses 03/10/19 10/20/19 Omeprazole 20 mg PO DAILY 03/22/19 10/20/19 fentaNYL [Fentanyl 62.5mcg patch] 62.5 mcg TOP .72 HOURS #10 patch 07/06/19 10/20/19 Metoclopramide HCl 5 mg PO TID MDD sched bid 08/02/19 10/20/19 polyethylene glycoL 3350 [Miralax] 17 gm PO DAILY 08/02/19 10/20/19 Mirtazapine 7.5 mg PO QPM 10/20/19 10/20/19 - Allergies Allergies/Adverse Reactions: Allergies Allergy/AdvReac Type Severity Reaction Status Date / Time oxycodone HCl * Allergy Mild itch Verified 09/06/19 13:15 [From Percocet] Review of Systems - Constitutional Constitutional: reports: Fatigue, Poor appetite, Weight loss. denies: Fever, Chills - Eyes Eyes: reports: Blurred vision, Vision loss - Ears, Nose & Throat Ears, Nose & Throat: denies: Sore throat, Mouth lesions - Cardiovascular Cardiovascular: reports: Decr. exercise tolerance - Respiratory Respiratory: denies: Cough, SOB at rest - Gastrointestinal Gastrointestinal: reports: Early satiety. denies: Constipation (going daily), Nausea, Reflux/heartburn - Genitourinary Genitourinary: reports: Frequency - Musculoskeletal Musculoskeletal: reports: Muscle pain, Back pain, Muscle aches, Stiffness, Muscle weakness, Other (2 recent falls with bruising; unable to recall details consistently did not require 911 or evaluation) - Integumentary Integumentary: reports: Dryness, Hair changes (thinning). denies: Rash - Neurological Neurological: reports: General weakness, Numbness (mild neuropathic symtoms toes/balls of feet), Memory problems - Psychiatric Psychiatric: reports: Depression, Anxiety, Other (severe mood swings) - Endocrine Endocrine: reports: Diabetes type 2 (not checking BS) - Hematologic/Lymphatic Hematologic/Lymphatic: reports: Anemia. denies: Recurrent infections - All Other Systems All Other Systems: reports: Reviewed and negative Physical Exam - Vital Signs Temperature: 97.5 C Pulse Rate: 65 Respiratory Rate: 18 O2 Saturation: 97 (ra @ rest) Blood Pressure: 142/64 - Physical Exam General Appearance: positive: Moderate distress, Anxious Eyes Bilateral: positive: Normal inspection ENT: positive: No signs of dehydration. negative: Pharyngeal erythema, Oral lesions Neck: positive: No JVD, Trachea midline Cardiovascular: positive: Regular rate & rhythm Respiratory: positive: No respiratory distress, Breath sounds nml Abdomen: positive: Soft Skin: positive: Pallor, Dryness, Bruising (from fall on left knee). negative: Rash Extremities: positive: No pedal edema Neurologic/Psychiatric: positive: Disoriented to time, Weakness, Depressed mood/affect, Flat affect Palliative Care - POLST Patient has POLST: Yes POLST Status: DNR, Selective Treatment Pain: Pain worsening, Location (bilateral hips/back) Tiredness/Fatigue: Moderate (4-6) Drowsiness/Sedation: Severe (7-10), Comment (patient sleeping most of day and up at night) Nausea: None Anorexia: Moderate (4-6), Weight loss Dyspnea: None Depression: Severe (7-10) (continues to refuse/decline referral or assistance/did agree to medication trial today) Anxiety: Severe (7-10) Feelings of wellbeing/Perceived Quality of Life: Poor, Worsening Sleep: Sleeps poorly, Variable sleep pattern Constipation: No Performance Status: Patient is quite sedentary, does spend most the time in her recliner and/or in bed. She has her nights and days mixed up. She does set the alarm though to take her cancer meds.She is ambulatory, she does have difficulty managing her household tasks, and has been quite isolated and not overnight houseperson home for several weeks. - Palliative Care Discussion: Patient admits to being overwhelmed, tends to chemically cope when she does this. She identifies multiple stressors, including recent loss of her to "friends" in the building, ongoing difficulties with her car, worried about the coronavirus, limited access to food. She is quite resistant to any kind of follow-up or referral for her mental health issues, she would though talk with the puffer tender, has been offered before. Did review currently though with precautions would be phone support only, declined the DIRECTOR OF [employer]. Patient does understand the seriousness of her illness, tends to perseverate regarding her cancer, and is unhappy overall with her quality of life. Patient does have a POLST in place, with DNA R/selective treatments. She now has picked a D POA which is her sister, will bring form with next visit. Results - Lab Results Lab results reviewed: No Lab and Imaging Results: Has been to fearful to go out/labs not done. agreed to get with appt 10/31 Impression and Recommendations - Palliative Care Impression: This is an anxious 64-year-old [place] woman with breast cancer with mets to the bone, and high symptom burden. She is quite complex given her underlying mental health issues, particular in the context of her anxiety and short-term memory issues. Palliative care continues to provide support regarding pain and symptom management, psychosocial support, as well as coordination of care as able. Recommendations/Counseling Done: 1. Pain of neoplastic origin. Patient has had a couple falls, with increased exacerbation of her pain, has had no trauma injuries other than bruising. She has declined due to her "stubbornness" [employer] up to this point. She did have some difficulty getting up from the floor with her last fall. She continues to use 2 Vicodin up to 3 times a day, is currently on fentanyl 62.5 mcg every 3 days. Will not change her current regimen does appear appropriate in the context of her current pain levels. 2. Depression/anxiety. Patient continues to "chemically cope", has from previous history, been maintained on Klonopin 1 mg 3 times daily. She most likely will need to decrease her daily dosing to be able to not run out. Have filled it early for her before, have explained will not do at this point in time, she has been instructed multiple times to pace her use. Patient is willing today to have a referral to puffer tender, and also consider mirtazapine which may help some with her mood swings, appetite, and sleep. Instructed to take at bedtime will start slow at 7.5 mg. 3. Left foot swelling. Patient does not present with anything other than trace edema in her left ankle, she is currently off her hydrochlorothiazide. She does sit with her feet elevated in her chair, will continue to evaluate. 4. Constipation. Patient continues to perseverate regarding her bowels, though she does appear she is moving them daily, with monitoring and implementing MiraLAX as needed. 5. Anorexia. Patient fluctuates as far as her consistency with her Megace, hopefully with mirtazapine will get some relief. Right now she is having problems with access to food, I did find her neighbor to go shopping for her yesterday. She also got it delivery from the food [id number]. Patient does have adequate food in her home on review. 6. Metastatic breast cancer to the bones. Patient has not followed through up on labs, call to oncology department to verify visit frequency and appointments. Written out for patient and reviewed. 7. Advanced care planning. Patient does have POLST in place with DNA R and selective treatments. She gets quite anxious regarding anything is perceived as a decline or worsening in her health, she is very fearful about the coronavirus. She would not want to be put on a ventilator if she were to get sick, or anything that might prolong her suffering. She did finally agree to a D POA, she has had enough contact with her sister and allowed me to put her as her next of kin and contact, I can give her information but I am not to call and offer it up. Janet Stokes [phone] cell. Will complete DPOA form for next visit. Time Spent: 60 minutes with been 50% of this done in counseling, management of anxiety and pain, anorexia, psychosocial support, coordination of care with oncology and anticipatory guidance.
== END 2019-10-19 13:31 | disposition home or self-care (01) ==
LOC: PC 13:30
PROVIDERS: ATTEND Nurse Practitioner Adult Health
DX: Z51.5 Encounter for palliative care (principal); F41.8 Other specified anxiety disorders; G89.3 Neoplasm related pain (acute) (chronic); R63.0 Anorexia; R60.0 Localized edema; C79.51 Secondary malignant neoplasm of bone; C50.919 Malignant neoplasm of unspecified site of unspecified female breast; Z79.899 Other long term (current) drug therapy; Z79.891 Long term (current) use of opiate analgesic; Z91.19 Patient's noncompliance with other medical treatment and regimen; Z60.8 Other problems related to social environment; Z91.81 History of falling; Z66 Do not resuscitate
CPT/HCPCS: 99350

== ENCOUNTER 2019-10-23 04:16 | Emergency (ER) | payer MEDICARE, MEDICAID ==
--- NOTE | 2019-10-23 04:24 | ED Physician Documentation ---
PD HPI ABD PAIN - Stated complaint Stated Complaint: CONSTIPATION - History obtained from History obtained from: Patient - History of Present Illness Timing - onset: Yesterday Timing - details: Gradual onset Pain level max: 5 Pain level now: 1 Quality: Cramping Location: All over / everywhere Improved by: Other (nothing) Worsened by: Other (no exacerbating factors) Associated symptoms: Constipation. No: Fever Similar symptoms before: Diagnosis (constipation) - Additional information Additional information: c/o 24 hours constipation, intermittent diffuse abdominal cramping and urge to defecate without results. she says she fell a few days ago and took vicodin for the pain resulting from the fall; she says she hates to take vicodin because it causes constipation, but she says she had to do so for pain control. Review of Systems Constitutional: denies: Fever GI: reports: Abdominal Pain, Constipation. denies: Nausea, Vomiting PD PAST MEDICAL HISTORY - Past Medical History Cardiovascular: Hypertension Respiratory: Sleep apnea, CPAP use Endocrine/Autoimmune: Type 2 diabetes GI: GERD, Cholelithiasis SHOP LEAD: Breast cancer (on chemo) : Incontinence HEENT: None Psych: Depression, Anxiety Musculoskeletal: Osteoarthritis, Other Derm: None - Past Surgical History Past Surgical History: Yes General: Colonoscopy, Other /SHOP LEAD: Endometrial ablation, Other - Present Medications Home Medications: Ambulatory Orders Medication Instructions Recorded Confirmed Denosumab [Xgeva] 120 mg SUBQ Q28D MDD hold 04/04/15 10/20/19 clonazePAM [Clonazepam] 1 mg PO TID MDD 3 tabs 04/08/16 10/20/19 Everolimus [Afinitor] 10 mg PO DAILY 12/14/18 10/20/19 Exemestane 25 mg PO DAILY 12/14/18 10/20/19 Lactulose 5 - 10 ml PO BID PRN MDD titrates 12/16/18 10/20/19 Loperamide [Imodium] 2 mg PO Q4HR PRN 01/11/19 10/20/19 Ondansetron [Zuplenz] 4 mg PO Q6HR PRN 01/19/19 10/20/19 Hydrocodone/Acetaminophen 1 - 2 each PO Q4HR PRN MDD 6 tabs 03/08/19 10/20/19 [Hydrocodon-Acetaminophn 10-325] Magic Mouth Wash 15 ml PO QID PRN MDD 6 doses 08/15/19 03/26/20 Omeprazole 20 mg PO DAILY 03/22/19 10/20/19 fentaNYL [Fentanyl 62.5mcg patch] 62.5 mcg TOP .72 HOURS #10 patch 07/06/19 10/20/19 Metoclopramide HCl 5 mg PO TID MDD sched bid 08/02/19 10/20/19 polyethylene glycoL 3350 [Miralax] 17 gm PO DAILY 08/02/19 10/20/19 Mirtazapine 7.5 mg PO QPM 10/20/19 10/20/19 - Allergies Allergies/Adverse Reactions: Allergies Allergy/AdvReac Type Severity Reaction Status Date / Time oxycodone HCl * Allergy Mild itch Verified 10/23/19 04:35 [From Percocet] - Social History Does the pt smoke?: No Smoking Status: Never smoker Does the pt drink ETOH?: Yes Does the pt have substance abuse?: No - Immunizations Immunizations are current?: Yes Immunizations: TDAP >10years/unknown - POLST Patient has POLST: Yes POLST Status: DNR PD ED PE NORMAL - Vitals Vital signs reviewed: Yes - General General: Alert and oriented X 3, No acute distress, Well developed/nourished - Abdomen Abdomen: Normal bowel sounds, Soft, Non tender, Non distended - Derm Derm: Normal color, Warm and dry - Extremities Extremities: No deformity, No tenderness to palpate, Normal ROM s pain - Neuro Neuro: Alert and oriented X 3, No motor deficit, No sensory deficit Results - Vitals Vitals: Vital Signs - 24 hr 10/23/19 10/23/19 04:20 05:40 Temperature 36.6 C Heart Rate 107 H 84 Respiratory 18 16 Rate Blood Pressure 149/86 H 130/70 O2 Saturation 97 100 Oxygen O2 Source Room air PD MEDICAL DECISION MAKING - ED course Complexity details: reviewed old records, considered differential, d/w patient ED course: initially, I tried manual disimpaction but stool is too high to reach (can feel at fingertip). given soap suds enema with good results. she was going to be discharged but then wanted me to make sure my leg isnt fracture; she says she is worried about her proximal left thigh due to her recent fall. the area is nontender with FROM and no deformity. I reassured her that there was no evidence of fracture at this time. she then wanted me to look at a labial cyst which has been there for a long time. I asked that she talk to her primary care provider about her ongoing problems rather than utilize the emergency room for nonemergent issues. Departure - Departure Disposition: 01 Home, Self Care Clinical Impression: Constipation Condition: Good Instructions: ED Constipation Follow-Up: Charo Lorenz MD [Primary Care Provider] - Discharge Date/Time: 10/23/19 05:46
[2019-10-23] MEDS ORDERED: SOAP SUDS ENEMA 1 EACH RC STA (04:41)
[2019-10-23 05:46] VITALS: BP 130/70
== END 2019-10-23 05:46 | disposition home or self-care (01) ==
LOC: ED 04:16
DX: K59.00 Constipation, unspecified (principal); I10 Essential (primary) hypertension; E11.9 Type 2 diabetes mellitus without complications; Z66 Do not resuscitate
CPT/HCPCS: 99282; 99284; A9270

== ENCOUNTER 2019-11-09 14:14 | Outpatient (CLI) | payer MEDICARE, MEDICAID ==
--- NOTE | 2019-11-09 16:43 | PROVIDER PROGRESS NOTE ---
HPI/Interval History - HPI/Interval History This is a 64-year-old woman with metastatic breast cancer to the bones only, she continues on her Afinitor and exemestane. Follow-up regarding home visit, request telephone check-in instead. Patient has had fluctuations as far as her mental health issues, but is doing much better. Her car is been fixed, she has been able to get out for grocery shopping and food. She reports she is "starving". She is tolerating the mirtazapine at 7.5 mg daily, reports increased mood, sleeping better, and is much encouraged by her improved counts. She reports she is staying hydrated, she still has some intermittent falls, she reports she is still drinking though her oncologist said she could have whiskey 2 times a week. She denies any mouth issues, has not had any further constipation, he is not needing the Vicodin for breakthrough pain, and managing on her fentanyl patch at 62.5 mcg daily. Review of Systems - Constitutional Constitutional: reports: Fatigue (improved), Weight stable (improved; no further weight loss over the two months). denies: Fever, Chills - Eyes Eyes: reports: Vision loss - Ears, Nose & Throat Ears, Nose & Throat: denies: Mouth lesions - Respiratory Respiratory: denies: SOB at rest - Gastrointestinal Gastrointestinal: reports: Good appetite. denies: Constipation, Nausea - Genitourinary Genitourinary: reports: Frequency - Musculoskeletal Musculoskeletal: reports: Back pain, Stiffness, Muscle weakness - Integumentary Integumentary: reports: Dryness - Neurological Neurological: reports: General weakness, Memory problems (no change) - Psychiatric Psychiatric: reports: Depression (voice modulated; less catastrophizing; feels better mood), Anxiety (improved) - Hematologic/Lymphatic Hematologic/Lymphatic: reports: Bruising (with falls). denies: Anemia, Recurrent infections - All Other Systems All Other Systems: reports: Reviewed and negative Medications/Allergies - Medications Home Medications: Ambulatory Orders Medication Instructions Recorded Confirmed Denosumab [Xgeva] 120 mg SUBQ Q28D MDD hold 04/04/15 11/01/19 clonazePAM [Clonazepam] 1 mg PO TID MDD 3 tabs 04/08/16 11/01/19 Everolimus [Afinitor] 10 mg PO DAILY 12/14/18 11/01/19 Exemestane 25 mg PO DAILY 12/14/18 11/01/19 Lactulose 5 - 10 ml PO BID PRN MDD titrates 12/16/18 11/01/19 Loperamide [Imodium] 2 mg PO Q4HR PRN 01/11/19 11/01/19 Ondansetron [Zuplenz] 4 mg PO Q6HR PRN 01/19/19 11/01/19 Hydrocodone/Acetaminophen 1 - 2 each PO Q4HR PRN MDD 6 tabs 03/08/19 11/01/19 [Hydrocodon-Acetaminophn 10-325] Magic Mouth Wash 15 ml PO QID PRN MDD 6 doses 03/10/19 11/01/19 Omeprazole 20 mg PO DAILY 03/22/19 11/01/19 fentaNYL [Fentanyl 62.5mcg patch] 62.5 mcg TOP .72 HOURS #10 patch 07/06/1902/12 Metoclopramide HCl 5 mg PO TID MDD sched bid 08/02/19 11/01/19 polyethylene glycoL 3350 [Miralax] 17 gm PO DAILY 08/02/19 11/01/19 Mirtazapine 7.5 mg PO QPM 10/20/19 11/01/19 - Allergies Allergies/Adverse Reactions: Allergies Allergy/AdvReac Type Severity Reaction Status Date / Time oxycodone HCl * Allergy Mild itch Verified 11/01/19 14:11 [From Percocet] Palliative Care - POLST Patient has POLST: Yes POLST Status: DNR, Selective Treatment Pain: Pain unchanged, Location (Pain remains bilaterally in her hips, small of back, does travel at times from each femur to femur, overall feels her pain is much better controlled. She is more ambulatory and is managing her ADLs.) Impression and Recommendations - Palliative Care Impression: This is a 64-year-old woman with metastatic breast cancer with mets to the bones. She reports improved mood, is eating better, presents today on phone with less catastrophizing, and actually declined in person visit. Her counts are improved, and mood is elevated today. Palliative care to continue to follow for pain and symptom management and psychosocial support. Recommendations/Counseling Done: 1.Pain of neoplastic origin. Patient continues have intermittent falls, but has had no trauma injuries at them bruising. She is not needing her Vicodin, is currently on fentanyl 62.5 mcg every 3 days, reports her pain is well controlled. 2. Depression/anxiety. Patient reports doing better with mood, does have Klonopin available, and reports is using less alcohol. She has been allotted per her oncologist per her report, 2 times a week, and she is sleeping better. She reports that the "trifecta" of mirtazapine, has helped her appetite, mood, and sleep. 2. Anorexia. Patient does appear to responding to the mirtazapine, she reports she is eating well, is hungry all the time. She is quite pleased with this and is also not had any further weight loss. Now that she has transportation, she is able to get more takeout food, as well as shop for herself. 3. Metastatic breast cancer to the bones, patient did finally meet with her oncologist, did receive Xgeva. She is due for bone scan in 2 weeks, she is doing fairly well overall. Time Spent: G2012 20 minutes Telehealth Visit - TeleMedicine Visit Referring Provider: Dr. Sharron Marte Visit Type:: TeleHealth Phone Call Patient agrees and consents to this telehealth visit type: Yes Time spent:: 20 minutes Video type:: phone Location of provider:: Office Location of patient:: Home Provider Statement: I spent 100% on the TeleHealth Phone Call with the patient with greater than 50% spent counseling the patient and coordination of care.
== END 2019-11-09 14:15 | disposition home or self-care (01) ==
LOC: PC 14:14
PROVIDERS: ATTEND Nurse Practitioner Adult Health
DX: Z51.5 Encounter for palliative care (principal); G89.3 Neoplasm related pain (acute) (chronic); F41.8 Other specified anxiety disorders; R63.0 Anorexia; C79.51 Secondary malignant neoplasm of bone; C50.919 Malignant neoplasm of unspecified site of unspecified female breast; Z79.899 Other long term (current) drug therapy; Z79.891 Long term (current) use of opiate analgesic; Z91.81 History of falling; Z66 Do not resuscitate

== ENCOUNTER 2020-01-10 15:40 | Outpatient (CLI) | payer MEDICARE, MEDICAID ==
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
== END 2020-01-10 15:41 | disposition home or self-care (01) ==
LOC: PC 15:40
PROVIDERS: ATTEND Nurse Practitioner Adult Health
DX: Z51.5 Encounter for palliative care (principal); G89.3 Neoplasm related pain (acute) (chronic); L21.0 Seborrhea capitis; L89.322 Pressure ulcer of left buttock, stage 2; R63.0 Anorexia; F32.9 Major depressive disorder, single episode, unspecified; K59.03 Drug induced constipation; T40.2X5D Adverse effect of other opioids, subsequent encounter; F41.9 Anxiety disorder, unspecified; C79.51 Secondary malignant neoplasm of bone; C50.919 Malignant neoplasm of unspecified site of unspecified female breast; Z79.899 Other long term (current) drug therapy; Z79.891 Long term (current) use of opiate analgesic; Z91.81 History of falling; Z63.9 Problem related to primary support group, unspecified; Z66 Do not resuscitate
CPT/HCPCS: 99349

== ENCOUNTER 2020-01-23 10:28 | Outpatient (CLI) | payer MEDICARE, MEDICAID ==
--- NOTE | 2020-01-23 16:42 | Nuclear Medicine Report ---
PROCEDURE: Bone Whole Body INDICATIONS: RIGHT BREAST CANCER RADIOPHARMACEUTICAL: 26.5 mCi Tc-99m MDP IV. TECHNIQUE: Delayed whole-body scintigrams were obtained approximately 3-4 hours after intravenous injection of r adiotracer. Anterior and posterior views were acquired from vertex to feet. COMPARISON: None available. FINDINGS: There are multiple foci of abnormal uptake involving the thoracic spine (T2, T8, T9, T10 a nd T11, L2 and L4), sacrum, possibly sternum, the left second, eighth an ninth ribs, bony pelvis bila terally, and proximal left femur, consistent with metastasis. IMPRESSION: Multifocal osseous metastases as described. Please correlate with radiographs or cross-s ectional imaging. Reviewed by: Richard Vieira MD on 01/23/2020 4:41 PM PDT Approved by: Richard Vieira MD on 01/23/2020 4:41 PM PDT Station ID: [id number]
== END 2020-01-23 10:29 | disposition home or self-care (01) ==
LOC: DI 10:28
PROVIDERS: ATTEND Internal Medicine Hematology & Oncology
DX: C79.51 Secondary malignant neoplasm of bone (principal); C50.911 Malignant neoplasm of unspecified site of right female breast
CPT/HCPCS: 78306

== ENCOUNTER 2020-03-21 17:44 | Outpatient (CLI) | payer MEDICARE, MEDICAID ==
--- NOTE | 2020-03-21 17:50 | CONSULTATION NOTE ---
Palliative Care Follow Up - Referral Referring Provider: Dr. Sharron Marte Time of Visit: [id number] Referral setting: Home Referral Reason: Impaction/Pain of neoplastic origin/Met Breast CA to bones - Information Sources Records reviewed: Previous records reviewed History/Review of Systems obtained from: Patient Exam limitations: Clinical condition (patient poor historian r/t STM/anxiety) - History of Present Illness Update Brief HPI Update: This is a 64-year-old woman with metastatic breast cancer to the bones only, she continues on her Afinitor and exemestane. She continues to have fluctuating mood disorder, resulting in perseverating behaviors, severe anxiety, she continues to drink 2 or 3 shots daily, and continues to be quite isolated. She has been very fearful of any kind of change, she would not come into oncology due to the fears of COVID, her [place] 2729 is going up, her last bone scan did show some increase in lesions T4 and L4. She does continue with worsening pain, though it is difficult to tease out as she does report recent falls. Her balance continues to worsen, she does have some neuropathy in her feet, she complains of severe anorexia, intermittent stomach pain, and today presents with severe constipation and impaction of 4 days. She has gotten herself quite worked up over this, and does not indeed have significant amount of stool in her lower rectum, as well as hemorrhoids. She is also perseverating significantly on her teeth, she was told she has some active cavities, she is afraid she is going to of an abscess. She is quite mixed up as far as rinses, her dexamethasone, and fluoride rinse. The dentist office is quite frustrated with her, and is not taking her calls currently. Patient's past medical history includes lower extremity edema, anxiety, depression, severe short-term memory issues, weight loss, cholelithiasis, and pancytopenia secondary to myelodysplastic syndrome Social History - Living Situation Living arrangement: At home Living Situation: Alone Support System: Patient lives alone, she has alienated most of her family, and friends. She has no social support. She has significant financial stressors, has had CO PES in the past, and has declined further follow-up regarding this. She is living in senior subsidized housing Medications/Allergies - Medications Home Medications: Ambulatory Orders Medication Instructions Recorded Confirmed Denosumab [Xgeva] 120 mg SUBQ Q28D 04/04/15 03/21/20 clonazePAM [Clonazepam] 1 mg PO TID MDD 3 tabs 04/08/16 03/21/20 Everolimus [Afinitor] 10 mg PO DAILY 12/14/18 03/21/20 Exemestane 25 mg PO DAILY 12/14/18 03/21/20 Lactulose 5 - 10 ml PO BID PRN MDD titrates 12/16/18 03/21/20 Loperamide [Imodium] 2 mg PO Q4HR PRN 01/11/19 03/21/20 Ondansetron [Zuplenz] 4 mg PO Q6HR PRN 01/19/19 03/21/20 Hydrocodone/Acetaminophen 1 - 2 each PO Q4HR PRN MDD 6 tabs 03/08/19 03/21/20 [Hydrocodon-Acetaminophn 10-325] Omeprazole 20 mg PO DAILY PRN 03/22/19 03/21/20 polyethylene glycoL 3350 [Miralax] 17 gm PO DAILY PRN 08/02/19 03/21/20 fentaNYL [Fentanyl 75mcg patch] 75 mcg TOP .72 HOURS 03/03/20 03/21/20 Metoclopramide HCl 5 mg PO TID PRN 03/21/20 03/21/20 - Allergies Allergies/Adverse Reactions: Allergies Allergy/AdvReac Type Severity Reaction Status Date / Time oxycodone HCl * Allergy Mild itch Verified 11/01/19 14:11 [From Percet] Review of Systems - Constitutional Constitutional: reports: Fatigue, Chills (last night; suspect clonapin withdrawals), Weakness, Poor appetite. denies: Fever - Eyes Eyes: reports: Vision loss, Other (dry eyes) - Ears, Nose & Throat Ears, Nose & Throat: reports: Dental decay (remains distressed and poor understanding of current dental issues; would like [employer] to help her understand). denies: Mouth lesions - Cardiovascular Cardiovascular: reports: Lightheadedness, Decr. exercise tolerance - Respiratory Respiratory: denies: Cough, SOB at rest - Gastrointestinal Gastrointestinal: reports: Constipation (no BM x 4 days; c/o rectal pressure), Poor appetite, Other (stomach ache) - Genitourinary Genitourinary: reports: Frequency, Incontinence (mild) - Musculoskeletal Musculoskeletal: reports: Back pain, Muscle aches, Stiffness, Limited range of motion, Muscle weakness, Joint pain, Other (c/o tail bone pain; balance issues) - Integumentary Integumentary: reports: Dryness, Nail changes, Hair changes - Neurological Neurological: reports: General weakness, Numbness (in feet), Memory problems, Abnormal gait - Psychiatric Psychiatric: reports: Depression, Anxiety - Endocrine Endocrine: reports: Intolerance to heat - Hematologic/Lymphatic Hematologic/Lymphatic: reports: Anemia. denies: Recurrent infections - All Other Systems All Other Systems: reports: Reviewed and negative (poor STM not always good recall of sequencing or instructions) Physical Exam - Vital Signs Temperature: 96.3 C Pulse Rate: 88 Respiratory Rate: 18 Blood Pressure: 142/62 - Physical Exam General Appearance: positive: Alert, Moderate distress, Anxious Eyes Bilateral: positive: Normal inspection, No scleral icterus ENT: negative: Oral lesions (mouth lesions cleared) Neck: positive: Trachea midline Cardiovascular: positive: Regular rate & rhythm Respiratory: positive: Diminished in bases. negative: Wheezes, Rales, Rhonchi Abdomen: positive: Soft, Tenderness Skin: positive: Bruising, Pressure wound (right buttock dried stage II blister resolved). negative: Rash (face) Extremities: positive: Pedal edema (trace bilateral) Neurologic/Psychiatric: positive: Disoriented to time, Weakness, Depressed mood/affect, Flat affect Palliative Care - POLST Patient has POLST: Yes POLST Status: DNR, Selective Treatment Pain: Pain worsening, Location (tailbone and back; bilateral) Tiredness/Fatigue: Severe (7-10) Drowsiness/Sedation: Moderate (4-6) (patient with day/night schedules off) Nausea: Mild (1-3) Anorexia: Moderate (4-6), Weight loss (patient thinks loosing wt again;) Dyspnea: Mild (1-3) Depression: Severe (7-10) Anxiety: Severe (7-10) Feelings of wellbeing/Perceived Quality of Life: Poor, Worsening Sleep: Variable sleep pattern Constipation: Yes, Opoid induced, Unmanaged Performance Status: Patient has had decline in functional status, as she is having more difficulty making her ADLs, this has something to do with balance as well as activity intolerance. She has had frequent falls, have recommended physical therapy multiple times, patient continues to be resistant. She does have ability sometimes will go to the store, is driving her van short distances. She does make arrangements for further trips [place]. - Palliative Care Discussion: Patient continues to struggle with day-to-day isolation, depression, continues to drink. She has been out of her Klonopin for at least a week, so has been worsened behaviors of perseveration and anxiety. Patient has been quite resi stant to any kind of psychiatry or psychosocial support. She continues to be afraid of everything, as far as tooth abscesses, her breast cancer worsening, COVID-19, she tends to catastrophize frequently. Results - Lab Results Lab results reviewed: Yes Impression and Recommendations - Palliative Care Impression: This is an anxious 64-year-old woman with metastatic breast cancer with mets to the bone. She continues to have frequent falls, related to balance, and numbness. She continues with persistent acute on chronic pain, continues with severe anxiety and depression. Today she presents with impaction and constipation, she continues quite isolated and complex social situation. Palliative care providing support for pain and symptom management and coordination of care. Recommendations/Counseling Done: 1. Pain of neoplastic origin. Patient continues with persistent bilateral hip, left groin, and lower back pain. She is currently on fentanyl 75 mcg patch, she continues with intermittent falls which is often exacerbate her pain. She is using intermittent acetaminophen for breakthrough pain, she most recently had a fall on her tailbone, this is the source of her discomfort today. 2. Impaction. Patient is full of moderate to soft firm stool in her lower rectal vault. Patient was given enema disimpacted, instructed to continue with her MiraLAX daily, and not to skip it. Patient without any signs or symptoms of obstruction, patient with mild hemorrhoids. 3. Anorexia. Patient has responded well in the past mirtazapine, she has also done better as far as mood stabilization on this. She is not willing to retry, she has lost more weight she had originally regained some. She has not been eating or drinking, she remains resistant to any kind of suggestions. 4. Stomatitis. This is since improved, she remains quite perseverative about her oral care and cavities. She is quite confused which she is supposed to be doing for the dentist. At this point time instructed to stop the Decadron rinses as her stomatitis has resolved. 5. Dental caries. Did reach out leave message for her dentist, will follow-up tomorrow. 6. Anxiety. Patient's been off her Klonopin for a week, this is exacerbated both her anxiety and her drinking behaviors. She reports she is taking 2-3 shots a night, though she has been counseled that this is unsafe with her current medication, fact she lives alone, and worsening for her depression. She does acknowledge and verbalizes understanding related to this. She has long- term had alcohol abuse issues, she has remained abstinence for periods of time, and does better during those times. 7. Depression. Patient continued to do poorly with increasing isolation on top of her comp ask social situation. She is quite perseverative regarding the COVID-19 pandemic. She already was quite distressed with her pancytopenia and precautions. She is venturing out at times of her grocery shopping and meals. 8. Stage II decub on left buttock, dried area now, no further open area. Instructed to continue with Vaseline for softening and protection. Addendum. Did speak with dentist. Does report she has 2 caries, would need to remove crowns, this would involve going to an oral surgeon. She does not have "abscesses", they are active caries she is not at this point in time having any symptoms of infection. He did put a sealant called arrest over to slow down medically. He had told her that the Decadron rinses are helpful for ulcerations, but not need to continue indefinitely. Patient had got herself perseverating reading this. He did recommend fluoride at nighttime, patient was complaining of flushing regarding this, he does not think this is a side effect of her fluoride. He is willing to do a teeth cleaning, as long as oncologist feels like her white blood cell counts are good level. She is due for labs on and has an appointment 04/04. Did follow-up with patient explained above, patient already sound like she had been drinking, did review the information from the dentist, and plan for follow- up for cleaning after counts available. Patient verbalized understanding. Time Spent: 60 minutes with greater than 50% of this done in counseling regarding management of bowels, pain, addressed anxiety and depression, reassured we will follow-up with dentist as this is something she is perseverating on. Coordination of care
== END 2020-03-21 17:45 | disposition home or self-care (01) ==
LOC: PC 17:44
PROVIDERS: ATTEND Nurse Practitioner Adult Health
DX: Z51.5 Encounter for palliative care (principal); G89.3 Neoplasm related pain (acute) (chronic); K59.03 Drug induced constipation; T40.2X5A Adverse effect of other opioids, initial encounter; K02.9 Dental caries, unspecified; F41.9 Anxiety disorder, unspecified; F32.9 Major depressive disorder, single episode, unspecified; R53.83 Other fatigue; R63.0 Anorexia; R63.4 Abnormal weight loss; R29.6 Repeated falls; R26.89 Other abnormalities of gait and mobility; G62.9 Polyneuropathy, unspecified; K12.1 Other forms of stomatitis; L89.322 Pressure ulcer of left buttock, stage 2; C50.919 Malignant neoplasm of unspecified site of unspecified female breast; C79.51 Secondary malignant neoplasm of bone; Z79.899 Other long term (current) drug therapy; Z79.891 Long term (current) use of opiate analgesic; Z79.811 Long term (current) use of aromatase inhibitors; Z63.8 Other specified problems related to primary support group; Z59.9 Problem related to housing and economic circumstances, unspecified; Z60.4 Social exclusion and rejection; Z91.81 History of falling; Z72.89 Other problems related to lifestyle; Z66 Do not resuscitate
CPT/HCPCS: 99350

== ENCOUNTER 2020-05-14 11:24 | Outpatient (CLI) | payer MEDICARE, MEDICAID ==
--- NOTE | 2020-05-17 12:19 | XRAY Report ---
PROCEDURE: Shoulder 3 View LT INDICATIONS: LEFT SHOULDER PAIN, NECK PAIN AND ARM PAIN TECHNIQUE: 3 views of the shoulder were acquired. COMPARISON: None. FINDINGS: Bones: No fractures or dislocations. The left acromioclavicular joint has degenerative changes. No suspicious bony lesions. Visualized ribs appear intact. Soft tissues: No suspicious soft tissue calcifications. IMPRESSION: No acute abnormality. Mild degenerative changes of the left acromioclavicular joint. Reviewed by: Anjel Zamora on 05/14/2020 1:30 PM PDT Approved by: Anjel Zamora on 05/14/2020 1:30 PM PDT Station ID: [id number]
--- NOTE | 2020-05-17 12:21 | XRAY Report ---
PROCEDURE: Cervical Spine 2 View INDICATIONS: LEFT SHOULDER PAIN, NECK PAIN AND ARM PAIN TECHNIQUE: 3 view(s) of the cervical spine were acquired. COMPARISON: None. FINDINGS: Bones: No fractures or dislocations to the T1 level. There are multilevel degenerative changes with large anterior osteophytes. No vertebral body height loss. There is disc space narrowing of C5-6 and C6-7 with endplate degenerative changes. The lateral masses of C1 appear intact on the odontoid view . No suspicious bony lesions. Soft tissues: No prevertebral soft tissue swelling. IMPRESSION: 1. Degenerative disc disease at C5-6 and C6-7. 2. Degenerative changes with large anterior osteophytes of the cervical spine from C3 through C7. Reviewed by: Anjel Zamora on 05/14/2020 1:35 PM PDT Approved by: Anjel Zamora on 05/14/2020 1:35 PM PDT Station ID: [id number]
--- NOTE | 2020-05-17 12:22 | XRAY Report ---
PROCEDURE: Humerus LT INDICATIONS: LEFT SHOULDER PAIN, NECK PAIN AND ARM PAIN TECHNIQUE: 3 views of the humerus were acquired. COMPARISON: None FINDINGS: Bones: No fractures or dislocations. No suspicious bony lesions. Soft tissues: No suspicious soft tissue calcifications. IMPRESSION: No acute or significant abnormality of the left humerus. Reviewed by: Anjel Zamora on 05/14/2020 1:32 PM PDT Approved by: Anjel Zamora on 05/14/2020 1:32 PM PDT Station ID: [id number]
== END 2020-05-14 11:25 | disposition home or self-care (01) ==
LOC: DI 11:24
PROVIDERS: ATTEND Nurse Practitioner Adult Health
DX: M19.012 Primary osteoarthritis, left shoulder (principal); M50.322 Other cervical disc degeneration at C5-C6 level; M25.78 Osteophyte, vertebrae; M79.622 Pain in left upper arm; C79.51 Secondary malignant neoplasm of bone; Z91.81 History of falling
CPT/HCPCS: 72040

== ENCOUNTER 2020-05-16 13:30 | Outpatient (CLI) | payer MEDICARE, MEDICAID ==
--- NOTE | 2020-05-17 05:28 | CONSULTATION NOTE ---
Palliative Care Follow Up - Referral Referring Provider: Dr. Sharron Marte Time of Visit: [id number] Referral setting: Home Referral Reason: Pain of neoplastic origin/Left shoulder pain/Met Breast CA - Information Sources Records reviewed: Previous records reviewed History/Review of Systems obtained from: Patient Exam limitations: Clinical condition (patient with poor STM) - History of Present Illness Update Brief HPI Update: This is a 64-year-old woman with metastatic breast cancer to the bones only, with recent rising CA 2729, currently only on exemestane, with discontinuation of Afinitor. Patient has short-term memory issues, fluctuating mood disorder, with high anxiety, agoraphobic, and has had a series of unfortunate events. It is difficult to elicit accurate history, she was calling about right shoulder pain trauma increased pain in her neck, secondary to fall, recommended she get x-rays, she declined, and most recently she report severe limiting left shoulder pain, humerus pain, and neck pain limiting her ability to move turn or meet her ADLs. She has been taking Vicodin for breakthrough pain on top of her fentanyl 75 mcg patch, related specifically to this left shoulder pain, up to 6-8 tabs a day. On exam today she has tenderness, no bruising noted poor range of motion, guarding on her left side, limited fine motor and system administration manager in her left hand, and has been unable to sleep in her bed as she cannot get in and out due to her pain. She did finally go through and get her x-rays, they show degenerative disc disease at C5-6 and C6-7, as well as degenerative changes with large anterior osteophytes at the cervical spine from C3-C7, no acute fractures or dislocations, the left acro mole clavicular joint has degenerative changes, no suspicious bony lesions, visualized ribs were intact. And no significant or acute abnormality of the left humerus including no bony lesions. She canceled my visit last week, as she had also canceled her oncology visit. She gets quite anxious, she does know her disease has progressed and is worried about the fallout as far as next steps for treatment. She did have a phone visit on 05/15, they are going to do a bone scan for restaging, may hold with just as exemestane, as she is not a good candidate for chemotherapy due to her myelodysplastic syndrome. They will be looking at other alternative treatments such as targeted or immunotherapy after they get foundation 1 results back. In the meantime. She is also had worsening nausea, poor intake, intermittent constipation. She has had periods where she is gone through this before, she was doing better on her mirtazapine but decided to quit, because it "was not working". She has been intermittently on Megace, again with her poor short-term memory issues and high anxiety, is always looking for a quick fix. She does have high anxiety, have revisited again today, alternative treatments, she does have Klonopin 1 mg 3 times daily that she tends to overuse, as well as intermittent episodes of increased alcohol use which adds to her fall risk. Other complicating factor, and high anxiety issue is her teeth, she does have some decay, does have a pending appointment, for teeth cleaning, she is worried about a failed crown, both financially and for her health. It is complicated by her pancytopenia, her most recent count is 2.3, and oncology has given her permission to move forward with her latest work. This is layered upon her increasing complexity of her social situation, she has no friends or family to provide support. She does have difficulty following through and has been very resistant to further pursuing [facility] PES, as she has a co- pay. She does call frequently, with multiple somatic complaints and anxiety issues. She though does often put up barriers for any kind of problem solving or follow through on things that may be of benefit. Past Medical History: Poor balance, Peripheral neuropathy, anxiety, depression, severe short-term memory issues, weight loss, cholelithiasis, and pancytopenia secondary to myelodysplastic syndrome. Social History - Living Situation Living arrangement: At home Living Situation: Alone Support System: Patient lives in [facility], low income for [facility]. This is not assisted living, so she has limited support there. She has declined both the social media marketing manager as well as assistance through case management at the apartments, she finds it quite complicated given they are no longer their office but working remotely because of the pandemic. She does pay for assistance for transportation, she is having increased difficulty getting groceries because pain is limiting her driving. She is also getting more anxious about leaving her apartment. She is estranged from her family. Medications/Allergies - Medications Home Medications: Ambulatory Orders Medication Instructions Recorded Confirmed Denosumab [Xgeva] 120 mg SUBQ Q28D MDD HOLD 04/04/15 05/17/20 clonazePAM [Clonazepam] 1 mg PO TID MDD 3 tabs 04/08/16 05/17/20 Exemestane 25 mg PO DAILY 12/14/18 05/17/20 Lactulose 5 - 10 ml PO BID PRN MDD titrates 12/16/18 05/17/20 Loperamide [Imodium] 2 mg PO Q4HR PRN 01/11/19 05/17/20 Ondansetron [Zuplenz] 4 mg PO Q6HR PRN 01/19/19 05/17/20 Hydrocodone/Acetaminophen 1 - 2 each PO Q4HR PRN MDD 6 tabs 03/08/19 05/17/20 [Hydrocodon-Acetaminophn 10-325] Omeprazole 20 mg PO DAILY PRN 03/22/19 05/17/20 polyethylene glycoL 3350 [Miralax] 17 gm PO BID PRN 08/02/19 05/17/20 fentaNYL [Fentanyl 75mcg patch] 82 mcg TOP .72 HOURS 03/03/20 05/17/20 Metoclopramide HCl 5 mg PO TID PRN 03/21/20 05/17/20 Megestrol Acetate [Megace Es] 400 mg PO DAILY 05/17/20 05/17/20 - Allergies Allergies/Adverse Reactions: Allergies Allergy/AdvReac Type Severity Reaction Status Date / Time oxycodone HCl * Allergy Mild itch Verified 11/01/19 14:11 [[facility]] Review of Systems - Constitutional Constitutional: reports: Fatigue, Chills, Weakness, Poor appetite, Weight loss (no recent weights as not going to clinic). denies: Fever - Eyes Eyes: reports: Blurred vision, Vision loss - Ears, Nose & Throat Ears, Nose & Throat: reports: Nasal congestion, Dental decay (to get dental work 05/17) - Cardiovascular Cardiovascular: reports: Decr. exercise tolerance. denies: Edema - Respiratory Respiratory: denies: SOB at rest - Gastrointestinal Gastrointestinal: reports: Constipation, Nausea, Reflux/heartburn, Bloating, Poor appetite, Early satiety - Genitourinary Genitourinary: reports: Frequency, Incontinence - Musculoskeletal Musculoskeletal: reports: Muscle pain, Back pain, Muscle aches, Stiffness, Limited range of motion, Muscle weakness, Joint pain (left shoulder/elbow pain severe/ right shoulder pain moderate; neck pain discomfort), Other (frequent falls) - Integumentary Integumentary: reports: Dryness - Neurological Neurological: reports: General weakness, Memory problems, Abnormal gait - Psychiatric Psychiatric: reports: Depression, Anxiety - Endocrine Endocrine: reports: Diabetes type 2 - Hematologic/Lymphatic Hematologic/Lymph: Anemia - All Other Systems All Other Systems: reports: Reviewed and negative Physical Exam - Vital Signs Temperature: 96.4 C Pulse Rate: 72 Respiratory Rate: 16 O2 Saturation: 98 (ra @ rest) Blood Pressure: 122/82 - Physical Exam General Appearance: positive: Alert, Moderate distress, Anxious Eyes Bilateral: positive: Normal inspection, No scleral icterus ENT: negative: Oral lesions (mouth lesions cleared) Neck: positive: Trachea midline Cardiovascular: positive: Regular rate & rhythm Respiratory: positive: No respiratory distress, Diminished in bases. negative: Wheezes Abdomen: positive: Soft, Tenderness Skin: negative: Rash (face) Extremities: positive: No pedal edema. negative: Full ROM (patient with limited ROM in left shoulder; guarding; poor fine motor gripping; right at baseline from previous injury/frozen shoulder unable to lift overhead) Neurologic/Psychiatric: positive: Disoriented to time, Weakness, Depressed mood/affect, Flat affect Palliative Care - POLST Patient has POLST: Yes POLST Status: DNR, Selective Treatment Pain: Pain worsening, Severity (see HPI) Tiredness/Fatigue: Moderate (4-6) Drowsiness/Sedation: Moderate (4-6) Nausea: Moderate (4-6) Anorexia: Severe (7-10), Weight loss Dyspnea: Moderate (4-6) Depression: Moderate (4-6) Anxiety: Severe (7-10) Feelings of wellbeing/Perceived Quality of Life: Poor, Worsening Sleep: Variable sleep pattern (gets nights and days mixed up) Constipation: Yes, Opoid induced, Intermittent constipation Performance Status: Patient has had a decline in functional status, she is spending most the time in a recliner. Because of her left shoulder and neck pain, is unable to bathe this week, she is unable to sleep in her bed, having increased difficulty with food prep. She is able to ambulate short distances, but her gait is somewhat ataxic with her peripheral neuropathy and ongoing weakness. - Palliative Care Discussion: Patient continues to be resistant to any kind of support for her anxiety and social situation, finds it difficult to accommodate any changes. She though is desperate at this point in time to follow-up on anything that may help with her pain relief. She is very anxious about pending changes to her treatment plan for her cancer, she does understand her treatments are palliative in nature, and gets very perseverative about her current situation and symptoms. She does get overwhelmed by her medical situation, and needs ongoing support to understand and manage her ongoing challenges. Results - Lab Results Lab results reviewed: Yes Impression and Recommendations - Palliative Care Impression: This is a anxious 64-year-old woman with metastatic breast cancer with mets to the bones, now presenting with worsening left shoulder and neck pain, limiting her functional status. She continues to have frequent falls, related to balance, weakness and numbness. She continues with persistent intermittent acute on chronic pain of her bone mets in her hips, pelvis, and scapular area. She continues with severe anxiety and depression and fluctuating mood. Palliative care providing support for pain and symptom management and coordination of care. Recommendations/Counseling Done: 1. Pain of neoplastic origin. Patient continues with persistent bilateral hip, left groin, lower back pain related to her bone mets. She is currently on 75 mcg patch, now she presents with further acute pain, has been taking consistently Vicodan a day with only moderate relief. She does get bad nightmares, and worsening constipation with the Vicodin, will increase her fentanyl by 12 mcg, written instructions provided and new Rx to 12 mcg pateches to [facility]. She is due for a pending bone scan, did reach out to oncology, regarding if patient could have a cortisone shot in that shoulder if found to be appropriate intervention, no contraindications. Will help facilitate orthopedic referral, pending bone scan. Patient is willing to pursue this, as she has had them in the past in her right shoulder with some relief. 2. Anorexia. Patient has responded well to mirtazapine in the past, remains resistant to adding this. She did agree to retry Megace, does have refills as well as medication in the home. This was put out in her visual field, and reminder. Counseling provided regarding strategies given patient's limitations to be able to increase calories, she does appear more cachectic with weight loss again, this had stabilized at one-point. She does report she is remaining hydrated, and does not present with symptoms of dehydration. 3. Anxiety. Patient reports that Klonopin is "not working", she wants something that she takes right away that "will calm her down". Discussed benzodiazepines all work in the same way, patient most likely with high resistance having been on them for many years. Reviewed again my recommendation for alternative support, reports had been responsive at one point in time to sertraline, is not willing to retry, offered venlafaxine, as well as well butyr in, patient remains resistant. She has also been recommended to follow-up with [facility], psychiatric support as she has had this before, but declines. Patient has been not drinking for 2 weeks now, encouraged to continue abstinence given adds to her ongoing fall risk. 4. Depression. Patient's continue to do poorly with continued isolation as a result of her complicated social situation as well as the pandemic. 5. Metastatic breast cancer. Patient does have rising CA 2729, patient received bone scan, and further recommendations of treatment pending outcome of foundation 1 testing. 6. Dental caries. Patient does have 2 caries, would need to remove crowns, this would involve going to an oral surgeon, she does not have "abscesses they are continuing to watch. She is getting a teeth cleaning, and has been released to follow through this on 05/17. 7. Constipation. Patient continues with intermittent constipation, worsening with use of Vicodin. Recommended increase MiraLAX to twice a day, patient does have lactulose if severe constipation. Patient has history of impaction, recommended to more aggressively manage her current situation, will get refill on her MiraLAX. 8. Advanced care planning. Patient with very little social support, if able to meet her care needs, we only did accept piano case and bench assembler/social media marketing manager evaluation for [facility] PES. Patient has been encouraged to reach out to [facility], but finds it is still too overwhelming given her current situation. We will continue to monitor. Time Spent: 50 minutes with greater than 50% of this done in counseling regarding patient's ongoing complicated issues from pain and symptom management, anxiety, and anticipatory guidance.
== END 2020-05-16 13:31 | disposition home or self-care (01) ==
LOC: PC 13:30
PROVIDERS: ATTEND Nurse Practitioner Adult Health
DX: Z51.5 Encounter for palliative care (principal); G89.3 Neoplasm related pain (acute) (chronic); C50.919 Malignant neoplasm of unspecified site of unspecified female breast; C79.51 Secondary malignant neoplasm of bone; R63.0 Anorexia; F41.9 Anxiety disorder, unspecified; F32.9 Major depressive disorder, single episode, unspecified; K02.9 Dental caries, unspecified; K59.03 Drug induced constipation; T40.2X5A Adverse effect of other opioids, initial encounter; D46.9 Myelodysplastic syndrome, unspecified; Z91.81 History of falling; Z66 Do not resuscitate
CPT/HCPCS: 99349

== ENCOUNTER 2020-06-06 16:13 | Emergency (ER) | payer MEDICARE, MEDICAID ==
[2020-06-06] MEDS ORDERED: BUFFERED LIDOCAINE 10 ML SYRINGE SUBQ STA (16:47)
[2020-06-06] MEDS ORDERED: BUPIVACAINE 0.5% PF 10 ML VIAL SUBQ STA (16:47)
--- NOTE | 2020-06-06 16:48 | ED Physician Documentation ---
PD HPI HEAD INJURY - Stated complaint Stated Complaint: GLF/FACE LAC - Chief complaint Chief Complaint: Trauma Hd/Nk - History obtained from History obtained from: Patient - History of Present Illness Mechanism of head injury: Fell Where head injury occurred: Home Timing - onset: Today Location of injury: Front Quality of pain: Pain Associated symptoms: Neck pain. No: LOC, AMS, Amnesia, Nausea / vomiting, Paresthesias, Seizures, Ear drainage, Nasal drainage Symptoms improve with: Rest Symptoms worsen with: Palpation, Movement Contributing factors: No: Anticoagulated Similar symptoms before: Has not had sx before Recently seen: Other - Additional information Additional information: 64-year-old female who has been battling breast cancer for the past 9 years was getting up out of her chair when she fell forward and landed directly on her forehead against another chair. The chair slid across the floor and she noted significant bleeding from her scalp. She was unable to control bleeding over a 2-hour period of time and has come to the emergency department. She denies any loss of consciousness. She denies any numbness or tingling. She does have pain from bone mets and is taking some hydrocodone as well as fentanyl. She has recently been in to see the oncologist and the palliative care nurse and is scheduled to get a bone scan tomorrow. Review of Systems Constitutional: denies: Fever Eyes: denies: Decreased vision Ears: denies: Ear pain Nose: denies: Rhinorrhea / runny nose, Congestion Throat: denies: Sore throat Cardiac: denies: Chest pain / pressure, Palpitations Respiratory: denies: Dyspnea, Cough GI: reports: Constipation. denies: Abdominal Pain, Nausea, Vomiting : denies: Dysuria, Frequency Musculoskeletal: reports: Extremity swelling (pedal edema is persistent and related to sleeping in a chair.) PD PAST MEDICAL HISTORY - Past Medical History Cardiovascular: Hypertension Respiratory: Sleep apnea, CPAP use Endocrine/Autoimmune: Type 2 diabetes GI: GERD, Cholelithiasis ADMINISTRATION SPECIALIST: Breast cancer (on chemo) : Incontinence HEENT: None Psych: Depression, Anxiety Musculoskeletal: Osteoarthritis, Other Derm: None - Past Surgical History Past Surgical History: Yes General: Colonoscopy, Other /ADMINISTRATION SPECIALIST: Endometrial ablation, Other - Present Medications Home Medications: Ambulatory Orders Medication Instructions Recorded Confirmed Denosumab [Xgeva] 120 mg SUBQ Q28D MDD HOLD 04/04/15 05/17/20 clonazePAM [Clonazepam] 1 mg PO TID MDD 3 tabs 04/08/16 05/17/20 Exemestane 25 mg PO DAILY 12/14/18 05/17/20 Lactulose 5 - 10 ml PO BID PRN MDD titrates 12/16/18 05/17/20 Loperamide [Imodium] 2 mg PO Q4HR PRN 01/11/19 05/17/20 Ondansetron [Zuplenz] 4 mg PO Q6HR PRN 01/19/19 05/17/20 Hydrocodone/Acetaminophen 1 - 2 each PO Q4HR PRN MDD 6 tabs 03/08/19 05/17/20 [Hydrocodon-Acetaminophn 10-325] Omeprazole 20 mg PO DAILY PRN 03/22/19 05/17/20 polyethylene glycoL 3350 [Miralax] 17 gm PO BID PRN 08/02/19 05/17/20 fentaNYL [Fentanyl 75mcg patch] 82 mcg TOP .72 HOURS 03/03/20 05/17/20 Metoclopramide HCl 5 mg PO TID PRN 03/21/20 05/17/20 Megestrol Acetate [Megace Es] 400 mg PO DAILY 05/17/20 05/17/20 - Allergies Allergies/Adverse Reactions: Allergies Allergy/AdvReac Type Severity Reaction Status Date / Time oxycodone HCl * Allergy Mild itch Verified 11/01/19 14:11 [From Percocet] - Social History Does the pt smoke?: No Smoking Status: Never smoker Does the pt drink ETOH?: Yes Does the pt have substance abuse?: No - Immunizations Immunizations are current?: Yes Immunizations: TDAP >10years/unknown - POLST Patient has POLST: Yes POLST Status: DNR PD ED PE NORMAL - Vitals Vital signs reviewed: Yes (tachy and hypertensive) - General General: Alert and oriented X 3, No acute distress, Well developed/nourished, Other (tape to the forehead with a black eye on the right. ) - HEENT HEENT: PERRL, EOMI, Other (There is an 11cm laceration to the forehead across the top of the forehead near the hair line in an arc. There is no foreign material in the wound and missing tissue. ) - Neck Neck: Other (The patient is in a hard collar and there is pain to palpation to the mid cervical spine. ) - Respiratory Respiratory: No respiratory distress - Derm Derm: Normal color, Warm and dry, No rash - Extremities Extremities: No deformity, Other (trace pedal edema bialt) - Neuro Neuro: general service technician 2-12 intact, No motor deficit, No sensory deficit, Normal speech Eye Opening: Spontaneous Motor: Obeys Commands Verbal: Oriented GCS Score: 15 - Psych Psych: Normal mood, Normal affect Results - Vitals Vitals: Vital Signs - 24 hr 06/06/20 06/06/20 06/06/20 16:15 17:25 18:23 Temperature 36.9 C 36.8 C Heart Rate 109 H 101 H 100 Respiratory 17 18 18 Rate Blood Pressure 149/71 H 148/77 H 178/80 H O2 Saturation 98 100 98 06/06/20 06/06/20 06/06/20 18:30 19:21 19:38 Temperature 36.8 C Heart Rate 106 H 102 H 99 Respiratory 24 20 20 Rate Blood Pressure 158/77 H 156/74 H 158/72 H O2 Saturation 96 100 96 Oxygen O2 Source Nasal cannula - Rads (name of study) CTcervical spine Radiology: Prelim report reviewed (Impression: 1. Anterior and middle column C5 vertebral body fracture as above. 2 Sclerotic lesion at T2 suspicious for bony metastasis given the history of metastatic breast cancer. No pathologic fracture associated with this lesion.), EMP read indepedently, See rad report CT head without Radiology: Prelim report reviewed, EMP read indepedently, See rad report Procedures - Laceration (location) forehead Length in cm: 11 Wound type: Curved, Flap, Clean Neurovascular status: Sensory intact, Motor intact, Vascular intact Anesthesia: Lidocaine 1%, Marcaine 0.5%, With bicarb, Volume - enter cc (total 14ml) Wound Preparation: Hibiclens, Irrigated copiously NS, Wound explored, To the base Skin layer closure: Nylon, Interrupted, Size #-0 - enter number (5-0) Other: Patient tolerated well, No complications, Neurovascular intact, Tetanus UTD Complexity: Simple PD MEDICAL DECISION MAKING - ED course Complexity details: reviewed old records, reviewed results, re-evaluated patient, considered differential, d/w patient ED course: 64-year-old female undergoing treatment for breast cancer long-term has had a fall in her home today lacerating her forehead. There is a large laceration that is sutured and CT of the head and neck are obtained. There is a fracture of the neck at C5. A 2 column fracture, anterior and middle, without re tropulsion. The patient has pain in the neck and she is on pain medication. [facility] [place]. Dr. Monaco is reviewing films and will provide guidance. At shift change her care is turned over to Dr. Madsen. Departure - Departure Clinical Impression: Forehead laceration Qualifiers: Encounter type: initial encounter Qualified Code(s): S01.81XA - Laceration without foreign body of other part of head, initial encounter C5 cervical fracture Qualifiers: Encounter type: initial encounter Fracture type: closed Fracture morphology: unspecified fracture morphology Fracture alignment: displaced Qualified Code(s): S12.400A - Unspecified displaced fracture of fifth cervical vertebra, initial encounter for closed fracture Comments: suture removal in 7-10 days
[2020-06-06] MEDS ORDERED: HYDROcod/ACETAM 5/325 MG TABLET PO STA ×3 (16:59→22:19)
--- NOTE | 2020-06-06 18:27 | CT Report ---
PROCEDURE: CERVICAL SPINE WO INDICATIONS: fall head injury neck pain TECHNIQUE: Noncontrast 3 mm thick sections acquired from the skull base to the T4 level. Sagittal and coronal r eformats were then constructed. For radiation dose reduction, the following was used: automated exp osure control, adjustment of mA and/or kV according to patient size. COMPARISON: None. FINDINGS: Image quality: Excellent. Bones: There is a comminuted, displaced fracture which extends through the body of the C5 vertebral b clifford. No fracture visualized within the posterior elements. Severe degenerative changes are present wi thin the mid cervical spine including deformity of the vertebral bodies, osteophytosis, subchondral c ystic change, and intervertebral disc space narrowing. There is sclerosis throughout the T2 vertebral body which is markedly increased in extent when compar ed with the study dated 06/12/2019. Soft tissues: Prevertebral soft tissues are normal in thickness. No paravertebral hematomas. No ap ical pneumothoraces. IMPRESSION: 1. Anterior and middle column C5 vertebral body fracture as above. 2. Sclerotic lesion at T2 suspicious for bony metastasis given the history of metastatic breast cance r. No pathologic fracture associated with this lesion. These findings were discussed with Dr. Hodge at 6:25 PM on 06/06/2020. Reviewed by: Margot Nicholson MD on 06/06/2020 6:26 PM PST Approved by: Margot Nicholson MD on 06/06/2020 6:26 PM PST Station ID: [id number]
--- NOTE | 2020-06-06 18:29 | CT Report ---
PROCEDURE: HEAD WO INDICATIONS: fall head injury TECHNIQUE: Noncontrast 4.5 mm thick angled axial sections acquired from the foramen magnum to the vertex. For r adiation dose reduction, the following was used: automated exposure control, adjustment of mA and/or kV according to patient size. COMPARISON: 06/12/2019 FINDINGS: Image quality: Excellent. CSF spaces: Basal cisterns are patent. No extra-axial fluid collections. The ventricles are symmet kely in size and shape. Brain: No intracranial bleeds or masses. There is cerebral volume loss for age, with resultant vent ricular and sulcal prominence. There are periventricular and deep white matter chronic small vessel ischemic changes. There is intracranial internal carotid artery atherosclerosis. Skull and face: Frontal scalp laceration is seen with swelling and small hematoma. Calvarium and visu alized facial bones appear intact, without suspicious lesions. Sinuses: Visualized sinuses and mastoids are clear. IMPRESSION: 1. No CT evidence of acute intracranial pathology. 2. Frontal scalp laceration and hematoma. No acute skull fracture. Reviewed by: Edwin Loyd MD on 06/06/2020 5:27 PM AKST Approved by: Edwin Loyd MD on 06/06/2020 5:27 PM AKST Station ID: [id number]
--- NOTE | 2020-06-06 21:11 | ED Physician Documentation ---
ED Addendum - Addendum Addendum: 06/06/20 21:[address] received sign out [address] Dr[address] Hodge at end of his shift. I received a call from Dr. Pee Monaco, neurosurgery at [facility]. He has reviewed the films. He recommends placement of an Jackhorn or Maia collar, then PA/LAT cervical spine xrays to reassess fracture alignment: if there is no significant change in alignment, patient can be discharged and follow up with [facility] neurosurgery in 1-2 weeks. Patient placed in Jackhorn collar, xrays c-spine (PA, lateral) do not show any sig nificant displacement and patient remains neurologically intact without c/o neurologic symptoms (weakness, numbness). d/c after results of xrays and f/u plan d/w patient; she expresses understanding of, and comfort with, this plan
--- NOTE | 2020-06-06 21:40 | XRAY Report ---
PROCEDURE: Cervical Spine 2 View INDICATIONS: c5 fracture TECHNIQUE: 2 view(s) of the cervical spine were acquired. COMPARISON: FINDINGS: Bones: There is an obliquely oriented fracture through the C5 vertebral body. No other fracture or di slocation. Severe degenerative changes are present within the mid cervical spine including flowing sy ndesmophytes and intervertebral disc space narrowing. No spondylolisthesis. No compression deformitie s. IMPRESSION: Minimally displaced C5 fracture and severe degenerative change. Reviewed by: Margot Nicholson MD on 06/06/2020 9:39 PM PST Approved by: Margot Nicholson MD on 06/06/2020 9:39 PM PST Station ID: [id number]
[2020-06-07 01:30] VITALS: BP 153/72
== END 2020-06-07 01:27 | disposition home or self-care (01) ==
LOC: ED 16:13
DX: S12.400A Unspecified displaced fracture of fifth cervical vertebra, initial encounter for closed fracture (principal); S01.81XA Laceration without foreign body of other part of head, initial encounter; W07.XXXA Fall from chair, initial encounter; Y92.009 Unspecified place in unspecified non-institutional (private) residence as the place of occurrence of the external cause; C50.919 Malignant neoplasm of unspecified site of unspecified female breast; C79.51 Secondary malignant neoplasm of bone; M47.812 Spondylosis without myelopathy or radiculopathy, cervical region; I10 Essential (primary) hypertension; E11.9 Type 2 diabetes mellitus without complications
CPT/HCPCS: 12015; 70450; 72040; 72125; 99284; A9270

== ENCOUNTER 2020-06-07 14:30 | Outpatient (CLI) | payer MEDICARE, MEDICAID ==
--- NOTE | 2020-06-07 20:59 | CONSULTATION NOTE ---
Palliative Care Follow Up - Referral Referring Provider: Dr. Sharron Marte Time of Visit: [id number] Referral setting: Home Referral Reason: C5 nondisplaced fx/forehead laceration/facial contusion/Met Breast CA - Information Sources Records reviewed: Previous records reviewed History/Review of Systems obtained from: Patient Exam limitations: Clinical condition (patient with severe STM deficits and incapcitating anxiety) - History of Present Illness Update Brief HPI Update: This is an anxious 64-year-old woman with metastatic breast cancer to the bones only, whom I have been seeing since November 2018. Most recently she presented with rising CEA 2728, had the discontinuation of her Afinitor, but is currently on exemestane. Patient has been having increased pain, particularly in right arm and shoulder, patient has had multiple ground-level falls, related to her poor balance, peripheral neuropathy, and most likely her overuse of medications/drinking. She has been so anxious about getting a bone scan, she is canceled it multiple times, though to move forward with next treatment plan oncologist does need this information. The hope is if her bone scan looks stable, may discontinue with exemestane and not switch her to the next line of treatment. She is a poor candidate for cytotoxic chemotherapy because of her severe pancytopenia from her myelodysplastic syndrome. Patient is quite perseverative of this, when visiting need to wear booties, good handwashing, as she gets quite anxious regarding "germs". Patient has of long history of mental health issues, she is alienated herself from most her families and friends. This has more to do with her perseverative nature, and is often unhappy with anything. She though is very much alone, she is very scared, and this behavior escalates when she is fearful. Patient had a fall last night, tripping out of her chair, falling into a hard wooden chair, with a huge forehead laceration, well stitched up. She bled all over her chair and floor. She had very poor problem solving around this, went to her neighbor's door, who took her over to the ED. She did have a work-up, was found to have a nondisplaced C5 fracture, but severe degenerative changes in her neck. This may account for some of her worsening right arm pain and neuropathy. She has recently also had x-rays for her shoulder, secondary to a fall, which had showed no acute fractures or dislocations at that time, and no suspicious bony lesions and ribs were intact. Patient has had escalating pain related to her bony mets, she is currently on 100 mcg fentanyl patch. She does use Vicodin for breakthrough pain, she had been actually quite hesitant to use it for a long time secondary to constipation. In examining her bottle, she though appears to have overused it, I suspect because she gets her days and nights mixed up, and often uses it along with her Klonopin to try and sleep. She has been counseled multiple times regarding this, but gets quite anxious and does not remember all the time how best to manage this. She does report she has stopped drinking, though this fluctuates depending on her anxiety as well. Patient presents with large laceration across her full forehead, swelling and abrasion, swollen and bruised eyes periorbital edema. CT scan did not show any facial fractures. She does have a hard neck collar on. She is in a "twitch" about how she is going to take care of this. She very much does not have any Any to call upon. She would very much benefit from home health RN checking on her regularly, watching for signs or symptoms of infection given her pancytopenia, and helping her intermittently with her wound care given her anxiety. She also would benefit from counseling regarding constipation, nutrition, oversight of her medications that she gets easily confused, and further monitoring regarding her home management. Patient would also benefit from home health aide for bathing, patient is not been able to bathe for 2 weeks, given her decline in functional cognitive status, as well as RN DIGESTIVE to help access long-term plan and care. She has been quite resistant up to this point in time of accepting any help, but does concede today she needs some support. Patient has had continued loss of weight, she has restarted her Megace. This is also been complicated by her teeth, she has recently had noted DKA, it is difficult for her to address this because of her pancytopenia, she has been recently to the dentist. Past Medical History: Poor balance, peripheral neuropathy, anxiety, depression, severe short-term memory issues, weight loss, cholelithiasis, pancytopenia secondary myelodysplastic syndrome Social History - Living Situation Living arrangement: At home Living Situation: Alone Support System: Patient lives in [facility], low income for seniors. This is not assisted living, so she has limited support there. She has in the past declined the palliative care child protective services social worker as well as assistance through case management apartments, she gets quite overwhelmed and finds it complicated and more so now that they are not in the office. She would benefit from child protective services social worker to come in and help her navigate, she has had CO PES in the past. She gets more more anxious about leaving her apartment, she is estranged from her family. Medications/Allergies - Medications Home Medications: Ambulatory Orders Medication Instructions Recorded Confirmed Denosumab [Xgeva] 120 mg SUBQ Q28D MDD HOLD 04/04/15 06/07/20 clonazePAM [Clonazepam] 1 mg PO TID MDD 3 tabs 04/08/16 06/07/20 Exemestane 25 mg PO DAILY 12/14/18 06/07/20 Lactulose 5 - 10 ml PO BID PRN MDD titrates 12/16/18 06/07/20 Loperamide [Imodium] 2 mg PO Q4HR PRN 01/11/19 06/07/20 Ondansetron [Zuplenz] 4 mg PO Q6HR PRN 01/19/19 06/07/20 Hydrocodone/Acetaminophen 1 - 2 each PO Q4HR PRN MDD 6 tabs 03/08/19 06/07/20 [Hydrocodon-Acetaminophn 10-325] Omeprazole 20 mg PO DAILY PRN 03/22/19 06/07/20 polyethylene glycoL 3350 [Miralax] 17 gm PO BID PRN 08/02/19 06/07/20 fentaNYL [Fentanyl 75mcg patch] 100 mcg TOP .72 HOURS 03/03/20 06/07/20 Metoclopramide HCl 5 mg PO TID PRN 03/21/20 06/07/20 Megestrol Acetate [Megace Es] 400 mg PO DAILY 05/17/20 06/07/20 - Allergies Allergies/Adverse Reactions: Allergies Allergy/AdvReac Type Severity Reaction Status Date / Time oxycodone HCl * Allergy Mild itch Verified 11/01/19 14:11 [From Percocet] Review of Systems - Constitutional Constitutional: reports: Fatigue, Chills, Weakness, Poor appetite, Weight loss (no recent weights as not going to clinic). denies: Fever - Eyes Eyes: reports: Blurred vision, Vision loss - Ears, Nose & Throat Ears, Nose & Throat: reports: Nasal congestion, Dental decay - Cardiovascular Cardiovascular: reports: Edema, Lightheadedness, Exertional dyspnea, Decr. exercise tolerance - Respiratory Respiratory: reports: SOB with exertion. denies: SOB at rest - Gastrointestinal Gastrointestinal: reports: Constipation, Nausea, Reflux/heartburn, Bloating, Poor appetite, Early satiety - Genitourinary Genitourinary: reports: Frequency, Incontinence - Musculoskeletal Musculoskeletal: reports: Muscle pain, Back pain, Muscle aches, Stiffness, Limited range of motion, Muscle weakness, Joint pain (left shoulder/elbow pain severe/ right shoulder pain moderate; neck pain discomfort), Other (frequent falls) - Integumentary Integumentary: reports: Dryness, Nail changes, Hair changes (washed out most of dried blood at visit) - Neurological Neurological: reports: General weakness, Memory problems, Abnormal gait - Psychiatric Psychiatric: reports: Depression, Anxiety - Endocrine Endocrine: reports: Diabetes type 2 - Hematologic/Lymphatic Hematologic/Lymph: Anemia - All Other Systems All Other Systems: reports: Reviewed and negative Physical Exam - Vital Signs Temperature: 97.8 C Pulse Rate: 104 Respiratory Rate: 18 O2 Saturation: 97 (ra @ rest) Blood Pressure: 152/78 - Physical Exam General Appearance: positive: Alert, Moderate distress, Anxious Eyes Bilateral: positive: Normal inspection, No scleral icterus ENT: negative: Oral lesions (mouth lesions cleared) Neck: positive: Trachea midline Cardiovascular: positive: Regular rate & rhythm Respiratory: positive: No respiratory distress, Diminished in bases. negative: Wheezes Abdomen: positive: Soft, Tenderness Skin: positive: Pallor, Dryness, Wound (laceration across full forehead; edges proximated), Other (face with extensive bruising; periorbital edema). negative: Rash (face) Extremities: positive: Pedal edema (1+ bilat; left greater than right). negative: Full ROM (patient with limited ROM in left shoulder; guarding; poor fine motor gripping; right at baseline from previous injury/frozen shoulder unable to lift overhead) Neurologic/Psychiatric: positive: CN's nml (2-12), Sensation nml, Disoriented to time, Weakness, Depressed mood/affect, Flat affect Palliative Care - POLST Patient has POLST: Yes POLST Status: DNR, Selective Treatment Pain: Pain worsening, Comment (Patient with increased discomfort in her facial area, reports the pain in her left arm has improved, had been so painful had be en unable to move it and had canceled her bone scan Thursday. She does have Vicodin for breakthrough pain, unfortunately she had been using quite a bit previous to her fall,) Tiredness/Fatigue: Severe (7-10) Drowsiness/Sedation: Moderate (4-6) Nausea: None Anorexia: Moderate (4-6), Weight loss Dyspnea: Mild (1-3) Depression: Severe (7-10) Anxiety: Severe (7-10) Feelings of wellbeing/Perceived Quality of Life: Poor, Worsening Sleep: Sleeps poorly Constipation: Yes, Opoid induced, Intermittent constipation Performance Status: Secondary to patient's pain, she has had both pain in her right and left shoulder, she has not been able to bathe for 2 weeks. She is also quite anxious giving her worsening balance problems, and muscle weakness. Patient is quite sedentary and tends to just stay in her recliner, she is ambulatory with a few steps in her apartments. She is unable to manage her household tasks. - Palliative Care Discussion: Patient continues with poor problem solving, severe anxiety, continues to be resistant to any kind of support or outside help. Today though she is much more vulnerable, did agree to home health nursing, bathing, and social work to help navigate getting CO PES again. Patient often is her own worst enemy, putting many barriers in the way for people to support our help her. Patient does have a POLST with DN AR, selective treatments, okay for antibiotics but no tube feeding. Patient is very anxious, about thinking around end-of-life, as she has "no one". She does not have a DPOA, but did finally give me her name of her sister Janet Dominguez in [place] her phone number is [phone] Patient is at high risk, she is still eating and drinking, she is doing her medications so needs constant reminding and gets very anxious because the pharmacist calls palliative care frequently. She does not present with self- neglect, she just has a very difficult complex social situation as well as severe anxiety disorder and underlying depression. She also has a history of alcohol abuse, and intermittently continues to drink. Impression and Recommendations - Palliative Care Impression: This is an anxious 64-year-old woman with metastatic breast cancer with mets to the bone, now presenting with worsening left shoulder, neck pain, limiting her functional status. Her situation has got more complex that she has had a severe ground-level fall which includes now a C5 nondisplaced fracture, and a neck brace. She also has a large forehead laceration, though it does appear to be well approximated. She continues with persistent intermittent acute on chronic pain of her bone mets in her hips, pelvis and scapular area. She continues with severe anxiety depression, and fluctuating mood. Patient now needs more assistance with oversight for symptom management and wound care. Palliative care providing support for pain and symptom management and coordination of care. Recommendations/Counseling Done: 1. Pain of neoplastic origin. Patient continues with persistent bilateral hip, left groin, lower back pain, right scapular pain. She has acute pain in her left arm, unclear if this is bony mets or related to DJD, and now she presents w ith acute pain related to her fall, her neck is not causing increased distress is more of ache and discomfort with her facial swelling. She is currently on 100 mcg patch, she is consistently taking Vicodin, she is to be limited to 6 tabs a day, though looking at bottle,. She has been taking more than this. She has been counseled again on the safety of not over taking her medications, she tends to use them when she is anxious, she is also been counseled not to take them with her alcohol. Awaiting the outcome of a bone scan, patient may be able to have a cortisone shot in that shoulder if found to be appropriate intervention and no contraindications. 2. C5 fracture. Coordination of care and follow-up with her PCP, requested her review ED report and recommendation to go to [place]. Patient in no way shape or form is able to get down there, or navigate the complexity of an appointment such as this. She felt as long as she was getting follow-up and evaluations by clinical staff, she would most likely be okay. We did schedule her an appointment next week for both her stitches, and follow-up if there is any further scanning that may need to be need made. Patient's neuro checks are without concern, patient has at baseline short-term memory deficits. 3. Anorexia. Patient has done well on mirtazapine in the past, remains resistant to adding this. She is trying Megace again, patient continues to have difficulty with food planning. She has her schedule back and forth, so often gets out of sync as far as eating. Encouraged to continue with her protein shakes. Patient continues appear more cachectic, unable to weigh as she has not been at the hospital recently. 4. Anxiety. Patient reports again that Klonopin is "not working, she wants something to will calm her down right away, counseled again that benzodiazepines all work the same way, patient has been on the many years is most likely having resistance. I have recommended multiple times different medications, and she has been quite resistant to trying anything. Would consider she might respond well to venlafaxine, as well as well butyrin. Patient is also been recommended to follow-up with [facility], for psychiatric support as she has had before but has continued to decline. Will recommend home health child protective services social worker, to help navigate increased support, and rehabilitation counsellor for adjustment illness. 5. Depression. Patient continues to do poorly with continued isolation as a result of her complicated social situation, as well as the pandemic. 6. Metastatic breast cancer. Patient does have rising CA 2729, she is to receive a bone scan, unfortunately that was scheduled again today and has to be rescheduled. They are trying very hard to work with her, knowing her underlying anxiety. It is important to have this scan as it will provide recommendations of treatment pending outcome also of foundation 1 testing. 7. Forehead laceration. Cleansed with normal saline, applied Neosporin ointment. Did provide supplies and instruction to patient, would benefit from RN home health assisting and monitoring healing process, as well as reassurance for patient given her high anxiety. 8. Advanced care planning. Patient continues with very little social support, increasing difficulty meeting her care needs and ADLs. Patient has been encouraged to reach out to Mary her case management rn/child protective services social worker but finds it too overwhelming given her current situation. [id number] for home health. Patient presents with a taxing considerable effort to leave the home secondary to her agoraphobia, pain of neoplastic origin, balance issues, and fatigue. Patient would require home health RN for oversight and management of pain meds, wound care, monitoring for signs and symptoms of infection given her pancytopenia, as well as instruction on nutrition secondary severe weight loss. Home health aide for personal, bathing, secondary safety and peripheral neuropathy balance issues. RN DIGESTIVE for long-term planning as well as coordination of support/CO PES application. Time Spent: 40 minutes with greater than 50% of this done in counseling regarding pain and symptom management, coordination of care and accessing [facility] for support, Update and follow-up with Dr. Charo Lorenz regarding follow-up for her C5 fracture and facial contusion. Update provided to her oncologist, as well as anticipatory guidance for patient.
== END 2020-06-07 14:31 | disposition home or self-care (01) ==
LOC: PC 14:30
PROVIDERS: ATTEND Nurse Practitioner Adult Health
DX: Z51.5 Encounter for palliative care (principal); G89.3 Neoplasm related pain (acute) (chronic); C79.51 Secondary malignant neoplasm of bone; C50.919 Malignant neoplasm of unspecified site of unspecified female breast; S12.401D Unspecified nondisplaced fracture of fifth cervical vertebra, subsequent encounter for fracture with routine healing; S01.81XD Laceration without foreign body of other part of head, subsequent encounter; M50.30 Other cervical disc degeneration, unspecified cervical region; R63.0 Anorexia; F41.9 Anxiety disorder, unspecified; F32.9 Major depressive disorder, single episode, unspecified; R29.6 Repeated falls; Z79.899 Other long term (current) drug therapy; Z79.811 Long term (current) use of aromatase inhibitors; Z79.891 Long term (current) use of opiate analgesic; Z72.89 Other problems related to lifestyle; Z91.81 History of falling; Z63.8 Other specified problems related to primary support group; Z60.2 Problems related to living alone; Z66 Do not resuscitate
CPT/HCPCS: 99349

== ENCOUNTER 2020-06-09 16:25 | Outpatient (CLI) | payer MEDICARE, MEDICAID | END 2020-06-09 16:26 | disposition critical access hospital (66) | LOC: EMS 16:25 | PROVIDERS: ATTEND Surgery | DX: K59.00 Constipation, unspecified (principal); R52 Pain, unspecified | CPT/HCPCS: A0425; A0429 ==

== ENCOUNTER 2020-06-09 16:46 | Emergency (ER) | payer MEDICARE, MEDICAID ==
[2020-06-09] MEDS ORDERED: MINERAL OIL ENEMA 133 ML BOTTLE RC STA (17:17)
--- NOTE | 2020-06-09 17:23 | ED Physician Documentation ---
History of Present Illness - Stated complaint Stated Complaint: CONSTIPATION - Chief complaint Chief Complaint: General - History obtained from History obtained from: Patient, EMS - History of Present Illness Timing: Today Pain level max: 0 Pain level now: 0 - Additonal information Additional information: Patient states that she is constipated and wants an enema. Patient has no other complaints. Nothing makes it better or worse. She states this occurs because she takes Vicodin. No fevers. No abdominal pain. 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 : Incontinence HEENT: None Psych: Depression, Anxiety Musculoskeletal: Osteoarthritis, Other Derm: None - Past Surgical History Past Surgical History: Yes General: Colonoscopy, Other /EDGING MACHINE FEEDER: Endometrial ablation, Other - Present Medications Home Medications: Ambulatory Orders Medication Instructions Recorded Confirmed Denosumab [Xgeva] 120 mg SUBQ Q28D MDD HOLD 04/04/15 06/07/20 clonazePAM [Clonazepam] 1 mg PO TID MDD 3 tabs 04/08/16 06/07/20 Exemestane 25 mg PO DAILY 12/14/18 06/07/20 Lactulose 5 - 10 ml PO BID PRN MDD titrates 12/16/18 06/07/20 Loperamide [Imodium] 2 mg PO Q4HR PRN 01/11/19 06/07/20 Ondansetron [Zuplenz] 4 mg PO Q6HR PRN 01/19/19 06/07/20 Hydrocodone/Acetaminophen 1 - 2 each PO Q4HR PRN MDD 6 tabs 03/08/19 06/07/20 [Hydrocodon-Acetaminophn 10-325] Omeprazole 20 mg PO DAILY PRN 03/22/19 06/07/20 polyethylene glycoL 3350 [Miralax] 17 gm PO BID PRN 08/02/19 06/07/20 fentaNYL [Fentanyl 75mcg patch] 100 mcg TOP .72 HOURS 03/03/20 06/07/20 Metoclopramide HCl 5 mg PO TID PRN 03/21/20 06/07/20 Megestrol Acetate [Megace Es] 400 mg PO DAILY 05/17/20 06/07/20 - Allergies Allergies/Adverse Reactions: Allergies Allergy/AdvReac Type Severity Reaction Status Date / Time oxycodone HCl * Allergy Mild itch Verified 11/01/19 14:11 [From Percocet] - Social History Does the pt smoke?: No Smoking Status: Never smoker Does the pt drink ETOH?: Yes Does the pt have substance abuse?: No - Immunizations Immunizations are current?: Yes Immunizations: TDAP >10years/unknown - POLST Patient has POLST: Yes POLST Status: DNR PD ED PE NORMAL - Vitals Vital signs reviewed: Yes - General General: Alert and oriented X 3, No acute distress - HEENT HEENT: Other (Patient in a cervical collar, large laceration of the forehead. Bruising to the bilateral periorbital areas) - Cardiac Cardiac: RRR - Respiratory Respiratory: No respiratory distress, Clear bilaterally - Abdomen Abdomen: Soft, Non tender, Non distended - Derm Derm: Warm and dry - Neuro Neuro: Alert and oriented X 3 - Psych Psych: Normal mood, Normal affect Results - Vitals Vitals: Vital Signs - 24 hr 06/09/20 06/09/20 06/09/20 16:46 16:54 18:00 Temperature 36.8 C Heart Rate 70 68 77 Respiratory 16 16 16 Rate Blood Pressure 161/70 H 160/72 H 176/107 H O2 Saturation 100 99 100 06/09/20 06/09/20 18:37 18:53 Temperature 37.3 C Heart Rate 81 75 Respiratory 16 16 Rate Blood Pressure 171/94 H 162/76 H O2 Saturation 100 98 Oxygen O2 Source Room air PD MEDICAL DECISION MAKING - ED course Complexity details: reviewed old records, re-evaluated patient, considered differential, d/w patient ED course: Enema given. Large bowel movement. Patient feels well well enough to go home. No other emergency medical condition at this time. No evidence of bowel obstruction. No vomiting. Patient counseled regarding signs and symptoms for which I believe and urgent re-evaluation would be necessary. Patient with good understanding of and agreement to plan and is comfortable going home at this time This document was made in part using voice recognition software. While efforts are made to proofread this document, sound alike and grammatical errors may occur. Departure - Departure Disposition: 01 Home, Self Care Clinical Impression: Constipation Qualifiers: Constipation type: unspecified constipation type Qualified Code(s): K59.00 - Constipation, unspecified Condition: Good Instructions: ED Constipation Follow-Up: your,doctor as needed. [Other] Comments: Follow up with your doctor for further care. Return if you worsen. Discharge Date/Time: 06/09/20 19:04
[2020-06-09] MEDS ORDERED: SALINE ENEMA 133 ML BOTTLE RC STA (18:43)
[2020-06-09 18:54] VITALS: BP 162/76
== END 2020-06-09 19:04 | disposition home or self-care (01) ==
LOC: EDUNIT# → ED 16:46
DX: K59.00 Constipation, unspecified (principal); I10 Essential (primary) hypertension; E11.9 Type 2 diabetes mellitus without complications; Z66 Do not resuscitate
CPT/HCPCS: 99283; 99284; A9270

== ENCOUNTER 2020-06-15 11:08 | Outpatient (CLI) | payer MEDICARE, MEDICAID ==
--- NOTE | 2020-06-15 16:52 | Nuclear Medicine Report ---
PROCEDURE: Bone Whole Body INDICATIONS: METASTATIC BREAST CA RADIOPHARMACEUTICAL: 26.0 mCi Tc-99m MDP IV. TECHNIQUE: Delayed whole-body scintigrams were obtained approximately 3-4 hours after intravenous injection of r adiotracer. Anterior and posterior views were acquired from vertex to feet. Additional left and rig ht oblique views of the skull and cervical spine were obtained. COMPARISON: Body bone scan, 01/23/2020 and 11/23/2018. FINDINGS: There are multiple foci of abnormal uptake involving the cervical, thoracic and lumbar spi ne, sacrum, sternum, multiple ribs, bony pelvis, proximal left femur and distal femoral shafts bilate rally, and possibly humeral heads bilaterally, consistent with osseous metastases. Compared with the last exam, there is interval worsening of metastasis. For example, distal femoral lesions bilaterall y are new. Degenerative changes are noted in multiple peripheral joints including shoulders bilateral ly, knees bilaterally, and both feet. IMPRESSION: The scintigraphic findings are consistent with widespread osseous metastasis. Compared w ith the last bone scan on 01/23/2020, there is worsening of osseous metastatic disease. Reviewed by: Richard Vieira MD on 06/15/2020 4:51 PM PST Approved by: Richard Vieira MD on 06/15/2020 4:51 PM PST Station ID: [id number]
== END 2020-06-15 11:09 | disposition home or self-care (01) ==
LOC: DI 11:08
PROVIDERS: ATTEND Internal Medicine Hematology & Oncology
DX: C79.51 Secondary malignant neoplasm of bone (principal); Z85.3 Personal history of malignant neoplasm of breast
CPT/HCPCS: 78306

== ENCOUNTER 2020-06-15 11:10 | Outpatient (CLI) | payer MEDICARE, MEDICAID ==
--- NOTE | 2020-06-15 13:26 | CT Report ---
PROCEDURE: CERVICAL SPINE WO INDICATIONS: C5 FRACTURE TECHNIQUE: Noncontrast 3 mm thick sections acquired from the skull base to the T4 level. Sagittal and coronal r eformats were then constructed. For radiation dose reduction, the following was used: automated exp osure control, adjustment of mA and/or kV according to patient size. COMPARISON: Correlation is made with prior cervical plain films, 06/06/2020. FINDINGS: Image quality: Excellent. Bones: There is a horizontally oriented fracture cleft seen through the C5 level, which is best demon strated on sagittal images, with mild displacement. The fracture line affects both the superior endpl ate and the inferior endplate. There is also a fracture seen involving the C5 spinous process, which can be seen on series 7 image 39 and on series 4 image 41. Along the anterior inferior aspect of C4, there is a fracture seen, which severs off the prominent an terior osteophyte. There is moderate disc space narrowing seen at C5-C6, with moderate to severe disc space narrowing at C6-C7. Prominent bridging anterior osteophytes are seen C3-C7. Posterior directed endplate osteophyt es are seen at C5-C6 and C6-C7. There is focal bony sclerosis seen involving the T2 level. There is also a mild degree of sclerosis i nvolving the anterior inferior aspect of the T1 level. Soft tissues: Prevertebral soft tissues are normal in thickness. No paravertebral hematomas. No ap ical pneumothoraces. IMPRESSION: There is a mildly displaced fracture involving the C5 vertebral body, with a vertically oriented frac ture cleft. There is also a fracture seen through the C5 spinous process. There is a small fracture seen involving the anterior inferior aspect of C4, with fracture of the ant erior-inferior portion of the vertebral body and the anterior osteophyte. Focal bony sclerosis is seen involving the T2 level. Metastatic disease is suspected. Focal sclerosis is seen involving the anterior inferior aspect of T1, which may be related to a bone island, or may represent an additional focus of metastatic disease. Prominent bridging anterior osteophytes are seen. Underlying degenerative changes are seen, which are worst at C5-C6 and C6-C7. Reviewed by: Jasiel Felix MD on 06/15/2020 12:25 PM AKST Approved by: Jasiel Felix MD on 06/15/2020 12:25 PM AKST Station ID: [id number]
== END 2020-06-15 11:11 | disposition home or self-care (01) ==
LOC: DI 11:10
PROVIDERS: ATTEND Internal Medicine
DX: M48.42 Fatigue fracture of vertebra, cervical region (principal); Z87.81 Personal history of (healed) traumatic fracture; M47.812 Spondylosis without myelopathy or radiculopathy, cervical region
CPT/HCPCS: 72125

== ENCOUNTER 2020-06-18 19:46 | Outpatient (CLI) | payer MEDICARE, MEDICAID | END 2020-06-18 19:47 | disposition critical access hospital (66) | LOC: EMS 19:46 | PROVIDERS: ATTEND Surgery | DX: K62.89 Other specified diseases of anus and rectum (principal); K59.00 Constipation, unspecified | CPT/HCPCS: A0425; A0427 ==

== ENCOUNTER 2020-06-18 19:49 | Emergency (ER) | payer MEDICARE, MEDICAID ==
[2020-06-18] MEDS: SALINE ENEMA 133 ML BOTTLE RC STA (20:35)
--- NOTE | 2020-06-18 20:36 | ED Physician Documentation ---
History of Present Illness - Stated complaint Stated Complaint: CONSTPATION - Chief complaint Chief Complaint: Abd Pain - History obtained from History obtained from: Patient - History of Present Illness Timing: Chronic Pain level max: 4 Pain level now: 4 - Additonal information Additional information: 64-year-old female with chronic constipation. She comes in today stating that she needs an enema. Unable to have a bowel movement at home. No vomiting. No fevers. Nothing makes it better or worse. Review of Systems Constitutional: denies: Fever, Chills GI: denies: Vomiting, Diarrhea Skin: denies: Rash Musculoskeletal: denies: Neck pain, Back pain Neurologic: denies: Headache PD PAST MEDICAL HISTORY - Past Medical History Past Medical History: Yes Cardiovascular: Hypertension Respiratory: Sleep apnea, CPAP use Neuro: None Endocrine/Autoimmune: Type 2 diabetes GI: GERD, Cholelithiasis SEWER HAND: Breast cancer : Incontinence HEENT: None Psych: Depression, Anxiety Musculoskeletal: Osteoarthritis, Other Derm: None - Past Surgical History Past Surgical History: Yes General: Colonoscopy, Other /SEWER HAND: Endometrial ablation, Other - Present Medications Home Medications: Ambulatory Orders Medication Instructions Recorded Confirmed Denosumab [Xgeva] 120 mg SUBQ Q28D MDD HOLD 04/04/15 06/07/20 clonazePAM [Clonazepam] 1 mg PO TID MDD 3 tabs 04/08/16 06/07/20 Exemestane 25 mg PO DAILY 12/14/18 06/07/20 Lactulose 5 - 10 ml PO BID PRN MDD titrates 12/16/18 06/07/20 Loperamide [Imodium] 2 mg PO Q4HR PRN 01/11/19 06/07/20 Ondansetron [Zuplenz] 4 mg PO Q6HR PRN 01/19/19 06/07/20 Hydrocodone/Acetaminophen 1 - 2 each PO Q4HR PRN MDD 6 tabs 03/08/19 06/07/20 [Hydrocodon-Acetaminophn 10-325] Omeprazole 20 mg PO DAILY PRN 03/22/19 06/07/20 polyethylene glycoL 3350 [Miralax] 17 gm PO BID PRN 08/02/19 06/07/20 fentaNYL [Fentanyl 75mcg patch] 100 mcg TOP .72 HOURS 03/03/20 06/07/20 Metoclopramide HCl 5 mg PO TID PRN 03/21/20 06/07/20 Megestrol Acetate [Megace Es] 400 mg PO DAILY 05/17/20 06/07/20 polyethylene glycoL 3350 [Miralax] 17 gm PO DAILY PRN #1 bottle 06/18/20 - Allergies Allergies/Adverse Reactions: Allergies Allergy/AdvReac Type Severity Reaction Status Date / Time oxycodone HCl * Allergy Mild itch Verified 06/18/20 19:53 [From Percocet] - Social History Does the pt smoke?: No Smoking Status: Never smoker Does the pt drink ETOH?: Yes Does the pt have substance abuse?: No - Immunizations Immunizations are current?: Yes Immunizations: TDAP >10years/unknown - POLST Patient has POLST: Yes POLST Status: DNR PD ED PE NORMAL - Vitals Vital signs reviewed: Yes - General General: Alert and oriented X 3, No acute distress - HEENT HEENT: Moist mucous membranes - Neck Neck: Supple, no meningeal sign - Cardiac Cardiac: RRR - Respiratory Respiratory: No respiratory distress, Clear bilaterally - Abdomen Abdomen: Soft, Non tender, Non distended - Derm Derm: Warm and dry - Neuro Neuro: Alert and oriented X 3 Results - Vitals Vitals: Vital Signs - 24 hr 06/18/20 06/18/20 19:53 19:58 Temperature 37 C 37 C Heart Rate 99 99 Respiratory 18 18 Rate Blood Pressure 154/86 H 154/86 H O2 Saturation 100 100 Oxygen O2 Source Room air PD MEDICAL DECISION MAKING - ED course Complexity details: reviewed old records, considered differential, d/w patient ED course: 64-year-old female presents to the emergency department requesting enema today. Similar to her prior presentations. No evidence of obstruction, abscess, infection. Patient feels better after enema. Patient counseled regarding signs and symptoms for which I believe and urgent re-evaluation would be necessary. Patient with good understanding of and agreement to plan and is comfortable going home at this time This document was made in part using voice recognition software. While efforts are made to proofread this document, sound alike and grammatical errors may occur. Departure - Departure Disposition: 01 Home, Self Care Clinical Impression: Constipation Qualifiers: Constipation type: unspecified constipation type Qualified Code(s): K59.00 - Constipation, unspecified Condition: Good Instructions: ED Constipation Follow-Up: Charo Lorenz MD [Primary Care Provider] - Within 1 week Prescriptions: polyethylene glycoL 3350 [Miralax] 17 gm PO DAILY PRN #1 bottle PRN Reason: Constipation Comments: Drink plenty of water. Follow-up with your doctor for further care. Return if you worsen
[2020-06-18] MEDS: MINERAL OIL ENEMA 133 ML BOTTLE RC STA (21:32)
[2020-06-18 21:47] VITALS: BP 150/82
== END 2020-06-18 21:52 | disposition home or self-care (01) ==
LOC: EDUNIT# → ED 19:49
DX: K59.00 Constipation, unspecified (principal); E11.9 Type 2 diabetes mellitus without complications; I10 Essential (primary) hypertension; Z66 Do not resuscitate
CPT/HCPCS: 99282; 99284; A9270

== ENCOUNTER 2020-07-02 10:00 | Outpatient (CLI) | payer MEDICARE, MEDICAID ==
--- NOTE | 2020-07-02 16:22 | XRAY Report ---
PROCEDURE: Cervical Spine 2 View INDICATIONS: C4-C5 F/UP,CERVICAL FATIGUE FRACTURE TECHNIQUE: 3 view(s) of the cervical spine were acquired. COMPARISON: CT cervical spine 06/15/2020 x-ray cervical spine 06/06/2020 FINDINGS: Bones: As identified on prior exam, there is a fracture of the C5 vertebral body, appearing minimally less prominent. There is no change in alignment. Extensive bridging anterior osteophytes are present from C4-5 through C6-7. Severe disc space narrowing is present at C5-6 and C6-7, moderate to severe throughout the remainder of the cervical spine. Multilevel uncovertebral arthropathy is present. The lateral masses of C1 appear intact on the odontoid view. No suspicious bony lesions. Soft tissues: No prevertebral soft tissue swelling. IMPRESSION: Stable alignment of C5 vertebral fracture with slight less prominence of fracture vikramenc [email or web address] Reviewed by: Marce Lovelace MD on 07/02/2020 4:21 PM PST Approved by: Marce Lovelace MD on 07/02/2020 4:21 PM PST Station ID: [id number]
== END 2020-07-02 10:01 | disposition home or self-care (01) ==
LOC: DI 10:00
PROVIDERS: ATTEND Internal Medicine
DX: M48.42 Fatigue fracture of vertebra, cervical region (principal)

== ENCOUNTER 2020-07-30 12:00 | Outpatient (CLI) | payer MEDICARE, MEDICAID ==
--- NOTE | 2020-07-30 17:56 | CONSULTATION NOTE ---
Palliative Care Follow Up - Referral Referring Provider: Dr. Sharron Marte Time of Visit: 06-07 Referral setting: Home Referral Reason: Pain of neoplastic origin/Met Breast CA to bones/Depression - Information Sources Records reviewed: Previous records reviewed History/Review of Systems obtained from: Patient Exam limitations: Clinical condition (patient with severe STM deficits) - History of Present Illness Update Brief HPI Update: This is an anxious 64-year-old woman with metastatic breast cancer to the bones only, who is currently on exemestane. She is having progressive disease, has underlying pancytopenia secondary to mild dysplastic syndrome, and most recently found to have a nondisplaced C5 fracture, which she has been wearing an [place] brace and very unhappy with. She does have a [facility] who are providing support for bathing and care, but is generally feeling overwhelmed by the whole process, continues with underlying pain of neoplastic origin on top of her acute pain with her fracture, and most recently most likely presents with left rib fractures. She has declined x-ray confirmation, but does have point tenderness on exam, and pain with increased pressure or movement of her left side. Patient has long history of mental health issues, she is alienated her from her family and friends. She does have a perseverative nature often unhappy with things. She is very much alone, gets quite anxious, and her behavior escalates when she is fearful. She does have fluctuating alcohol intake, currently reports she is not drinking. She remains on fentanyl 100 mcg, with intermittent Vicodin, though tends to avoid this secondary to trouble with constipation. Palliative care providing support, patient calls frequently, helping to manage anxiety, pain, and coordination of care Social History - Living Situation Living arrangement: At home Living Situation: Alone Support System: Patient lives in subsidized housing in [facility]. She currently has no support, has been very resistant to enlisting [place] [facility]. She does have a small spend down, and has had "negative" experiences in the past. She currently is getting support from [facility] for both bathing and management of her collar. She is estranged from her family, does have 1 friend she is using for transportation and some groceries. She does get Meals on Wheels but is currently unhappy with the lack of fresh veggies. She creates many barriers for enlisting community support. Medications/Allergies - Medications Home Medications: Ambulatory Orders Medication Instructions Recorded Confirmed Denosumab [Xgeva] 120 mg SUBQ Q28D MDD HOLD 04/04/15 07/30/20 clonazePAM [Clonazepam] 1 mg PO TID MDD 3 tabs 04/08/16 07/30/20 Exemestane 25 mg PO DAILY 12/14/18 07/30/20 Lactulose 5 - 10 ml PO BID PRN MDD titrates 12/16/18 07/30/20 Loperamide [Imodium] 2 mg PO Q4HR PRN 01/11/19 07/30/20 Ondansetron [Zuplenz] 4 mg PO Q6HR PRN 01/19/19 07/30/20 Hydrocodone/Acetaminophen 1 - 2 each PO Q4HR PRN MDD 6 tabs 03/08/19 07/30/20 [Hydrocodon-Acetaminophn 10-325] Omeprazole 20 mg PO DAILY PRN 03/22/19 07/30/20 fentaNYL [Fentanyl 75mcg patch] 100 mcg TOP .72 HOURS 03/03/20 07/30/20 Metoclopramide HCl 5 mg PO TID PRN 03/21/20 07/30/20 polyethylene glycoL 3350 [Miralax] 17 gm PO BID 07/30/20 07/30/20 - Allergies Allergies/Adverse Reactions: Allergies Allergy/AdvReac Type Severity Reaction Status Date / Time oxycodone HCl * Allergy Mild itch Verified 07/17/20 15:04 [facility] Review of Systems - Constitutional Constitutional: reports: Fatigue, Chills, Weakness, Poor appetite, Weight stable (184). denies: Fever - Eyes Eyes: reports: Blurred vision, Vision loss - Ears, Nose & Throat Ears, Nose & Throat: reports: Dental decay, Dry mouth - Cardiovascular Cardiovascular: reports: Edema (mild), Decr. exercise tolerance - Respiratory Respiratory: reports: SOB with exertion. denies: Cough, SOB at rest - Gastrointestinal Gastrointestinal: reports: Constipation, Poor appetite, Early satiety - Genitourinary Genitourinary: reports: Frequency, Incontinence - Musculoskeletal Musculoskeletal: reports: Muscle pain, Back pain, Muscle aches, Stiffness, Limited range of motion, Muscle weakness, Joint pain (left shoulder/elbow pain severe/ right shoulder pain moderate; neck pain discomfort) - Integumentary Integumentary: reports: Dryness - Neurological Neurological: reports: General weakness, Memory problems, Abnormal gait - Psychiatric Psychiatric: reports: Depression, Anxiety (Patient uses her clonazepam 1 mg 3 times daily, she has been on this long-term; she intermittently uses alcohol to manage her anxiety as well. She has been counseled the riske of combing opiods/benzos and ETOH multiple times) - Endocrine Endocrine: reports: Diabetes type 2 - Hematologic/Lymphatic Hematologic/Lymph: Anemia - All Other Systems All Other Systems: reports: Reviewed and negative Physical Exam - Vital Signs Temperature: 96.6 C Pulse Rate: 60 Respiratory Rate: 16 O2 Saturation: 98 (ra @ rest) Blood Pressure: 128/60 - Physical Exam General Appearance: positive: Alert, Mild distress, Anxious Eyes Bilateral: positive: No scleral icterus, Other (dark circles) ENT: positive: No signs of dehydration Neck: positive: Trachea midline, Other (has hard collar on) Cardiovascular: positive: Regular rate & rhythm Respiratory: positive: No respiratory distress Abdomen: positive: Non-tender, Soft, Obese Skin: positive: Pallor, Dryness, Wound (head lacerations healing well proximated; few scabs left) Extremities: positive: Pedal edema (trace pedal edema left greater than right) Neurologic/Psychiatric: positive: Disoriented to time, Weakness, Depressed mood/affect, Flat affect Palliative Care - POLST Patient has POLST: Yes POLST Status: DNR, Selective Treatment Pain: Pain worsening, Location (Patient describes her pain mostly bilateral shoulder pain. She is currently denying any neck pain.), Severity (mod/severe), Comment (Patient is on fentanyl 100 mcg patch, does use intermittently Vicodin, but often discouraged to use it as it causes her constipation.) Tiredness/Fatigue: Moderate (4-6) Drowsiness/Sedation: Moderate (4-6) Nausea: Mild (1-3) Anorexia: Mild (1-3) Dyspnea: Mild (1-3) Depression: Severe (7-10) (feels it is worse with "dealing" with collar/ not being able to shower) Anxiety: Severe (7-10) Feelings of wellbeing/Perceived Quality of Life: Poor, Worsening Sleep: Variable sleep pattern (patient often up late; gets days/nights turned around) Constipation: Yes, Opoid induced, Intermittent constipation Performance Status: Patient is mostly sedentary, spends most the time in her recliner or in her bed. She is able to ambulate short distances, she has had increased trouble with meal prep given restrictions on of her collar. She is getting assistance with bathing, but unclear how long home health will be able to continue providing support. - Palliative Care Discussion: Patient continues very distressed in the context of her broken neck. She very much dislikes a hard collar, has been very upset about having "a plan". She has not heard back from [facility]. I did call during the visit, we were able to elicit plan, will follow up with Dr. Lorenz, this did decrease her anxiety some. She is due for another set of x-rays on 08/30. She feels overwhelmed at not being able to drive, continues with poor social support, feeling very depressed. She is also awaiting plan for her breast cancer, she gets very anxious regarding this. She often is a poor problem solve her, does call frequently, but then will pickling operator phone when follow-up. Continue to provide support, patient provides many barriers to enlisting support for herself both practical and emotional. Results - Lab Results Lab results reviewed: Yes Impression and Recommendations - Palliative Care Impression: This is an anxious 64-year-old woman with metastatic breast cancer, with recent progression of mets to bone, presenting today with most likely left rib fracture. She does have frequent falls, these are attributed peripheral neuropathy, poor balance, sedentary status and overall weakness. She had a severe ground-level fall which includes a C5 nondisplaced fracture now with a neck brace. She continues with severe anxiety depression and fluctuating mood. Palliative care providing support for pain and symptom management and coordination of care. Recommendations/Counseling Done: 1. Pain of neoplastic origin. Patient continues with persistent bilateral hip, left groin, lower back and bilateral shoulder scapular pain. Her acute pain in left arm has improved, but now has acute pain from her left rib fracture. She denies any pain in her neck. She is currently on 100 mcg fentanyl patch, intermittently taking Vicodin. No changes to medication regimen made. 2. C5 fracture. Spoke with [facility], they had reviewed her x-rays and found her x-ray from 07/02 stable, requested repeated C-spine AP and lateral on 08/30/2020. Had spoken with Elsy Monaco's nurse at [phone]. Unfortunately patient did not receive the communication nor may be understood it. Reinforced she needs to keep her collar on, she is getting quite frustrated with this. She does have [facility] coming to help with bathing, and change out the pads and provide support. 3. Anxiety. Patient continues to have fluctuating mood, continues to be quite resistant to trying any other medications. She has been on Klonopin for years and often runs out early. She has been told she needs to stay within her limits. Patient most likely will need ongoing support given her declining functional status, and most likely should not return to driving. Did leave message for Mary at [facility] to restart the [place] P[facility] process. 4. Constipation. Patient continues to fluctuate with this, she has been instructed to continue her MiraLAX twice daily, and gets quite perseverative about this. She has had several ED visits as well as palliative care visits for constipation/disimpaction. 5. Depression. Patient continues to do poorly with continued isolation as result of her complicated social situation is and the pandemic. She remains resistant to any kind of counseling or referral to mental health services. 6. Forehead laceration. This is healing well, small amount of eschar only, no other follow-up needed. 7. Metastatic breast cancer with bone mets. Patient seen oncology, they are doing foundation 1 testing to see if there is any target. Given patient's difficulty with managing medications, and easily overwhelmed most likely would not be a good candidate for any complicated chemotherapy regimen or with any significant side effects. Patient recently received referral to genetic counseling, she is overwhelmed in thinking about getting to [facility], filling out the paperwork, and really unable to identify any benefit. Her sisters are already gone through the counseling, and are doing further follow-up is related to this. Yamileth has no children, will reach out to Dr. Marte and see if needs to complete this referral. Time Spent: 60 minutes with greater than 50% of this done in counseling and follow-up regarding coordination of care with [facility], oncology, review of pain and symptom management and anticipatory guidance
== END 2020-07-30 12:01 | disposition home or self-care (01) ==
LOC: PC 12:00
PROVIDERS: ATTEND Nurse Practitioner Adult Health
DX: Z51.5 Encounter for palliative care (principal); G89.3 Neoplasm related pain (acute) (chronic); C50.919 Malignant neoplasm of unspecified site of unspecified female breast; C79.51 Secondary malignant neoplasm of bone; S12.400A Unspecified displaced fracture of fifth cervical vertebra, initial encounter for closed fracture; W19.XXXA Unspecified fall, initial encounter; F41.9 Anxiety disorder, unspecified; K59.03 Drug induced constipation; T40.2X5A Adverse effect of other opioids, initial encounter; E11.42 Type 2 diabetes mellitus with diabetic polyneuropathy; Z66 Do not resuscitate
CPT/HCPCS: 99350

== ENCOUNTER 2020-08-27 10:29 | Outpatient (CLI) | payer MEDICARE, MEDICAID ==
--- NOTE | 2020-08-27 12:33 | XRAY Report ---
PROCEDURE: Cervical Spine 2 View INDICATIONS: f/u C5 vertebra fracture TECHNIQUE: 3 view(s) of the cervical spine were acquired. COMPARISON: None. FINDINGS: Bones: No new fractures or dislocations to the T1 level. CT scanning allows visualization of the C5 vertically oriented mid body fracture, in this patient with large anterior bridging osteophytes span mk from C3 through C6. The lateral masses of C1 appear intact on the odontoid view. No suspicious bony lesions. Soft tissues: No prevertebral soft tissue swelling. IMPRESSION: The area of the prior fracture identified definitively by CT scanning 06/15/2020 is incl uded on this examination, but the overlying degenerative changes this allow clear visualization of th e fracture plane. Large anterior bridging osteophytes are present as noted from C3 through 6. No hurtado ge in alignment of the cervical spine osseous elements is found. A more accurate assessment. Clinical ly desired for documentation of osseous union would be to obtain a repeat CT scan. The prior CT scanning had noted dense sclerosis involving the T2 vertebral body, not visible due to o verlapping structures on current plain film imaging. Reviewed by: Pedro Pablo Vargas MD on 08/27/2020 12:32 PM PST Approved by: Pedro Pablo Vargas MD on 08/27/2020 12:32 PM PST Station ID: [id number]
== END 2020-08-27 10:30 | disposition home or self-care (01) ==
LOC: DI 10:29
PROVIDERS: ATTEND Internal Medicine
DX: Z09 Encounter for follow-up examination after completed treatment for conditions other than malignant neoplasm (principal); M25.78 Osteophyte, vertebrae; Z87.81 Personal history of (healed) traumatic fracture

== ENCOUNTER 2020-09-05 12:30 | Outpatient (CLI) | payer MEDICARE, MEDICAID ==
--- NOTE | 2020-09-05 17:49 | CONSULTATION NOTE ---
Palliative Care Follow Up - Referral Referring Provider: Dr. Sharron Matre Time of Visit: 9136-8471 Referral setting: Home Referral Reason: Pain of neoplastic origin/Met Breast CA to bones/s/p C5 fx - Information Sources Records reviewed: Previous records reviewed History/Review of Systems obtained from: Patient Exam limitations: Clinical condition (patient with worsening cognitive deficits/STM issues) - History of Present Illness Update Brief HPI Update: This is a very anxious 64-year-old woman with metastatic breast cancer to the bones only, with progression of disease. She has underlying pancytopenia secondary to her myelodysplastic syndrome and into the complexity of managing her treatment. She has been healing from a nondisplaced C5 fracture, and just was able to remove her [place] hard collar brace, which she found quite uncomfortable and exacerbated her pain. She is to start a new treatment regimen for her breast cancer, alpelisib and Faslodex. She is severely anxious, adding to concerns for her ability for medication adherence to be manage of side effects, are her worsening cognitive deficits. She has had her first round of oral chemotherapy teaching, and is perseverating over the medications, how to use them, and worried about in particular having diarrhea. Patient struggles managing her bowels as it is, as she has alternating loose stools and constipation, which is most often managed with MiraLAX twice daily. Her pain continues to fluctuate, she is currently on Duragesic 100 mcg patch, she does have hydrocodone 5 mg/acetaminophen 325 mg for breakthrough pain, but avoids it because of the constipating effects. She reports her pain has been escalating, particularly in her shoulders and left side, she has increased pain with weightbearing and ambulating in her apartment. She is quite sedentary, and spends most her time in recliner. She now complains of muscle weakness and achiness from the collar, and will be receiving physical therapy for strengthening. Patient has longstanding mental health issues, she unfortunately had to use up her clonazepam as of last week. This is not unusual behavior for her when she gets anxious, she wants something "that stronger". She is unwilling to try any other baseline medications for anxiety. She has been explained multiple times they are not stronger benzodiazepines, I believe also she has been off her alcohol as she is not been able to drive for several months. She has been counseled not to drink particularly with her new medication. Past Medical History: Peripheral neuropathy, anxiety, depression, short-term memory issues, weight loss, cholelithiasis, pancytopenia secondary myelodysplastic syndrome, history of alcohol abuse history of smoking. Social History - Living Situation Living arrangement: At home Living Situation: Alone Support System: Patient has very poor social support, she is estranged from her family. She lives in subsidized housing in [facility]. She has not followed through on her [place] application, remains quite resistant to this as she has a spend down. She is currently getting support from [employer], she does have 1 friend who is able to provide transportation. She is getting Meals on Wheels but remains unhappy with the food. She creates many barriers for enlisting community support. Medications/Allergies - Medications Home Medications: Ambulatory Orders Medication Instructions Recorded Confirmed clonazePAM [Clonazepam] 1 mg PO TID MDD 3 tabs 04/08/16 09/05/20 Lactulose 5 - 10 ml PO BID PRN MDD titrates 12/16/18 09/05/20 Ondansetron [Zuplenz] 4 mg PO Q6HR PRN 01/19/19 09/05/20 Hydrocodone/Acetaminophen 1 - 2 each PO Q4HR PRN MDD 6 tabs 03/08/19 09/05/20 [Hydrocodon-Acetaminophn 10-325] Omeprazole 20 mg PO DAILY PRN 03/22/19 09/05/20 fentaNYL [Fentanyl 75mcg patch] 100 mcg TOP .72 HOURS 03/03/20 09/05/20 Metoclopramide HCl 5 mg PO TID PRN MDD hold if 03/21/20 09/05/20 diarrhea polyethylene glycoL 3350 [Miralax] 17 gm PO BID MDD hold for diarrhea 07/30/20 09/05/20 Cetirizine [ZyrTEC] 10 mg PO DAILY #90 tab MDD bid for 09/03/20 09/05/20 rash Diphenoxylate/Atropine [Lomotil] 1 each PO QID PRN #30 tab 09/03/20 09/05/20 Loperamide [Imodium] 2 mg PO UD PRN #1 pkg MDD 16 mg 09/03/20 09/05/20 Megestrol Acetate [Megace Es] 10 ml PO DAILY 09/05/20 09/05/20 dexAMETHasone [Dexamethasone] 0.5 mg PO BID MDD rinse and spit 09/05/20 09/05/20 - Allergies Allergies/Adverse Reactions: Allergies Allergy/AdvReac Type Severity Reaction Status Date / Time oxycodone HCl * Allergy Mild itch Verified 09/04/20 16:23 [From Percocet] Review of Systems - Constitutional Constitutional: reports: Fatigue, Chills, Weakness, Poor appetite, Weight loss (10 pound wt. loss per her report over last month). denies: Fever - Eyes Eyes: reports: Blurred vision, Vision loss - Ears, Nose & Throat Ears, Nose & Throat: reports: Dental decay, Dry mouth - Cardiovascular Cardiovascular: reports: Edema (mild), Decr. exercise tolerance - Respiratory Respiratory: reports: SOB with exertion. denies: Cough, SOB at rest - Gastrointestinal Gastrointestinal: reports: Constipation, Poor appetite, Early satiety - Genitourinary Genitourinary: reports: Frequency, Incontinence - Musculoskeletal Musculoskeletal: reports: Muscle pain, Back pain, Muscle aches, Stiffness, Limited range of motion, Muscle weakness, Joint pain (left shoulder/elbow pain severe/ right shoulder pain moderate; neck pain discomfort) - Integumentary Integumentary: reports: Dryness - Neurological Neurological: reports: General weakness, Memory problems, Abnormal gait - Psychiatric Psychiatric: reports: Depression, Anxiety (Patient uses her clonazepam 1 mg 3 times daily, she has been on this long-term; she intermittently uses alcohol to manage her anxiety as well. She has been counseled the riske of combing opiods/benzos and ETOH multiple times) - Endocrine Endocrine: reports: Diabetes type 2 - Hematologic/Lymphatic Hematologic/Lymph: reports: Anemia - All Other Systems All Other Systems: reports: Reviewed and negative Physical Exam - Vital Signs Pulse Rate: 74 Respiratory Rate: 18 O2 Saturation: 98 (ra @ rest) Blood Pressure: 122/72 - Physical Exam General Appearance: positive: Alert, Mild distress, Anxious Eyes Bilateral: positive: No scleral icterus, Other (dark circles) ENT: positive: No signs of dehydration Neck: positive: Trachea midline, Other (has hard collar on) Cardiovascular: positive: Regular rate & rhythm Respiratory: positive: No respiratory distress, Breath sounds nml Abdomen: positive: Non-tender, Soft, Obese Skin: positive: Pallor, Dryness Extremities: positive: No pedal edema Neurologic/Psychiatric: positive: Disoriented to time, Weakness, Depressed mood/affect, Flat affect Palliative Care - POLST Patient has POLST: Yes POLST Status: DNR, Selective Treatment Pain: Pain worsening, Location (multiple "bones"; hurts all over), Severity (mod/severe) Tiredness/Fatigue: Moderate (4-6) Drowsiness/Sedation: None Nausea: Mild (1-3) (gets stomach upset with constipation) Anorexia: Moderate (4-6) Dyspnea: Mild (1-3) Depression: Severe (7-10) Anxiety: Severe (7-10) Feelings of wellbeing/Perceived Quality of Life: Poor, Worsening, Comment (high anxiety with change in treatment) Sleep: Sleeps poorly (patient often up all night; sleeps during day) Constipation: Yes, Opoid induced, Intermittent constipation Performance Status: Patient has been having bed baths with [employer], with assistance from nurse and home health aide. Patient is fearful of being in the bathroom by herself. I would suggest she transition with home health aide/therapy for safety. She is doing some meal prep, but is quite sedentary spending most of her time in her recliner. She is able to ambulate short distances, but this is often limited by pain and weakness - Palliative Care Discussion: Patient continues to have a difficult time, she does not take to change easily. She is just coming off dealing with her C5 fracture, with a collar just removed. She remains quite anxious about her pending new treatment plan, is very worried about side effects in particular the diarrhea. She is feeling overwhelmed and needs significant reassurance. Results - Lab Results Lab results reviewed: Yes Impression and Recommendations - Palliative Care Impression: This is an anxious 64-year-old woman with metastatic breast cancer, with recent progression of her metastatic bone disease. She is to start a new regimen, with high likelihood of side effects, and the feeling somewhat overwhelmed regarding pending management and new schedule. She is at high risk for further falls, secondary to her peripheral neuropathy, poor balance, sedentary status and overall weakness. She continues to struggle with severe anxiety, depression, and fluctuating mood. Palliative care providing support for pain and symptom management, medication adherence to new therapy, and coordination of care. Recommendations/Counseling Done: 1. Pain of neoplastic origin. Patient continues with persistent pain in her hips bilaterally, left groin, lower back, bilateral shoulder and scapular pain. She does have intermittent acute pain though this is improved some, and does have some discomfort around her cervical spine area but some improvement with relief of the brace. She is currently on Duragesic/fentanyl 100 mcg patch daily, she had forgotten to change it for 2 days with a escalation in her pain. Patient may need a titration in her management, but will see how she does with brace off, and initiation of treatment. 2. Status post C5 fracture. She currently has her brace off, she is to receive physical therapy for further strengthening her back/neck muscles pain and safety. She has not heard from [employer], will reach out. 3. Constipation. Patient continues to fluctuate with this, she has been using her MiraLAX twice daily, which has been effective. She gets quite perseverative on this, she missed a dose yesterday because of her appointments, and has not moved today. She is not eating well, but gets quite fearful as she has had to have enemas/disimpaction when she gets behind. 4. Anxiety. Patient continues with fluctuating mood, she wants to "instant fix". She is not willing to try any other medications at this point in time, though she did much better on the mirtazapine but she does not recall this. She has been on Klonopin for years, and 2 to form ran out last week. She will be picking up some tomorrow. She is also had limited access to alcohol, she is not driving right now. 5. Depression. Patient continues to do quite poorly with isolation, both is related to her complicated social situation and the pandemic. She remains resistant to any kind of counseling or referral to mental health services. 6. Metastatic breast cancer with bone mets. She is going to be starting new or al medication, with high likelihood of side effects including diarrhea, rash, and mucositis. Reviewed medication information supplied by oncology [facility], wrote out instructions yet again, reviewed multiple times during visit. Patient with cognitive deficits, complicated by her anxiety, will continue to provide support and enlist also visiting nurses support.We reviewed she is to be off the exemest ane, this was removed, we opened up and went over her new medications, she will be picking up her for side effect management tomorrow at [facility]. 60 minutes with greater than 50% of this done regarding pain and symptom management, review of medication/oral chemotherapy and management of side effects, coordination of care with eating home health and oncology team
== END 2020-09-05 12:31 | disposition home or self-care (01) ==
LOC: PC 12:30
PROVIDERS: ATTEND Nurse Practitioner Adult Health
DX: Z51.5 Encounter for palliative care (principal); G89.3 Neoplasm related pain (acute) (chronic); M25.552 Pain in left hip; M25.551 Pain in right hip; M54.5 Low back pain; M25.512 Pain in left shoulder; M25.511 Pain in right shoulder; M48.52XD Collapsed vertebra, not elsewhere classified, cervical region, subsequent encounter for fracture with routine healing; K59.00 Constipation, unspecified; F41.9 Anxiety disorder, unspecified; F32.9 Major depressive disorder, single episode, unspecified; C50.919 Malignant neoplasm of unspecified site of unspecified female breast; C79.51 Secondary malignant neoplasm of bone; D46.9 Myelodysplastic syndrome, unspecified; D61.818 Other pancytopenia; E11.42 Type 2 diabetes mellitus with diabetic polyneuropathy; Z91.81 History of falling; Z79.899 Other long term (current) drug therapy; Z66 Do not resuscitate
CPT/HCPCS: 99350

== ENCOUNTER 2020-10-01 13:30 | Outpatient (CLI) | payer MEDICARE, MEDICAID ==
--- NOTE | 2020-10-01 20:10 | CONSULTATION NOTE ---
Palliative Care Follow Up - Referral Referring Provider: Dr. Sharron Marte Time of Visit: [id number] Referral setting: Home Referral Reason: Pain of neoplastic origin/Diplopia/Met Breast CA - Information Sources Records reviewed: Previous records reviewed History/Review of Systems obtained from: Patient Exam limitations: Clinical condition (patient with STM issues and anxiety) - History of Present Illness Update Brief HPI Update: This is an unfortunate 64-year-old woman who continues to have a variety of things happen to her. She has metastatic breast cancer with bones only, now with progression of disease. She ended up with severe hyperglycemia on her Piqray and needed dose adjustment, I am here to help her with her new RX and transition. She had called me earlier in the week and she was having severe dizziness, double vision, had made arrangements for her to see [place] [facility] doctor as well as primary care for possible emergent imaging for brain mets. 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 She is quite anxious that she is trying to arrange for transportation, and continues to struggle with feeling overwhelmed with the multiple issues she is dealing with. Patient is also healing from a nondisplaced C5 fracture, has been discharged by home health. She continues with pain in her neck, is fearful of showering without assistance, she did have her curriculum and assessment coordinator help her this last week. Her pain continues to fluctuate, she is currently on Duragesic/fentanyl 100 mcg patch, she has been using some Vicodin hydrocodone 5/acetaminophen 325 mg for breakthrough pain for both hip and eye discomfort. She reports her pain has been continued to escalate, particular in her shoulders and left side, she has increased pain with weightbearing and ambulating in her apartment. She is quite sedentary and spends most of her time in recliner. Have discussed with her transitioning when things have stabilized out to outpatient therapy. Patient has longstanding mental health issues, she again has used up her clonazepam early. This is not unusual behavior for her when she gets anxious. She continues to ask for more medications, but is unwilling to try alternatives for depression or anxiety. She reports she has not been drinking. Which is the other way she often uses to cope. Past Medical History: Peripheral neuropathy, anxiety, depression, mild cognitive deficits, weight loss, cholelithiasis, pancytopenia secondary to myelodysplastic syndrome, history of alcohol abuse, history of smoking Social History - Living Situation Living arrangement: At home Living Situation: Alone Support System: Patient lives in subsidized housing in [facility]. Have encouraged her multiple times to reach out to [place], she is needing more assistance. She is quite resistant if she has a spend down, but now given needing more transportation and would be eligible for Medicaid transportation if she admitted to spend down she is looking into it. She has very poor social support, and is estranged from her family. She creates many barriers for enlisting further community support. Medications/Allergies - Medications Home Medications: Ambulatory Orders Medication Instructions Recorded Confirmed clonazePAM [Clonazepam] 1 mg PO TID MDD 3 tabs 04/08/16 10/02/20 Lactulose 5 - 10 ml PO BID PRN MDD titrates 12/16/18 10/02/20 Ondansetron [Zuplenz] 4 mg PO Q6HR PRN 01/19/19 10/02/20 Hydrocodone/Acetaminophen 1 - 2 each PO Q4HR PRN MDD 6 tabs 03/08/19 10/02/20 [Hydrocodon-Acetaminophn 10-325] Omeprazole 20 mg PO DAILY PRN 03/22/19 10/02/20 fentaNYL [Fentanyl 75mcg patch] 100 mcg TOP .72 HOURS 03/03/20 10/02/20 Metoclopramide HCl 5 mg PO TID PRN MDD hold if 03/21/20 10/02/20 diarrhea polyethylene glycoL 3350 [Miralax] 17 gm PO BID MDD hold for diarrhea 07/30/20 10/02/20 Cetirizine [ZyrTEC] 10 mg PO DAILY #90 tab MDD bid for 09/03/20 10/02/20 rash Diphenoxylate/Atropine [Lomotil] 1 each PO QID PRN #30 tab 09/03/20 10/02/20 Loperamide [Imodium] 2 mg PO UD PRN #1 pkg MDD 16 mg 09/03/20 10/02/20 Megestrol Acetate [Megace Es] 10 ml PO DAILY 09/05/20 10/02/20 dexAMETHasone [Dexamethasone] 0.5 mg PO BID MDD rinse and spit 09/05/20 10/02/20 Alpelisib [Piqray] 250 mg PO DAILY 09/24/20 10/02/20 - Allergies Allergies/Adverse Reactions: Allergies Allergy/AdvReac Type Severity Reaction Status Date / Time oxycodone HCl * Allergy Mild itch Verified 09/18/20 14:25 [From Percocet] Review of Systems - Constitutional Constitutional: reports: Fatigue, Weakness, Poor appetite, Weight loss (10 pound wt. loss per her report over last month). denies: Fever, Chills - Eyes Eyes: reports: Blurred vision, Vision loss, Dipolpia (new symptom) - Ears, Nose & Throat Ears, Nose & Throat: reports: Dental decay, Dry mouth - Cardiovascular Cardiovascular: reports: Decr. exercise tolerance. denies: Edema - Respiratory Respiratory: reports: SOB with exertion. denies: Cough, SOB at rest - Gastrointestinal Gastrointestinal: reports: Poor appetite, Early satiety. denies: Constipation (using the M) - Genitourinary Genitourinary: reports: Frequency, Incontinence - Musculoskeletal Musculoskeletal: reports: Muscle pain, Back pain, Muscle aches, Stiffness, Limited range of motion, Muscle weakness, Joint pain (left shoulder/elbow pain severe/ right shoulder pain moderate; neck pain discomfort) - Integumentary Integumentary: reports: Dryness. denies: Rash, Pruritis, Hair changes - Neurological Neurological: reports: General weakness, Memory problems, Abnormal gait - Psychiatric Psychiatric: reports: Depression, Anxiety (Patient uses her clonazepam 1 mg 3 times daily, she has been on this long-term;) - Endocrine Endocrine: reports: Diabetes type 2 (BS normalized again off Piqray) - Hematologic/Lymphatic Hematologic/Lymph: reports: Anemia - All Other Systems All Other Systems: reports: Reviewed and negative Physical Exam - Vital Signs Temperature: 98.4 C Pulse Rate: 70 Respiratory Rate: 18 O2 Saturation: 97 Blood Pressure: 180/81 (very anxious today) - Physical Exam General Appearance: positive: Alert, Mild distress, Anxious Eyes Bilateral: positive: No scleral icterus, Other (left eye pulling to right; unable to shift gaze to left; difficulty focusing; has eye patch) ENT: positive: No signs of dehydration Neck: positive: Trachea midline Cardiovascular: positive: Regular rate & rhythm Respiratory: positive: No respiratory distress, Breath sounds nml Abdomen: positive: Non-tender, Soft, Obese Skin: positive: Pallor, Dryness Extremities: positive: No pedal edema Neurologic/Psychiatric: positive: Disoriented to time (gets sleep schedule mixed up), Weakness, Depressed mood/affect, Flat affect Palliative Care - POLST Patient has POLST: Yes POLST Status: DNR, Selective Treatment Pain: Pain worsening, Location (reports increase pain bilaterally in hip and neck) Tiredness/Fatigue: Severe (7-10) Drowsiness/Sedation: Mild (1-3) Nausea: Mild (1-3) Anorexia: Moderate (4-6) Dyspnea: Moderate (4-6) Depression: Severe (7-10) Anxiety: Severe (7-10) Feelings of wellbeing/Perceived Quality of Life: Poor, Worsening Sleep: Sleeps poorly, Variable sleep pattern Constipation: Yes, Opoid induced, Intermittent constipation Performance Status: She was able to bathe with assistance from curriculum and assessment coordinator earlier this week. She remains quite skittish, she does have a set up in her bathroom. She would benefit from ongoing [place] support, for assistance with household, transportation and personal care. Child to [facility], has been resistant before. She is ambulatory in her apartment, but is sedentary most of the time sitting in recliner, and ambulating short distances to the bathroom and to her bedroom - Palliative Care Discussion: Patient continues to be overwhelmed with the multiple issues that are related to both the sequela of her disease as well as her fall. Now presents with yet another issue with her 6th cranial nerve palsy and diplopia. She is feeling quite overwhelmed. She remains very anxious about her pending new treatment plan, perseverates on the side effects, have reviewed her medications and management of side effects almost daily at this point. Reviewed again today at this visit. Results - Lab Results Lab results reviewed: Yes Impression and Recommendations - Palliative Care Impression: This is an anxious 64-year-old woman with metastatic breast cancer, with recent progression of her bony metastatic disease. Unfortunately with her new regimen, she had sequela of hyperglycemia, and is to restart reduced dose. She is feeling somewhat overwhelmed regarding pending management and schedule. She now presents with diplopia, 6th cranial nerve palsy, with further work-up planned on . She continues to struggle with severe anxiety, depression, fluctuating mood. This is in the context of poor social support. Palliative care providing support for pain and symptom management, medication adherence to new therapy, and coordination of care Recommendations/Counseling Done: 1. Pain of neoplastic origin. Patient continues with persistent pain in her hips bilaterally, lateral shoulder and neck and scapular pain. She does continue with persistent pain, she is somewhat distracted with her left eye pain currently. Patient currently on fentanyl 100 mcg patch, we will leave her on current dosing until patient has stabilized medically. She is using her Vicodin for breakthrough pain, she may need a titration. 2. Status postFracture. Patient would benefit from further strengthening, and physical therapy. She did receive some through [facility], but was quite resistant and put out many barriers. We will continue to follow. 3. Medication adherence. Patient has new Piqray. We reviewed the packaging, multiple times, patient does feel like she understands at this point. We also reviewed side effect management, instructions were written out, reviewed multiple times as well. Patient does have medications needed, as well as able to verbalize back management of side effects. She is quite anxious to start, given her worry about diarrhea and pending appointments. 4. Anxiety. Patient continues with fluctuating mood, is feeling quite overwhelmed with her most recent incident with her diplopia, sixth cranial nerve palsy. Awaiting further outcome of work up, did finalize transportation plans during visit. 6 cranial nerve palsy. Patient is wearing patch, encouraged to continue to remain adherent. Reviewed instructions from merchandise complaint adjuster, does feel like it will resolve on its own if she gives at rest. Coordination with oncology team to make sure they understand current findings. 60 minutes with greater than 50% of this done in counseling regarding medication adherence/side effects, coordination of care for transportation for follow-up with ophthalmology, coordination of care with oncology and anticipatory guidance.
== END 2020-10-01 13:31 | disposition home or self-care (01) ==
LOC: PC 13:30
PROVIDERS: ATTEND Nurse Practitioner Adult Health
DX: Z51.5 Encounter for palliative care (principal); G89.3 Neoplasm related pain (acute) (chronic); C50.919 Malignant neoplasm of unspecified site of unspecified female breast; C79.51 Secondary malignant neoplasm of bone; T14.8XXD Other injury of unspecified body region, subsequent encounter; F41.9 Anxiety disorder, unspecified; H49.22 Sixth [abducent] nerve palsy, left eye; D46.9 Myelodysplastic syndrome, unspecified; E11.42 Type 2 diabetes mellitus with diabetic polyneuropathy; Z87.891 Personal history of nicotine dependence; Z66 Do not resuscitate
CPT/HCPCS: 99350

== ENCOUNTER 2020-10-21 15:28 | Outpatient (CLI) | payer MEDICARE, MEDICAID ==
--- OUTSIDE RECORDS SUMMARY | 2020-10-30 21:14 | EXTERNAL MEDICAL SUMMARY RPT | Continuity of Care Document ---
:1955 Demographics Phone Unavailable Preferred Language Armenian Marital Status Unknown Mandaeism Affiliation Unknown Race Unknown Ethnic Group Unknown Author Organization [facility] Address [address] [phone] Phone Problems date description facility [id number] Malignant neoplasm of unspecified site of [facility] female Social History date description facility [id number]
== END 2020-10-21 15:29 | disposition critical access hospital (66) ==
LOC: EMS 15:28
PROVIDERS: ATTEND Emergency Medicine
DX: H53.2 Diplopia (principal); R51.9 Headache, unspecified
CPT/HCPCS: A0425; A0429

== ENCOUNTER 2020-10-21 15:31 | Emergency (ER) | payer MEDICARE, MEDICAID ==
[2020-10-21] MEDS ORDERED: HYDROmorphone 1 MG/ML CARPUJECT IVP STA ×2 (15:50→17:08)
--- NOTE | 2020-10-21 15:53 | ED Physician Documentation ---
PD HPI OPHTHO - Stated complaint Stated Complaint: EYE PX - History obtained from History obtained from: Patient - Additional information Additional information: 65-year-old woman with widely metastatic breast cancer developed a diplopia jacobo und the 3rd of this month. She subsequently was seen by ophthalmology and diagnosed with a cranial nerve palsy. She was referred to a neuro- wind instrument repairer who requested MRI of the brain but this has not yet been done. Over the left last week or so she has developed progressive and now severe left eye pain despite taking fairly high-dose hydrocodone. Review of Systems Ten Systems: 10 systems reviewed and negative Constitutional: reports: Reviewed and negative Ears: reports: Reviewed and negative Nose: reports: Reviewed and negative Throat: reports: Reviewed and negative Cardiac: reports: Reviewed and negative Respiratory: reports: Reviewed and negative PD PAST MEDICAL HISTORY - Past Medical History Cardiovascular: Hypertension Respiratory: Sleep apnea, CPAP use Neuro: None Endocrine/Autoimmune: Type 2 diabetes GI: GERD, Cholelithiasis PROVIDER RELATIONS SPECIALIST: Breast cancer : Incontinence HEENT: None Psych: Depression, Anxiety Musculoskeletal: Osteoarthritis, Other Derm: None - Past Surgical History Past Surgical History: Yes General: Colonoscopy, Other /PROVIDER RELATIONS SPECIALIST: Endometrial ablation, Other - Present Medications Home Medications: Ambulatory Orders Medication Instructions Recorded Confirmed clonazePAM [Clonazepam] 1 mg PO TID MDD 3 tabs 04/08/16 10/21/20 Lactulose 5 - 10 ml PO BID PRN MDD titrates 12/16/18 10/21/20 Ondansetron [Zuplenz] 4 mg PO Q6HR PRN 01/19/19 10/21/20 Hydrocodone/Acetaminophen 1 - 2 each PO Q4HR PRN MDD 6 tabs 03/08/19 10/21/20 [Hydrocodon-Acetaminophn 10-325] Omeprazole 20 mg PO DAILY PRN 03/22/19 10/21/20 fentaNYL [Fentanyl 75mcg patch] 100 mcg TOP .72 HOURS 03/03/20 10/21/20 Metoclopramide HCl 5 mg PO TID PRN MDD hold if 03/21/20 10/21/20 diarrhea polyethylene glycoL 3350 [Miralax] 17 gm PO BID MDD hold for diarrhea 07/30/20 10/21/20 Cetirizine [ZyrTEC] 10 mg PO DAILY #90 tab MDD bid for 09/03/20 10/21/20 rash Diphenoxylate/Atropine [Lomotil] 1 each PO QID PRN #30 tab 09/03/20 10/21/20 Loperamide [Imodium] 2 mg PO UD PRN #1 pkg MDD 16 mg 09/03/20 10/21/20 Megestrol Acetate [Megace Es] 10 ml PO PRN PRN 09/05/20 10/21/20 dexAMETHasone [Dexamethasone] 0.5 mg PO BID MDD rinse and spit 09/05/20 10/21/20 Alpelisib [Piqray] 250 mg PO DAILY 09/24/20 10/21/20 haloperidoL [Haldol] 1 mg PO Q8H PRN #12 tablet 10/21/20 - Allergies Allergies/Adverse Reactions: Allergies Allergy/AdvReac Type Severity Reaction Status Date / Time oxycodone HCl * Allergy Mild itch Verified 10/21/20 16:00 [From Percocet] - Social History Does the pt smoke?: No Smoking Status: Never smoker Does the pt drink ETOH?: Yes Does the pt have substance abuse?: No - Immunizations Immunizations are current?: Yes Immunizations: TDAP >10years/unknown - POLST Patient has POLST: Yes POLST Status: DNR PD ED PE NORMAL - Vitals Vital signs reviewed: Yes - General General: Alert and oriented X 3, Other (She appears uncomfortable and in pain.) - HEENT HEENT: PERRL, Other (She is unwilling to have both aids examined with the left eye patch off. As such I have to examine either eye individually. I suspect the left pupil is slightly smaller than the right but not grossly so. She is unable to cooperate with extraocular movements on the left due to retro-orbital pain.) - Neck Neck: Supple, no meningeal sign, No bony TTP - Cardiac Cardiac: RRR, No murmur - Respiratory Respiratory: No respiratory distress, Clear bilaterally - Abdomen Abdomen: Soft, Non tender - Back Back: No CVA TTP, No spinal TTP - Derm Derm: Normal color, Warm and dry - Extremities Extremities: No edema, No calf tenderness / cord - Neuro Neuro: Alert and oriented X 3, Normal speech Results - Vitals Vitals: Vital Signs - 24 hr 10/21/20 10/21/20 10/21/20 15:56 16:14 17:18 Temperature 36.3 C L Heart Rate 85 68 66 Respiratory 20 16 20 Rate Blood Pressure 156/84 H 139/72 H 142/60 H O2 Saturation 97 97 100 Oxygen O2 Source Room air - Labs Labs: Laboratory Tests 10/21/20 10/21/20 10/21/20 16:08 16:08 16:09 WBC 2.3 L RBC 3.96 L Hgb 11.8 L Hct 34.6 L MCV 87.4 MCH 29.8 MCHC 34.1 RDW 13.5 Plt Count 119 L MPV 9.1 Neut # (Auto) Not Reportable Lymph # (Auto) Not Reportable [place] # (Auto) Not Reportable Eos # (Auto) Not Reportable Baso # (Auto) Not Reportable Absolute Nucleated RBC Not Reportable Total Counted 100 Band Neuts % (Manual) 1 Abnorm Lymph % (Manual) 0 Nucleated RBC % Not Reportable Neutrophils # (Manual) 1.8 Lymphocytes # (Manual) 0.3 L Monocytes # (Manual) 0.1 Eosinophils # (Manual) 0.0 Basophils # (Manual) 0.0 Differential Comment MANUAL DIFFERENTIAL WBC Morphology NORMAL APPEARANCE Platelet Estimate DECREASED (<130,000) Platelet Morphology NORMAL APPEARANCE RBC Morph Micro Appear NORMAL APPEARANCE PT 13.2 H INR 1.2 Sodium 136 Potassium 3.8 Chloride 100 L Carbon Dioxide 28 Anion Gap 8.0 BUN 12 Creatinine 0.9 Estimated GFR (MDRD) 62 L Glucose 130 H Calcium 10.6 H AST ALT Nasal Adenovirus (PCR) Nasal B. parapertussis DNA (PCR) Nasal Coronavir 229E PCR Nasal Coronavir HKU1 PCR Nasal Coronavir NL63 PCR Nasal Coronavir OC43 PCR Nasal Enterovir/Rhinovir PCR Nasal Influenza B PCR Nasal Influenza A PCR Nasal Parainfluen 1 PCR Nasal Parainfluen 2 PCR Nasal Parainfluen 3 PCR Nasal Parainfluen 4 PCR Nasal RSV (PCR) Nasal B.pertussis DNA PCR Nasal C.pneumoniae (PCR) Raul Human Metapneumo PCR Nasal M.pneumoniae (PCR) Nasal SARS-CoV-2 (PCR) Acetaminophen 10/21/20 10/21/20 16:09 17:30 WBC RBC Hgb Hct MCV MCH MCHC RDW Plt Count MPV Neut # (Auto) Lymph # (Auto) [place] # (Auto) Eos # (Auto) Baso # (Auto) Absolute Nucleated RBC Total Counted Band Neuts % (Manual) Abnorm Lymph % (Manual) Nucleated RBC % Neutrophils # (Manual) Lymphocytes # (Manual) Monocytes # (Manual) Eosinophils # (Manual) Basophils # (Manual) Differential Comment WBC Morphology Platelet Estimate Platelet Morphology RBC Morph Micro Appear PT INR Sodium Potassium Chloride Carbon Dioxide Anion Gap BUN Creatinine Estimated GFR (MDRD) Glucose Calcium AST 35 ALT 21 Nasal Adenovirus (PCR) NOT DETECTED Nasal B. parapertussis DNA (PCR) NOT DETECTED Nasal Coronavir 229E PCR NOT DETECTED Nasal Coronavir HKU1 PCR NOT DETECTED Nasal Coronavir NL63 PCR NOT DETECTED Nasal Coronavir OC43 PCR NOT DETECTED Nasal Enterovir/Rhinovir PCR NOT DETECTED Nasal Influenza B PCR NOT DETECTED Nasal Influenza A PCR NOT DETECTED Nasal Parainfluen 1 PCR NOT DETECTED Nasal Parainfluen 2 PCR NOT DETECTED Nasal Parainfluen 3 PCR NOT DETECTED Nasal Parainfluen 4 PCR NOT DETECTED Nasal RSV (PCR) NOT DETECTED Nasal B.pertussis DNA PCR NOT DETECTED Nasal C.pneumoniae (PCR) NOT DETECTED Raul Human Metapneumo PCR NOT DETECTED Nasal M.pneumoniae (PCR) NOT DETECTED Nasal SARS-CoV-2 (PCR) NOT DETECTED Acetaminophen 24 - Rads (name of study) Ct Head W/WO Radiology: EMP read contemporaneously (negative) PD MEDICAL DECISION MAKING - ED course ED course: 65-year-old woman with widely metastatic breast cancer presents with worsening cranial nerve palsy and left retro-orbital pain. It was difficult to control her pain. She relayed that she had taken up to for 10 Vicodin at which time Tylenol level and liver enzymes were added onto work-up. CT of the head with and without contrast demonstrated no mass but clearly this does not have the sensitivity of MR. Our MR is currently nonfunctional due to lack of a communication technician. She feels like she cannot go home and her pain is inadequately managed so [facility] was called for potential transfer around 5:30 PM. Subsequently spoke with the hospitalist in [facility], Dr. Xiomy Valdez at approximately 6:05 PM. The case was presented but she regrets to inform you that she cannot accept the patient given the lack of ophthalmology coverage. Visual acuity per tech 20/40 right eye, 20/50 left eye As such, I started the process to send her to [facility] and after some delays they called back but around that time the patient decided she wanted to go home having noted that the narcotics we were giving her were not really helping with the pain but Haldol was very effective and she just asked for some more of that. Departure - Departure Disposition: 01 Home, Self Care Clinical Impression: Cranial nerve palsy, Left eye pain Breast cancer metastasized to bone Qualifiers: Laterality: unspecified laterality Qualified Code(s): C50.919 - Malignant neoplasm of unspecified site of unspecified female breast Condition: Stable Record reviewed to determine appropriate education?: Yes Prescriptions: haloperidoL [Haldol] 1 mg PO Q8H PRN #12 tablet PRN Reason: eye pain Comments: Keep the appointment for the MRI on Thursday as scheduled. Return for new or worsening or uncontrolled symptoms. Do not take more of your hydrocodone then is recommended per package instructions.
[2020-10-21] MEDS ORDERED: IOVERSOL 320 100 ML VIAL IVP ONE ×2 (16:11→16:59)
[2020-10-21 16:14] LABS: BASOPHILS % (AUTO) 0.4 %; EOSINOPHILS % (AUTO) 0.9 %; HCT - HEMATOCRIT 34.6 % (37.0-47.0); HGB - HEMOGLOBIN 11.8 g/dL (12.0-16.0); LYMPHOCYTES % (AUTO) 9.5 %; MEAN CORPUSCULAR HEMOGLOBIN 29.8 pg (27.0-31.0); MEAN CORPUSCULAR HGB CONC 34.1 g/dL (32.0-36.0); MEAN CORPUSCULAR VOLUME 87.4 fL (81.0-99.0); MEAN PLATELET VOLUME 9.1 fL (7.9-10.8); MONOCYTES % (AUTO) 7.8 %; NEUTROPHILS % (AUTO) 80.5 %; PLT - PLATELET COUNT 119 10^3/uL (130-450); RED BLOOD COUNT 3.96 10^6/uL (4.20-5.40); RED CELL DISTRIBUTION WIDTH 13.5 % (12.0-15.0); WHITE BLOOD COUNT 2.3 x10^3/uL (4.8-10.8)
[2020-10-21 16:18] LABS: ABNORMAL LYMPHS % (MANUAL) 0 %
[2020-10-21 16:23] LABS: CALCIUM 10.6 mg/dL (8.5-10.3); CREATININE 0.9 mg/dL (0.4-1.0); POTASSIUM 3.8 mmol/L (3.5-5.0)
[2020-10-21 16:47] LABS: BAND NEUTROPHILS % (MANUAL) 1 %; LYMPHOCYTES # (MANUAL) 0.3 10^3/uL (1.5-3.5); LYMPHOCYTES % (MANUAL) 14 %; MONOCYTES # (MANUAL) 0.1 10^3/uL (0.0-1.0); NEUTROPHILS # (MANUAL) 1.8 10^3/uL (1.5-6.6); PLATELET ESTIMATE, MANUAL DECREASED (<130,000) (NORMAL); PLATELET MORPHOLOGY NORMAL APPEARANCE (NORMAL); RBC MORPHOLOGY (MULTIPLE) NORMAL APPEARANCE (NORMAL); WBC MORPHOLOGY (MULTIPLE) NORMAL APPEARANCE (NORMAL)
[2020-10-21 16:48] LABS: DIFFERENTIAL COMMENT MANUAL DIFFERENTIAL
--- NOTE | 2020-10-21 17:08 | CT Report ---
PROCEDURE: HEAD W/WO INDICATIONS: Left eye /retroorbital pain with hx brca TECHNIQUE: 4.5 mm thick angled axial sections acquired from the foramen magnum to the vertex before and after th e administration of intravenous contrast. For radiation dose reduction, the following was used: aut omated exposure control, adjustment of mA and/or kV according to patient size. CONTRAST: IV CONTRAST: Optiray 320 ml: 100 PO CONTRAST: *NO PO CONTRAST COMPARISON: Head CT examinations, 06/06/2020 and 06/12/2019 FINDINGS: Image quality: Excellent. CSF Spaces: Basal cisterns are patent. Mild, stable, chronic appearing bilateral frontal subdural hy gromas can be seen. Ventricles are normal in size and shape. Brain: No midline shift. No intracranial bleeds or masses. No abnormal intracranial enhancement. Panda-white interface appears normal. Skull and face: No orbital masses or abnormal enhancement can be seen. Calvarium and visualized faci al bones appear intact, without suspicious lesions. Sinuses: Visualized sinuses and mastoids are clear. Document material can be seen overlying the left orbit. IMPRESSION: No imaging explanation is found for the patient's presenting symptoms. No masses or abnormal enhancement can be seen. If there is strong clinical concern for orbital or intracranial masses in this patient with this give n history, then please consider a dedicated brain MRI (orbits protocol, without and with contrast) fo r further evaluation (assuming that there is no contraindication). Reviewed by: Jasiel Felix MD on 10/21/2020 4:06 PM [facility] Approved by: Jasiel Felix MD on 10/21/2020 4:06 PM [facility] Station ID: [id number]
[2020-10-21] MEDS ORDERED: KETOROLAC 30 MG/ML VIAL IVP STA (17:24)
[2020-10-21 17:44] LABS: INR 1.2 (0.8-1.2); PT - PROTHROMBIN TIME 13.2 secs (9.9-12.6)
[2020-10-21 17:45] LABS: ACETAMINOPHEN 24 ug/mL (10-30); ALT ALANINE AMINOTRANSFERASE 21 IU/L (10-60); AST ASPARTATE AMINOTRANSFERASE 35 IU/L (10-42)
[2020-10-21] MEDS ORDERED: HALOPERIDOL 5 MG/ML VIAL IVP ONE ×2 (18:13→20:39)
[2020-10-21 18:30] LABS: B. PARAPERTUSSIS- RESP PCR PAN NOT DETECTED; B. PERTUSSIS- RESP PCR PANEL NOT DETECTED; C. PNEUMONIAE- RESP PCR PANEL NOT DETECTED; CORONAVIRUS 229E-RESP PCR NOT DETECTED; CORONAVIRUS HKU1-RESP PCR NOT DETECTED; CORONAVIRUS NL63-RESP PCR NOT DETECTED; CORONAVIRUS OC43-RESP PCR NOT DETECTED; HUMAN METAPNEUMOVIRUS NOT DETECTED; INFLUENZA A- RESP PCR PANEL NOT DETECTED; INFLUENZA B - RESP PCR PANEL NOT DETECTED; M. PNEUMONIAE- RESP PCR PANEL NOT DETECTED; PARAINFLUENZA VIRUS 1 NOT DETECTED; PARAINFLUENZA VIRUS 2 NOT DETECTED; PARAINFLUENZA VIRUS 3 NOT DETECTED; PARAINFLUENZA VIRUS 4 NOT DETECTED; RHINOVIRUS/ENTEROVIRUS NOT DETECTED; RSV- RESP PCR PANEL NOT DETECTED; SARS-CoV-2 -RESP PCR PANEL NOT DETECTED
[2020-10-21] MEDS ORDERED: SODIUM CHLORIDE 0.9% 1,000 ML IV STA (19:52)
[2020-10-21] MEDS ORDERED: haloperidoL 1 MG TABLET PO STA (20:39)
[2020-10-21 21:16] VITALS: BP 156/79
== END 2020-10-21 21:18 | disposition home or self-care (01) ==
LOC: EDUNIT# → ED 15:31
DX: H49.22 Sixth [abducent] nerve palsy, left eye (principal); H57.12 Ocular pain, left eye; C50.919 Malignant neoplasm of unspecified site of unspecified female breast; C79.51 Secondary malignant neoplasm of bone; I10 Essential (primary) hypertension; E11.9 Type 2 diabetes mellitus without complications; Z20.822 Contact with and (suspected) exposure to COVID-19
CPT/HCPCS: 36415; 70470; 80048; 80307; 84450; 84460; 85025; 85610; 87631; 96374; 96375; 96376; 99284; A9270; J1170; Q9967; 0202U

== ENCOUNTER 2020-10-25 | Outpatient (CLI) | payer MEDICARE, MEDICAID ==
--- NOTE | 2020-10-25 20:35 | CONSULTATION NOTE ---
Palliative Care Follow Up - Referral Referring Provider: Dr. Sharron Marte Time of Visit: [id number] Referral setting: Home Referral Reason: Pain of neoplastic origin/Anxiety/Met Breast Cancer/Diplopia - Information Sources Records reviewed: Previous records reviewed History/Review of Systems obtained from: Patient Exam limitations: Clinical condition (patient with STM issues/anxiety) - History of Present Illness Update Brief HPI Update: This is an unfortunate 65-year-old woman who has high anxiety, with multiple is sues and high symptom burden. She has metastatic breast cancer with bones only, but with progression of disease. She has having worsening pain, affecting function, with pain bilaterally in her hips lower back bilateral shoulder pain and increasing rib pain and discomfort. She is also had left eye pain related to her left cranial nerve palsy with diplopia, but today she reports this is improved. She did have an emergency room visit on 10/21 for this, with recommendation for transfer which she declined. Patient had also overused her Vicodin, had told the ED doctor she took 15 in 24 hours, despite having been recommended multiple times to take more no more than 6-7. She is scheduled to have a brain MRI at [facility] on 10/26/2020, she did see the oncologist she is to start her alpelisib, which she did yesterday without any undue effect today. She is quite anxious about having diarrhea, and managing her medication schedule. She has had another fluctuation in her intake, and has lost 10 to 12 pounds over the last several weeks. Patient on observation, is having more difficulty getting from sitting to standing, gait is ataxic in the context of weightbearing and able to move ea sily. She is now frightened to take the Vicodin,, as she has finally understood she needs to limit her acetaminophen intake related to concerns for liver toxicity. She reports her pain is keeping her from sleeping, worsens with weightbearing, and is having less response to the Vicodin even when taking appropriately. Past Medical History: Longstanding mental health issues, anxiety disorder, depression, history of nondisplaced C5 fracture, peripheral neuropathy, mild cognitive deficits, weight loss, cholelithiasis, pancytopenia secondary to myelodysplastic syndrome, history of alcohol abuse currently not drinking, history of tobacco abuse, Left cranial nerve palsy with diplopia on left eye pain Social History - Living Situation Living arrangement: At home Living Situation: Alone Support System: Patient lives in subsidized housing at [facility], She has reached out to Mary regarding [place] PES that she is needing more assistance. She does not feel safe bathing by herself given her weakness and difficulty standing. She has been quite resistant in the past related to a spend down, but is now unable to drive, and would be eligible for Medicaid transportation. She has very poor social support, this has much to do with her underlying mental health issues, she is estranged from her family, she creates many barriers for enlisting any kind of support. She is quite anxious, she does call frequently for support and management of her medications. Medications/Allergies - Medications Home Medications: Ambulatory Orders Medication Instructions Recorded Confirmed clonazePAM [Clonazepam] 1 mg PO TID MDD 3 tabs 04/08/16 10/26/20 Lactulose 5 - 10 ml PO BID PRN MDD titrates 12/16/18 10/26/20 Ondansetron [Zuplenz] 4 mg PO Q6HR PRN 01/19/19 10/26/20 Omeprazole 20 mg PO DAILY PRN 03/22/19 10/26/20 fentaNYL [Fentanyl 75mcg patch] 125 mcg TOP .72 HOURS 03/03/20 10/26/20 Metoclopramide HCl 5 mg PO TID PRN MDD hold if 03/21/20 10/26/20 diarrhea polyethylene glycoL 3350 [Miralax] 17 gm PO BID MDD hold for diarrhea 07/30/20 10/26/20 Cetirizine [ZyrTEC] 10 mg PO DAILY #90 tab MDD bid for 09/03/20 10/26/20 rash Diphenoxylate/Atropine [Lomotil] 1 each PO QID PRN #30 tab 09/03/20 10/26/20 Loperamide [Imodium] 2 mg PO UD PRN #1 pkg MDD 16 mg 09/03/20 10/26/20 Megestrol Acetate [Megace Es] 10 ml PO PRN PRN 09/05/20 10/26/20 dexAMETHasone [Dexamethasone] 0.5 mg PO BID MDD rinse and spit 09/05/20 10/26/20 Alpelisib [Piqray] 250 mg PO DAILY 09/24/20 10/26/20 Oxycodone HCl 10 mg PO Q4HR PRN MDD 6 10/26/20 10/26/20 - Allergies Allergies/Adverse Reactions: Allergies Allergy/AdvReac Type Severity Reaction Status Date / Time morphine AdvReac Itching Verified 10/26/20 03:44 Review of Systems - Constitutional Constitutional: reports: Fatigue (persistent), Weakness, Poor appetite, Diaphoresis, Night sweats, Weight loss (10 pound wt. loss over last 2 weeks). denies: Fever, Chills - Eyes Eyes: reports: Blurred vision (right eye "getting tired" difficulty reading), Vision loss, Dipolpia (left eye;) - Ears, Nose & Throat Ears, Nose & Throat: reports: Dry mouth. denies: Mouth lesions - Cardiovascular Cardiovascular: reports: Decr. exercise tolerance. denies: Edema - Respiratory Respiratory: reports: SOB with exertion. denies: Cough, SOB at rest - Gastrointestinal Gastrointestinal: reports: Poor appetite, Early satiety. denies: Constipation (using the M), Diarrhea, Nausea, Reflux/heartburn - Genitourinary Genitourinary: reports: Frequency, Incontinence - Musculoskeletal Musculoskeletal: reports: Muscle pain, Back pain (worsening; more pain with weight bearing), Muscle aches, Stiffness, Limited range of motion, Muscle weakness, Joint pain (left shoulder/elbow pain severe/ right shoulder pain moderate; neck pain discomfort) - Integumentary Integumentary: reports: Dryness. denies: Rash, Pruritis, Hair changes - Neurological Neurological: reports: General weakness, Memory problems (worsening; needs frequent instruction and repeating; very anxious), Abnormal gait - Psychiatric Psychiatric: reports: Depression, Anxiety (Patient uses her clonazepam 3 mg, she has been on this long-term; runs out frequently ahead of schedule) - Endocrine Endocrine: reports: Diabetes type 2 (BS normalized again off Piqray; now starting again) - Hematologic/Lymphatic Hematologic/Lymph: reports: Anemia - All Other Systems All Other Systems: reports: Reviewed and negative Physical Exam - Vital Signs Temperature: 97.2 C Pulse Rate: 69 Respiratory Rate: 18 O2 Saturation: 98 (ra @ rest) Blood Pressure: 169/87 - Physical Exam General Appearance: positive: Alert, Mild distress, Anxious (pending MRI; new oral chemo) Eyes Bilateral: positive: No scleral icterus, Other (left eye pulling to right; unable to shift gaze to left; difficulty focusing; has eye patch; pain improved today) ENT: positive: No signs of dehydration Neck: positive: Trachea midline Cardiovascular: positive: Regular rate & rhythm Respiratory: positive: No respiratory distress Abdomen: positive: Non-tender, Soft, Obese Skin: positive: Pallor, Dryness Extremities: positive: No pedal edema Neurologic/Psychiatric: positive: Disoriented to time (gets sleep schedule mixed up), Weakness, Depressed mood/affect, Flat affect Palliative Care - POLST Patient has POLST: Yes POLST Status: DNR, Selective Treatment Pain: Pain worsening, Comment (see HPI; has decreased Vicodin use to 6 tabs/24 hours) Tiredness/Fatigue: Severe (7-10) Drowsiness/Sedation: Mild (1-3) Nausea: None Anorexia: Moderate (4-6), Weight loss Dyspnea: Mild (1-3) Depression: Moderate (4-6) Anxiety: Severe (7-10) Feelings of wellbeing/Perceived Quality of Life: Poor, Worsening Sleep: Sleeps poorly, Variable sleep pattern (sleeps during day; up late at night) Constipation: Yes, Opoid induced, Intermittent constipation Performance Status: Patient's functional status continues to decline, she is limited by her pain, and generalized weakness. She is fearful of getting the shower by herself, is quite distressed has not been able to wash her hair. She does do some meal prep, but increase standing causes pain. She is awaiting callback from Mary for further support, encouraged to follow through on [place] PES. - Palliative Care Discussion: Patient remains very anxious regarding pending MRI's can for her brain. She shares a fatigue of having lived with her cancer for 9 years, fairly much doing her journey on her own, feeling overwhelmed and discouraged that her current quality of life. She remains quite isolated, today she is somewhat more clear and reflective. She continues to be very worried about being able to manage independently, we did explore some about what her options would be when she is no longer able to care for herself, she finds this distressing. She continues to perceive her quality of life is deteriorating, and is somewhat exhausted and trying to manage all of this on her own. She does though put up many barriers for any other kind of support, as well as often is unhappy with those who do try and help. Results - Lab Results Lab results reviewed: Yes Lab and Imaging Results: Patient's most recent CT scan of her brain, did not have any remarkable images, no acute processes were identified. Her CBC showed white count 3.6, hemoglobin 11.8, platelet count 129, bilirubin 1.4, CA 15-3 is at 272 on 10/02/2020 continue to increase. Impression and Recommendations - Palliative Care Impression: This is an anxious 65-year-old woman with metastatic breast cancer, with recent progression of her bony metastatic disease. She presents today with ongoing escalating pain, multifactorial in origin, but suspect bony mets is worsening. She presents with diplopia, 6th cranial nerve palsy, with further work-up of MRI on 10/26. Recent CT scan of her brain in ED, showed no acute changes. She continues to struggle with severe anxiety, depression, fluctuating mood, and managing her medications and oral chemotherapeutic agent. This is all in the context of poor social support. Palliative care providing support for pain and symptom management, medication adherence, and coordination of care Recommendations/Counseling Done: 1. Pain of neoplastic origin. Patient does have multifactorial pain, including DJD, osteoarthritis, arthralgias, but worsening symptoms of metastatic bony disease. She does have pain with increased weightbearing, had been using higher doses of hydrocodone/APAP for eye pain, she has been titrating off of this because of the acetaminophen and her overuse. Her eye pain is resolved today. She is currently been taking Vicodin 6 tabs in 24 hours over the last couple days. What she is noted though as she has had increased bony pain, suspect need to titrate up her fentanyl. She has been at fentanyl 100 mcg since May 2020, after much discussion we will go ahead and increase it to 125 mcg with hope to decrease need for breakthrough pain medications. We will also transition her from Vicodin to oxycodone 10 mg tabs 1 tab every 4 hours not to exceed 6. Did explore her report of oxycodone allergy, she reports this was from several years ago and kept describing "IV" medication, with surgery. Discussed Percocet is not IV, unfortunately due to her poor recall, I suspect it may be morphine. Her reaction though was pruritus, will go ahead and trial jennifer in oxycodone to limit APAP. Patient does not perceive hydrocodone/APAP working at this point, suspect given her high levels of fentanyl is not adequate for breakthrough pain dosing. Patient will add fentanyl 25 mcg patch with next patch change on Thursday, she thinks she has some left from before. Unable to locate at time of visit, ordered at [facility], discontinued Vicodin and ordered oxycodone. Written instructions provided. 2. Weight loss. This is multifactorial. Patient is much more focused in the context she needs to take her Alpelisib with food. We did discuss in the context of her diminished appetite again, would recommend restarting her Megace as it has been helpful for her in the past. She does have a prescription still. Patient will consider, she is quite resistant in the context that she does not like to be really hungry in the middle of the night. 3. Medication adherence. Patient has new Piqray, she has started, without significant side effects in last 48 hours. Patient has her meds out, reviewed instructions yet again for side effects regarding rash and diarrhea as well as nausea. Patient with high anxiety about follow-through, plus with vision changes having more difficult reading labels. 4. Anxiety. Patient continues with fluctuating mood, she gets quite overwhelmed, she often uses her clonazepam up before end of month. She is aware will not be filled early. She has been instructed multiple times on how to use it appropriately. She does not perceive is working, but does not want to change. We did discuss possibly trialing BuSpar, she would be needing a very slow taper off the clonazepam, though she does "cold turkey at" for often 1 to 2 weeks at the end of her prescription. She is not been drinking, she reports the taste is "nasty", plus she is unable to drive to obtain. She also reports it does cause stomach problems, and is aware given her multiple medication she is on has been counseled multiple times not to combine. 5. 6th cranial nerve palsy. Patient is wearing a patch, she is reporting right eye fatigue. She is to receive her MRI of her brain 10/26, she is very anxious about having her scan results sent to the neuro sail cutter, will help facilitate. She does have his card to hand to the [facility] [employer] tomorrow to mail disc. 6. Metastatic breast cancer. Patient is receiving Faslodex, discussed most likely side effect of her night sweats and hot flashes. She is also been restarted on the Piqray and will be getting monitored closely, patient does have Metformin in the home if needed. 7. Advanced care planning. Patient remains at high risk living alone, with difficulty with her anxiety, and little social support. She does have a POLST with [facility] AR and selective treatments. Patient did not want her life prolonged or aggressive measures if she were to have any kind of event or life threatening hospitalization. 75 minutes with greater than 50% of this done in counseling, review of medications, writing out of instructions, coordination of care with oncology team, and anticipatory guidance.
--- OUTSIDE RECORDS SUMMARY | 2020-10-31 01:22 | EXTERNAL MEDICAL SUMMARY RPT | Continuity of Care Document ---
:1955 Demographics Phone Unavailable Preferred Language Pashto Marital Status Unknown Quaker Affiliation Unknown Race Unknown Ethnic Group Unknown Author Organization [facility] Address [address] [place] [address] Phone Problems date description facility [id number] Malignant neoplasm of unspecified site of [facility] female Social History date description facility [phone]
== END 2020-10-25 15:01 | disposition home or self-care (01) ==
CPT/HCPCS: 99350

== ENCOUNTER 2020-11-01 14:20 | Outpatient (CLI) | payer MEDICARE, MEDICAID | END 2020-11-01 14:21 | disposition short-term general hospital (02) | LOC: EMS 14:20 | DX: M54.5 Low back pain (principal); M25.552 Pain in left hip | CPT/HCPCS: A0425; A0427 ==